=== PATIENT | male | born 1955 | race Caucasian/White ===

== ENCOUNTER 2024-01-17 15:12 | Inpatient (IN) | payer MEDICAID, SELFPAY ==
[2024-01-17] VITALS (7 sets, daily range): BP systolic 113–126; BP diastolic 74–89; PULSE 92–111; RESP 16–24; TEMP 34.7–37.2; O2SAT 88–98; BMI 19.1
--- NOTE | 2024-01-17 15:32 | XR_ITS ---
Examination: PA lateral chest 2 views TECHNIQUE: Upright PA lateral chest 2 views Exam date and time: January 17, 2024 1602 hours INDICATIONS: SOB beginning 2 weeks ago. FINDINGS: Bibasilar pneumonia, prominent in the right lower lobe Mild enlargement cardiac contour Moderate hyperexpansion Intact osseous structures IMPRESSION: COPD Bibasilar pneumonia, significant right base
--- NOTE | 2024-01-17 15:32 | EKG_ITS ---
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[employer]: : 1955 Requested By: Hao Chapin (KRYSTINA) Order Number: [id number] Reading MD: Hao Chapin (LABOR COMMISSIONER) Measurements Intervals [place] Rate: 95 P: 78 [place]: 151 QRS: 97 QRSD: 110 T: 54 QT: 358 QTc: 450 Interpretive Statements SINUS RHYTHM WITH OCCASIONAL VENTRICULAR PREMATURE COMPLEXES LEFT ATRIAL ENLARGEMENT [-0.15mV P WAVE IN V1/V2] BORDERLINE RIGHT AXIS DEVIATION [QRS AXIS > 90] ST ELEVATION, CONSIDER ANTERIOR INJURY [MARKED ST ELEVATION W/O NORMALLY INFLECTED T WAVE IN V2-V5] ACUTE [place] No previous ECG available for comparison /store/S0/[id number]/ecg/[id number].pdf
--- NOTE | 2024-01-17 15:32 | PD.EDRME ---
Rapid Medical Screening Exam RME Arrival date/time: 01/17/24 15:12 68-year-old male presents emergency department complaints of shortness of breath ongoing for last couple of weeks Chief Complaint: Shortness of Breath/Dyspnea Time Seen by Provider: 01/17/24 15:24 Vital signs: Vital Signs Temperature 97.4 F 01/17/24 15:30 Pulse Rate 111 H 01/17/24 15:30 Respiratory Rate 20 01/17/24 15:30 Blood Pressure 122/77 01/17/24 15:30 Pulse Oximetry (%) 94 L 01/17/24 15:30 Oxygen Delivery Method Room Air 01/17/24 15:30
[2024-01-17 16:08] LABS: Basophils % (Auto) 0 % (0-2.5); Eosinophils # (Auto) 0.1 Thou/mm3 (0.0-0.5); Eosinophils % (Auto) 1 % (0-10); Hematocrit 42.5 % (41.0-53.0); Hemoglobin 14.2 g/dL (13.5-16.0); Immature Granulocytes % (Auto) 1 % (0-0); Immature Granulocytes Auto 0.04 Thou/mm3 (0.00-0.00); Lymphocytes # (Auto) 2.1 Thou/mm3 (1.0-4.8); Lymphocytes % (Auto) 24 % (10-50); Mean Corpuscular HGB Conc 33.4 g/dl (31.0-37.0); Mean Corpuscular Hemoglobin 29.8 pg (25.0-35.0); Mean Corpuscular Volume 89 fL (80-100); Monocytes # (Auto) 0.8 Thou/mm3 (0.0-0.8); Monocytes % (Auto) 9 % (0-12); Neutrophils # (Auto) 5.7 Thou/mm3 (1.8-7.7); Neutrophils % (Auto) 65 % (37-80); Nucleated Red Blood Cell % 0 /100 WBC (0); Platelet Count 400 Thou/mm3 (140-440); RDW Standard Deviation 43.8 fL (35.1-43.9); Red Blood Count 4.76 Miln/mm3 (4.50-5.90); White Blood Count 8.7 Thou/mm3 (3.8-10.6)
[2024-01-17 16:45] LABS: Alanine Aminotransferase 23 U/L (10-49); Albumin, Serum 4.1 gm/dL (3.4-4.8); Albumin/Globulin Ratio 1.3 (1.2-2.2); Alkaline Phosphatase 106 U/L (46-116); Anion Gap 11 (7-16); Aspartate Amino Transferase 29 U/L (0-34); BUN/Creatinine Ratio 16 Ratio (12-20); Bilirubin,Total 0.4 mg/dL (0.3-1.2); Blood Urea Nitrogen 34 mg/dL (9-23); Calcium 9.7 mg/dL (8.3-10.6); Calcium (Corrected) 9.7 mg/dL (8.5-10.1); Chloride 106 mMol/L (98-107); Creatinine (Component) 2.1 mg/dL (0.6-1.3); Estimated Creatinine Clearance 30.8 mL/min (>60); Globulin 3.1 gm/dL (2.3-3.5); Glucose 137 mg/dL (74-106); Osmolality,Calculated 285 (275-295); Potassium 4.8 mMol/L (3.4-5.1); Sodium 138 mMol/L (136-145); Total Protein 7.2 gm/dL (5.7-8.2); eGFR 33 See Note
[2024-01-17 16:46] LABS: B-Type Natriuretic Peptide 2280 pg/mL (0-100)
[2024-01-17 16:48] LABS: Troponin I 1.171 ng/mL (0.0-0.045)
[2024-01-17] MEDS: cefTRIAXone/D5w 1gm IV premix 50 ML IV (17:35)
[2024-01-17] MEDS: DOXYCYCLINE 100 MG TABLET PO (17:35)
--- NOTE | 2024-01-17 17:40 | EDNOTE_ITS ---
ED General RME/HPI General Chief complaint: Shortness of Breath/Dyspnea Stated complaint: sob Time Seen by Provider: 01/17/24 15:24 Arrival date/time: 01/17/24 15:12 RME / HPI RME / HPI narrative: 01/17/24 15:12 RME: 68-year-old male presents emergency department complaints of shortness of breath ongoing for last couple of weeks ELENI HPI: 68 y/o male otherwise healthy who presents to the emergency department 2 weeks of worsening dyspnea on exertion. He denies fevers, chills, sweats. He denies cough or sick contacts. He denies chest pain. He notes decreased appetite and decreased fluid intake for the last 2 weeks as well. He denies abdominal pain, nausea, vomiting, or diarrhea. He has not seen his primary care provider and actually comes in today more at the urging of his brother. Related Data Home Medications ?Medication ?Instructions ?Recorded ?Confirmed No Known Home Medications 03/15/18 03/15/18 Allergies Allergy/AdvReac Type Severity Reaction Status Date / Time No Known Allergies Allergy Verified 01/17/24 15:13 Review of Systems Review of Systems Systems Reviewed: All systems reviewed, normal except as documented ED Exam Narrative Physical exam: GENERAL APPEARANCE: AxOx4, thin, nontoxic, no acute distress, no increased work of breathing, unkept HEENT: NC, AT. MMM. EOMI, clear conjunctiva, oropharynx clear. NECK: Supple without lymphadenopathy. No stiffness or restricted ROM. HEART: Normal rate and regular rhythm, normal S1/S1, no m/r/g LUNGS: CTAB, moving air well. No crackles or wheezes are heard. ABDOMEN: Soft, nontender, nondistended with good bowel sounds heard. BACK: No midline C/T/L spine pain or deformity, No CVAT, no obvious deformity. EXTREMITIES: Without cyanosis, clubbing or edema. MUSCULOSKELETAL: FROM of all major joints, no chest tenderness NEUROLOGICAL: Grossly nonfocal. Alert and oriented, moving all 4 extremities. CN not formally tested but appear grossly intact. Observed to ambulate with normal gait. Skin: Warm and dry without any rash. Course Quality Measures none Orders Category Date Time Status Bedside COVID-19 Antigen Test NOW Care 01/17/24 17:00 Active Bedside Influenza A&B Antigen Test NOW Care 01/17/24 17:00 Active EKG (ED ONLY) *Do not use* NOW Care 01/17/24 15:32 Completed EKG (ED Only) Stat Exams 01/17/24 15:32 Draft XR chest 2V Stat Exams 01/17/24 15:32 Completed BNP [B-Type Natriuretic Peptide] Stat Lab 01/17/24 15:48 Completed Blood Culture (Lab) Stat Lab 01/17/24 16:59 Ordered CBC Stat Lab 01/17/24 15:48 Completed Comprehensive Metabolic Panel Stat Lab 01/17/24 15:48 Completed Lactate (Lactic Acid) Stat Lab 01/17/24 16:59 Ordered Procalcitonin Stat Lab 01/17/24 17:00 Ordered Troponin I Stat Lab 01/17/24 15:48 Completed Doxycycline [Vibramycin] Med 01/17/24 16:59 Discontinued 100 mg PO X1 ONE cefTRIAXone/D5w 1gm IV premix [Rocephin/D5w 1gm IV Med 01/17/24 16:59 Discontinued premix] 50 ml IV X1 Vital Signs Vital signs: Vital Signs Temperature 97.4 F 01/17/24 15:30 Pulse Rate 111 H 01/17/24 15:30 Respiratory Rate 20 01/17/24 15:30 Blood Pressure 122/77 01/17/24 15:30 Pulse Oximetry (%) 94 L 01/17/24 15:30 Oxygen Delivery Method Room Air 01/17/24 15:30 SpO2 94% on room air, patient is mildly hypoxic Procedures -ED EKG Interpretation #1: Date of EK01/17/24 Time of EK:39 Rate: 95 Interpretation: Interpreted by me EKG Impression: Normal sinus rhythm, Normal intervals, Normal axis and Non-specific ST-T Additional EKG comment: ST elevations in the anterior lateral leads consistent with J-point elevation MDM Patient data External records reviewed:: [facility] previous records (No recent visits to [facility] Clinical information provided by:: patient Social determinants that could affect healthcare access:: none Patient has the following chronic illnesses:: None How is presenting disease/condition affected by chronic disease/condition?: no chronic disease Evaluation data The following diagnostics were reviewed and interpreted by me:: lab results, radiology exam(s) and EKG tracing(s) Lab and/or radiology exams considered but not ordered:: None Interpretation Summary: As per narrative Medications Medications considered but not ordered:: None Medication administrations:: Medication Administration History Discontinued Medications Doxycycline Hyclate (Doxycycline 100 Mg Tablet) 100 mg PO X1 ONE Stop: 01/17/24 17:00 Last Admin: 01/17/24 17:35 Dose: 100 mg Documented By: ALISTAIR Ceftriaxone Sodium/Dextrose (Rocephin/D5w 1gm Iv Premix) 50 mls @ 100 mls/hr IV X1 ONE Stop: 01/17/24 17:28 Last Admin: 01/17/24 17:35 Dose: 100 mls/hr Documented By: ALISTAIR Above Consultations Consultation(s) initiated? (list below): No Diagnosis Differential Diagnosis ED Complaint MDM: Pneumonia, CHF exacerbation, acute WI, ACS, dehydration Most likely diagnosis given after review of the tests above:: See below Admission Indicated Admission indicated?: indicated Explain why admission is indicated or not indicated:: As per narrative Admission Request Was there a request for admission?: Yes Admission Attestation Admission request attestation: Discussed case with [Dr. Alva] from Hospitalist service regarding admission. Discussed patients ED course, exam findings, labs, and radiology results. The Hospitalist [agrees] to accept the patient for admission. Disposition Plan Disposition Plan: Admit Medical Decision Making MDM Narrative MDM Narrative: Mr. Peñaloza is clinically nontoxic-appearing gentleman however workup here for his shortness of breath tells a slightly different story. Chest x-ray is very convincing for a rather large well-organized pneumonia in the right lower lobe. He is hypothermic and tachycardic here which would be consistent with sepsis. Blood cultures have been sent and he is started on antibiotics for community- acquired pneumonia, ceftriaxone and doxycycline. Laboratory testing is also significant for normal white blood cell count, however he does have an elevated BNP in 1999 and a troponin of 1.1. These are in the setting of a markedly elevated creatinine at 2.6 with a normal bicarbonate and normal potassium (he does not require emergent dialysis). I suspect the elevated BNP and troponin are likely secondary to his renal failure, as he does not have symptoms consistent with a cardiac event such as chest pain, orthopnea, or PND. He has no lower extremity edema. However these would be suggestive of a relatively large infectious burden and it would be beneficial to treat with IV antibiotics as an inpatient while further cardiopulmonary monitoring/workup is in place. Case was discussed with the hospitalist service and they agreed to admit Differential Diagnosis Differential Diagnosis: Pneumonia, CHF exacerbation, acute WI, ACS, dehydration Lab Data 01/17/24 15:48 01/17/24 15:48 Labs: Lab Results 01/17/24 Range/Units 15:48 WBC 8.7 (3.8-10.6) Thou/mm3 RBC 4.76 (4.50-5.90) Miln/mm3 Hgb 14.2 (13.5-16.0) g/dL Hct 42.5 (41.0-53.0) % MCV 89 (80-100) fL MCH 29.8 (25.0-35.0) pg MCHC 33.4 (31.0-37.0) g/dl RDW Std Deviation 43.8 (35.1-43.9) fL Plt Count 400 (140-440) Thou/mm3 Neut % (Auto) 65 (37-80) % Lymph % (Auto) 24 (10-50) % Gilliam % (Auto) 9 (0-12) % Eos % (Auto) 1 (0-10) % Baso % (Auto) 0 (0-2.5) % Neut # (Auto) 5.7 (1.8-7.7) Thou/mm3 Lymph # (Auto) 2.1 (1.0-4.8) Thou/mm3 Gilliam # (Auto) 0.8 (0.0-0.8) Thou/mm3 Eos # (Auto) 0.1 (0.0-0.5) Thou/mm3 Baso # (Auto) 0.0 (0.0-0.2) Thou/mm3 Immature Gran # (Auto) 0.04 H (0.00-0.00) Thou/mm3 Absolute Nucleated RBC 0.00 (0.00-0.00) Thou/mm3 Immature Gran % 1 H (0-0) % Nucleated RBC % 0 (0) /100 WBC Sodium 138 (136-145) mMol/L Potassium 4.8 (3.4-5.1) mMol/L Chloride 106 (98-107) mMol/L Carbon Dioxide 21.0 (20.0-31.0) mMol/L Anion Gap 11 (7-16) BUN 34 H (9-23) mg/dL Creatinine 2.1 H (0.6-1.3) mg/dL Estim Creat Clear Calc 30.8 L (>60) mL/min eGFR 33 L (60 - ) See Note BUN/Creatinine Ratio 16 (12-20) Ratio Glucose 137 H (74-106) mg/dL Calculated Osmolality 285 (275-295) Calcium 9.7 (8.3-10.6) mg/dL Corrected Calcium 9.7 (8.5-10.1) mg/dL Total Bilirubin 0.4 (0.3-1.2) mg/dL AST 29 (0-34) U/L ALT 23 (10-49) U/L Alkaline Phosphatase 106 (46-116) U/L Troponin I 1.171 H* (0.0-0.045) ng/mL B-Natriuretic Peptide 2280 H* (0-100) pg/mL Total Protein 7.2 (5.7-8.2) gm/dL Albumin 4.1 (3.4-4.8) gm/dL Globulin 3.1 (2.3-3.5) gm/dL Albumin/Globulin Ratio 1.3 (1.2-2.2) Critical Care Time Critical Care Time Critical Care Time: Yes Total Critical Care Time (min.): 35 Attestation: Excluding billable procedures for the rapid response, analysis, management, treatment, and documentation to vent the very possible risk of cardiopulmonary decompensation or Discharge Plan Plan Patient Disposition: Admit Acute Care w/in Hospital Prescriptions/Referrals Prescriptions/Med Rec: No Action No Known Home Medications Referrals: No Primary/Family,Physician [Primary Care Provider] - In 1 week Problem List Clinical Impression: Pneumonia, Acute kidney injury, Elevated troponin Patient/Caregiver Discharge Instructions Print Language: Maltese Stand Alone Forms: Gi Award Info., Patient Portal Info Letter
[2024-01-17 18:03] LABS: Lactate (Lactic Acid) 3.7 mMol/L (0.4-2.0)
[2024-01-17 18:35] LABS: Procalcitonin 0.15 ng/ml (0.0-0.49)
[2024-01-17] MEDS: Aspirin 325 MG TABLET PO (18:43)
--- NOTE | 2024-01-17 19:01 | PD.RESEVENT ---
Documentation for date of: 01/17/24 Event Note Event Note: Hospital team was called for evaluation and admission consideration for Mr. Peñaloza. Patient is a 68 year old male without pertinent medical history who presented to the ED with shortness of breath of ~3 weeks, was found to have evidence of bibasilar and significant right-sided PNA on CXR imaging in setting of tachycardia (HR 103), tachypnea (RR 22), and hypothermia (T 94.5F). Patient states symptoms started around 3 weeks ago, no prior episodes reported, and noted to worsen under physical exertion. There was no inciting factors or sick contacts reported. ROS was pertinent only for occasional chills, patient otherwise denies chest pain, fevers, coughs, vomiting, diarrhea, abdominal pain, orthopnea, hematuria, polyuria, dysuria, dizziness, headaches, or any numbness. Patient does endorse family history of heart failure and cancer in his father, who in his 80s, but no other family history is endorsed. Patient denies any recent colonoscopy, does endorse appendix removal roughly 40 years ago. Social history is pertinent for tobacco use <1 PPD for 40+ years, occasional alcohol use (wine), and no current illicit drug use (endorses marijuana and cocaine consumption years ago). 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 Lab work in the ED revealed elevated creatinine of 2.1, troponin of 1.171, and BNP 2280. EKG reveals minor ST elevations without reciprocal depressions, previous EKG on file is from 2019. Given concerns of the possible need of urgent catheterization, our team contacted on-call can filling and closing machine tender who advised repeat troponin, repeat EKG, and urine drug screen. Upon review of these labs, patient may or may not need transfer for urgent catheterization. If urgent cath is not deemed necessary, patient may be considered for admission by on-call hospitalist team. ED team and on-call nocturnal hospitalist team on 01/17/2024 have been made aware of case. Patient case discussed with attending physician Dr. Radha Alva, DO PGY-3
--- NOTE | 2024-01-17 19:52 | PC.NURSE ---
bear hugger turned off and removed at this time.
[2024-01-17 20:07] LABS: Troponin I 1.019 ng/mL (0.0-0.045)
--- NOTE | 2024-01-17 20:08 | PC.NURSE ---
Dr. Navarro at the bedside.
[2024-01-17 21:02] LABS: Reflex Lactate? Y
[2024-01-17 21:17] LABS: Lactic Acid, 3 HR 1.6 mMol/L (0.4-2.0)
--- NOTE | 2024-01-17 21:38 | ECHO_ITS ---
Transthoracic Echo Report Ht (in): 73 Wt (lb): 144 Exam Location: Portable Status: Emergency Cost Control Supervisor: Francia Yanes Indications: Procedure Performed: BP: 111 / 79 HR: 100 Rhythm: Atrial fibrillation Technical Quality: Fair MEASUREMENTS (Male / Female) Normal Values 2D ECHO LV Diastolic Diameter PLAX 5.9 cm 4.2 - 5.9 / 3.9 - 5.3 cm LV Systolic Diameter PLAX 5.4 cm IVS Diastolic Thickness 0.8 cm 0.6 - 1.0 / 0.6 - 0.9 cm LVPW Diastolic Thickness 1.1 cm 0.6 - 1.0 / 0.6 - 0.9 cm LV Relative Wall Thickness 0.3 LVOT Diameter 2.0 cm LA Volume Index 54.5 cm?/m? 16 - 28 cm?/m? Ascending Aorta Diameter 3.2 cm M-MODE Aortic Root Diameter MM 3.0 cm LA Systolic Diameter MM 4.8 cm LA Ao Ratio MM 1.6 MV E Point Septal Separation 2.0 cm AV Cusp Separation MM 1.8 cm DOPPLER AV Peak Velocity 77.5 cm/s AV Peak Gradient 2.4 mmHg AV Mean Gradient 1.0 mmHg AV Velocity Time Integral 7.5 cm LVOT Peak Velocity 60.0 cm/s LVOT Peak Gradient 1.4 mmHg LVOT Velocity Time Integral 8.7 cm LVOT Cardiac Index 1508.2 cm?/min?m? AV Area Cont Eq vti 3.7 cm? AV Area Cont Eq pk 2.4 cm? MV Peak Velocity 102.0 cm/s MV Peak Gradient 4.2 mmHg MV Mean Velocity 55.9 cm/s MV Mean Gradient 2.0 mmHg MV Area PHT 4.2 cm? MR Peak Velocity 301.0 cm/s MR Peak Gradient 36.2 mmHg Mitral E Point Velocity 107.0 cm/s Mitral A Point Velocity 1.6 cm/s Mitral E to A Ratio 65.2 LV E' Lateral Velocity 4.9 cm/s Mitral E to LV E' Lateral Ratio 21.8 LV E' Septal Velocity 2.5 cm/s Mitral E to LV E' Septal Ratio 42.8 TR Peak Velocity 255.3 cm/s TR Peak Gradient 26.1 mmHg FINDINGS Left Ventricle Dilated left ventricle. Severe systolic dysfunction. Severe global hypokinesis. The ejection fracti on is visually estimated at 10-15%. Right Ventricle The right ventricle is mildly dilated. Moderate systolic dysfunction. The estimated right ventricula r systolic pressure, 40 mmHg. RAP 15. Left Atrium The left atrium is moderately dilated. Right Atrium The right atrium is moderaetly dilated. Atrial Septum The interatrial septum appears normal with no evidence of a shunt. Aorta The aorta is normal by two-dimensional, color flow and Doppler interrogation. Mitral Valve The mitral valve is normal by two-dimensional, color flow and Doppler interrogation. There is modera te mitral valve regurgitation. Aortic Valve The aortic valve is trileaflet. Mild sclerosis without stenosis. There is no significant aortic valv e regurgitation. Tricuspid Valve The tricuspid valve is normal by two-dimensional, color flow and Doppler interrogation. There is mil d tricuspid valve regurgitation. Pulmonic Valve There is mild pulmonic valve regurgitation. Vessels The pulmonary artery appears normal. The inferior vena cava pulmonary and hepatic veins appear dilat ed. Pericardium The pericardium is normal by two-dimensional imaging. There is no significant pericardial effusion. Other Findings Pleural effusion present. CONCLUSIONS Indication: Elevated trop / NSTEMI, Abnormal EKG Dilated cardiomyopathy - Mild to moderately dilated LV and RV. Moderate biatrial dilatation. Severe LV systolic dysfunction. Severe global hypokinesis. Estimated EF around 10% Diastolic dysfunction present but cannot be graded due to Afib. Moderate RV dysfunction. Estimated RVSP 40 mmHg. Moderate MR. Mild TR,PI. Mild AV sclerosis without stenosis, IVC dilated and pleural effusion present. Reynaldo Jha (Electronically Signed) Final Date: 18 January 2024 11:14
--- NOTE | 2024-01-17 21:48 | PD.RESHP ---
Documentation for date of: 01/17/24 [facility] History of Present Illness History of present illness: Patient is a 68-year-old male past medical history presented to ED with chief complaints of shortness of breath that is progressively getting worse over the last 3 weeks. Patient stated that symptoms started 3 weeks ago, no prior episodes reported, also patient was complaining of dyspnea on exertion, generalized weakness. Patient stated that he knew that he has a pneumonia and for that he was taking medication [id number] which was not helping with his symptoms. Symptoms also was associated with occasional chills, otherwise patient denies any inciting factors or sick contacts, denies any chest pain, fever, cough, vomiting, diarrhea, abdominal pain, orthopnea, dysuria, dizziness, headache or any other associated symptoms. On presentation patient was found to be tachycardic with heart rate of 103, tachypneic with respiratory rate of 22, hypothermia with temperature of 94.5. Chest x-ray revealed right-sided PNA. CBC was not significant, CMP revealed MARIANO with BUN of 34, creatinine is 2.1, EGFR 33, lactic acid was 3.7, troponin was elevated 1.171, BNP was 2280, Pro-Iglesia was negative. Patient met SIRS criteria, hypotermia, tachicardia, tachipnia lactic acidosis with a source of infection. ED course: EKG revealed minor ST elevation without reciprocal depressions, previous EKG on file is from 2019. Given the concerns of possible need for urgent catheterization, on-call cardiology was consulted who advised repeat troponin, repeat EKG and have a U tox check. And upon review of these labs, patient disposition would be decided. If urgent cath is not deemed necessary, patient may be considered for admission. At 9:10 PM repeat troponin came back 1.019 down from 1.171, patient was still denying any chest pain, most likely patient is having troponinemia in a setting of demand ischemia. Cardiology was contacted again, since troponin is downtrending, and patient still not indorsing any chest pain, discomfort , decision was made to patient for sepsis secondary due to pneumonia versus CHF exacerbation,MARIANO as well as demand ischemia treatment and management. 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 Family history: is positive for heart failure and cancer Review of Systems Review of Systems Systems Reviewed: All systems reviewed, normal except as documented Exam Vital Signs Temp Pulse Resp BP Pulse Ox O2 Del Method O2 Flow Rate 99.0 F 95 20 126/89 H 94 L Nasal Cannula 2 01/17/24 20:03 01/17/24 20:03 01/17/24 20:03 01/17/24 20:03 01/17/24 20:03 01/17/24 20:03 01/17/24 20:03 Narrative Exam GENERAL: no acute distress, AAO x3, malnourished HEENT: Head AT/ NC. Mucous membranes moist. PERRL. NECK: Supple, no lymphadenopathy, no carotid bruits. CARDIOVASCULAR: RRR. Normal S1/S2, No m/r/g. No pitting edema of bilateral LEs. RESPIRATORY: CTAB. No wheezing, rhonchi, crackles. GASTROINTESTINAL: Abdomen soft, non tender no palpable masses. Bowel sounds present in all 4 quadrants. MUSCULOSKELETAL:? No cyanosis or edema, no visible joint swelling. NEUROLOGICAL: CN II-XII grossly intact. No focal deficits. Sensation intact, symmetric. PSYCHIATRIC: Awake and alert, not agitated, normal mood and affect. INTEGUMENTARY: No obvious rashes, no jaundice, normal turgor. Results: Labs 01/18/24 04:51 01/18/24 04:51 Labs: Short CBC 01/17/24 Range/Units 15:48 WBC 8.7 (3.8-10.6) Thou/mm3 Hgb 14.2 (13.5-16.0) g/dL Hct 42.5 (41.0-53.0) % Plt Count 400 (140-440) Thou/mm3 BMP 01/17/24 15:48 Sodium 138 Potassium 4.8 Chloride 106 Carbon Dioxide 21.0 BUN 34 H Creatinine 2.1 H Glucose 137 H Calcium 9.7 Cardiac Enzymes 01/17/24 01/17/24 Range/Units 15:48 19:27 Troponin I 1.171 H* 1.019 H* (0.0-0.045) ng/mL Liver Function 01/17/24 Range/Units 15:48 Total Bilirubin 0.4 (0.3-1.2) mg/dL AST 29 (0-34) U/L ALT 23 (10-49) U/L Alkaline Phosphatase 106 (46-116) U/L Albumin 4.1 (3.4-4.8) gm/dL Quality Measures Quality Measures none Advance care planning discussed with:: patient Medications Home Medications and Allergies Home Medications ?Medication ?Instructions ?Recorded ?Confirmed ?Type No Known Home Medications 03/15/18 03/15/18 History Allergies Allergy/AdvReac Type Severity Reaction Status Date / Time No Known Allergies Allergy Verified 01/17/24 15:13 Visit Medications Acetaminophen (Acetaminophen 325 Mg Tablet) 650 mg PO Q6H PRN PRN Reason: PAIN OR FEVER > 101 Stop: 02/16/24 21:37 Aspirin (Aspirin Ec 81 Mg Tabec) 81 mg PO QDAY [facility] Stop: 02/17/24 08:59 Atorvastatin Calcium (Atorvastatin Calcium 20 Mg Tablet) 40 mg PO HS VINCE Stop: 02/17/24 20:59 Heparin Sodium (Porcine) (Heparin Sod Inj 5000 Unit/Ml Vial) 5,000 unit SC Q8HR VINCE Stop: 01/31/24 21:59 Ceftriaxone Sodium/Dextrose (Rocephin/D5w 1gm Iv Premix) 50 mls @ 100 mls/hr IV QDAY VINCE Stop: 01/25/24 08:59 Doxycycline Hyclate 100 mg/ (Sodium Chloride) 100 mls @ 100 mls/hr IV BID VINCE Stop: 01/25/24 08:59 Ondansetron HCl (Ondansetron Inj 2 Mg/Ml Inj 2 Ml) 4 mg IV Q6H PRN; Protocol PRN Reason: NAUSEA OR VOMITING Stop: 02/16/24 21:37 Pantoprazole Sodium (Pantoprazole 40 Mg Tablet) 40 mg PO QDAY VINCE Stop: 02/17/24 08:59 Sennosides (Senna Tablet) 1 tab PO QDAY VINCE; Protocol Stop: 02/17/24 08:59 Discontinued Medications Aspirin (Aspirin 325 Mg Tablet) 325 mg PO X1 ONE Stop: 01/17/24 18:14 Last Admin: 01/17/24 18:43 Dose: 325 mg Doxycycline Hyclate (Doxycycline 100 Mg Tablet) 100 mg PO X1 ONE Stop: 01/17/24 17:00 Last Admin: 01/17/24 17:35 Dose: 100 mg Furosemide (Furosemide Inj 10 Mg/Ml Vial 2 Ml) 20 mg IVP X1 ONE Stop: 01/17/24 21:39 Ceftriaxone Sodium/Dextrose (Rocephin/D5w 1gm Iv Premix) 50 mls @ 100 mls/hr IV X1 ONE Stop: 01/17/24 17:28 Last Infusion: 01/17/24 18:10 Dose: Infused Sodium Chloride (Sodium Chloride Rt 10% 15 Ml Nebu) 5 ml INH X1 ONE Stop: 01/17/24 21:39 Assessment & Plan Plan 68-year-old male without past medical history was admitted for sepsis 2/2 PNA , acute hypoxic respiratory failure secondary due to CHF exacerbation versus pneumonia,,MARIANO as well as demand ischemia treatment and management. #sepsis 2/2PNA #AHRF 2/2PNA vs CHF exacerbation Patient with SIRS criteria, hypothermia, tachycardia, lactic acid elevated, chest x-ray positive for PNA, Pro-Iglesia negative Patient oxygenation demand increased, patient was placed on nasal cannula 2 to 3 L and saturating 94 to 96% Chest x-ray was positive for pneumonia, patient is complaining of intermittent chills, generalized weakness, mild cough Physical exam is negative for any lower extremity edema or crackles on auscultation BNP is elevated 2280 -Admit to telemetry -Close observation -Will defer fluid resuscitation per sepsis protocol given the elevated BNP and hypoxia -Rocephin daily start date 01/16 -Doxycycline twice daily start date 01/16(initial EKG showed mild QT prolongation) -Follow-up with blood cultures/urine cultures/sputum culture -Will give small dose of Lasix due to elevated BNP and cxr findings -Strict CEZAR's -Daily weight -Fluid restriction -Oxygen as needed -Reassess tomorrow #Elevated troponin Initial EKG revealed ST elevation without reciprocal changes, however we do not have recent EKGs to compare with, patient denies any chest pain, abdominal pain, any nausea or vomiting, or any other associated symptoms EKG findings could be from previous STEMI and/or left ventricular aneurism. Troponin down trended from 1.171-1.019 Cardiology was consulted, decision was made to admit the patient for further workup, patient do not need emergent catheterization at this point -Admit to telemetry close monitor for -Repeat EKG is pending -ASA 81 -atorvastatin 40 HS -hep drip -NPO, untill cardio evaluate the patient -Echo was ordered -Cardiology is on board, recommendations appreciated #New onset Afib -recieved dilt 10x1, dilt 15x1 -hep drip -we will reassess the patient -start metoprolol 25 BID #MARIANO vs MARIANO on CKD vs CKD Unknown creatinine baseline Today CMP revealed creatinine of 2.1, BUN is 24, EGFR of 33 -Holding fluids in the setting of possible CHF exacerbation -Avoid nephrotoxic agents -Renally dose medications -Monitor renal function -Consider renal ultrasound #UTI -continue abx -follow UC #Metamphetamin use -he denies -utox+ -consider SS consult Disposition:telemetry DVT prophylaxis: heparin GI prophylaxis: PPI Diet: cardiac Lines: PIV CODE STATUS:Full code Patient care was discussed with attending physician Dr. Ramon Gar MD PGY-2 I have carefully reviewed this document. Due to imperfections in the voice software, there could be grammatical errors including phonetic/typographic errors. This in no way compromises the medical care the patient is receiving Attending Provider Attestation/Addendum I reviewed labs, imaging, EKG, home medications and prior available records. Face to face evaluation was performed by me. I have personally examined the patient and discussed assessment and plan with the IM team. I reviewed the resident note and agree with the plan with exceptions as below. 68-year-old male with no pertinent past medical history who presented with shortness of breath for 2 weeks. He was found to have non-STEMI and significant right-sided pneumonia. Non-STEMI: Patient has significant troponin elevation at 1.17 which peaked. EKG did show ST elevation in anterior leads however patient was hemodynamically stable. Consulted cardiology: Recommended no emergent cardiac catheterization but admission to telemetry for medical management. Will start aspirin and high-dose atorvastatin. Cardiology consulted. Echocardiogram ordered. Right lower lobe pneumonia: Will start the patient on ceftriaxone and azithromycin. Oxygen as needed. Possible CHF: No prior history of CHF. Will start gentle IV diuresis and monitor I's and O's. Ordered echocardiogram. Cardiology consulted.
--- NOTE | 2024-01-17 21:53 | PC.NURSE ---
SC[employer] MECH[employer]IC completed EKG and impression reads ST elevation and acute [place] . Dr. Navarro called and informed, no new orders at this time besides what he has already ordered. I Had ED MD Dr. Guevara look over EKG as well and does not agree that this is an acute [place].
[2024-01-17] MEDS: FUROSEMIDE INJ 10 MG/ML VIAL 2 ML 20 MG IVP (22:03)
[2024-01-17] MEDS: HEPARIN SOD INJ 5000 UNIT/ML VIAL SC (22:03)
--- NOTE | 2024-01-17 22:49 | PC.RT ---
Sputum culture collected and sent to lab at this time.
[2024-01-17 23:14] LABS: Collection Type, Urine Clean Catch; Squamous Epithelial Cell,Urine 0 /hpf (0-5)
[2024-01-17 23:24] LABS: Bacteria,Urine 4+; Bilirubin,Urine Negative (Negative); Blood,Urine Trace (Negative); Clarity,Urine Turbid (Clear/Hazy); Color,Urine Yellow (Lt Yel-Yel); Glucose, Urine Negative (Negative); Hyaline Casts,Urine 1 /hpf (0-1); Ketones,Urine Negative (Negative); Leukocyte Esterase,Urine Positive (Negative); Nitrite,Urine Positive (Negative); PH,Urine 5.5 (5.0-7.0); Protein,Urine 1+ (Neg - Trace); RBC,Urine 2 /hpf (0-3); Specific Gravity,Urine 1.024 (1.001-1.035); Urobilinogen,Urine Negative mg/dL (0.0-1.0); WBC,Urine 33 /hpf (0-5)
[2024-01-17 23:49] LABS: Amphetamine/Methamp Scrn,U Positive (Negative); Barbiturate Screen,Urine Negative (Negative); Benzodiazepines Screen,Urine Negative (Negative); Benzoylecgonine Screen, Ur Negative (Negative); Fentanyl Screen,Urine Negative (Negative); Opiate Screen,Urine Negative (Negative); THC Screen,Urine Negative (Negative)
[2024-01-17 23:52] LABS: Troponin I 1.235 ng/mL (0.0-0.045)
[2024-01-18] VITALS (103 sets, daily range): BP systolic 29–125; BP diastolic 28–94; PULSE 66–155; RESP 4–44; TEMP 36.1–36.7; O2SAT 70–100
--- NOTE | 2024-01-18 01:08 | PC.NURSE ---
notified Dr Imer Sharma of HR sustaining in the 140s, patient is alert oriented, no complaints of chest discomfort, BP is 112/96. MD came to assess patient, new orders received.
--- NOTE | 2024-01-18 01:15 | EKG_ITS ---
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1955 Requested By: Shelli Gar Order Number: [id number] Reading MD: Shelli Gar Measurements Intervals [place] Rate: 120 P: NC: QRS: 92 QRSD: 96 T: -19 QT: 317 QTc: 448 Interpretive Statements ATRIAL FIBRILLATION WITH RAPID VENTRICULAR RESPONSE WITH ABERRANT CONDUCTION OR VENTRICULAR PREMATURE COMPLEXES BORDERLINE RIGHT AXIS DEVIATION ST ELEVATION, CONSIDER ANTEROLATERAL INJURY ACUTE HI Compared to ECG 01/17/2024 15:39:07 Aberrant conduction of supraventricular beat(s) now present Sinus rhythm no longer present Atrial abnormality no longer present ST (T wave) deviation still present Myocardial infarct finding still present /store/S0/[id number].pdf
--- NOTE | 2024-01-18 01:45 | EKG_ITS ---
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 : 1955 Requested By: Shelli Gar Order Number: [id number] Reading MD: Shelli Gar Measurements Intervals [place] Rate: 80 P: 67 AR: 158 QRS: 101 QRSD: 100 T: 85 QT: 394 QTc: 455 Interpretive Statements SINUS RHYTHM POSSIBLE LEFT ATRIAL ENLARGEMENT MARKED RIGHT AXIS DEVIATION ST ELEVATION, CONSIDER ANTERIOR INJURY ACUTE DE Compared to ECG 01/18/2024 02:06:26 Atrial fibrillation no longer present Ventricular premature complex(es) no longer present Aberrant conduction of supraventricular beat(s) no longer present ST (T wave) deviation still present Myocardial infarct finding still present /store/S0/[id number]/[id number].pdf
[2024-01-18 01:57] LABS: INR 1.3 (0.9-1.3); Partial Thromboplastin Time 28.6 Seconds (22.0-36.0); Prothrombin Time 13.5 Seconds (9.0-12.2)
[2024-01-18] MEDS: DILTIAZEM INJ 5 MG/ML VIAL 5 ML 10 MG IV (01:58)
[2024-01-18] MEDS: DILTIAZEM INJ 5 MG/ML VIAL 5 ML 15 MG IV (02:31)
[2024-01-18] MEDS: HEPARIN SOD INJ 5000 UNIT/ML VIAL 3950 UNIT IV (02:45)
[2024-01-18] MEDS: Heparin/D5w 25K 250 ML Ivpb 25,000 UNIT/250 ML BAG 7.871 UNIT IV (02:48)
[2024-01-18 05:47] LABS: Basophils % (Auto) 0 % (0-2.5); Eosinophils # (Auto) 0.1 Thou/mm3 (0.0-0.5); Eosinophils % (Auto) 1 % (0-10); Hematocrit 39.4 % (41.0-53.0); Hemoglobin 12.9 g/dL (13.5-16.0); Immature Granulocytes % (Auto) 0 % (0-0); Immature Granulocytes Auto 0.03 Thou/mm3 (0.00-0.00); Lymphocytes # (Auto) 2.2 Thou/mm3 (1.0-4.8); Lymphocytes % (Auto) 24 % (10-50); Mean Corpuscular HGB Conc 32.7 g/dl (31.0-37.0); Mean Corpuscular Hemoglobin 29.4 pg (25.0-35.0); Mean Corpuscular Volume 90 fL (80-100); Monocytes # (Auto) 0.7 Thou/mm3 (0.0-0.8); Monocytes % (Auto) 8 % (0-12); Neutrophils % (Auto) 66 % (37-80); Nucleated Red Blood Cell % 0 /100 WBC (0); Platelet Count 317 Thou/mm3 (140-440); RDW Standard Deviation 43.8 fL (35.1-43.9); Red Blood Count 4.39 Miln/mm3 (4.50-5.90); White Blood Count 9.1 Thou/mm3 (3.8-10.6)
[2024-01-18 06:07] LABS: INR 1.3 (0.9-1.3); Partial Thromboplastin Time 40.2 Seconds (22.0-36.0); Prothrombin Time 13.6 Seconds (9.0-12.2)
[2024-01-18 06:40] LABS: Alanine Aminotransferase 21 U/L (10-49); Albumin, Serum 3.7 gm/dL (3.4-4.8); Albumin/Globulin Ratio 1.3 (1.2-2.2); Alkaline Phosphatase 89 U/L (46-116); Anion Gap 11 (7-16); Aspartate Amino Transferase 19 U/L (0-34); BUN/Creatinine Ratio 18 Ratio (12-20); Bilirubin,Total 0.5 mg/dL (0.3-1.2); Blood Urea Nitrogen 36 mg/dL (9-23); Calcium 9.1 mg/dL (8.3-10.6); Calcium (Corrected) 9.3 mg/dL (8.5-10.1); Carbon Dioxide 21.9 mMol/L (20.0-31.0); Cardiac Risk Estimate 4.9 RATIO (4.0-6.7); Chloride 106 mMol/L (98-107); Cholesterol 117 mg/dL (132-200); Estimated Creatinine Clearance 31.2 mL/min (>60); Globulin 2.8 gm/dL (2.3-3.5); Glucose 91 mg/dL (74-106); HDL Cholesterol 24 mg/dL (40-60); LDL Cholesterol,Calculated 73 mg/dL (0-130); Osmolality,Calculated 285 (275-295); Potassium 4.3 mMol/L (3.4-5.1); Sodium 139 mMol/L (136-145); Thyroid Stimulating Hormone 1.85 uIU/mL (0.55-4.78); Total Protein 6.5 gm/dL (5.7-8.2); Triglycerides 100 mg/dL (30-150); eGFR 35 See Note
[2024-01-18 06:45] LABS: Troponin I 1.017 ng/mL (0.0-0.045)
[2024-01-18] MEDS: DOXYCYCLINE INJ 100 MG in SODIUM CHLORIDE 0.9% (P) 100 ML IV ×2 (09:07→21:46)
[2024-01-18] MEDS: ASPIRIN EC 81 MG TABEC PO (09:07)
[2024-01-18] MEDS: SENNA TABLET 1 TAB PO (09:08)
[2024-01-18] MEDS: METOPROLOL TARTRATE 25 MG TABLET PO ×2 (09:08→21:45)
[2024-01-18] MEDS: PANTOPRAZOLE 40 MG TABLET PO (09:08)
[2024-01-18 09:11] LABS: Partial Thromboplastin Time 30.5 Seconds (22.0-36.0)
--- NOTE | 2024-01-18 09:30 | PC.NURSE ---
@0915- Notified Dr. Díaz of pt with A-fib/RVR HR 130-140's and sustaining Pt with no c/o pain, BP 101/80 Also, Dr. Knott and Dr. Díaz made aware of pt with cr 2.0 and need MD clearance for Dr. Riggins to proceed. No new orders at this time.
[2024-01-18] MEDS: HEPARIN SOD INJ 5000 UNIT/ML VIAL 3800 UNIT IVP (09:35)
[2024-01-18] MEDS: FUROSEMIDE INJ 10 MG/ML 4ML VIAL 80 MG IVP (10:06)
--- NOTE | 2024-01-18 10:25 | PD.RESCONSUL ---
HPI Data of Consult Patient: new to practice Consult date: 01/18/24 Requesting Physician: Bandar Garcia DO Admitting Provider: Shelli Gar MD Attending Provider: Bandar Garcia DO Primary Care Provider: Physician No Primary/Family Consult Narrative Reason for consult: SOB History of present illness: HISTORY OF PRESENT ILLNESS : Patient is a 68-year-old male with no significant past medical history who presented to the ED with a chief complaint of shortness of breath. Patient stated that his shortness of breath has been present for the past 3 weeks gradually worsening and eventually yesterday he was convinced by his best friend to present to the ED. His shortness of breath was present at rest and made worse on minimal exertion and associated with generalized weakness. Patient stated that he has been having a nonproductive cough as well for the past couple of weeks and has been taking [id number] medication for his symptoms to no relief. Patient also states that he has been having intermittent palpitations for many years which occur both at rest and activity and sometimes lasts for days. Patient also endorses PND. Denies any chest pain/pressure, dizziness, presyncope/syncope, orthopnea and lower extremity swelling. Patient denies any nausea or vomiting, sick contacts, chills or fever. Patient has not seen a doctor for many years. ED course: Heart rate 103, RR 22, temperature 94.5 F. Chest x-ray showed right-sided consolidation. Labs significant for bun 34, CR 2.1, lactic acid 3.7, troponin 1.17 and BNP 2280. Initial EKG showed sinus rhythm with occasional PVCs, left atrial enlargement repeat EKG showed atrial fibrillation with RVR, rate 120. No acute ST changes Transthoracic echocardiogram completed on 01/16 findings include: Dilated cardiomyopathy - Mild to moderately dilated LV and RV. Moderate biatrial dilatation. Severe LV systolic dysfunction. Severe global hypokinesis. Estimated EF around 10% Diastolic dysfunction present but cannot be graded due to Afib. Moderate RV dysfunction. Estimated RVSP 40 mmHg. Moderate MR. Mild TR,PI. Mild AV sclerosis without stenosis, IVC dilated and pleural effusion present. During hospital course patient became hypoxic saturating in the 60s on nasal cannula. ICU was consulted and patient subsequently upgraded and switch to BiPAP and started on inotrope support with dobutamine and norepinephrine as he was hypotensive with MAP <65. Patient was admitted for acute respiratory failure with hypoxia secondary to community-acquired pneumonia and CHF exacerbation. Cardiology was consulted. HOME MEDICATIONS: NIL cc:: cc: Bandar Garcia, DO Review of Systems Review of Systems Narrative Review of Systems: GENERAL: Denies fever/chills or diaphoresis. HEENT: Denies headaches or visual changes. Denies discharge. Neuro: Denies unusual weakness or difficulty speaking. CARDIO: As above PULM: As above GI: Denies abdominal pain, N/V/C/D. Reports having BMs. URO: Denies buring/itching/pain/urinary changes. MSK/EXT/SKIN: Denies joint/skeletal/muschle pain, issues/changes in upper or lower extremities, itchiness, or superficial pain. PSYCH: Cooperative, pleasant mood & affect. The rest of the review of systems is otherwise negative. Past Medical History Past Medical History Comments [facility] COMMENT: Past medical history: ? Atrial fibrillation with RVR ? Chronic systolic heart failure [10%] ? Likely COPD ? Nicotine dependence ? 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 Active smoker ETHO use: Rarely campbell 1 drink Illicit drug use: Admitted to cocaine and Methamphetamine use in the past Social History Note: lives alone Family History: Cousin from an ID at 36 Exam Vital Signs Temp Pulse Resp BP Pulse Ox O2 Del Method O2 Flow Rate 97.9 F 124 H 22 H 91/74 95 Nasal Cannula 5 01/18/24 08:00 01/18/24 10:06 01/18/24 08:00 01/18/24 10:06 01/18/24 08:00 01/18/24 08:00 01/18/24 08:00 Narrative Exam Constitutional Alert, oriented x 3 and comfortable. Elderly male, cachectic, on O2 via NC HEENT Vision grossly intact. Patent nares. Trachea midline. Poor dentition, missing teeth Respiratory Chest normal on inspection, RIJ catheter, exit site clean and decreased breath sounds throughout lung chauhan b/l Cardiovascular S1 and S2 audible, RRR. No murmurs carotid bruit. JVD not assessed Abdominal Soft and non tender to palpation in all quadrants. BS + Genitourinary No bladder tenderness, no flank pain. Normal to palpation. Right femoral catheter, exit site clean Musculoskeletal Extremities tone within normal limits. No LE edema. Neurological CN II - XII grossly intact. Extremity motor and sensation grossly intact. Skin Warm, dry and intact. No apparent lesions. Psychiatric Patient has good affect, is cooperative Results Labs 01/19/24 05:20 01/20/24 00:57 Labs: Short CBC 01/17/24 01/18/24 Range/Units 15:48 04:51 WBC 8.7 9.1 (3.8-10.6) Thou/mm3 Hgb 14.2 12.9 L (13.5-16.0) g/dL Hct 42.5 39.4 L (41.0-53.0) % Plt Count 400 317 D (140-440) Thou/mm3 BMP 01/17/24 01/18/24 15:48 04:51 Sodium 138 139 Potassium 4.8 4.3 D Chloride 106 106 Carbon Dioxide 21.0 21.9 BUN 34 H 36 H Creatinine 2.1 H 2.0 H Glucose 137 H 91 Calcium 9.7 9.1 Cardiac Enzymes 01/17/24 01/17/24 01/17/24 Range/Units 15:48 19:27 22:49 Troponin I 1.171 H* 1.019 H* 1.235 H* D (0.0-0.045) ng/mL 01/18/24 01/18/24 Range/Units 01:30 04:51 Troponin I 1.230 H* 1.017 H* D (0.0-0.045) ng/mL Liver Function 01/17/24 01/18/24 Range/Units 15:48 04:51 Total Bilirubin 0.4 0.5 (0.3-1.2) mg/dL AST 29 19 (0-34) U/L ALT 23 21 (10-49) U/L Alkaline Phosphatase 106 89 (46-116) U/L Albumin 4.1 3.7 (3.4-4.8) gm/dL Urine 01/17/24 Range/Units 22:54 Urine Color Yellow (Lt Yel-Yel) Urine Clarity Turbid A (Clear/Hazy) Urine pH 5.5 (5.0-7.0) Ur Specific [place] 1.024 (1.001-1.035) Urine Protein 1+ A (Neg - Trace) Urine Glucose (UA) Negative (Negative) Quality Measures Quality Measures none Advance care planning discussed with:: patient Medications Home Medications and Allergies Home Medications ?Medication ?Instructions ?Recorded ?Confirmed ?Type No Known Home Medications 03/15/18 03/15/18 History Allergies Allergy/AdvReac Type Severity Reaction Status Date / Time No Known Allergies Allergy Verified 01/17/24 15:13 Visit Medications Acetaminophen (Acetaminophen 325 Mg Tablet) 650 mg PO Q6H PRN PRN Reason: PAIN OR FEVER > 101 Stop: 02/16/24 21:37 Aspirin (Aspirin Ec 81 Mg Tabec) 81 mg PO QDAY VINCE Stop: 02/17/24 08:59 Last Admin: 01/18/24 09:07 Dose: 81 mg Atorvastatin Calcium (Atorvastatin Calcium 20 Mg Tablet) 40 mg PO HS VINCE Stop: 02/17/24 20:59 Furosemide (Furosemide Inj 10 Mg/Ml 4ml Vial) 40 mg IVP TID VINCE Stop: 02/17/24 15:59 Ceftriaxone Sodium/Dextrose (Rocephin/D5w 1gm Iv Premix) 50 mls @ 100 mls/hr IV DAILY@2100 VINCE Stop: 01/25/24 20:59 Doxycycline Hyclate 100 mg/ (Sodium Chloride) 100 mls @ 100 mls/hr IV BID VINCE Stop: 01/25/24 08:59 Last Admin: 01/18/24 09:07 Dose: 100 mls/hr Heparin Sodium/Dextrose (Heparin In D5w Ivpb) 25,000 unit in 250 mls @ 7.871 mls/hr IV .Q24H VINCE; Protocol Stop: 02/01/24 02:29 Last Titration: 01/18/24 09:30 Dose: 16 units/kg/hr, 10.494 mls/hr Metoprolol Tartrate (Metoprolol Tartrate 25 Mg Tablet) 25 mg PO BID VINCE Stop: 02/17/24 08:59 Last Admin: 01/18/24 09:08 Dose: 25 mg Ondansetron HCl (Ondansetron Inj 2 Mg/Ml Inj 2 Ml) 4 mg IV Q6H PRN; Protocol PRN Reason: NAUSEA OR VOMITING Stop: 02/16/24 21:37 Pantoprazole Sodium (Pantoprazole 40 Mg Tablet) 40 mg PO QDAY [facility] Stop: 02/17/24 08:59 Last Admin: 01/18/24 09:08 Dose: 40 mg Sennosides (Senna Tablet) 1 tab PO QDAY [facility]; Protocol Stop: 02/17/24 08:59 Last Admin: 01/18/24 09:08 Dose: 1 tab Discontinued Medications Aspirin (Aspirin 325 Mg Tablet) 325 mg PO X1 ONE Stop: 01/17/24 18:14 Last Admin: 01/17/24 18:43 Dose: 325 mg Diltiazem HCl (Diltiazem Inj 5 Mg/Ml Vial 5 Ml) 10 mg IV X1 ONE Stop: 01/18/24 01:53 Last Admin: 01/18/24 01:58 Dose: 10 mg Diltiazem HCl (Diltiazem Inj 5 Mg/Ml Vial 5 Ml) 15 mg IV X1 ONE Stop: 01/18/24 02:25 Last Admin: 01/18/24 02:31 Dose: 15 mg Doxycycline Hyclate (Doxycycline 100 Mg Tablet) 100 mg PO X1 ONE Stop: 01/17/24 17:00 Last Admin: 01/17/24 17:35 Dose: 100 mg Furosemide (Furosemide Inj 10 Mg/Ml Vial 2 Ml) 20 mg IVP X1 ONE Stop: 01/17/24 21:39 Last Admin: 01/17/24 22:03 Dose: 20 mg Furosemide (Furosemide Inj 10 Mg/Ml 4ml Vial) 80 mg IVP X1 ONE Stop: 01/18/24 09:35 Last Admin: 01/18/24 10:06 Dose: 80 mg Heparin Sodium (Porcine) (Heparin Sod Inj 5000 Unit/Ml Vial) 5,000 unit SC Q8HR [facility] Stop: 01/31/24 21:59 Last Admin: 01/17/24 22:03 Dose: 5,000 unit Heparin Sodium (Porcine) (Heparin Sod Inj 5000 Unit/Ml Vial) 1,950 unit 30 unit/kg (1950 unit) IV X1 ONE; Protocol Stop: 01/18/24 01:29 Last Admin: 01/18/24 07:51 Dose: Not Given Heparin Sodium (Porcine) (Heparin Sod Inj 5000 Unit/Ml Vial) 3,950 unit 60 unit/kg (3950 unit) IV X1 ONE; Protocol Stop: 01/18/24 01:46 Last Admin: 01/18/24 02:45 Dose: 3,950 unit Heparin Sodium (Porcine) (Heparin Sod Inj 5000 Unit/Ml Vial) 3,800 unit IVP X1 ONE Stop: 01/18/24 09:26 Last Admin: 01/18/24 09:35 Dose: 3,800 unit Ceftriaxone Sodium/Dextrose (Rocephin/D5w 1gm Iv Premix) 50 mls @ 100 mls/hr IV X1 ONE Stop: 01/17/24 17:28 Last Infusion: 01/17/24 18:10 Dose: Infused Sodium Chloride (Sodium Chloride Rt 10% 15 Ml Nebu) 5 ml INH X1 ONE Stop: 01/17/24 21:39 Last Admin: 01/18/24 07:54 Dose: Not Given Assessment & Plan Plan Patient is a 68-year-old male with no significant past medical history who presented to the ED with a chief complaint of shortness of breath. Patient was admitted for acute respiratory failure with hypoxia secondary to community-acquired pneumonia and CHF exacerbation. Cardiology was consulted. 1. Acute hypoxic respiratory failure Secondary to 2. Acute decompensated systolic heart failure exacerbation [10%] 3. Cardiogenic shock 4. Dilated cardiomyopathy On admission patient has history of progressively worsening shortness of breath for the past 3 weeks. On exam patient is in mild distress on O2 via NC and breath sounds were decreased globally. No signs of lower extremity edema. Patient not previously diagnosed with heart failure in the past and not on any medication at home. On admission BNP 2864 NYHA Class IV Stage C Transthoracic echocardiogram completed on 01/16 findings include: Dilated cardiomyopathy - Mild to moderately dilated LV and RV. Moderate biatrial dilatation. Severe LV systolic dysfunction. Severe global hypokinesis. Estimated EF around 10% Diastolic dysfunction present but cannot be graded due to Afib. Moderate RV dysfunction. Estimated RVSP 40 mmHg. Moderate MR. Mild TR,PI. Mild AV sclerosis without stenosis, IVC dilated and pleural effusion present. Currently patient receiving IV diuresis with furosemide 40 Mg IV 3 times daily. Patient continues to be hypertensive with SBP's in the 80s?100s and patient currently on pressor support with dobutamine and norepinephrine. ICU was consulted and now admitted to the ICU Plan: ? Strict input output charting ? Daily weights ? 2 g salt restricted diet ? 1500 cc fluid restriction ? Recommend to continue diuresis with furosemide 40 Mg IV 3 times daily ?Recommend to continue blood pressure support with pressors as needed. ? Recommend to start patient on midodrine 10 Mg p.o. 3 times daily ? Patient counseled on methamphetamine, cocaine and all drug cessation. 5. Rule out ACS 6. NSTEMI -mostly type II secondary to supply/demand mismatch given the severe dilated cardiomyopathy Patient had progressive SOB for the past 3 weeks but denies any chest pain or pressure. Unlikely acute coronary syndrome and troponin elevation mostly secondary to supply/demand mismatch given severe dilated cardiomyopathy in the setting of significant drug abuse including methamphetamine and other drugs. Initial EKG showed sinus rhythm with occasional PVCs, left atrial enlargement repeat EKG showed atrial fibrillation with RVR, rate 120. No acute ST changes Troponin were elevated at 1.171 up trended to 1.235 and subsequently down trended to 0.98 Plan: ? Recommend heparin drip for 48 hours ? Recommend aspirin 81 Mg p.o. daily ? Recommend high intensity statin ? No need to further trend troponin -Continue medical management for now 7. A-fib with RVR?new onset Patient admitted to having intermittent palpitations for years with some episodes lasting for days before resolving. Initial EKG showed sinus rhythm with occasional PVCs, left atrial enlargement repeat EKG showed atrial fibrillation with RVR, rate 120. No acute ST changes. From telemetry review patient continues to be in A-fib with rates in the 60s?80s [id number] : 1 point ; 0.6 % stroke risk per year [age] Plan: ? Recommend amiodarone loading dose and infusion ? Recommend rate control with metoprolol XL 50 Mg p.o. daily - Patient is on Heparin drip for NSTEMI, can transition to eliquis after 48 hours ? Continue telemetry review ? Please maintain potassium greater than 4 and magnesium greater than 2 at all times to prevent any further arrhythmias 8. Community-acquired pneumonia Patient has shortness of breath for past 3 weeks as well as a nonproductive cough. Chest x-ray on admission was significant for right mid zone consolidation. Patient was started on ceftriaxone and doxycycline IV. Blood and sputum cultures are pending. Continue management as per primary team 9. MARIANO likely prerenal On admission patient's CR 2 currently up trended to 2.1. Unable to assess baseline as no previous records for comparison. Likely in the setting of cardiogenic shock and dehydration. 10. Likely COPD 11. Nicotine dependence 12. History of polysubstance abuse Patient has [id number] smoking history and now has shortness of breath for the past 3 weeks along with productive cough. Clinically he is cachectic and appears to have decreased breath sounds globally suggestive of COPD. Patient will need to be further worked up for the same Patient admitted to using methamphetamine and cocaine for many years as well with U tox being positive for methamphetamine on admission. Patient counseled extensively on drug cessation. Patient agreed Continue rest of management as per primary team. We are grateful to be able to participate in Mr. Peñaloza's care. Thank you for the consult Plan of care discussed with attending Windows Application Administrator, Dr Yudelka Pierce MD PGY 1 There is a high probability of sudden, clinically significant or life threatening deterioration in the patient condition which required the highest level of physician preparedness to intervene urgently. I have personally spent 65 minutes of critical care time, exclusive of time spent on any procedures, in evaluation and management of this critically ill patient. Attending Provider Attestation/Addendum I have personally seen and examined the patient separately on the above date of service and discussed the plan of care with the resident. I reviewed the resident Dr. Pierce consultation progress note and agree with the resident findings and plan in the note above and have also edited the documentation to reflect my findings and plan. Reynaldo Jha M.D. Interventional Cardiology
--- NOTE | 2024-01-18 10:30 | PC.NURSE ---
Pt with c/o of epigastric pain and SOB. O2 83% on 5LNC, pt placed on 15L oxymask. Pt with relief of pain and oxygen now 100% Oxygen titrated back to 5LNC, pt fatigued and with tachypnea still in A-fib/RVR as previously. notified of episode. No update on CTA clearance.
--- NOTE | 2024-01-18 10:49 | EKG_ITS ---
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: DEBRA : 1955 Requested By: Ganesh Hernandez Order Number: [id number] Reading MD: Ganesh Hernandez Measurements Intervals [place] Rate: 132 P: ND: QRS: 130 QRSD: 142 T: -72 QT: 330 QTc: 490 Interpretive Statements ATRIAL FLUTTER/TACHYCARDIA WITH RAPID VENTRICULAR RESPONSE WITH ABERRANT CONDUCTION OR VENTRICULAR PREMATURE COMPLEXES INDETERMINATE AXIS INTRAVENTRICULAR CONDUCTION DELAY Compared to ECG 01/18/2024 10:52:23 Ventricular premature complex(es) now present Aberrant conduction of supraventricular beat(s) now present Indeterminate axis now present Intraventricular conduction delay now present Sinus rhythm no longer present Right-axis deviation no longer present ST (T wave) deviation no longer present Myocardial infarct finding no longer present /store/S0/[id number]/ecg/[id number].pdf
--- NOTE | 2024-01-18 10:51 | PC.SS ---
Rapid response initiated due to the patient de-saturating to the 70's. Medical team assessing the patient.
[2024-01-18] MEDS: DOBUTamine/D5w 500 MG IVPB 500 MG/250 ML BAG IV (11:20)
[2024-01-18 11:22] LABS: Lactate (Lactic Acid) 3.6 mMol/L (0.4-2.0)
[2024-01-18 11:35] LABS: Base Excess -7 (-3-3); HCO3 13 mEq/L (20-26); Inspired Oxygen, FIO2 50 %; O2 Saturation 100 % (91-98); PCO2 17 mmHg (32.0-48.0); PO2 221 mmHg (83-108); pH, Arterial 7.51 (7.35-7.45)
[2024-01-18 11:37] LABS: Allen Test Performed/OK; Puncture Site Right Radial
[2024-01-18 11:45] LABS: B-Type Natriuretic Peptide 2864 pg/mL (0-100)
[2024-01-18] MEDS: Norepinephrine/NS 16mg/250ml 16 MG/250 ML BAG 2.967 MG IV (11:45)
--- NOTE | 2024-01-18 11:45 | PC.NURSE ---
@1045- NITROGLYCERIN DISTRIBUTOR called. Pt with 3rd episode of panic attack with c/o epigastric pain and SOB. Last episode pt O2 76% on and c/o of epigastric pain and unable to breath. 5L NC titrated to 15L oxy mask with O2 100% NITROGLYCERIN DISTRIBUTOR at bedside with new orders for LABS: LA, Troponins, BNP, ABG's; EKG; CXR. Pt transferred to ICU
[2024-01-18 11:52] LABS: Troponin I 1.089 ng/mL (0.0-0.045)
--- NOTE | 2024-01-18 13:08 | PD.RESHP ---
Documentation for date of: 01/18/24 Exam Vital Signs Temp Pulse Resp BP Pulse Ox O2 Del Method O2 Flow Rate 97.9 F 83 34 H 91/74 98 Nasal Cannula 5 01/18/24 08:00 01/18/24 11:20 01/18/24 11:20 01/18/24 10:06 01/18/24 11:20 01/18/24 08:00 01/18/24 08:00 FiO2 50 01/18/24 11:20 Results: Labs 01/18/24 04:51 01/18/24 04:51 Labs: Short CBC 01/17/24 01/18/24 Range/Units 15:48 04:51 WBC 8.7 9.1 (3.8-10.6) Thou/mm3 Hgb 14.2 12.9 L (13.5-16.0) g/dL Hct 42.5 39.4 L (41.0-53.0) % Plt Count 400 317 D (140-440) Thou/mm3 BMP 01/17/24 01/18/24 15:48 04:51 Sodium 138 139 Potassium 4.8 4.3 D Chloride 106 106 Carbon Dioxide 21.0 21.9 BUN 34 H 36 H Creatinine 2.1 H 2.0 H Glucose 137 H 91 Calcium 9.7 9.1 Cardiac Enzymes 01/17/24 01/17/24 01/17/24 Range/Units 15:48 19:27 22:49 Troponin I 1.171 H* 1.019 H* 1.235 H* D (0.0-0.045) ng/mL 01/18/24 01/18/24 01/18/24 Range/Units 01:30 04:51 11:03 Troponin I 1.230 H* 1.017 H* D 1.089 H* (0.0-0.045) ng/mL Liver Function 01/17/24 01/18/24 Range/Units 15:48 04:51 Total Bilirubin 0.4 0.5 (0.3-1.2) mg/dL AST 29 19 (0-34) U/L ALT 23 21 (10-49) U/L Alkaline Phosphatase 106 89 (46-116) U/L Albumin 4.1 3.7 (3.4-4.8) gm/dL Urine 01/17/24 Range/Units 22:54 Urine Color Yellow (Lt Yel-Yel) Urine Clarity Turbid A (Clear/Hazy) Urine pH 5.5 (5.0-7.0) Ur Specific [place] 1.024 (1.001-1.035) Urine Protein 1+ A (Neg - Trace) Urine Glucose (UA) Negative (Negative) ABG Interpretation ABG results: 01/18/24 11:29 ABG pH 7.51 H ABG pCO2 17 L* ABG pO2 221 H ABG HCO3 13 L ABG O2 Saturation 100 H ABG Base Excess -7 L Quality Measures Quality Measures none Medications Home Medications and Allergies Home Medications ?Medication ?Instructions ?Recorded ?Confirmed ?Type No Known Home Medications 03/15/18 03/15/18 History Allergies Allergy/AdvReac Type Severity Reaction Status Date / Time No Known Allergies Allergy Verified 01/17/24 15:13 Visit Medications Acetaminophen (Acetaminophen 325 Mg Tablet) 650 mg PO Q6H PRN PRN Reason: PAIN OR FEVER > 101 Stop: 02/16/24 21:37 Aspirin (Aspirin Ec 81 Mg Tabec) 81 mg PO QDAY VINCE Stop: 02/17/24 08:59 Last Admin: 01/18/24 09:07 Dose: 81 mg Atorvastatin Calcium (Atorvastatin Calcium 20 Mg Tablet) 40 mg PO HS VINCE Stop: 02/17/24 20:59 Furosemide (Furosemide Inj 10 Mg/Ml 4ml Vial) 40 mg IVP TID VINCE Stop: 02/17/24 15:59 Ceftriaxone Sodium/Dextrose (Rocephin/D5w 1gm Iv Premix) 50 mls @ 100 mls/hr IV DAILY@2100 VINCE Stop: 01/25/24 20:59 Doxycycline Hyclate 100 mg/ (Sodium Chloride) 100 mls @ 100 mls/hr IV BID VINCE Stop: 01/25/24 08:59 Last Admin: 01/18/24 09:07 Dose: 100 mls/hr Heparin Sodium/Dextrose (Heparin In D5w Ivpb) 25,000 unit in 250 mls @ 7.871 mls/hr IV .Q24H VINCE; Protocol Stop: 02/01/24 02:29 Last Titration: 01/18/24 09:30 Dose: 16 units/kg/hr, 10.494 mls/hr Dobutamine HCl/Dextrose (Dobutrex/D5w Ivpb) 500 mg in 250 mls @ 1.899 mls/hr IV .Q24H PRN; Protocol PRN Reason: PER PROTOCOL Stop: 02/17/24 11:07 Norepinephrine Bitartrate (Levophed In Ns 16mg/250ml) 16 mg in 250 mls @ 2.967 mls/hr IV .Q24H PRN; Protocol PRN Reason: PER protocol Stop: 02/17/24 11:07 Metoprolol Tartrate (Metoprolol Tartrate 25 Mg Tablet) 25 mg PO BID [facility] Stop: 02/17/24 08:59 Last Admin: 01/18/24 09:08 Dose: 25 mg Ondansetron HCl (Ondansetron Inj 2 Mg/Ml Inj 2 Ml) 4 mg IV Q6H PRN; Protocol PRN Reason: NAUSEA OR VOMITING Stop: 02/16/24 21:37 Pantoprazole Sodium (Pantoprazole 40 Mg Tablet) 40 mg PO QDAY [facility] Stop: 02/17/24 08:59 Last Admin: 01/18/24 09:08 Dose: 40 mg Sennosides (Senna Tablet) 1 tab PO QDAY [facility]; Protocol Stop: 02/17/24 08:59 Last Admin: 01/18/24 09:08 Dose: 1 tab Discontinued Medications Aspirin (Aspirin 325 Mg Tablet) 325 mg PO X1 ONE Stop: 01/17/24 18:14 Last Admin: 01/17/24 18:43 Dose: 325 mg Diltiazem HCl (Diltiazem Inj 5 Mg/Ml Vial 5 Ml) 10 mg IV X1 ONE Stop: 01/18/24 01:53 Last Admin: 01/18/24 01:58 Dose: 10 mg Diltiazem HCl (Diltiazem Inj 5 Mg/Ml Vial 5 Ml) 15 mg IV X1 ONE Stop: 01/18/24 02:25 Last Admin: 01/18/24 02:31 Dose: 15 mg Doxycycline Hyclate (Doxycycline 100 Mg Tablet) 100 mg PO X1 ONE Stop: 01/17/24 17:00 Last Admin: 01/17/24 17:35 Dose: 100 mg Furosemide (Furosemide Inj 10 Mg/Ml Vial 2 Ml) 20 mg IVP X1 ONE Stop: 01/17/24 21:39 Last Admin: 01/17/24 22:03 Dose: 20 mg Furosemide (Furosemide Inj 10 Mg/Ml 4ml Vial) 80 mg IVP X1 ONE Stop: 01/18/24 09:35 Last Admin: 01/18/24 10:06 Dose: 80 mg Heparin Sodium (Porcine) (Heparin Sod Inj 5000 Unit/Ml Vial) 5,000 unit SC Q8HR VINCE Stop: 01/31/24 21:59 Last Admin: 01/17/24 22:03 Dose: 5,000 unit Heparin Sodium (Porcine) (Heparin Sod Inj 5000 Unit/Ml Vial) 1,950 unit 30 unit/kg (1950 unit) IV X1 ONE; Protocol Stop: 01/18/24 01:29 Last Admin: 01/18/24 07:51 Dose: Not Given Heparin Sodium (Porcine) (Heparin Sod Inj 5000 Unit/Ml Vial) 3,950 unit 60 unit/kg (3950 unit) IV X1 ONE; Protocol Stop: 01/18/24 01:46 Last Admin: 01/18/24 02:45 Dose: 3,950 unit Heparin Sodium (Porcine) (Heparin Sod Inj 5000 Unit/Ml Vial) 3,800 unit IVP X1 ONE Stop: 01/18/24 09:26 Last Admin: 01/18/24 09:35 Dose: 3,800 unit Ceftriaxone Sodium/Dextrose (Rocephin/D5w 1gm Iv Premix) 50 mls @ 100 mls/hr IV X1 ONE Stop: 01/17/24 17:28 Last Infusion: 01/17/24 18:10 Dose: Infused Magnesium Sulfate (Magnesium Sulfate Ivpb) 2 gm in 50 mls @ 25 mls/hr IV X1 ONE Stop: 01/18/24 12:58 Norepinephrine Bitartrate (Levophed In Ns 16mg/250ml) 16 mg in 250 mls @ 2.967 mls/hr IV .Q24H PRN; Protocol PRN Reason: PER protocol Stop: 02/17/24 11:07 Sodium Chloride (Sodium Chloride Rt 10% 15 Ml Nebu) 5 ml INH X1 ONE Stop: 01/17/24 21:39 Last Admin: 01/18/24 07:54 Dose: Not Given
--- NOTE | 2024-01-18 13:08 | PD.RESPROC ---
Procedures Procedure Date / Time 01/18/24 1308 Procedure Narrative Procedure Narrative: Attending attestation: I was present for entire procedure. No immediate complications. Patient tolerated procedure well. No postprocedural pneumothorax on follow-up imaging. Central Line Placement Right IJ: Indication(s): shock Informed consent obtained: from patient Time out done, and the following verified: correct patient, side and site, procedure, patient position and implants and/or equipment Patient placed on monitor/pulse ox: Yes Hand Hygiene: alcohol-based hand rub Max Sterile Barrier Techniques used: cap, mask, sterile gown, sterile gloves and sterile full body drape Central line prep: Povidone-Iodine 1% and sterile drapes applied Local anesthesia used: lidocaine 1% Amount of anesthesia used (mL): 3 Ultrasound used for placement: Yes Sterile Technique if Ultrasound used, including sterile gel: yes Central line lumen inserted: triple Post procedure: sutured in place, good blood return, all ports aspirated, flushed, capped and sterile dressing applied Post procedure x-ray: tip of catheter in good position and no pneumothorax seen Patient tolerated procedure: well and no complications EBL(ml): 5 Complications: none Procedure comment: Procedure is done under supervision of attending measurement department chief clerk,Dr. Cruz. David Mtz, PGY1
--- NOTE | 2024-01-18 13:14 | XR_ITS ---
Examination: AP chest single view TECHNIQUE: AP portable upright chest single view Exam date and time: January 18, 2024 1321 hours Comparison January 17, 2024 FINDINGS: Interval right internal jugular central line tip SVC satisfactory position Again noted by physician pneumonia, significant right base Mild prominence left ventricle Moderate hyperexpansion IMPRESSION: Interval insertion right internal jugular central line, tip satisfactory position SVC, no pneumothorax
--- NOTE | 2024-01-18 14:08 | PD.RESEVENT ---
Documentation for date of: 01/18/24 Event Note Event Note: Rapid Response Room: 279 Time: 10:45 AM Reason for Call: SOB, anxiety, oxygen desaturating 70s on high flow oxy mask Patient presentation: At bedside patient was very anxious, increased work of breathing using abdominal muscle, shallow, mottling noticed bilateral knees. Last episode pt O2 76% on and c/o of epigastric pain and unable to breath. 5L NC titrated to 15L oxy mask with O2 100%. Patient was started in BiPAP. Repeat EKG showed no acute changes. Echo showed EF<20%. Assessment: Upgrade to ICU for dobutamine and norepi drip. New orders: LABS: LA, Troponins, BNP, ABG's; EKG; CXR. Patient was discussed with the attending, Dr. Garcia and senior Dr. Knott. Divine Díaz, PGY-1
[2024-01-18] MEDS: Magnesium Sulfate 2 GM Ivpb 2 GM/50 ML BAG IV (14:11)
[2024-01-18 14:16] LABS: Reflex Lactate? Y
[2024-01-18 16:07] LABS: Partial Thromboplastin Time > 139.0 Seconds (22.0-36.0)
[2024-01-18] MEDS: AMIODARONE 150 MG IVPB 150 MG/100 ML BAG 600 MG IV (16:42)
[2024-01-18] MEDS: FUROSEMIDE INJ 10 MG/ML 4ML VIAL 40 MG IVP ×2 (16:45→21:46)
--- NOTE | 2024-01-18 16:47 | PD.INTPROC ---
Procedures Procedure Date / Time 01/21/24 5308 Arterial Line Indication(s): shock Informed consent obtained: from patient Time out done, and the following verified: correct patient, side and site, procedure, patient position and implants and/or equipment Size (Gauge): 14 Technique used: guide wire technique Post-Procedure: line sutured into place and dry sterile dressing placed Patient tolerated procedure: well EBL(ml): 20 Complications: none Site: right and femoral
[2024-01-18] MEDS: AMIODARONE 360 MG IVPB 360 MG/200 ML BAG 33.333 MG IV (16:48)
--- NOTE | 2024-01-18 18:27 | PD.RESCONSUL ---
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 Reported that all of his symptoms started 3 weeks ago and before that he was healthy and did not have any symptoms. Shortness of breath started 3 weeks ago, gradually progressive, limited his work, associated with orthopnea. Denies fever, chills, lower extremity swelling, cough, abdominal distention, chest pain, palpitations. Hospital course:Vitals are stable at the time of admission with mild tachycardia with heart rate around 111 bpm. Labs showed CBC within normal limits. CMP showed BUN 34, creatinine 2.1, BNP 2280. Troponins are elevated at the time of admission 1.171 and repeating 4-hour later downtrended to 1.019. Patient received a dose of ceftriaxone, doxycycline. EKG done at that time showed minor ST elevation without any reciprocal depressions for which cardiology was consulted and as the troponins are downtrending, no further catheterization was done. On 01/18/2024 around 12 PM, patient was found to have low blood pressures and low saturations around 60-70 for which rapid response was called and patient was upgraded to ICU for further management and care. Past medical history: Not significant and patient is not following any primary care provider over a years. Past surgical history: S/p appendectomy. Social history: 40 pack years, remote marijuana, methamphetamine abuse. Allergies: Not known Family history: Father of heart disease at the age of 70. cc:: cc: Bandar Garcia DO Review of Systems Constitutional Comments: Constitutional: Weight loss, No Fever, No Chills, No Night Sweats, No Fatigue, No Malaise ENT/Mouth: No Hearing Changes, No Ear Pain, No Nasal Congestion, No Sinus Pain, No Hoarseness, No sore throat, No Rhinorrhea, No Swallowing Difficulty Eyes: No Eye Pain, No Swelling, No Redness, No Foreign Body, No Discharge, No Vision Changes Cardiovascular: No Chest Pain, SOB, PND, Dyspnea on Exertion, Orthopnea, No Edema, No Palpitations Respiratory: No Cough, No Sputum, No Wheezing, Dyspnea Gastrointestinal: No Nausea, No Vomiting, No Diarrhea, No Constipation, No Pain, No Heartburn, No Anorexia, No Dysphagia, No Hematochezia, No Melena, No Flatulence, No Jaundice Genitourinary: No Dysuria, No Urinary Frequency, No Hematuria, No Urinary Incontinence, No Urgency, No Flank Pain, No Urinary Flow Changes, No Hesitancy Musculoskeletal: No Arthralgias, No Myalgias, No Joint Swelling, No Joint Stiffness, No Back Pain, No Neck Pain, No Injury History Skin: No Skin Lesions, No Pruritis Neuro: No Weakness, No Numbness, No Paresthesias, No Loss of Consciousness, No Syncope, No Dizziness, No Headache, No Coordination Changes, No Recent Falls Exam Vital Signs Temp Pulse Resp BP Pulse Ox O2 Del Method O2 Flow Rate 98 F 116 H 35 H 106/46 L 80 L Nasal Cannula 5 01/18/24 16:00 01/18/24 17:01 01/18/24 17:01 01/18/24 17:01 01/18/24 16:45 01/18/24 08:00 01/18/24 08:00 FiO2 50 01/18/24 14:37 Narrative Exam General: Awake and in severe distress. Cachectic HEENT: Normocephalic, atraumatic, mucous membranes dry. Heart: Regular rate and rhythm, no murmurs. Lungs: Clear to auscultation with no wheezing or crackles. Overall decreased breath sounds noted bilaterally Abdomen: Soft, nondistended, nontender, positive bowel sounds. ?No guarding or rebound tenderness. Neurologic: Alert and oriented x3, no gross neurological deficit, and patient able to move all 4 extremities. Extremities: No edema. Skin: No rash or ecchymoses. Results Labs 01/21/24 06:15 01/21/24 06:15 Labs: Short CBC 01/18/24 Range/Units 04:51 WBC 9.1 (3.8-10.6) Thou/mm3 Hgb 12.9 L (13.5-16.0) g/dL Hct 39.4 L (41.0-53.0) % Plt Count 317 D (140-440) Thou/mm3 BMP 01/18/24 04:51 Sodium 139 Potassium 4.3 D Chloride 106 Carbon Dioxide 21.9 BUN 36 H Creatinine 2.0 H Glucose 91 Calcium 9.1 Cardiac Enzymes 01/17/24 01/17/24 01/18/24 Range/Units 19:27 22:49 01:30 Troponin I 1.019 H* 1.235 H* D 1.230 H* (0.0-0.045) ng/mL 01/18/24 01/18/24 01/18/24 Range/Units 04:51 11:03 17:04 Troponin I 1.017 H* D 1.089 H* 0.980 H* (0.0-0.045) ng/mL Liver Function 01/18/24 Range/Units 04:51 Total Bilirubin 0.5 (0.3-1.2) mg/dL AST 19 (0-34) U/L ALT 21 (10-49) U/L Alkaline Phosphatase 89 (46-116) U/L Albumin 3.7 (3.4-4.8) gm/dL Urine 01/17/24 Range/Units 22:54 Urine Color Yellow (Lt Yel-Yel) Urine Clarity Turbid A (Clear/Hazy) Urine pH 5.5 (5.0-7.0) Ur Specific [place] 1.024 (1.001-1.035) Urine Protein 1+ A (Neg - Trace) Urine Glucose (UA) Negative (Negative) ABG Interpretation ABG results: 01/18/24 11:29 ABG pH 7.51 H ABG pCO2 17 L* ABG pO2 221 H ABG HCO3 13 L ABG O2 Saturation 100 H ABG Base Excess -7 L Quality Measures Quality Measures none Advance care planning discussed with:: patient Medications Home Medications and Allergies Home Medications ?Medication ?Instructions ?Recorded ?Confirmed ?Type No Known Home Medications 03/15/18 03/15/18 History Allergies Allergy/AdvReac Type Severity Reaction Status Date / Time No Known Allergies Allergy Verified 01/17/24 15:13 Visit Medications Acetaminophen (Acetaminophen 325 Mg Tablet) 650 mg PO Q6H PRN PRN Reason: PAIN OR FEVER > 101 Stop: 02/16/24 21:37 Aspirin (Aspirin Ec 81 Mg Tabec) 81 mg PO QDAY VINCE Stop: 02/17/24 08:59 Last Admin: 01/18/24 09:07 Dose: 81 mg Atorvastatin Calcium (Atorvastatin Calcium 20 Mg Tablet) 40 mg PO HS VINCE Stop: 02/17/24 20:59 Furosemide (Furosemide Inj 10 Mg/Ml 4ml Vial) 40 mg IVP TID VINCE Stop: 02/17/24 15:59 Last Admin: 01/18/24 16:45 Dose: 40 mg Ceftriaxone Sodium/Dextrose (Rocephin/D5w 1gm Iv Premix) 50 mls @ 100 mls/hr IV DAILY@2100 VINCE Stop: 01/25/24 20:59 Doxycycline Hyclate 100 mg/ (Sodium Chloride) 100 mls @ 100 mls/hr IV BID VINCE Stop: 01/25/24 08:59 Last Admin: 01/18/24 09:07 Dose: 100 mls/hr Heparin Sodium/Dextrose (Heparin In D5w Ivpb) 25,000 unit in 250 mls @ 7.871 mls/hr IV .Q24H VINCE; Protocol Stop: 02/01/24 02:29 Last Titration: 01/18/24 18:00 Dose: 14 units/kg/hr, 9.182 mls/hr Dobutamine HCl/Dextrose (Dobutrex/D5w Ivpb) 500 mg in 250 mls @ 1.899 mls/hr IV .Q24H PRN; Protocol PRN Reason: PER PROTOCOL Stop: 02/17/24 11:07 Last Titration: 01/18/24 18:00 Dose: 2.5 mcg/kg/min, 4.748 mls/hr Norepinephrine Bitartrate (Levophed In Ns 16mg/250ml) 16 mg in 250 mls @ 2.967 mls/hr IV .Q24H PRN; Protocol PRN Reason: PER protocol Stop: 02/17/24 11:07 Last Titration: 01/18/24 18:00 Dose: 0.23 mcg/kg/min, 13.65 mls/hr Amiodarone HCl/Dextrose (Nexterone Ivpb) 360 mg in 200 mls @ 33.333 mls/hr IV .Q6H ONE Stop: 01/18/24 22:31 Last Admin: 01/18/24 16:48 Dose: 33.333 mls/hr Amiodarone HCl/Dextrose (Nexterone Ivpb) 360 mg in 200 mls @ 16.667 mls/hr IV .Q12H [facility] Stop: 01/19/24 23:30 Metoprolol Tartrate (Metoprolol Tartrate 25 Mg Tablet) 25 mg PO BID [facility] Stop: 02/17/24 08:59 Last Admin: 01/18/24 09:08 Dose: 25 mg Ondansetron HCl (Ondansetron Inj 2 Mg/Ml Inj 2 Ml) 4 mg IV Q6H PRN; Protocol PRN Reason: NAUSEA OR VOMITING Stop: 02/16/24 21:37 Pantoprazole Sodium (Pantoprazole 40 Mg Tablet) 40 mg PO QDAY [facility] Stop: 02/17/24 08:59 Last Admin: 01/18/24 09:08 Dose: 40 mg Sennosides (Senna Tablet) 1 tab PO QDAY [facility]; Protocol Stop: 02/17/24 08:59 Last Admin: 01/18/24 09:08 Dose: 1 tab Discontinued Medications Aspirin (Aspirin 325 Mg Tablet) 325 mg PO X1 ONE Stop: 01/17/24 18:14 Last Admin: 01/17/24 18:43 Dose: 325 mg Diltiazem HCl (Diltiazem Inj 5 Mg/Ml Vial 5 Ml) 10 mg IV X1 ONE Stop: 01/18/24 01:53 Last Admin: 01/18/24 01:58 Dose: 10 mg Diltiazem HCl (Diltiazem Inj 5 Mg/Ml Vial 5 Ml) 15 mg IV X1 ONE Stop: 01/18/24 02:25 Last Admin: 01/18/24 02:31 Dose: 15 mg Doxycycline Hyclate (Doxycycline 100 Mg Tablet) 100 mg PO X1 ONE Stop: 01/17/24 17:00 Last Admin: 01/17/24 17:35 Dose: 100 mg Furosemide (Furosemide Inj 10 Mg/Ml Vial 2 Ml) 20 mg IVP X1 ONE Stop: 01/17/24 21:39 Last Admin: 01/17/24 22:03 Dose: 20 mg Furosemide (Furosemide Inj 10 Mg/Ml 4ml Vial) 80 mg IVP X1 ONE Stop: 01/18/24 09:35 Last Admin: 01/18/24 10:06 Dose: 80 mg Heparin Sodium (Porcine) (Heparin Sod Inj 5000 Unit/Ml Vial) 5,000 unit SC Q8HR [facility] Stop: 01/31/24 21:59 Last Admin: 01/17/24 22:03 Dose: 5,000 unit Heparin Sodium (Porcine) (Heparin Sod Inj 5000 Unit/Ml Vial) 1,950 unit 30 unit/kg (1950 unit) IV X1 ONE; Protocol Stop: 01/18/24 01:29 Last Admin: 01/18/24 07:51 Dose: Not Given Heparin Sodium (Porcine) (Heparin Sod Inj 5000 Unit/Ml Vial) 3,950 unit 60 unit/kg (3950 unit) IV X1 ONE; Protocol Stop: 01/18/24 01:46 Last Admin: 01/18/24 02:45 Dose: 3,950 unit Heparin Sodium (Porcine) (Heparin Sod Inj 5000 Unit/Ml Vial) 3,800 unit IVP X1 ONE Stop: 01/18/24 09:26 Last Admin: 01/18/24 09:35 Dose: 3,800 unit Ceftriaxone Sodium/Dextrose (Rocephin/D5w 1gm Iv Premix) 50 mls @ 100 mls/hr IV X1 ONE Stop: 01/17/24 17:28 Last Infusion: 01/17/24 18:10 Dose: Infused Magnesium Sulfate (Magnesium Sulfate Ivpb) 2 gm in 50 mls @ 25 mls/hr IV X1 ONE Stop: 01/18/24 12:58 Last Admin: 01/18/24 14:11 Dose: 25 mls/hr Norepinephrine Bitartrate (Levophed In Ns 16mg/250ml) 16 mg in 250 mls @ 2.967 mls/hr IV .Q24H PRN; Protocol PRN Reason: PER protocol Stop: 02/17/24 11:07 Amiodarone HCl/Dextrose (Nexterone Ivpb) 150 mg in 100 mls @ 600 mls/hr IV .Q10M ONE Stop: 01/18/24 16:41 Last Admin: 01/18/24 16:42 Dose: 600 mls/hr Sodium Chloride (Sodium Chloride Rt 10% 15 Ml Nebu) 5 ml INH X1 ONE Stop: 01/17/24 21:39 Last Admin: 01/18/24 07:54 Dose: Not Given Assessment & Plan Plan 68-year-old male with no significant past medical history admitted to the hospital chief complaints of shortness of breath and diagnosed to have acute hypoxic respiratory failure secondary to HFrEF exacerbation. NEURO Patient is awake, alert, and oriented x3, following commands, conversational. #No active problems CARDIO # Cardiogenic shock # Dilated cardiomyopathy, likely combined meth use and smoking # Elevated trop - likely Tpe II -Likely exacerbated in the setting of suspected pneumonia in the right lobe and continued meth use. -Presented to the hospital with complaints of shortness of breath, orthopnea, PND -Denies palpitations, fever, pedal edema, abdominal distention. -Chest x-ray showed hyperinflation of bilateral lungs with patchy infiltrate in right lower lobe-pneumonia versus mass. -labs showed elevated BNP, Troponins that downtrended later. urine toxicology tested positive for meth. -Echo done on 01/17/2024 showed dilated cardiomyopathy - Mild to moderately dilated LV and RV. Moderate biatrial dilatation. Severe LV systolic dysfunction. Severe global hypokinesis. Estimated EF around 10% .Diastolic dysfunction present but cannot be graded due to Afib. Plan -Started on Levophed and dobutamine drip. -Goal is to maintain systolic blood pressure above 100 mmHg. -Will continue to monitor blood pressures. -started on CPAP. # Atrial fibrillation with rapid ventricular rate -Patient was found to have sinus rhythm on EKG at the time of admission. -After starting Levophed and dobutamine drip, patient developed atrial fibrillation Plan patient was started on amiodarone and heparin drip. PULM # Acute hypoxic respiratory failure # due to underlying cardiogenic shock # possible right lung pneumonia -admitted to hospital with complaints of shortness of breath -chest x ray showed right patchy infiltrate in the middle lobe. Plan -Started on ceftriaxone 1 g IV twice daily(01/17- -started on Doxycycline 100mg BID(01/17- #Chronic smoker #?COPD - smoking history of >40 pack years. - condition is stable as of now. GI #No active problems NEPHRO # MARIANO, prerenal Likely due to underlying cardiogenic shock -Creatinine in 12/2018 is 1.1 and at the time of admission is 2.1 Plan -Will continue to monitor renal functions and renally dose medications. -Started on vasopressors. URO #No active problems HEME # Mild normocytic normochromic anemia -Hemoglobin is 12.9 as of 01/18/2024 -likely cardiac cachexia and malnutrition Plan -Will continue to monitor CBC. ENDO #No active problems ID #Suspected right lung pneumonia versus mass in right middle lobe -Admitted with shortness of breath started 3 weeks before admitting into the hospital. -Denies fever, chills, cough. -CBC is within normal limits. -Chest x-ray showed right patchy consolidation which was not present in 2019 -Patient did not get CT chest in view of his hemodynamic instability Plan -Started on ceftriaxone and doxycycline(01/17- MSK #No active problems SKIN #No active problems DVT prophylaxis: Heparin GI prophylaxis: Protonix Diet: Cardiac [place]: Present Lines: Central and peripheral Antibiotics: Ceftriaxone CODE STATUS: FULL Reason for ICU care: Cardiogenic shock requiring vasopressors Patient plan of care was discussed with the attending hotbed transfer operator, Dr. Cruz and senior resident Dr. Suazo. David Mtz, PGY1 Attending Provider Attestation/Addendum Patient seen and examined with above resident, David Mtz MD. I agree with the findings, assessment, and plan of care as documented separately differences below. Patient with worsening cardiogenic shock in the setting of nonischemic cardiomyopathy from methamphetamine use. Concern for ischemic event as well though troponin likely secondary to demand ischemia and not true infarction. Cardiology aware patient is well and does not feel cardiac catheterization is warranted at this point. Patient empirically placed on heparin drip for NSTEMI though he does have another indication with ongoing intermittent atrial fibrillation requiring amiodarone. Will start on dobutamine and monitor heart rate response as well as cardiac output. Central access and arterial catheter placed for continued blood sampling and monitoring. Monitor urine output mentation and other signs of endorgan perfusion. Lactic acidosis serially to be monitored as well. Patient placed on BiPAP for ventilatory support which will also help with preload/afterload reduction in the setting of LV failure. Patient with significant risk for increased morbidity/mortality. Renal dysfunction likely due to hypoperfusion as well as renal venous congestion. Patient also with superimposed possible right middle lobe bacterial pneumonia versus masslike consolidation. He remains too unstable at this point for CT imaging for further characterization of the lesion. Patient continues to require close monitoring in critical care unit for optimization of his cardiogenic shock. Patient unfortunately is not a candidate for left ventricular assist device or transfer to Center for evaluation for transplant. Cardiology available for assistance as well. Will hold off on aggressive diuresis as this will likely worsen his condition until we have achieved adequate perfusion first. Patient's overall prognosis remains grim. He did have a surrogate decision maker that he has assigned. However at this point continues to be able to make his own decisions and is agreeable to using BiPAP and all medical therapy in the interim. Total critical care time: I personally spent 50 minutes for review of physiologic parameters, directing plan of care throughout the day, coordination of care with other specialists, and counseling patient at bedside. This is exclusive of time spent teaching housestaff or performing any separate billable procedures. Patient continues to require critical care services for cardiogenic shock with high risk for morbidity and mortality given endorgan damage with presence of renal dysfunction and respiratory failure.
[2024-01-18] MEDS: cefTRIAXone/D5w 1gm IV premix 50 ML IV (21:22)
[2024-01-18 21:42] LABS: HCO3 14 mEq/L (20-26); PCO2 19 mmHg (32.0-48.0); PO2 245 mmHg (83-108); pH, Arterial 7.49 (7.35-7.45)
[2024-01-18 21:43] LABS: Base Excess -7 (-3-3); O2 Saturation 100 % (91-98)
[2024-01-18 21:45] LABS: Allen Test Not Performed; Inspired Oxygen, FIO2 50 %; Puncture Site Arterial Line
[2024-01-18] MEDS: ATORVASTATIN CALCIUM 20 MG TABLET 40 MG PO (21:45)
[2024-01-18] MEDS: AMIODARONE 360 MG IVPB 360 MG/200 ML BAG 16.667 MG IV (23:07)
--- NOTE | 2024-01-18 23:16 | PC.RT ---
Pt refusing to wear BiPAP at this time, says he cant breathe while wearing it. Called Dr. Stanley. will talk with pt.
[2024-01-19] VITALS (178 sets, daily range): BP systolic 1–291; BP diastolic 0–284; PULSE 51–73; RESP 9–35; TEMP 35.8–36.5; O2SAT 0–100; BMI 19.3
[2024-01-19] MEDS: Norepinephrine/NS 16mg/250ml 16 MG/250 ML BAG 36.795 MG IV ×3 (01:32→21:16)
[2024-01-19 01:56] LABS: Partial Thromboplastin Time 31.8 Seconds (22.0-36.0)
--- NOTE | 2024-01-19 02:45 | PC.RT ---
Attempted to place pt back on BiPAP after break per MD. Pt continues to refuse. Pt has been educated on importance of complying with treatment as ordered by the doctor by both RT and Dr. Stanley but continues to refuse. Wants to sleep for 30 more minutes.
[2024-01-19] MEDS: HEPARIN SOD INJ 5000 UNIT/ML VIAL 3800 UNIT IV (03:19)
[2024-01-19 04:47] LABS: Base Excess -15 (-3-3); HCO3 9 mEq/L (20-26); Inspired Oxygen, FIO2 21 %; O2 Saturation 99 % (91-98); PCO2 20 mmHg (32.0-48.0); PO2 143 mmHg (83-108); pH, Arterial 7.29 (7.35-7.45)
[2024-01-19 04:50] LABS: Allen Test Not Performed; Puncture Site Site Not Noted
[2024-01-19 05:35] LABS: Basophils % (Auto) 0 % (0-2.5); Eosinophils % (Auto) 0 % (0-10); Hematocrit 43.5 % (41.0-53.0); Hemoglobin 14.7 g/dL (13.5-16.0); Immature Granulocytes % (Auto) 3 % (0-0); Immature Granulocytes Auto 0.27 Thou/mm3 (0.00-0.00); Lymphocytes # (Auto) 1.1 Thou/mm3 (1.0-4.8); Lymphocytes % (Auto) 11 % (10-50); Mean Corpuscular HGB Conc 33.8 g/dl (31.0-37.0); Mean Corpuscular Hemoglobin 30.1 pg (25.0-35.0); Mean Corpuscular Volume 89 fL (80-100); Monocytes # (Auto) 0.9 Thou/mm3 (0.0-0.8); Monocytes % (Auto) 9 % (0-12); Neutrophils # (Auto) 8.1 Thou/mm3 (1.8-7.7); Neutrophils % (Auto) 77 % (37-80); Nucleated Red Blood Cell # 0.06 Thou/mm3 (0.00-0.00); Nucleated Red Blood Cell % 1 /100 WBC (0); Platelet Count 202 Thou/mm3 (140-440); RDW Standard Deviation 43.2 fL (35.1-43.9); Red Blood Count 4.89 Miln/mm3 (4.50-5.90); White Blood Count 10.4 Thou/mm3 (3.8-10.6)
[2024-01-19 05:37] LABS: Lactate (Lactic Acid) 7.5 mMol/L (0.4-2.0)
[2024-01-19] MEDS: FUROSEMIDE INJ 10 MG/ML 4ML VIAL 40 MG IVP (05:43)
[2024-01-19 06:33] LABS: Alanine Aminotransferase 277 U/L (10-49); Albumin, Serum 3.6 gm/dL (3.4-4.8); Albumin/Globulin Ratio 1.2 (1.2-2.2); Alkaline Phosphatase 95 U/L (46-116); Anion Gap 22 (7-16); Aspartate Amino Transferase 357 U/L (0-34); BUN/Creatinine Ratio 15 Ratio (12-20); Bilirubin,Total 0.9 mg/dL (0.3-1.2); Blood Urea Nitrogen 54 mg/dL (9-23); Calcium 9.1 mg/dL (8.3-10.6); Calcium (Corrected) 9.4 mg/dL (8.5-10.1); Chloride 104 mMol/L (98-107); Creatinine (Component) 3.5 mg/dL (0.6-1.3); Estimated Creatinine Clearance 17.8 mL/min (>60); Globulin 2.9 gm/dL (2.3-3.5); Glucose 96 mg/dL (74-106); Magnesium 2.9 mg/dL (1.6-2.6); Osmolality,Calculated 286 (275-295); Sodium 136 mMol/L (136-145); Total Protein 6.5 gm/dL (5.7-8.2); eGFR 18 See Note
[2024-01-19 06:36] LABS: Carbon Dioxide 10.2 mMol/L (20.0-31.0); Potassium 6.4 mMol/L (3.4-5.1)
--- NOTE | 2024-01-19 06:40 | PC.NURSE ---
NO URINE OUT-PUT ON PT SINCE 2314. DR SANTAMARIA AWARE AND UPDATED ON PT'S LACK OF OUT-PUT FROM MIDNIGHT TO NOW. AT 0035 GALAVIZ CATH WAS IRRIGATED WITH 40ML OF STERILE NS (NO SIGN OF BLOCKAGE). AROUND 0100, BLADDER SCAN DONE SEVERAL TIMES, HIGHEST READING WAS 26ML ( MADE AWARE, AND ORDERED TO CONTNUE TO MONITOR OUT-PUT)
[2024-01-19] MEDS: ALBUTEROL RT 2.5 MG/0.5 ML NEBU 10 MG INH (06:56)
[2024-01-19] MEDS: SODIUM CHLORIDE RT SOL 0.9% 3 ML NEBU INH (06:57)
[2024-01-19] MEDS: VASOPRESSIN IN NS IVPB 20 UNIT/100 ML BAG 9 UNIT IV ×2 (07:46→17:07)
[2024-01-19] MEDS: CALCIUM GLUCONATE 10% INJ 1 GM/10 ML VIAL IV ×2 (07:53→20:07)
[2024-01-19] MEDS: Norepinephrine/NS 16mg/250ml 16 MG/250 ML BAG 41.543 MG IV (08:02)
[2024-01-19] MEDS: INSULIN HUM REGULAR 1 UNIT/0.01 ML (PER UNIT) 10 UNIT IV ×2 (08:04→20:06)
[2024-01-19] MEDS: DEXTROSE 50%-WATER INJ 50 ML SYRINGE 100 ML IV (08:04)
--- NOTE | 2024-01-19 08:08 | EKG_ITS ---
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: APARNA : 1955 Requested By: David Mtz Order Number: [id number] Reading MD: David Mtz Measurements Intervals [place] Rate: 55 P: 77 AR: 209 QRS: 82 QRSD: 127 T: 58 QT: 521 QTc: 499 Interpretive Statements SINUS BRADYCARDIA WITH OCCASIONAL VENTRICULAR PREMATURE COMPLEXES LEFT ATRIAL ENLARGEMENT ANTERIOR MYOCARDIAL INFARCTION , POSSIBLY ACUTE ACUTE [place] Compared to ECG 01/18/2024 16:42:24 Atrial abnormality now present Myocardial infarct finding now present Atrial flutter no longer present Aberrant conduction of supraventricular beat(s) no longer present Indeterminate axis no longer present Intraventricular conduction delay no longer present /store/S0/[id number].pdf
[2024-01-19 08:34] LABS: Reflex Lactate? Y
[2024-01-19] MEDS: Sodium Bicarb Inj 8.4% SYR 50 ML SYRINGE IV (08:39)
[2024-01-19 10:07] LABS: Glucose Estimated Average 111 mg/dL (80-131); Hemoglobin A1C 5.5 % Hgb (4.8-6.0)
[2024-01-19 10:16] LABS: Lactic Acid, 3 HR 7.8 mMol/L (0.4-2.0)
[2024-01-19] MEDS: DOXYCYCLINE INJ 100 MG in SODIUM CHLORIDE 0.9% (P) 100 ML IV ×2 (10:17→21:02)
[2024-01-19 10:31] LABS: Partial Thromboplastin Time 56.1 Seconds (22.0-36.0)
--- NOTE | 2024-01-19 10:37 | ESPR_ITS ---
Documentation for date of: 01/19/24 Subjective Subjective Interval history: Patient was seen and examined in ICU this AM. Patient became hypoxic this a.m. and was placed on BiPAP. Patient was on IV diuresis with furosemide 40 Mg IV 3 times daily Patient had a fluid balance of -362 cc in the past 24 hours Patient is now acidotic with bicarb of 10.2, BUN increased to 54 from 36, CR increased to 3.5 from 2. Recommend to hold IV diuresis for now in light of acute renal failure. Recommend stat nephrology consult as well Lactic acid also up trended to 7.8 from 2. AST and ALT also up trended to 744 and 5.6 from 357 and 277 respectively indicating either hepatic congestion or ischemic hepatitis due to shock. Patient's BP is currently 107/91 and he is on pressor support with dobutamine and norepinephrine infusions. Exam Vital Signs Temp Pulse Resp BP Pulse Ox O2 Del Method O2 Flow Rate 96.5 F L 60 27 H 103/56 L 79 L BiPAP 9 01/19/24 08:01 01/19/24 10:10 01/19/24 10:10 01/19/24 10:10 01/19/24 10:10 01/19/24 08:01 01/19/24 04:01 FiO2 40 01/19/24 08:01 Narrative Exam Constitutional Alert, oriented x 3 and comfortable. Elderly male, cachectic, on BiPAP HEENT Vision grossly intact. Patent nares. Trachea midline. Poor dentition, missing teeth Respiratory Chest normal on inspection, RIJ catheter, exit site clean and decreased breath sounds throughout lung chauhan b/l Cardiovascular S1 and S2 audible, RRR. No murmurs carotid bruit. JVD not assessed Abdominal Soft and non tender to palpation in all quadrants. BS + Genitourinary No bladder tenderness, no flank pain. Normal to palpation. Left femoral catheter, exit site clean Musculoskeletal Extremities tone within normal limits. No LE edema. Neurological CN II - XII grossly intact. Extremity motor and sensation grossly intact. Skin Warm, dry and intact. No apparent lesions. Psychiatric Patient has good affect, is cooperative Objective Labs 01/19/24 05:20 01/20/24 00:57 Labs: Laboratory Results - last 24 hr 01/18/24 01/18/24 01/18/24 11:03 11:29 15:03 WBC RBC Hgb Hct MCV MCH MCHC RDW Std Deviation Plt Count Neut % (Auto) Lymph % (Auto) [place] % (Auto) Eos % (Auto) Baso % (Auto) Neut # (Auto) Lymph # (Auto) [place] # (Auto) Eos # (Auto) Baso # (Auto) Immature Gran # (Auto) Absolute Nucleated RBC Immature Gran % Nucleated RBC % APTT > 139.0 H* D Puncture Site Right Radial ABG pH 7.51 H ABG pCO2 17 L* ABG pO2 221 H ABG HCO3 13 L ABG O2 Saturation 100 H ABG Base Excess -7 L FiO2 50 Sodium Potassium Chloride Carbon Dioxide Anion Gap BUN Creatinine Estim Creat Clear Calc eGFR BUN/Creatinine Ratio Glucose Estimated Ave Glu mg/dL Hemoglobin A1c Calculated Osmolality Lactic Acid 3.6 H 2.0 Calcium Corrected Calcium Magnesium Total Bilirubin AST ALT Alkaline Phosphatase Troponin I 1.089 H* B-Natriuretic Peptide 2864 H* Total Protein Albumin Globulin Albumin/Globulin Ratio 01/18/24 01/18/24 01/19/24 17:04 21:30 00:22 WBC RBC Hgb Hct MCV MCH MCHC RDW Std Deviation Plt Count Neut % (Auto) Lymph % (Auto) [place] % (Auto) Eos % (Auto) Baso % (Auto) Neut # (Auto) Lymph # (Auto) [place] # (Auto) Eos # (Auto) Baso # (Auto) Immature Gran # (Auto) Absolute Nucleated RBC Immature Gran % Nucleated RBC % APTT 31.8 D Puncture Site Arterial Line ABG pH 7.49 H ABG pCO2 19 L* ABG pO2 245 H D ABG HCO3 14 L ABG O2 Saturation 100 H ABG Base Excess -7 L FiO2 50 Sodium Potassium Chloride Carbon Dioxide Anion Gap BUN Creatinine Estim Creat Clear Calc eGFR BUN/Creatinine Ratio Glucose Estimated Ave Glu mg/dL Hemoglobin A1c Calculated Osmolality Lactic Acid Calcium Corrected Calcium Magnesium Total Bilirubin AST ALT Alkaline Phosphatase Troponin I 0.980 H* B-Natriuretic Peptide Total Protein Albumin Globulin Albumin/Globulin Ratio 01/19/24 01/19/24 01/19/24 04:35 05:20 09:40 WBC 10.4 RBC 4.89 Hgb 14.7 Hct 43.5 MCV 89 MCH 30.1 MCHC 33.8 RDW Std Deviation 43.2 Plt Count 202 D Neut % (Auto) 77 Lymph % (Auto) 11 [place] % (Auto) 9 Eos % (Auto) 0 Baso % (Auto) 0 Neut # (Auto) 8.1 H Lymph # (Auto) 1.1 [place] # (Auto) 0.9 H Eos # (Auto) 0.0 Baso # (Auto) 0.0 Immature Gran # (Auto) 0.27 H Absolute Nucleated RBC 0.06 H Immature Gran % 3 H Nucleated RBC % 1 H APTT Puncture Site Site Not Noted ABG pH 7.29 L D ABG pCO2 20 L ABG pO2 143 H D ABG HCO3 9 L* ABG O2 Saturation 99 H ABG Base Excess -15 L FiO2 21 Sodium 136 Potassium 6.4 H* D Chloride 104 Carbon Dioxide 10.2 L* Anion Gap 22 H BUN 54 H Creatinine 3.5 H D Estim Creat Clear Calc 17.8 L eGFR 18 L BUN/Creatinine Ratio [address] Glu mg/dL 111 Hemoglobin A1c 5.5 Calculated Osmolality 286 Lactic Acid 7.5 H* 7.8 H* Calcium 9.1 Corrected Calcium 9.4 Magnesium 2.9 H Total Bilirubin 0.9 AST 357 H ALT 277 H Alkaline Phosphatase 95 Troponin I B-Natriuretic Peptide Total Protein 6.5 Albumin 3.6 Globulin 2.9 Albumin/Globulin Ratio 1.2 ABG Interpretation ABG results: 01/18/24 01/18/24 01/19/24 11:29 21:30 04:35 ABG pH 7.51 H 7.49 H 7.29 L D ABG pCO2 17 L* 19 L* 20 L ABG pO2 221 H 245 H D 143 H D ABG HCO3 13 L 14 L 9 L* ABG O2 Saturation 100 H 100 H 99 H ABG Base Excess -7 L -7 L -15 L Quality Measures Quality Measures none Advance care planning discussed with:: patient Assessment & Plan Assessment Current Active Medications: Generic Name Dose Route Start Last Admin Trade Name Freq PRN Reason Stop Dose Admin Acetaminophen 650 mg 01/17/24 21:38 Acetaminophen 325 Mg Tablet PO 02/16/24 21:37 Q6H PRN PAIN OR FEVER > 101 Aspirin 81 mg 01/18/24 09:00 01/18/24 09:07 Aspirin Ec 81 Mg Tabec PO 02/17/24 08:59 81 mg QDAY VINCE Administration Atorvastatin Calcium 40 mg 01/18/24 21:00 01/18/24 21:45 Atorvastatin Calcium 20 Mg Tablet PO 02/17/24 20:59 40 mg HS VINCE Administration Furosemide 40 mg 01/18/24 16:00 01/19/24 05:43 Furosemide Inj 10 Mg/Ml 4ml Vial IVP 02/17/24 15:59 40 mg TID VINCE Administration Ceftriaxone Sodium/Dextrose 50 mls @ 100 mls/hr 01/18/24 21:00 01/18/24 21:22 Rocephin/D5w 1gm Iv Premix IV 01/25/24 20:59 100 mls/hr DAILY@2100 VINCE Administration Doxycycline Hyclate 100 mg/ 100 mls @ 100 mls/hr 01/18/24 09:00 01/19/24 10:17 Sodium Chloride IV 01/25/24 08:59 100 mls/hr BID VINCE Administration Heparin Sodium/Dextrose 25,000 unit in 250 mls @ 7.871 mls/hr 01/18/24 02:30 01/19/24 09:40 Heparin In D5w Ivpb IV 02/01/24 02:29 18 units/kg/hr .Q24H VINCE 11.806 mls/hr Titration Protocol 12 UNITS/KG/HR Dobutamine HCl/Dextrose 500 mg in 250 mls @ 1.899 mls/hr 01/18/24 11:08 01/19/24 06:00 Dobutrex/D5w Ivpb IV 02/17/24 11:07 3.5 mcg/kg/min .Q24H PRN 6.647 mls/hr PER PROTOCOL Titration Protocol 1 MCG/KG/MIN Norepinephrine Bitartrate 16 mg in 250 mls @ 2.967 mls/hr 01/18/24 11:18 01/19/24 08:02 Levophed In Ns 16mg/250ml IV 02/17/24 11:07 0.7 mcg/kg/min .Q24H PRN 41.543 mls/hr PER protocol Administration Protocol 0.05 MCG/KG/MIN Amiodarone HCl/Dextrose 360 mg in 200 mls @ 16.667 mls/hr 01/18/24 23:31 01/18/24 23:07 Nexterone Ivpb IV 01/19/24 23:30 16.667 mls/hr .Q12H VINCE Administration Vasopressin/Sodium Chloride 20 unit in 100 mls @ 9 mls/hr 01/19/24 07:11 01/19/24 07:46 Vasostrict/Ns Ivpb IV 02/18/24 07:10 0.03 unit/min .Q11H7M PRN 9 mls/hr PER PROTOCOL Administration Protocol 0.03 UNIT/MIN Ondansetron HCl 4 mg 01/17/24 21:38 Ondansetron Inj 2 Mg/Ml Inj 2 Ml IV 02/16/24 21:37 Q6H PRN NAUSEA OR VOMITING Protocol Pantoprazole Sodium 40 mg 01/18/24 09:00 01/18/24 09:08 Pantoprazole 40 Mg Tablet PO 02/17/24 08:59 40 mg QDAY VINCE Administration Sennosides 1 tab 01/18/24 09:00 01/18/24 09:08 Senna Tablet PO 02/17/24 08:59 1 tab QDAY VINCE Administration Protocol Sodium Chloride 3 ml 01/19/24 06:48 01/19/24 06:57 Sodium Chloride Rt Jackie 0.9% 3 Ml Nebu INH 02/18/24 06:47 3 ml PRN PRN Administration TO MIX WITH ALBUTEROL Plan Patient is a 68-year-old male with no significant past medical history who presented to the ED with a chief complaint of shortness of breath. Patient was admitted for acute respiratory failure with hypoxia secondary to community-acquired pneumonia and CHF exacerbation. Cardiology was consulted. 1. Acute respiratory failure with hypoxia Secondary to 2. Acute decompensated systolic heart failure exacerbation [EF 10%] 3. Cardiogenic shock 4. Dilated cardiomyopathy On admission patient has history of progressively worsening shortness of breath for the past 3 weeks. On exam patient is in mild distress on O2 via NC and breath sounds were decreased globally. No signs of lower extremity edema. Patient not previously diagnosed with heart failure in the past and not on any medication at home. On admission BNP 2864 NYHA Class IV Stage C Transthoracic echocardiogram completed on 01/16 findings include: Dilated cardiomyopathy - Mild to moderately dilated LV and RV. Moderate biatrial dilatation. Severe LV systolic dysfunction. Severe global hypokinesis. Estimated EF around 10% Diastolic dysfunction present but cannot be graded due to Afib. Moderate RV dysfunction. Estimated RVSP 40 mmHg. Moderate MR. Mild TR,PI. Mild AV sclerosis without stenosis, IVC dilated and pleural effusion present. Patient became hypoxic this a.m. and was placed on BiPAP. Patient was on IV diuresis with furosemide 40 Mg IV 3 times daily Patient had a fluid balance of -362 cc in the past 24 hours Patient is now acidotic with bicarb of 10.2, BUN increased to 54 from 36, CR increased to 3.5 from 2. Recommend to hold IV diuresis for now in light of acute renal failure. Recommend stat nephrology consult as well Lactic acid also up trended to 7.8 from 2. AST and ALT also up trended to 744 and 5.6 from 357 and 277 respectively indicating either hepatic congestion or ischemic hepatitis due to shock. Patient's BP is currently 107/91 and he is on pressor support with dobutamine and norepinephrine infusions. Plan: ? Strict input output charting ? Daily weights ? 2 g salt restricted diet ? 1500 cc fluid restriction ? Recommend to hold diuresis with furosemide 40 Mg IV 3 times daily ? Recommend to continue blood pressure support with pressors as needed. ? Recommend to start patient on midodrine 10 Mg p.o. 3 times daily ? Patient counseled on methamphetamine, cocaine and all drug cessation. - ICU team having goals of care discussion with the patient as well as his surrogate decision maker is friend will continue to make decision regarding the dialysis and further invasive procedures and treatments. 5. Rule out ACS 6. NSTEMI -mostly type II secondary to supply/demand mismatch given the severe dilated cardiomyopathy Patient had progressive SOB for the past 3 weeks but denies any chest pain or pressure. Unlikely acute coronary syndrome and troponin elevation mostly secondary to supply/demand mismatch given severe dilated cardiomyopathy in the setting of significant drug abuse including methamphetamine and other drugs. Initial EKG showed sinus rhythm with occasional PVCs, left atrial enlargement repeat EKG showed atrial fibrillation with RVR, rate 120. No acute ST changes Troponin were elevated at 1.171 up trended to 1.235 and subsequently down trended to 0.98 Plan: ? Recommend heparin drip for 48 hours ? Recommend aspirin 81 Mg p.o. daily ? Recommend high intensity statin ? No need to further trend troponin - Continue medical management for now 7. A-fib with RVR?new onset Patient admitted to having intermittent palpitations for years with some episodes lasting for days before resolving. Initial EKG showed sinus rhythm with occasional PVCs, left atrial enlargement repeat EKG showed atrial fibrillation with RVR, rate 120. No acute ST changes. From telemetry review patient continues to be in A-fib with rates in the 60s?80s [id number] : 1 point ; 0.6 % stroke risk per year [age] Plan: ? Continue amiodarone infusion ? Recommend rate control with metoprolol XL 50 Mg p.o. daily - Patient is on Heparin drip for NSTEMI, can transition to eliquis after 48 hours ? Continue telemetry review ? Please maintain potassium greater than 4 and magnesium greater than 2 at all times to prevent any further arrhythmias 8. Community-acquired pneumonia Patient has shortness of breath for past 3 weeks as well as a nonproductive cough. Chest x-ray on admission was significant for right mid zone consolidation. Patient was started on ceftriaxone and doxycycline IV. Blood and sputum cultures are pending. Continue management as per primary team 9. MARIANO likely prerenal 10. Acute Renal Failure 11. Transaminitis On admission patient's CR 2 currently up trended to 2.1. Unable to assess baseline as no previous records for comparison. Likely in the setting of cardiogenic shock and dehydration. Patient is now acidotic with bicarb of 10.2, BUN increased to 54 from 36, CR increased to 3.5 from 2. Recommend to hold IV diuresis for now in light of acute renal failure. Recommend stat nephrology consult as well Lactic acid also up trended to 7.8 from 2. AST and ALT also up trended to 744 and 5.6 from 357 and 277 respectively indicating either hepatic congestion or ischemic hepatitis due to shock. 12. Likely COPD 13. Nicotine dependence 14. History of polysubstance abuse Patient has [id number] smoking history and now has shortness of breath for the past 3 weeks along with productive cough. Clinically he is cachectic and appears to have decreased breath sounds globally suggestive of COPD. Patient will need to be further worked up as an outpatient. Patient admitted to using methamphetamine and cocaine for many years as well with U tox being positive for methamphetamine on admission. Patient counseled extensively on drug cessation. Patient agreed - ICU team having goals of care discussion with the patient as well as his surrogate decision maker is friend will continue to make decision regarding the dialysis and further invasive procedures and treatments. Continue rest of management as per primary team. We are grateful to be able to participate in Mr. Peñaloza's care. Thank you for the consult Plan of care discussed with attending Labor And Delivery Registered Nurse, Dr Yudelka Pierce MD PGY 1 There is a high probability of sudden, clinically significant or life threatening deterioration in the patient condition which required the highest level of physician preparedness to intervene urgently. I have personally spent 65 minutes of critical care time, exclusive of time spent on any procedures, in evaluation and management of this critically ill patient. Attending Provider Attestation/Addendum I have personally seen and examined the patient separately on the above date of service and discussed the plan of care with the resident. I reviewed the resident Dr. Pierce consultation progress note and agree with the resident findings and plan in the note above and have also edited the documentation to reflect my findings and plan. Reynaldo Jha M.D. Interventional Cardiology
[2024-01-19 11:11] LABS: Base Excess -13 (-3-3); HCO3 13 mEq/L (20-26); Inspired Oxygen, FIO2 40 %; O2 Saturation 99 % (91-98); PCO2 28 mmHg (32.0-48.0); PO2 149 mmHg (83-108); pH, Arterial 7.26 (7.35-7.45)
[2024-01-19 11:12] LABS: Allen Test Not Performed; Puncture Site Arterial Line
[2024-01-19 11:18] LABS: Base Excess, Venous -12 (-3-3); O2 Saturation, Venous 71 % (96-97); PCO2, Venous 32 mmHg (36-56); PO2, Venous 46 mmHg (15-58); pH, Venous 7.26 (7.33-7.66)
[2024-01-19] MEDS: AMIODARONE 360 MG IVPB 360 MG/200 ML BAG 16.667 MG IV (11:22)
[2024-01-19] MEDS: WATER IV (11:25)
[2024-01-19] MEDS: DEXTROSE 5% IV (11:25)
[2024-01-19] MEDS: SODIUM BICARB IV (11:25)
[2024-01-19 11:29] LABS: Alanine Aminotransferase 516 U/L (10-49); Albumin, Serum 3.4 gm/dL (3.4-4.8); Albumin/Globulin Ratio 1.3 (1.2-2.2); Alkaline Phosphatase 88 U/L (46-116); Anion Gap 22 (7-16); Aspartate Amino Transferase 744 U/L (0-34); BUN/Creatinine Ratio 16 Ratio (12-20); Bilirubin,Total 1.1 mg/dL (0.3-1.2); Blood Urea Nitrogen 58 mg/dL (9-23); Calcium 8.8 mg/dL (8.3-10.6); Calcium (Corrected) 9.3 mg/dL (8.5-10.1); Chloride 103 mMol/L (98-107); Creatinine (Component) 3.7 mg/dL (0.6-1.3); Estimated Creatinine Clearance 17.6 mL/min (>60); Globulin 2.6 gm/dL (2.3-3.5); Glucose 252 mg/dL (74-106); Osmolality,Calculated 297 (275-295); Potassium 4.7 mMol/L (3.4-5.1); Sodium 136 mMol/L (136-145); eGFR 17 See Note
[2024-01-19 11:57] LABS: Carbon Dioxide 11.4 mMol/L (20.0-31.0)
[2024-01-19 12:34] LABS: Alanine Aminotransferase 931 U/L (10-49); Albumin, Serum 3.4 gm/dL (3.4-4.8); Albumin/Globulin Ratio 1.3 (1.2-2.2); Alkaline Phosphatase 88 U/L (46-116); Anion Gap 18 (7-16); Aspartate Amino Transferase > 1000 U/L (0-34); BUN/Creatinine Ratio 16 Ratio (12-20); Blood Urea Nitrogen 59 mg/dL (9-23); Calcium 8.6 mg/dL (8.3-10.6); Calcium (Corrected) 9.1 mg/dL (8.5-10.1); Carbon Dioxide 17.1 mMol/L (20.0-31.0); Chloride 102 mMol/L (98-107); Creatinine (Component) 3.8 mg/dL (0.6-1.3); Estimated Creatinine Clearance 17.2 mL/min (>60); Globulin 2.6 gm/dL (2.3-3.5); Glucose 197 mg/dL (74-106); Osmolality,Calculated 295 (275-295); Potassium 4.9 mMol/L (3.4-5.1); Sodium 137 mMol/L (136-145); eGFR 16 See Note
--- NOTE | 2024-01-19 12:45 | PC.SS ---
Update: Patient is on BI-PAP. Patient receiving pressors. No feedings at this time. No skin issues.
[2024-01-19 13:07] LABS: Lactate (Lactic Acid) 5.7 mMol/L (0.4-2.0)
[2024-01-19] MEDS: Heparin/D5w 25K 250 ML Ivpb 25,000 UNIT/250 ML BAG 11.806 UNIT IV (14:00)
[2024-01-19 16:03] LABS: Reflex Lactate? Y
--- NOTE | 2024-01-19 17:18 | PD.RESPRO ---
Documentation for date of: 01/19/24 Subjective Subjective Interval history: 01/19/2024: Patient was seen and examined by the bedside in the ICU. Overnight patient did not keep BiPAP as he is feeling uncomfortable and restarted BiPAP around 6:30 AM this morning. Overnight, Levophed and dobutamine dosages are continuously uptrending, vasopressin is added. Vitals are stable with vasopressors and BiPAP. patient found to have anuria. Labs showed continuously uptrending BUN, creatinine and renal functions. CMP showed low bicarb level for which 1 ampoule of bicarb is given to the patient and started on bicarb drip. Explained the need of dialysis to the patient, patient does not want any further invasive treatments on him. Explained the prognosis of his current medical condition and patient understood it well with his friend by the side. Continue to monitor VBG and labs every 6 hourly. Ultrasound was done at bedside which showed retrograde flow in portal vein, hepatic vein and IVC. Cardiac output measured using mixed venous oxygen saturation was 3.5 L/min, cardiac index is 1.9. So started to uptitrate dobutamine dosage to increase the cardiac output and maintain the perfusion pressure to other organs. Exam Vital Signs Temp Pulse Resp BP Pulse Ox O2 Del Method O2 Flow Rate 96.5 F L 63 11 L 100/56 L 94 L BiPAP 30 01/19/24 12:01 01/19/24 14:21 01/19/24 13:11 01/19/24 14:21 01/19/24 13:11 01/19/24 12:01 01/19/24 12:01 FiO2 40 01/19/24 11:18 Narrative Exam General: Alert, awake and started him on BiPAP. HEENT: Normocephalic, atraumatic, mucous membranes dry. Heart: Regular rate and rhythm, no murmurs. Lungs: Clear to auscultation with no wheezing or crackles. Overall bilateral decreased breath sounds noted Abdomen: Soft, nondistended, nontender, positive bowel sounds. ?No guarding or rebound tenderness. Neurologic: Alert and oriented x3, no gross neurological deficit, and patient able to move all 4 extremities. Extremities: No edema. Skin: No rash or ecchymoses. Objective Labs 01/21/24 06:15 01/21/24 06:15 Labs: Laboratory Results - last 24 hr 01/18/24 01/18/24 01/19/24 17:04 21:30 00:22 WBC RBC Hgb Hct MCV MCH MCHC RDW Std Deviation Plt Count Neut % (Auto) Lymph % (Auto) [place] % (Auto) Eos % (Auto) Baso % (Auto) Neut # (Auto) Lymph # (Auto) [place] # (Auto) Eos # (Auto) Baso # (Auto) Immature Gran # (Auto) Absolute Nucleated RBC Immature Gran % Nucleated RBC % APTT 31.8 D Puncture Site Arterial Line ABG pH 7.49 H ABG pCO2 19 L* ABG pO2 245 H D ABG HCO3 14 L ABG O2 Saturation 100 H ABG Base Excess -7 L VBG pH VBG pCO2 VBG pO2 VBG O2 Sat (Colleen) VBG Base Excess FiO2 50 Sodium Potassium Chloride Carbon Dioxide Anion Gap BUN Creatinine Estim Creat Clear Calc eGFR BUN/Creatinine Ratio Glucose Estimated Ave Glu mg/dL Hemoglobin A1c Calculated Osmolality Lactic Acid Calcium Corrected Calcium Magnesium Total Bilirubin AST ALT Alkaline Phosphatase Troponin I 0.980 H* Total Protein Albumin Globulin Albumin/Globulin Ratio 01/19/24 01/19/24 01/19/24 04:35 05:20 09:40 WBC 10.4 RBC 4.89 Hgb 14.7 Hct 43.5 MCV 89 MCH 30.1 MCHC 33.8 RDW Std Deviation 43.2 Plt Count 202 D Neut % (Auto) 77 Lymph % (Auto) 11 [place] % (Auto) 9 Eos % (Auto) 0 Baso % (Auto) 0 Neut # (Auto) 8.1 H Lymph # (Auto) 1.1 [place] # (Auto) 0.9 H Eos # (Auto) 0.0 Baso # (Auto) 0.0 Immature Gran # (Auto) 0.27 H Absolute Nucleated RBC 0.06 H Immature Gran % 3 H Nucleated RBC % 1 H APTT 56.1 H D Puncture Site Site Not Noted ABG pH 7.29 L D ABG pCO2 20 L ABG pO2 143 H D ABG HCO3 9 L* ABG O2 Saturation 99 H ABG Base Excess -15 L VBG pH VBG pCO2 VBG pO2 VBG O2 Sat (Colleen) VBG Base Excess FiO2 21 Sodium 136 136 Potassium 6.4 H* D 4.7 D Chloride 104 103 Carbon Dioxide 10.2 L* 11.4 L* Anion Gap 22 H 22 H BUN 54 H 58 H Creatinine 3.5 H D 3.7 H Estim Creat Clear Calc 17.8 L 17.6 L eGFR 18 L 17 L BUN/Creatinine Ratio 15 16 Glucose [address] Glu mg/dL 111 Hemoglobin A1c 5.5 Calculated Osmolality 286 297 H Lactic Acid 7.5 H* 7.8 H* Calcium 9.1 8.8 Corrected Calcium 9.4 9.3 Magnesium 2.9 H Total Bilirubin 0.9 1.1 AST 357 H 744 H* ALT 277 H 516 H* Alkaline Phosphatase 95 88 Troponin I Total Protein 6.5 6.0 Albumin 3.6 3.4 Globulin 2.9 2.6 Albumin/Globulin Ratio 1.2 1.3 01/19/24 01/19/24 01/19/24 11:01 11:11 12:00 WBC RBC Hgb Hct MCV MCH MCHC RDW Std Deviation Plt Count Neut % (Auto) Lymph % (Auto) [place] % (Auto) Eos % (Auto) Baso % (Auto) Neut # (Auto) Lymph # (Auto) [place] # (Auto) Eos # (Auto) Baso # (Auto) Immature Gran # (Auto) Absolute Nucleated RBC Immature Gran % Nucleated RBC % APTT Puncture Site Arterial Line ABG pH 7.26 L ABG pCO2 28 L ABG pO2 149 H ABG HCO3 13 L ABG O2 Saturation 99 H ABG Base Excess -13 L VBG pH 7.26 L VBG pCO2 32 L VBG pO2 46 VBG O2 Sat (Colleen) 71 L VBG Base Excess -12 L FiO2 40 Sodium 137 Potassium 4.9 Chloride 102 Carbon Dioxide 17.1 L Anion Gap 18 H BUN 59 H Creatinine 3.8 H Estim Creat Clear Calc 17.2 L eGFR 16 L BUN/Creatinine Ratio 16 Glucose [address] Glu mg/dL Hemoglobin A1c Calculated Osmolality 295 Lactic Acid Calcium 8.6 Corrected Calcium 9.1 Magnesium Total Bilirubin 1.0 AST > 1000 H* ALT 931 H* Alkaline Phosphatase 88 Troponin I Total Protein 6.0 Albumin 3.4 Globulin 2.6 Albumin/Globulin Ratio 1.3 01/19/24 01/19/24 13:00 15:51 WBC RBC Hgb Hct MCV MCH MCHC RDW Std Deviation Plt Count Neut % (Auto) Lymph % (Auto) [place] % (Auto) Eos % (Auto) Baso % (Auto) Neut # (Auto) Lymph # (Auto) [place] # (Auto) Eos # (Auto) Baso # (Auto) Immature Gran # (Auto) Absolute Nucleated RBC Immature Gran % Nucleated RBC % APTT 57.0 H Puncture Site ABG pH ABG pCO2 ABG pO2 ABG HCO3 ABG O2 Saturation ABG Base Excess VBG pH VBG pCO2 VBG pO2 VBG O2 Sat (Colleen) VBG Base Excess FiO2 Sodium Potassium Chloride Carbon Dioxide Anion Gap BUN Creatinine Estim Creat Clear Calc eGFR BUN/Creatinine Ratio Glucose Estimated Ave Glu mg/dL Hemoglobin A1c Calculated Osmolality Lactic Acid 5.7 H* 6.0 H* Calcium Corrected Calcium Magnesium Total Bilirubin AST ALT Alkaline Phosphatase Troponin I Total Protein Albumin Globulin Albumin/Globulin Ratio ABG Interpretation ABG results: 01/18/24 01/18/24 01/19/24 11:29 21:30 04:35 ABG pH 7.51 H 7.49 H 7.29 L D ABG pCO2 17 L* 19 L* 20 L ABG pO2 221 H 245 H D 143 H D ABG HCO3 13 L 14 L 9 L* ABG O2 Saturation 100 H 100 H 99 H ABG Base Excess -7 L -7 L -15 L VBG pH VBG pCO2 VBG pO2 VBG Base Excess 01/19/24 01/19/24 11:01 11:11 ABG pH 7.26 L ABG pCO2 28 L ABG pO2 149 H ABG HCO3 13 L ABG O2 Saturation 99 H ABG Base Excess -13 L VBG pH 7.26 L VBG pCO2 32 L VBG pO2 46 VBG Base Excess -12 L Quality Measures Quality Measures none Advance care planning discussed with:: patient Assessment & Plan Assessment Current Active Medications: Generic Name Dose Route Start Last Admin Trade Name Freq PRN Reason Stop Dose Admin Acetaminophen 650 mg 01/17/24 21:38 Acetaminophen 325 Mg Tablet PO 02/16/24 21:37 Q6H PRN PAIN OR FEVER > 101 Aspirin 81 mg 01/18/24 09:00 01/19/24 11:12 Aspirin Ec 81 Mg Tabec PO 02/17/24 08:59 Not Given QDAY VINCE Atorvastatin Calcium 40 mg 01/18/24 21:00 01/18/24 21:45 Atorvastatin Calcium 20 Mg Tablet PO 02/17/24 20:59 40 mg HS VINCE Administration Furosemide 40 mg 01/18/24 16:00 01/19/24 05:43 Furosemide Inj 10 Mg/Ml 4ml Vial IVP 02/17/24 15:59 40 mg TID VINCE Administration Ceftriaxone Sodium/Dextrose 50 mls @ 100 mls/hr 01/18/24 21:00 01/19/24 10:09 Rocephin/D5w 1gm Iv Premix IV 01/25/24 20:59 Infused DAILY@2100 VINCE Infusion Doxycycline Hyclate 100 mg/ 100 mls @ 100 mls/hr 01/18/24 09:00 01/19/24 11:22 Sodium Chloride IV 01/25/24 08:59 Infused BID VINCE Infusion Heparin Sodium/Dextrose 25,000 unit in 250 mls @ 7.871 mls/hr 01/18/24 02:30 01/19/24 14:00 Heparin In D5w Ivpb IV 02/01/24 02:29 18 units/kg/hr .Q24H VINCE 11.806 mls/hr Administration Protocol 12 UNITS/KG/HR Dobutamine HCl/Dextrose 500 mg in 250 mls @ 1.899 mls/hr 01/18/24 11:08 01/19/24 16:29 Dobutrex/D5w Ivpb IV 02/17/24 11:07 4 mcg/kg/min .Q24H PRN 7.596 mls/hr PER PROTOCOL Titration Protocol 1 MCG/KG/MIN Norepinephrine Bitartrate 16 mg in 250 mls @ 2.967 mls/hr 01/18/24 11:18 01/19/24 17:13 Levophed In Ns 16mg/250ml IV 02/17/24 11:07 0.6 mcg/kg/min .Q24H PRN 35.609 mls/hr PER protocol Titration Protocol 0.05 MCG/KG/MIN Amiodarone HCl/Dextrose 360 mg in 200 mls @ 16.667 mls/hr 01/18/24 23:31 01/19/24 11:22 Nexterone Ivpb IV 01/19/24 23:30 16.667 mls/hr .Q12H VINCE Administration Vasopressin/Sodium Chloride 20 unit in 100 mls @ 9 mls/hr 01/19/24 07:11 01/19/24 17:07 Vasostrict/Ns Ivpb IV 02/18/24 07:10 0.03 unit/min .Q11H7M PRN 9 mls/hr PER PROTOCOL Administration Protocol 0.03 UNIT/MIN Sodium Bicarbonate 100 meq/ 600 mls @ 50 mls/hr 01/19/24 11:15 01/19/24 11:25 Dextrose IV 02/18/24 11:14 50 mls/hr .Q12H VINCE Administration Ondansetron HCl 4 mg 01/17/24 21:38 Ondansetron Inj 2 Mg/Ml Inj 2 Ml IV 02/16/24 21:37 Q6H PRN NAUSEA OR VOMITING Protocol Pantoprazole Sodium 40 mg 01/18/24 09:00 01/19/24 11:12 Pantoprazole 40 Mg Tablet PO 02/17/24 08:59 Not Given QDAY VINCE Sennosides 1 tab 01/18/24 09:00 01/19/24 11:12 Senna Tablet PO 02/17/24 08:59 Not Given QDAY VINCE Protocol Sodium Chloride 3 ml 01/19/24 06:48 01/19/24 06:57 Sodium Chloride Rt Jackie 0.9% 3 Ml Nebu INH 02/18/24 06:47 3 ml PRN PRN Administration TO MIX WITH ALBUTEROL Plan 68-year-old male with no significant past medical history admitted to the hospital chief complaints of shortness of breath and diagnosed to have acute hypoxic respiratory failure secondary to HFrEF exacerbation. NEURO Patient is awake, alert, and oriented x3, following commands, conversational. #No active problems CARDIO # Cardiogenic shock # Dilated cardiomyopathy, likely combined meth use and smoking # Elevated trop - likely Tpe II -Likely exacerbated in the setting of suspected pneumonia in the right lobe and continued meth use. -Presented to the hospital with complaints of shortness of breath, orthopnea, PND -Denies palpitations, fever, pedal edema, abdominal distention. -Chest x-ray showed hyperinflation of bilateral lungs with patchy infiltrate in right lower lobe-pneumonia versus mass. -labs showed elevated BNP, Troponins that downtrended later. urine toxicology tested positive for meth. -Echo done on 01/17/2024 showed dilated cardiomyopathy - Mild to moderately dilated LV and RV. Moderate biatrial dilatation. Severe LV systolic dysfunction. Severe global hypokinesis. Estimated EF around 10% .Diastolic dysfunction present but cannot be graded due to Afib. Plan -Started on Levophed and dobutamine drip. -Vasopressin is added this morning in view of continuously uptrending Levophed and dobutamine dosages. -Goal is to maintain systolic blood pressure above 100 mmHg. -Will continue to monitor blood pressures. -started on CPAP. # Atrial fibrillation with rapid ventricular rate -reverted to to normal sinus rhythm on 01/19/2024 -Patient was found to have sinus rhythm on EKG at the time of admission. -After starting Levophed and dobutamine drip, patient developed atrial fibrillation Plan Will continue amiodarone and heparin drip. PULM # Acute hypoxic respiratory failure # due to underlying cardiogenic shock # possible right lung pneumonia -admitted to hospital with complaints of shortness of breath -chest x ray showed right patchy infiltrate in the middle lobe. Plan -Started on ceftriaxone 1 g IV twice daily(01/17- -started on Doxycycline 100mg BID(01/17- #Chronic smoker #?COPD - smoking history of >40 pack years. - condition is stable as of now. GI # Transaminitis Due to underlying cardiogenic shock -Labs on 01/19/2024 showed AST> 1000, ALT 931 plan -Will continue to monitor LFTs and continue inotropes. NEPHRO # MARIANO, prerenal -worsening Likely due to underlying cardiogenic shock -Creatinine in 12/2018 is 1.1 and at the time of admission is 2.1 -On 01/19/2024, there is no urine output and BUN and creatinine continuously uptrending, 3.5> 3.7>3.8 Plan -Dialysis option is given for the patient but patient denied further invasive treatments -Will continue to monitor renal functions and renally dose medications. -Will continue vasopressors and monitor urine output. # Anion gap metabolic acidosis -Due to underlying shock -Bicarb on 01/19/2024 is 10.2 and anion gap is 22, lactate is 7.8. Plan -1 ampoule of sodium bicarb is given in the morning and started on drip later. 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 ENDO #No active problems ID #Suspected right lung pneumonia versus mass in right middle lobe -Admitted with shortness of breath started 3 weeks before admitting into the hospital. -Denies fever, chills, cough. -CBC is within normal limits. -Chest x-ray showed right patchy consolidation which was not present in 2019 -Patient did not get CT chest in view of his hemodynamic instability Plan -Started on ceftriaxone and doxycycline(01/17- MSK #No active problems SKIN #No active problems DVT prophylaxis: Heparin GI prophylaxis: Protonix Diet: N.p.o. as patient is on BiPAP and vasopressors [place]: Present Lines: Central and peripheral Antibiotics: Ceftriaxone and doxycycline CODE STATUS: FULL Reason for ICU care: Cardiogenic shock requiring vasopressors Patient plan of care was discussed with the attending chromosomal disorders counselor, Dr. Cruz. David Mtz, PGY1 Attending Provider Attestation/Addendum Patient seen and examined with above resident, David Mtz MD. I agree with the findings, assessment, and plan of care as documented separately differences below. Patient overnight remained stable but with increasing requirements for vasopressor inotropic support. Patient with worsening acidosis secondary to renal failure, bicarb drip was started. Need to be cautious of fluid that is being infused as this will likely lead to worsening heart failure. At this point with renal dysfunction he is unable to be adequately diuresed. Unfortunately we do not have CRRT to assist test. Patient also is aware of risk of intubation and at this point him and his surrogate decision maker were extensively counseled by team and have agreed to DNR status. Will continue all aggressive medical management without candidacy for circulatory support device or transplant as a potential bridge in the long run given his history of methamphetamine use. Will continue support as we allow time for renal recovery which is obtained maybe allow us to adequately diurese him to treat his congestive heart failure. Continue on BiPAP support as this is also beneficial for preload and afterload reduction in the setting of CHF. Patient can be transition to high humidity/high flow nasal cannula for breaks throughout the day and we will reassess his ability to tolerate p.o. diet as appropriate. Continue serial monitoring of central stat/ABG for estimation of cardiac output using Isaiah's equation. Will hold off on placement of [place] catheter given the patient's request to avoid additional invasive procedures. He does have central access as well as arterial line for close monitoring and adjustment and avoidance of frequent blood draws. Patient and his surrogate decision maker are aware of poor prognosis but remain hopeful given his continued stability with adequate mentation and tolerance of all therapies thus far. I did explain that if renal failure continues to worsen or liver dysfunction occurs he may have worsening mentation which will likely be dependent ultimate sign of inability to recover without aggressive means which we are all on the same page about now. Total critical care time I personally spent 60 minutes for review of physiologic parameters, directing plan of care throughout the day, and extensive counseling with patient and his surrogate decision maker at bedside. This is exclusive of time spent teaching housestaff or performing any separate billable procedures. Patient continues to require critical care services for cardiogenic shock with high risk for mortality given multiorgan endorgan dysfunction.
--- NOTE | 2024-01-19 18:01 | ESOP_ITS ---
Procedures Procedure Date / Time 01/19/24 180 Procedure Narrative Procedure Narrative: Attending attestation: I was present for entire procedure. No immediate complications. Minimal blood loss. Patient tolerated procedure well. Arterial Line Indication(s): frequent arterial line sampling, hypoxic resp failure and shock Informed consent obtained: from patient Time out done, and the following verified: correct patient, side and site, procedure, patient position and implants and/or equipment Size (Gauge): 14 Technique used: guide wire technique Post-Procedure: line sutured into place and dry sterile dressing placed Patient tolerated procedure: well and no complications EBL(ml): 10 Complications: none Site: left Procedure comment: Done under supervision of social worker palliative care Dr. Anthony Mtz, PGY1
[2024-01-19 18:21] LABS: Base Excess -11 (-3-3); HCO3 14 mEq/L (20-26); Inspired Oxygen, FIO2 40 %; O2 Saturation 100 % (91-98); PCO2 26 mmHg (32.0-48.0); PO2 164 mmHg (83-108); pH, Arterial 7.32 (7.35-7.45)
[2024-01-19 18:22] LABS: Allen Test Not Performed; Puncture Site Arterial Line
[2024-01-19 18:41] LABS: Base Excess, Venous -11 (-3-3); O2 Saturation, Venous 74 % (96-97); PCO2, Venous 24 mmHg (36-56); PO2, Venous 44 mmHg (15-58); pH, Venous 7.35 (7.33-7.66)
[2024-01-19 18:42] LABS: Lactate (Lactic Acid) 6.1 mMol/L (0.4-2.0)
[2024-01-19 19:26] LABS: Alanine Aminotransferase 1700 U/L (10-49); Albumin, Serum 3.3 gm/dL (3.4-4.8); Albumin/Globulin Ratio 1.3 (1.2-2.2); Alkaline Phosphatase 92 U/L (46-116); Anion Gap 18 (7-16); Aspartate Amino Transferase 2807 U/L (0-34); BUN/Creatinine Ratio 13 Ratio (12-20); Bilirubin,Total 1.2 mg/dL (0.3-1.2); Blood Urea Nitrogen 56 mg/dL (9-23); Calcium 8.3 mg/dL (8.3-10.6); Calcium (Corrected) 8.9 mg/dL (8.5-10.1); Carbon Dioxide 15.8 mMol/L (20.0-31.0); Chloride 100 mMol/L (98-107); Creatinine (Component) 4.2 mg/dL (0.6-1.3); Estimated Creatinine Clearance 15.5 mL/min (>60); Globulin 2.6 gm/dL (2.3-3.5); Glucose 145 mg/dL (74-106); Osmolality,Calculated 286 (275-295); Sodium 134 mMol/L (136-145); Total Protein 5.9 gm/dL (5.7-8.2); eGFR 15 See Note
[2024-01-19 19:31] LABS: Potassium 6.2 mMol/L (3.4-5.1)
[2024-01-19] MEDS: DEXTROSE 50%-WATER INJ 50 ML SYRINGE IV (20:07)
[2024-01-19] MEDS: cefTRIAXone/D5w 1gm IV premix 50 ML IV (20:30)
[2024-01-19] MEDS: ATORVASTATIN CALCIUM 20 MG TABLET 40 MG PO (20:30)
[2024-01-19 21:40] LABS: Reflex Lactate? Y
[2024-01-19 22:01] LABS: Lactic Acid, 3 HR 4.5 mMol/L (0.4-2.0)
[2024-01-19 22:18] LABS: Partial Thromboplastin Time 41.1 Seconds (22.0-36.0)
[2024-01-19 23:07] LABS: Base Excess, Venous -6 (-3-3); O2 Saturation, Venous 99 % (96-97); PCO2, Venous 28 mmHg (36-56); PO2, Venous 129 mmHg (15-58); pH, Venous 7.41 (7.33-7.66)
[2024-01-19 23:28] LABS: Allen Test Not Performed; Base Excess -6 (-3-3); HCO3 18 mEq/L (20-26); Inspired Oxygen, FIO2 30 %; O2 Saturation 98 % (91-98); PCO2 29 mmHg (32.0-48.0); PO2 101 mmHg (83-108); Puncture Site Arterial Line
[2024-01-19] MEDS: HEPARIN SOD INJ 5000 UNIT/ML VIAL 1983 UNIT IVP (23:30)
[2024-01-20] VITALS (110 sets, daily range): BP systolic 83–300; BP diastolic 42–300; PULSE 70–121; RESP 0–40; TEMP 36.1–36.9; O2SAT 86–100
[2024-01-20 00:22] LABS: Anion Gap 16 (7-16); BUN/Creatinine Ratio 18 Ratio (12-20); Blood Urea Nitrogen 79 mg/dL (9-23); Carbon Dioxide 17.5 mMol/L (20.0-31.0); Chloride 104 mMol/L (98-107); Creatinine (Component) 4.4 mg/dL (0.6-1.3); Estimated Creatinine Clearance 14.8 mL/min (>60); Glucose 136 mg/dL (74-106); Potassium 5.1 mMol/L (3.4-5.1); Sodium 137 mMol/L (136-145); eGFR 14 See Note
[2024-01-20 00:23] LABS: Calcium (Corrected) 8.8 mg/dL (8.5-10.1); Osmolality,Calculated 299 (275-295)
[2024-01-20] MEDS: DOBUTamine/D5w 500 MG IVPB 500 MG/250 ML BAG 11.395 MG IV (00:37)
[2024-01-20 01:08] LABS: Lactate (Lactic Acid) 2.3 mMol/L (0.4-2.0)
[2024-01-20 01:09] LABS: Base Excess, Venous -5 (-3-3); O2 Saturation, Venous 99 % (96-97); PCO2, Venous 31 mmHg (36-56); PO2, Venous 141 mmHg (15-58); pH, Venous 7.39 (7.33-7.66)
[2024-01-20 01:16] LABS: Phosphorous 9.3 mg/dL (2.4-5.1)
[2024-01-20 01:47] LABS: Albumin, Serum 3.1 gm/dL (3.4-4.8); Albumin/Globulin Ratio 1.3 (1.2-2.2); Alkaline Phosphatase 93 U/L (46-116); Anion Gap 15 (7-16); BUN/Creatinine Ratio 17 Ratio (12-20); Blood Urea Nitrogen 76 mg/dL (9-23); Calcium 8.1 mg/dL (8.3-10.6); Calcium (Corrected) 8.8 mg/dL (8.5-10.1); Carbon Dioxide 18.2 mMol/L (20.0-31.0); Chloride 103 mMol/L (98-107); Creatinine (Component) 4.5 mg/dL (0.6-1.3); Estimated Creatinine Clearance 14.5 mL/min (>60); Globulin 2.4 gm/dL (2.3-3.5); Glucose 134 mg/dL (74-106); Osmolality,Calculated 296 (275-295); Potassium 4.9 mMol/L (3.4-5.1); Sodium 136 mMol/L (136-145); Total Protein 5.5 gm/dL (5.7-8.2); eGFR 13 See Note
[2024-01-20] MEDS: DEXTROSE 5% IV ×2 (02:15→16:16)
[2024-01-20] MEDS: SODIUM BICARB IV ×2 (02:15→16:16)
[2024-01-20] MEDS: WATER IV ×2 (02:15→16:16)
[2024-01-20 03:17] LABS: Alanine Aminotransferase > 3300 U/L (10-49); Aspartate Amino Transferase > 6000 U/L (0-34)
[2024-01-20 04:04] LABS: Reflex Lactate? Y
[2024-01-20] MEDS: VASOPRESSIN IN NS IVPB 20 UNIT/100 ML BAG 9 UNIT IV ×2 (04:15→16:07)
[2024-01-20] MEDS: Norepinephrine/NS 16mg/250ml 16 MG/250 ML BAG 36.795 MG IV (05:00)
[2024-01-20 06:10] LABS: Base Excess -5 (-3-3); HCO3 19 mEq/L (20-26); O2 Saturation 99 % (91-98); PCO2 28 mmHg (32.0-48.0); PO2 128 mmHg (83-108); pH, Arterial 7.43 (7.35-7.45)
[2024-01-20 06:11] LABS: Lactate (Lactic Acid) 2.1 mMol/L (0.4-2.0)
[2024-01-20 06:13] LABS: Base Excess, Venous -4 (-3-3); Basophils % (Auto) 0 % (0-2.5); Eosinophils % (Auto) 0 % (0-10); Hematocrit 34.5 % (41.0-53.0); Hemoglobin 11.9 g/dL (13.5-16.0); Immature Granulocytes % (Auto) 1 % (0-0); Immature Granulocytes Auto 0.17 Thou/mm3 (0.00-0.00); Lymphocytes # (Auto) 1.7 Thou/mm3 (1.0-4.8); Lymphocytes % (Auto) 9 % (10-50); Mean Corpuscular HGB Conc 34.5 g/dl (31.0-37.0); Mean Corpuscular Hemoglobin 30.1 pg (25.0-35.0); Mean Corpuscular Volume 87 fL (80-100); Monocytes # (Auto) 0.6 Thou/mm3 (0.0-0.8); Monocytes % (Auto) 3 % (0-12); Neutrophils # (Auto) 15.7 Thou/mm3 (1.8-7.7); Neutrophils % (Auto) 86 % (37-80); Nucleated Red Blood Cell # 0.36 Thou/mm3 (0.00-0.00); Nucleated Red Blood Cell % 2 /100 WBC (0); O2 Saturation, Venous 91 % (96-97); PCO2, Venous 29 mmHg (36-56); PO2, Venous 61 mmHg (15-58); Platelet Count 179 Thou/mm3 (140-440); Red Blood Count 3.95 Miln/mm3 (4.50-5.90); White Blood Count 18.2 Thou/mm3 (3.8-10.6); pH, Venous 7.42 (7.33-7.66)
[2024-01-20 06:17] LABS: Allen Test Not Performed; Inspired Oxygen, FIO2 30 %; Puncture Site Arterial Line
[2024-01-20 06:43] LABS: INR 2.2 (0.9-1.3); Partial Thromboplastin Time 68.8 Seconds (22.0-36.0); Prothrombin Time 22.9 Seconds (9.0-12.2)
[2024-01-20 06:47] LABS: Alanine Aminotransferase > 3300 U/L (10-49); Albumin, Serum 3.2 gm/dL (3.4-4.8); Albumin/Globulin Ratio 1.3 (1.2-2.2); Alkaline Phosphatase 92 U/L (46-116); Anion Gap 13 (7-16); Aspartate Amino Transferase > 6000 U/L (0-34); BUN/Creatinine Ratio 16 Ratio (12-20); Blood Urea Nitrogen 78 mg/dL (9-23); Calcium 7.6 mg/dL (8.3-10.6); Calcium (Corrected) 8.2 mg/dL (8.5-10.1); Carbon Dioxide 22.9 mMol/L (20.0-31.0); Chloride 100 mMol/L (98-107); Estimated Creatinine Clearance 13.6 mL/min (>60); Globulin 2.4 gm/dL (2.3-3.5); Glucose 131 mg/dL (74-106); Magnesium 2.7 mg/dL (1.6-2.6); Osmolality,Calculated 297 (275-295); Potassium 4.8 mMol/L (3.4-5.1); Sodium 136 mMol/L (136-145); Total Protein 5.6 gm/dL (5.7-8.2); eGFR 12 See Note
--- NOTE | 2024-01-20 08:31 | PD.RESPRO ---
Documentation for date of: 01/20/24 Subjective Subjective Interval history: Patient was seen and examined in ICU this AM. Patient still on BiPAP @ 30L/min and FiO2 30% Patient endorses that his SOB has improved compared to yesterday. Denies any chest pain/ pressure or palpitations Recommend Stat Nephrology consult Patient had a fluid balance of +2359cc in the past 24 hours Patient bicarb improved to 22.9 from 10.2, BUN increased to 78 from 54, CR increased to 5 from 3.5 Continue to hold IV diuresis for now in light of acute renal failure. Recommend stat nephrology consult as well Lactic acid decreased to 2.1 from 7.8 AST and ALT also up trended to >6000 and >3300 from 2807 and 931 respectively indicating either hepatic congestion or ischemic hepatitis due to shock. Patient's BP is currently 116/67 and he is on pressor support with dobutamine infusion @ 11ml/hr and norepinephrine infusion @36ml/hr Exam Vital Signs Temp Pulse Resp BP Pulse Ox O2 Del Method O2 Flow Rate 96.9 F 76 16 128/73 99 BiPAP 30 01/20/24 04:00 01/20/24 06:44 01/20/24 06:44 01/20/24 06:30 01/20/24 06:44 01/19/24 12:01 01/19/24 12:01 FiO2 30 01/20/24 06:44 Narrative Exam Constitutional Alert, oriented x 3 and Mild Distress. Elderly male, cachectic, on BiPAP HEENT Vision grossly intact. Patent nares. Trachea midline. Poor dentition, missing teeth Respiratory Chest normal on inspection, RIJ catheter, exit site clean and decreased breath sounds throughout lung chauhan b/l Cardiovascular S1 and S2 audible, RRR. No murmurs carotid bruit. JVD not assessed Abdominal Soft and non tender to palpation in all quadrants. BS + Genitourinary No bladder tenderness, no flank pain. Normal to palpation. Left femoral catheter, exit site clean Musculoskeletal Extremities tone within normal limits. No LE edema. Neurological CN II - XII grossly intact. Extremity motor and sensation grossly intact. Skin Warm, dry and intact. No apparent lesions. Psychiatric Patient has good affect, is cooperative Objective Labs 01/21/24 06:15 01/21/24 06:15 Labs: Laboratory Results - last 24 hr 1101/19/24 01/19/24 09:40 11:01 11:11 WBC RBC Hgb Hct MCV MCH MCHC RDW Std Deviation Plt Count Neut % (Auto) Lymph % (Auto) [place] % (Auto) Eos % (Auto) Baso % (Auto) Neut # (Auto) Lymph # (Auto) [place] # (Auto) Eos # (Auto) Baso # (Auto) Immature Gran # (Auto) Absolute Nucleated RBC Immature Gran % Nucleated RBC % PT INR APTT 56.1 H D Puncture Site Arterial Line ABG pH 7.26 L ABG pCO2 28 L ABG pO2 149 H ABG HCO3 13 L ABG O2 Saturation 99 H ABG Base Excess -13 L VBG pH 7.26 L VBG pCO2 32 L VBG pO2 46 VBG O2 Sat (Colleen) 71 L VBG Base Excess -12 L FiO2 40 Sodium 136 Potassium 4.7 D Chloride 103 Carbon Dioxide 11.4 L* Anion Gap 22 H BUN 58 H Creatinine 3.7 H Estim Creat Clear Calc 17.6 L eGFR 17 L BUN/Creatinine Ratio [address] Glucose [address] Glu mg/dL 111 Hemoglobin A1c 5.5 Calculated Osmolality 297 H Lactic Acid 7.8 H* Calcium 8.8 Corrected Calcium 9.3 Phosphorus Magnesium Total Bilirubin 1.1 AST 744 H* ALT 516 H* Alkaline Phosphatase 88 Total Protein 6.0 Albumin 3.4 Globulin 2.6 Albumin/Globulin Ratio 1.3 01/19/24 01/19/24 01/19/24 12:00 13:00 15:51 WBC RBC Hgb Hct MCV MCH MCHC RDW Std Deviation Plt Count Neut % (Auto) Lymph % (Auto) [place] % (Auto) Eos % (Auto) Baso % (Auto) Neut # (Auto) Lymph # (Auto) [place] # (Auto) Eos # (Auto) Baso # (Auto) Immature Gran # (Auto) Absolute Nucleated RBC Immature Gran % Nucleated RBC % PT INR APTT 57.0 H Puncture Site ABG pH ABG pCO2 ABG pO2 ABG HCO3 ABG O2 Saturation ABG Base Excess VBG pH VBG pCO2 VBG pO2 VBG O2 Sat (Colleen) VBG Base Excess FiO2 Sodium 137 Potassium 4.9 Chloride 102 Carbon Dioxide 17.1 L Anion Gap 18 H BUN 59 H Creatinine 3.8 H Estim Creat Clear Calc 17.2 L eGFR 16 L BUN/Creatinine Ratio 16 Glucose [address] Glu mg/dL Hemoglobin A1c Calculated Osmolality 295 Lactic Acid 5.7 H* 6.0 H* Calcium 8.6 Corrected Calcium 9.1 Phosphorus Magnesium Total Bilirubin 1.0 AST > 1000 H* ALT 931 H* Alkaline Phosphatase 88 Total Protein 6.0 Albumin 3.4 Globulin 2.6 Albumin/Globulin Ratio 1.3 01/19/24 01/19/24 01/19/24 18:13 18:30 21:38 WBC RBC Hgb Hct MCV MCH MCHC RDW Std Deviation Plt Count Neut % (Auto) Lymph % (Auto) [place] % (Auto) Eos % (Auto) Baso % (Auto) Neut # (Auto) Lymph # (Auto) [place] # (Auto) Eos # (Auto) Baso # (Auto) Immature Gran # (Auto) Absolute Nucleated RBC Immature Gran % Nucleated RBC % PT INR APTT 41.1 H D Puncture Site Arterial Line ABG pH 7.32 L ABG pCO2 26 L ABG pO2 164 H ABG HCO3 14 L ABG O2 Saturation 100 H ABG Base Excess -11 L VBG pH 7.35 VBG pCO2 24 L VBG pO2 44 VBG O2 Sat (Colleen) 74 L VBG Base Excess -11 L FiO2 40 Sodium 134 L Potassium 6.2 H* D Chloride 100 Carbon Dioxide 15.8 L Anion Gap 18 H BUN 56 H Creatinine 4.2 H* Estim Creat Clear Calc 15.5 L eGFR 15 L BUN/Creatinine Ratio 13 Glucose [address] Glu mg/dL Hemoglobin A1c Calculated Osmolality 286 Lactic Acid 6.1 H* 4.5 H* Calcium 8.3 Corrected Calcium 8.9 Phosphorus Magnesium Total Bilirubin 1.2 AST 2807 H* ALT 1700 H* Alkaline Phosphatase 92 Total Protein 5.9 Albumin 3.3 L Globulin 2.6 Albumin/Globulin Ratio 1.3 01/19/24 01/19/24 01/20/24 23:00 23:19 00:57 WBC RBC Hgb Hct MCV MCH MCHC RDW Std Deviation Plt Count Neut % (Auto) Lymph % (Auto) [place] % (Auto) Eos % (Auto) Baso % (Auto) Neut # (Auto) Lymph # (Auto) [place] # (Auto) Eos # (Auto) Baso # (Auto) Immature Gran # (Auto) Absolute Nucleated RBC Immature Gran % Nucleated RBC % PT INR APTT Puncture Site Arterial Line ABG pH 7.40 ABG pCO2 29 L ABG pO2 101 D ABG HCO3 18 L ABG O2 Saturation 98 ABG Base Excess -6 L VBG pH 7.41 7.39 VBG pCO2 28 L 31 L VBG pO2 129 H D 141 H VBG O2 Sat (Colleen) 99 H D 99 H VBG Base Excess -6 L -5 L FiO2 30 Sodium 137 136 Potassium 5.1 D 4.9 Chloride 104 103 Carbon Dioxide 17.5 L 18.2 L Anion Gap 16 15 BUN 79 H 76 H Creatinine 4.4 H* 4.5 H* Estim Creat Clear Calc 14.8 L 14.5 L eGFR 14 L* 13 L* BUN/Creatinine Ratio 18 17 Glucose 136 H [address] Glu mg/dL Hemoglobin A1c Calculated Osmolality 299 H 296 H Lactic Acid 2.3 H Calcium 8.0 L 8.1 L Corrected Calcium 8.8 8.8 Phosphorus 9.3 H Magnesium Total Bilirubin 1.0 AST > 6000 H* ALT > 3300 H* Alkaline Phosphatase 93 Total Protein 5.5 L Albumin 3.0 L 3.1 L Globulin 2.4 Albumin/Globulin Ratio 1.3 01/20/24 01/20/24 05:52 06:00 WBC 18.2 H D RBC 3.95 L Hgb 11.9 L D Hct 34.5 L MCV 87 MCH 30.1 MCHC 34.5 RDW Std Deviation 42.0 Plt Count 179 Neut % (Auto) 86 H Lymph % (Auto) 9 L [place] % (Auto) 3 Eos % (Auto) 0 Baso % (Auto) 0 Neut # (Auto) 15.7 H Lymph # (Auto) 1.7 [place] # (Auto) 0.6 Eos # (Auto) 0.0 Baso # (Auto) 0.0 Immature Gran # (Auto) 0.17 H Absolute Nucleated RBC 0.36 H Immature Gran % 1 H Nucleated RBC % 2 H PT 22.9 H D INR 2.2 H APTT 68.8 H D Puncture Site Arterial Line ABG pH 7.43 ABG pCO2 28 L ABG pO2 128 H D ABG HCO3 19 L ABG O2 Saturation 99 H ABG Base Excess -5 L VBG pH 7.42 VBG pCO2 29 L VBG pO2 61 H D VBG O2 Sat (Colleen) 91 L VBG Base Excess -4 L FiO2 30 Sodium 136 Potassium 4.8 Chloride 100 Carbon Dioxide 22.9 Anion Gap 13 BUN 78 H Creatinine 5.0 H* D Estim Creat Clear Calc 13.6 L eGFR 12 L* BUN/Creatinine Ratio 16 [address]ucose [address] Glu mg/dL Hemoglobin A1c Calculated Osmolality 297 H Lactic Acid 2.1 H Calcium 7.6 L Corrected Calcium 8.2 L Phosphorus Magnesium 2.7 H Total Bilirubin 1.0 AST > 6000 H* ALT > 3300 H* Alkaline Phosphatase 92 Total Protein 5.6 L Albumin 3.2 L Globulin 2.4 Albumin/Globulin Ratio 1.3 ABG Interpretation ABG results: 01/18/24 01/18/24 01/19/24 11:29 21:30 04:35 ABG pH 7.51 H 7.49 H 7.29 L D ABG pCO2 17 L* 19 L* 20 L ABG pO2 221 H 245 H D 143 H D ABG HCO3 13 L 14 L 9 L* ABG O2 Saturation 100 H 100 H 99 H ABG Base Excess -7 L -7 L -15 L VBG pH VBG pCO2 VBG pO2 VBG Base Excess 01/19/24 01/19/24 01/19/24 11:01 11:11 18:13 ABG pH 7.26 L 7.32 L ABG pCO2 28 L 26 L ABG pO2 149 H 164 H ABG HCO3 13 L 14 L ABG O2 Saturation 99 H 100 H ABG Base Excess -13 L -11 L VBG pH 7.26 L VBG pCO2 32 L VBG pO2 46 VBG Base Excess -12 L 01/19/24 01/19/24 01/19/24 18:30 23:00 23:19 ABG pH 7.40 ABG pCO2 29 L ABG pO2 101 D ABG HCO3 18 L ABG O2 Saturation 98 ABG Base Excess -6 L VBG pH 7.35 7.41 VBG pCO2 24 L 28 L VBG pO2 44 129 H D VBG Base Excess -11 L -6 L 01/20/24 01/20/24 01/20/24 00:57 05:52 06:00 ABG pH 7.43 ABG pCO2 28 L ABG pO2 128 H D ABG HCO3 19 L ABG O2 Saturation 99 H ABG Base Excess -5 L VBG pH 7.39 7.42 VBG pCO2 31 L 29 L VBG pO2 141 H 61 H D VBG Base Excess -5 L -4 L Quality Measures Quality Measures none Advance care planning discussed with:: patient and other Assessment & Plan Assessment Current Active Medications: Generic Name Dose Route Start Last Admin Trade Name Freq PRN Reason Stop Dose Admin Acetaminophen 650 mg 01/17/24 21:38 Acetaminophen 325 Mg Tablet PO 02/16/24 21:37 Q6H PRN PAIN OR FEVER > 101 Aspirin 81 mg 01/18/24 09:00 01/19/24 11:12 Aspirin Ec 81 Mg Tabec PO 02/17/24 08:59 Not Given QDAY VINCE Atorvastatin Calcium 40 mg 01/18/24 21:00 01/19/24 20:30 Atorvastatin Calcium 20 Mg Tablet PO 02/17/24 20:59 40 mg HS VINCE Administration Furosemide 40 mg 01/18/24 16:00 01/19/24 05:43 Furosemide Inj 10 Mg/Ml 4ml Vial IVP 02/17/24 15:59 40 mg TID VINCE Administration Ceftriaxone Sodium/Dextrose 50 mls @ 100 mls/hr 01/18/24 21:00 01/19/24 20:30 Rocephin/D5w 1gm Iv Premix IV 01/25/24 20:59 100 mls/hr DAILY@2100 VINCE Administration Doxycycline Hyclate 100 mg/ 100 mls @ 100 mls/hr 01/18/24 09:00 01/19/24 21:02 Sodium Chloride IV 01/25/24 08:59 100 mls/hr BID VINCE Administration Heparin Sodium/Dextrose 25,000 unit in 250 mls @ 7.871 mls/hr 01/18/24 02:30 01/20/24 07:05 Heparin In D5w Ivpb IV 02/01/24 02:29 20 units/kg/hr .Q24H VINCE 13.118 mls/hr Titration Protocol 12 UNITS/KG/HR Dobutamine HCl/Dextrose 500 mg in 250 mls @ 1.899 mls/hr 01/18/24 11:08 01/20/24 06:00 Dobutrex/D5w Ivpb IV 02/17/24 11:07 6 mcg/kg/min .Q24H PRN 11.395 mls/hr PER PROTOCOL Titration Protocol 1 MCG/KG/MIN Norepinephrine Bitartrate 16 mg in 250 mls @ 2.967 mls/hr 01/18/24 11:18 01/20/24 06:00 Levophed In Ns 16mg/250ml IV 02/17/24 11:07 0.62 mcg/kg/min .Q24H PRN 36.795 mls/hr PER protocol Titration Protocol 0.05 MCG/KG/MIN Vasopressin/Sodium Chloride 20 unit in 100 mls @ 9 mls/hr 01/19/24 07:11 01/20/24 04:15 Vasostrict/Ns Ivpb IV 02/18/24 07:10 0.03 unit/min .Q11H7M PRN 9 mls/hr PER PROTOCOL Administration Protocol 0.03 UNIT/MIN Sodium Bicarbonate 100 meq/ 600 mls @ 50 mls/hr 01/19/24 11:15 01/20/24 02:15 Dextrose IV 02/18/24 11:14 50 mls/hr .Q12H VINCE Administration Ondansetron HCl 4 mg 01/17/24 21:38 Ondansetron Inj 2 Mg/Ml Inj 2 Ml IV 02/16/24 21:37 Q6H PRN NAUSEA OR VOMITING Protocol Pantoprazole Sodium 40 mg 01/18/24 09:00 01/19/24 11:12 Pantoprazole 40 Mg Tablet PO 02/17/24 08:59 Not Given QDAY VINCE Sennosides 1 tab 01/18/24 09:00 01/19/24 11:12 Senna Tablet PO 02/17/24 08:59 Not Given QDAY VINCE Protocol Sodium Chloride 3 ml 01/19/24 06:48 01/19/24 06:57 Sodium Chloride Rt Jackie 0.9% 3 Ml Nebu INH 02/18/24 06:47 3 ml PRN PRN Administration TO MIX WITH ALBUTEROL Plan Patient is a 68-year-old male with no significant past medical history who presented to the ED with a chief complaint of shortness of breath. Patient was admitted for acute respiratory failure with hypoxia secondary to community-acquired pneumonia and CHF exacerbation. Cardiology was consulted. 1. Acute respiratory failure with hypoxia Secondary to 2. Acute decompensated systolic heart failure exacerbation [EF 10%] 3. Cardiogenic shock 4. Dilated cardiomyopathy On admission patient has history of progressively worsening shortness of breath for the past 3 weeks. On exam patient is in mild distress on O2 via NC and breath sounds were decreased globally. No signs of lower extremity edema. Patient not previously diagnosed with heart failure in the past and not on any medication at home. On admission BNP 2864 NYHA Class IV Stage C Transthoracic echocardiogram completed on 01/16 findings include: Dilated cardiomyopathy - Mild to moderately dilated LV and RV. Moderate biatrial dilatation. Severe LV systolic dysfunction. Severe global hypokinesis. Estimated EF around 10% Diastolic dysfunction present but cannot be graded due to Afib. Moderate RV dysfunction. Estimated RVSP 40 mmHg. Moderate MR. Mild TR,PI. Mild AV sclerosis without stenosis, IVC dilated and pleural effusion present. Patient still on BiPAP @ 30L/min and FiO2 30% Patient endorses that his SOB has improved compared to yesterday. Denies any chest pain/ pressure or palpitations Recommend Stat Nephrology consult Patient had a fluid balance of +2359cc in the past 24 hours Patient bicarb improved to 22.9 from 10.2, BUN increased to 78 from 54, CR increased to 5 from 3.5 Continue to hold IV diuresis for now in light of acute renal failure. Recommend stat nephrology consult as well Lactic acid decreased to 2.1 from 7.8 AST and ALT also up trended to >6000 and >3300 from 2807 and 931 respectively indicating either hepatic congestion or ischemic hepatitis due to shock. Patient's BP is currently 116/67 and he is on pressor support with dobutamine infusion @ 11ml/hr and norepinephrine infusion @36ml/hr Plan: ? Strict input output charting ? Daily weights ? 2 g salt restricted diet ? 1500 cc fluid restriction ? Continue to hold diuresis with furosemide 40 Mg IV 3 times daily ? Continue blood pressure support with pressors as needed. ? Recommend to start patient on midodrine 10 Mg p.o. 3 times daily ? Patient counseled on methamphetamine, cocaine and all drug cessation. - ICU team had goals of care discussion with the patient as well as his surrogate decision maker is friend. - Patient offered the option of Dialysis but refused any further invasive procedures and switched his code status to DNR 5. Rule out ACS 6. NSTEMI -mostly type II secondary to supply/demand mismatch given the severe dilated cardiomyopathy Patient had progressive SOB for the past 3 weeks but denies any chest pain or pressure. Unlikely acute coronary syndrome and troponin elevation mostly secondary to supply/demand mismatch given severe dilated cardiomyopathy in the setting of significant drug abuse including methamphetamine and other drugs. Initial EKG showed sinus rhythm with occasional PVCs, left atrial enlargement repeat EKG showed atrial fibrillation with RVR, rate 120. No acute ST changes Troponin were elevated at 1.171 up trended to 1.235 and subsequently down trended to 0.98 Plan: ? Can discontinue Heparin infusion as >48 hours ? Continue aspirin 81 Mg p.o. daily ? Can hold high intensity statin in light of Ischemic hepatitis ? No need to further trend troponin - Continue medical management for now 7. A-fib with RVR?new onset Patient admitted to having intermittent palpitations for years with some episodes lasting for days before resolving. Initial EKG showed sinus rhythm with occasional PVCs, left atrial enlargement repeat EKG showed atrial fibrillation with RVR, rate 120. No acute ST changes. From telemetry review patient continues to be in A-fib with rates in the 60s?80s [id number] : 1 point ; 0.6 % stroke risk per year [age] Plan: ? Continue amiodarone infusion ? Recommend rate control with metoprolol XL 50 Mg p.o. daily - Heparin drip for NSTEMI completed, can transition to eliquis ? Continue telemetry review ? Please maintain potassium greater than 4 and magnesium greater than 2 at all times to prevent any further arrhythmias 8. Community-acquired pneumonia Patient has shortness of breath for past 3 weeks as well as a nonproductive cough. Chest x-ray on admission was significant for right mid zone consolidation. Patient was started on ceftriaxone and doxycycline IV. Blood and sputum cultures are pending. Continue management as per primary team 9. MARIANO likely prerenal 10. Acute Renal Failure 11. Transaminitis 12. Multi- organ Failure On admission patient's CR 2 currently up trended to 2.1. Unable to assess baseline as no previous records for comparison. Likely in the setting of cardiogenic shock and dehydration. Patient is now acidotic with bicarb of 10.2, BUN increased to 54 from 36, CR increased to 3.5 from 2. Recommend to hold IV diuresis for now in light of acute renal failure. Recommend stat nephrology consult as well Lactic acid also up trended to 7.8 from 2. AST and ALT also up trended to 744 and 5.6 from 357 and 277 respectively indicating either hepatic congestion or ischemic hepatitis due to shock. Plan: - ICU team had goals of care discussion with the patient as well as his surrogate decision maker is friend. - Patient offered the option of Dialysis but refused any further invasive procedures and switched his code status to DNR 13. Likely COPD 14. Nicotine dependence 15. History of polysubstance abuse Patient has [id number] smoking history and now has shortness of breath for the past 3 weeks along with productive cough. Clinically he is cachectic and appears to have decreased breath sounds globally suggestive of COPD. Patient will need to be further worked up as an outpatient. Patient admitted to using methamphetamine and cocaine for many years as well with U tox being positive for methamphetamine on admission. Patient counseled extensively on drug cessation. Patient agreed - ICU team had goals of care discussion with the patient as well as his surrogate decision maker is friend. - Patient offered the option of Dialysis but refused any further invasive procedures and switched his code status to DNR Continue rest of management as per primary team. We are grateful to be able to participate in Mr. Peñaloza's care. Thank you for the consult Plan of care discussed with attending Bit Grinder, Dr Yudelka Pierce MD PGY 1 There is a high probability of sudden, clinically significant or life threatening deterioration in the patient condition which required the highest level of physician preparedness to intervene urgently. I have personally spent 65 minutes of critical care time, exclusive of time spent on any procedures, in evaluation and management of this critically ill patient. Attending Provider Attestation/Addendum I reviewed the resident Dr. Pierce consultation progress note and agree with the resident findings and plan in the note above and have also edited the documentation to reflect my findings and plan. Reynaldo Jha M.D. Interventional Cardiology
[2024-01-20] MEDS: PANTOPRAZOLE 40 MG TABLET PO (08:52)
[2024-01-20] MEDS: ASPIRIN EC 81 MG TABEC PO (08:52)
[2024-01-20] MEDS: SENNA TABLET 1 TAB PO (08:52)
[2024-01-20] MEDS: DOXYCYCLINE INJ 100 MG in SODIUM CHLORIDE 0.9% (P) 100 ML IV ×2 (08:52→21:13)
[2024-01-20 09:07] LABS: Reflex Lactate? Y
[2024-01-20 10:21] LABS: Lactic Acid, 3 HR 2.3 mMol/L (0.4-2.0)
--- NOTE | 2024-01-20 10:38 | PC.NURSE ---
MD Cruz aware aware that patient converted to Atrial Fibrillation.
[2024-01-20] MEDS: AMIODARONE 360 MG IVPB 360 MG/200 ML BAG 16.667 MG IV ×2 (10:43→22:19)
[2024-01-20] MEDS: BUMETANIDE INJ 0.25 MG/ML VIAL 4 ML 2 MG IVP ×2 (10:52→16:07)
--- NOTE | 2024-01-20 12:00 | ESPR_ITS ---
Documentation for date of: 01/20/24 Subjective Subjective Interval history: 01/20/2024: Patient was seen and examined at the bedside in ICU. Overnight patient was on BiPAP and changed to high flow this morning and tolerating well. Denies any complaints. Overnight inotropes dosage was continuously up trended. Patient is still anuric. Vitals are stable with vasopressor and inotropes support. On physical examination, bilateral posterior basal fine crackles are heard. Labs showed elevated WBC, H11.9, platelets 179 18.2, INR 2.2, sodium 136, potassium 4.8, bicarb 22.9, BUN 78, creatinine 5, lactate 2.3, AST> 6000, ALT> 3300. Single dose of Bumex 2 Mg is given but did not notice any improvement and the output. Repeated the Bumex dose. Will continue to monitor blood pressures. Cardiac output and cardiac index measured using ficks formula showed adequate values. Will continue vasopressor and inotrope support. Goals of care discussed with the patient and his friend Exam Vital Signs Temp Pulse Resp BP Pulse Ox O2 Del Method O2 Flow Rate 98.4 F 75 31 H 108/52 L 93 L BiPAP 60 01/20/24 07:00 01/20/24 10:52 01/20/24 10:30 01/20/24 10:52 01/20/24 10:30 01/19/24 12:01 01/20/24 10:08 FiO2 40 01/20/24 10:08 Narrative Exam General: Alert, awake and on high flow. HEENT: Normocephalic, atraumatic, mucous membranes dry. Heart: Regular rate and rhythm, no murmurs. Lungs: Clear to auscultation with no wheezing. Bilateral basal fine crepitations are heard posteriorly. Overall bilateral decreased breath sounds noted Abdomen: Soft, nondistended, nontender, positive bowel sounds. ?No guarding or rebound tenderness. Neurologic: Alert and oriented x3, no gross neurological deficit, and patient able to move all 4 extremities. Extremities: No edema. Skin: No rash or ecchymoses. Objective Labs 01/21/24 06:15 01/21/24 06:15 Labs: Laboratory Results - last 24 hr 01/19/24 01/19/24 01/19/24 11:11 12:00 13:00 WBC RBC Hgb Hct MCV MCH MCHC RDW Std Deviation Plt Count Neut % (Auto) Lymph % (Auto) [place] % (Auto) Eos % (Auto) Baso % (Auto) Neut # (Auto) Lymph # (Auto) [place] # (Auto) Eos # (Auto) Baso # (Auto) Immature Gran # (Auto) Absolute Nucleated RBC Immature Gran % Nucleated RBC % PT INR APTT Puncture Site ABG pH ABG pCO2 ABG pO2 ABG HCO3 ABG O2 Saturation ABG Base Excess VBG pH 7.26 L VBG pCO2 32 L VBG pO2 46 VBG O2 Sat (Colleen) 71 L VBG Base Excess -12 L FiO2 Sodium 137 Potassium 4.9 Chloride 102 Carbon Dioxide 17.1 L Anion Gap 18 H BUN 59 H Creatinine 3.8 H Estim Creat Clear Calc 17.2 L eGFR 16 L BUN/Creatinine Ratio 16 Glucose 197 H D Calculated Osmolality 295 Lactic Acid 5.7 H* Calcium 8.6 Corrected Calcium 9.1 Phosphorus Magnesium Total Bilirubin 1.0 AST > 1000 H* ALT 931 H* Alkaline Phosphatase 88 Total Protein 6.0 Albumin 3.4 Globulin 2.6 Albumin/Globulin Ratio 1.3 01/19/24 01/19/24 01/19/24 15:51 18:13 18:30 WBC RBC Hgb Hct MCV MCH MCHC RDW Std Deviation Plt Count Neut % (Auto) Lymph % (Auto) [place] % (Auto) Eos % (Auto) Baso % (Auto) Neut # (Auto) Lymph # (Auto) [place] # (Auto) Eos # (Auto) Baso # (Auto) Immature Gran # (Auto) Absolute Nucleated RBC Immature Gran % Nucleated RBC % PT INR APTT 57.0 H Puncture Site Arterial Line ABG pH 7.32 L ABG pCO2 26 L ABG pO2 164 H ABG HCO3 14 L ABG O2 Saturation 100 H ABG Base Excess -11 L VBG pH 7.35 VBG pCO2 24 L VBG pO2 44 VBG O2 Sat (Colleen) 74 L VBG Base Excess -11 L FiO2 40 Sodium 134 L Potassium 6.2 H* D Chloride 100 Carbon Dioxide 15.8 L Anion Gap 18 H BUN 56 H Creatinine 4.2 H* Estim Creat Clear Calc 15.5 L eGFR 15 L BUN/Creatinine Ratio 13 Glucose 145 H D Calculated Osmolality 286 Lactic Acid 6.0 H* 6.1 H* Calcium 8.3 Corrected Calcium 8.9 Phosphorus Magnesium Total Bilirubin 1.2 AST 2807 H* ALT 1700 H* Alkaline Phosphatase 92 Total Protein 5.9 Albumin 3.3 L Globulin 2.6 Albumin/Globulin Ratio 1.3 01/19/24 01/19/24 01/19/24 21:38 23:00 23:19 WBC RBC Hgb Hct MCV MCH MCHC RDW Std Deviation Plt Count Neut % (Auto) Lymph % (Auto) [place] % (Auto) Eos % (Auto) Baso % (Auto) Neut # (Auto) Lymph # (Auto) [place] # (Auto) Eos # (Auto) Baso # (Auto) Immature Gran # (Auto) Absolute Nucleated RBC Immature Gran % Nucleated RBC % PT INR APTT 41.1 H D Puncture Site Arterial Line ABG pH 7.40 ABG pCO2 29 L ABG pO2 101 D ABG HCO3 18 L ABG O2 Saturation 98 ABG Base Excess -6 L VBG pH 7.41 VBG pCO2 28 L VBG pO2 129 H D VBG O2 Sat (Colleen) 99 H D VBG Base Excess -6 L FiO2 30 Sodium 137 Potassium 5.1 D Chloride 104 Carbon Dioxide 17.5 L Anion Gap 16 BUN 79 H Creatinine 4.4 H* Estim Creat Clear Calc 14.8 L eGFR 14 L* BUN/Creatinine Ratio 18 Glucose 136 H Calculated Osmolality 299 H Lactic Acid 4.5 H* Calcium 8.0 L Corrected Calcium 8.8 Phosphorus 9.3 H Magnesium Total Bilirubin AST ALT Alkaline Phosphatase Total Protein Albumin 3.0 L Globulin Albumin/Globulin Ratio 01/20/24 01/20/24 01/20/24 00:57 05:52 06:00 WBC 18.2 H D RBC 3.95 L Hgb 11.9 L D Hct 34.5 L MCV 87 MCH 30.1 MCHC 34.5 RDW Std Deviation 42.0 Plt Count 179 Neut % (Auto) 86 H Lymph % (Auto) 9 L [place] % (Auto) 3 Eos % (Auto) 0 Baso % (Auto) 0 Neut # (Auto) 15.7 H Lymph # (Auto) 1.7 [place] # (Auto) 0.6 Eos # (Auto) 0.0 Baso # (Auto) 0.0 Immature Gran # (Auto) 0.17 H Absolute Nucleated RBC 0.36 H Immature Gran % 1 H Nucleated RBC % 2 H PT 22.9 H D INR 2.2 H APTT 68.8 H D Puncture Site Arterial Line ABG pH 7.43 ABG pCO2 28 L ABG pO2 128 H D ABG HCO3 19 L ABG O2 Saturation 99 H ABG Base Excess -5 L VBG pH 7.39 7.42 VBG pCO2 31 L 29 L VBG pO2 141 H 61 H D VBG O2 Sat (Colleen) 99 H 91 L VBG Base Excess -5 L -4 L FiO2 30 Sodium 136 136 Potassium 4.9 4.8 Chloride 103 100 Carbon Dioxide 18.2 L 22.9 Anion Gap 15 13 BUN 76 H 78 H Creatinine 4.5 H* 5.0 H* D Estim Creat Clear Calc 14.5 L 13.6 L eGFR 13 L* 12 L* BUN/Creatinine Ratio 17 16 Glucose 134 H 131 H Calculated Osmolality 296 H 297 H Lactic Acid 2.3 H 2.1 H Calcium 8.1 L 7.6 L Corrected Calcium 8.8 8.2 L Phosphorus Magnesium 2.7 H Total Bilirubin 1.0 1.0 AST > 6000 H* > 6000 H* ALT > 3300 H* > 3300 H* Alkaline Phosphatase 93 92 Total Protein 5.5 L 5.6 L Albumin 3.1 L 3.2 L Globulin 2.4 2.4 Albumin/Globulin Ratio 1.3 1.3 01/20/24 10:05 WBC RBC Hgb Hct MCV MCH MCHC RDW Std Deviation Plt Count Neut % (Auto) Lymph % (Auto) [place] % (Auto) Eos % (Auto) Baso % (Auto) Neut # (Auto) Lymph # (Auto) [place] # (Auto) Eos # (Auto) Baso # (Auto) Immature Gran # (Auto) Absolute Nucleated RBC Immature Gran % Nucleated RBC % PT INR APTT Puncture Site ABG pH ABG pCO2 ABG pO2 ABG HCO3 ABG O2 Saturation ABG Base Excess VBG pH VBG pCO2 VBG pO2 VBG O2 Sat (Colleen) VBG Base Excess FiO2 Sodium Potassium Chloride Carbon Dioxide Anion Gap BUN Creatinine Estim Creat Clear Calc eGFR BUN/Creatinine Ratio Glucose Calculated Osmolality Lactic Acid 2.3 H Calcium Corrected Calcium Phosphorus Magnesium Total Bilirubin AST ALT Alkaline Phosphatase Total Protein Albumin Globulin Albumin/Globulin Ratio ABG Interpretation ABG results: 01/18/24 01/18/24 01/19/24 11:29 21:30 04:35 ABG pH 7.51 H 7.49 H 7.29 L D ABG pCO2 17 L* 19 L* 20 L ABG pO2 221 H 245 H D 143 H D ABG HCO3 13 L 14 L 9 L* ABG O2 Saturation 100 H 100 H 99 H ABG Base Excess -7 L -7 L -15 L VBG pH VBG pCO2 VBG pO2 VBG Base Excess 01/19/24 01/19/24 01/19/24 11:01 11:11 18:13 ABG pH 7.26 L 7.32 L ABG pCO2 28 L 26 L ABG pO2 149 H 164 H ABG HCO3 13 L 14 L ABG O2 Saturation 99 H 100 H ABG Base Excess -13 L -11 L VBG pH 7.26 L VBG pCO2 32 L VBG pO2 46 VBG Base Excess -12 L 01/19/24 01/19/24 01/19/24 18:30 23:00 23:19 ABG pH 7.40 ABG pCO2 29 L ABG pO2 101 D ABG HCO3 18 L ABG O2 Saturation 98 ABG Base Excess -6 L VBG pH 7.35 7.41 VBG pCO2 24 L 28 L VBG pO2 44 129 H D VBG Base Excess -11 L -6 L 01/20/24 01/20/24 01/20/24 00:57 05:52 06:00 ABG pH 7.43 ABG pCO2 28 L ABG pO2 128 H D ABG HCO3 19 L ABG O2 Saturation 99 H ABG Base Excess -5 L VBG pH 7.39 7.42 VBG pCO2 31 L 29 L VBG pO2 141 H 61 H D VBG Base Excess -5 L -4 L Quality Measures Quality Measures none Advance care planning discussed with:: patient and legal surragate Assessment & Plan Assessment Current Active Medications: Generic Name Dose Route Start Last Admin Trade Name Freq PRN Reason Stop Dose Admin Acetaminophen 650 mg 01/17/24 21:38 Acetaminophen 325 Mg Tablet PO 02/16/24 21:37 Q6H PRN PAIN OR FEVER > 101 Aspirin 81 mg 01/18/24 09:00 01/20/24 08:52 Aspirin Ec 81 Mg Tabec PO 02/17/24 08:59 81 mg QDAY VINCE Administration Atorvastatin Calcium 40 mg 01/18/24 21:00 01/19/24 20:30 Atorvastatin Calcium 20 Mg Tablet PO 02/17/24 20:59 40 mg HS VINCE Administration Ceftriaxone Sodium/Dextrose 50 mls @ 100 mls/hr 01/18/24 21:00 01/19/24 20:30 Rocephin/D5w 1gm Iv Premix IV 01/25/24 20:59 100 mls/hr DAILY@2100 VINCE Administration Doxycycline Hyclate 100 mg/ 100 mls @ 100 mls/hr 01/18/24 09:00 01/20/24 08:52 Sodium Chloride IV 01/25/24 08:59 100 mls/hr BID VINCE Administration Heparin Sodium/Dextrose 25,000 unit in 250 mls @ 7.871 mls/hr 01/18/24 02:30 01/20/24 10:40 Heparin In D5w Ivpb IV 02/01/24 02:29 Not Given .Q24H VINCE Protocol 12 UNITS/KG/HR Dobutamine HCl/Dextrose 500 mg in 250 mls @ 1.899 mls/hr 01/18/24 11:08 01/20/24 11:00 Dobutrex/D5w Ivpb IV 02/17/24 11:07 6 mcg/kg/min .Q24H PRN 11.395 mls/hr PER PROTOCOL Titration Protocol 1 MCG/KG/MIN Norepinephrine Bitartrate 16 mg in 250 mls @ 2.967 mls/hr 01/18/24 11:18 01/20/24 11:00 Levophed In Ns 16mg/250ml IV 02/17/24 11:07 0.56 mcg/kg/min .Q24H PRN 33.235 mls/hr PER protocol Titration Protocol 0.05 MCG/KG/MIN Vasopressin/Sodium Chloride 20 unit in 100 mls @ 9 mls/hr 01/19/24 07:11 01/20/24 04:15 Vasostrict/Ns Ivpb IV 02/18/24 07:10 0.03 unit/min .Q11H7M PRN 9 mls/hr PER PROTOCOL Administration Protocol 0.03 UNIT/MIN Sodium Bicarbonate 100 meq/ 600 mls @ 50 mls/hr 01/19/24 11:15 01/20/24 02:15 Dextrose IV 02/18/24 11:14 50 mls/hr .Q12H VINCE Administration Amiodarone HCl/Dextrose 360 mg in 200 mls @ 16.667 mls/hr 01/20/24 10:38 01/20/24 10:43 Nexterone Ivpb IV 01/24/24 10:37 16.667 mls/hr .Q12H VINCE Administration Ondansetron HCl 4 mg 01/17/24 21:38 Ondansetron Inj 2 Mg/Ml Inj 2 Ml IV 02/16/24 21:37 Q6H PRN NAUSEA OR VOMITING Protocol Pantoprazole Sodium 40 mg 01/18/24 09:00 01/20/24 08:52 Pantoprazole 40 Mg Tablet PO 02/17/24 08:59 40 mg QDAY VINCE Administration Sennosides 1 tab 01/18/24 09:00 01/20/24 08:52 Senna Tablet PO 02/17/24 08:59 1 tab QDAY VINCE Administration Protocol Sodium Chloride 3 ml 01/19/24 06:48 01/19/24 06:57 Sodium Chloride Rt Jackie 0.9% 3 Ml Nebu INH 02/18/24 06:47 3 ml PRN PRN Administration TO MIX WITH ALBUTEROL Plan 68-year-old male with no significant past medical history admitted to the hospital chief complaints of shortness of breath and diagnosed to have acute hypoxic respiratory failure secondary to HFrEF exacerbation. NEURO Patient is awake, alert, and oriented x3, following commands, conversational. #No active problems CARDIO # Cardiogenic shock # Dilated cardiomyopathy, likely combined meth use and smoking # Elevated trop - likely Tpe II -Likely exacerbated in the setting of suspected pneumonia in the right lobe and continued meth use. -Presented to the hospital with complaints of shortness of breath, orthopnea, PND -Denies palpitations, fever, pedal edema, abdominal distention. -Chest x-ray showed hyperinflation of bilateral lungs with patchy infiltrate in right lower lobe-pneumonia versus mass. -labs showed elevated BNP, Troponins that downtrended later. urine toxicology tested positive for meth. -Echo done on 01/17/2024 showed dilated cardiomyopathy - Mild to moderately dilated LV and RV. Moderate biatrial dilatation. Severe LV systolic dysfunction. Severe global hypokinesis. Estimated EF around 10% .Diastolic dysfunction present but cannot be graded due to Afib. Plan -Started on Levophed and dobutamine drip. Titrating doses based on MAP and cardiac output. -Vasopressin is added this morning in view of continuously uptrending Levophed and dobutamine dosages. -Goal is to maintain systolic blood pressure above 100 mmHg. -Will continue to monitor blood pressures. -started on BiPAP. # Atrial fibrillation with rapid ventricular rate -reverted to to normal sinus rhythm on 01/19/2024 -Patient was found to have sinus rhythm on EKG at the time of admission. -After starting Levophed and dobutamine drip, patient developed atrial fibrillation Plan Will continue amiodarone drip. Heparin drip was stopped in view of high has bled score with more risk of bleeding than having a stroke based on [id number] 4. PULM # Acute hypoxic respiratory failure # due to underlying cardiogenic shock # possible right lung pneumonia -admitted to hospital with complaints of shortness of breath -chest x ray showed right patchy infiltrate in the middle lobe. Plan -Started on ceftriaxone 1 g IV twice daily(01/17- -started on Doxycycline 100mg BID(01/17- #Chronic smoker #? probable COPD - smoking history of >40 pack years. - condition is stable as of now. GI # Transaminitis Due to underlying cardiogenic shock -Labs on 01/19/2024 showed AST> 1000, ALT 931 plan -AST and ALT are continuously uptrending as of 01/20/2024 -Will continue to monitor LFTs and continue inotropes. NEPHRO # MARIANO, prerenal -worsening Likely due to underlying cardiogenic shock -Creatinine in 12/2018 is 1.1 and at the time of admission is 2.1 -On 01/19/2024, there is no urine output and BUN and creatinine continuously uptrending, 3.5> 3.7>3.8>5 Plan -Dialysis option is given for the patient but patient denied further invasive treatments -2 doses of Bumex 2 Mg IV is given but urine output is still less about 10 to 20 mL in 3 hours. -So 4 mg of Bumex is given and will continue to monitor the urine output. -Will continue to monitor renal functions and renally dose medications. -Will continue vasopressors and monitor urine output. # Anion gap metabolic acidosis -Due to underlying shock -Bicarb on 01/19/2024 is 10.2 and anion gap is 22, lactate is 7.8. -Bicarb is within normal limits Plan - bicarb drip is stopped around 4 PM. 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 ENDO #No active problems ID #Suspected right lung pneumonia versus mass in right middle lobe -Admitted with shortness of breath started 3 weeks before admitting into the hospital. -Denies fever, chills, cough. -CBC is within normal limits. -Chest x-ray showed right patchy consolidation which was not present in 2019 -Patient did not get CT chest in view of his hemodynamic instability Plan -Started on ceftriaxone and doxycycline(01/17- -CT was not done in view of hemodynamic instability. MSK #No active problems SKIN #No active problems DVT prophylaxis: Heparin GI prophylaxis: Protonix Diet: Pur?ed foods and Glucerna. [place]: Present Lines: Central and peripheral Antibiotics: Ceftriaxone and doxycycline CODE STATUS: DNR/DNI Reason for ICU care: Cardiogenic shock requiring vasopressors Patient plan of care was discussed with the attending solar photovoltaic installer, Dr. Cruz. David Mtz, PGY1 Attending Provider Attestation/Addendum Patient seen and examined with above resident, David Mtz MD. I agree with the findings, assessment, and plan of care as documented except for any differences below. Patient continues to be in severe cardiogenic shock requiring dobutamine as well as vasopressor support. Renal perfusion maintained with adequate cardiac output based on Isaiah equation with estimated mixed venous sat. Patient with no significant urine output though we did challenge with Bumex today and at increasing doses he does begin to respond. Patient remains volume overloaded and this remains a limiting factor in his recovery. Uremia notably increasing by patient does not have significant acidosis while he remains on low-dose bicarb drip. Try to be as conservative as possible with fluids that are being entered to try to maintain net even/net negative fluid balance in the next coming days. Renal recovery seems unlikely along with ischemic hepatitis/congestive hepatopathy of note. Patient remains in good spirits and is compliant with ongoing management including use of BiPAP intermittently for respiratory support. He remains stable on high humidity/high flow nasal cannula throughout the day during breaks which he is tolerating meals. Patient's surrogate decision maker, his close friend has been heavily involved in decision-making as well. Will continue to to as much as possible with medical management without invasive procedures including intubation/initiation of hemodialysis which will be difficult given his limited cardiac function. Total critical care time: I personally spent 40 minutes for review of physiologic parameters, directing plan of care throughout the day, and counseling patient with his surrogate decision maker at bedside. This is exclusive of time spent teaching housestaff or performing any separate billable procedures. Patient continues to require critical care services for cardiogenic shock secondary to nonischemic cardiomyopathy with both renal and hepatic dysfunction, with very high risk for mortality.
[2024-01-20 12:22] LABS: Base Excess, Venous -4 (-3-3); O2 Saturation, Venous 62 % (96-97); PCO2, Venous 45 mmHg (36-56); PO2, Venous 41 mmHg (15-58)
[2024-01-20] MEDS: Norepinephrine/NS 16mg/250ml 16 MG/250 ML BAG 32.048 MG IV (12:42)
[2024-01-20 13:14] LABS: Base Excess -3 (-3-3); HCO3 22 mEq/L (20-26); Inspired Oxygen, FIO2 40 %; O2 Saturation 98 % (91-98); PCO2 36 mmHg (32.0-48.0); PO2 102 mmHg (83-108); pH, Arterial 7.39 (7.35-7.45)
[2024-01-20 13:15] LABS: Allen Test Not Performed; Puncture Site Arterial Line
[2024-01-20] MEDS: Heparin/D5w 25K 250 ML Ivpb 25,000 UNIT/250 ML BAG 13.118 UNIT IV (13:33)
[2024-01-20 19:56] LABS: Base Excess -3 (-3-3); Base Excess, Venous -2 (-3-3); HCO3 22 mEq/L (20-26); O2 Saturation 97 % (91-98); O2 Saturation, Venous 89 % (96-97); PCO2 39 mmHg (32.0-48.0); PCO2, Venous 35 mmHg (36-56); PO2 101 mmHg (83-108); PO2, Venous 61 mmHg (15-58); pH, Arterial 7.36 (7.35-7.45)
[2024-01-20 19:57] LABS: Allen Test Not Performed; Inspired Oxygen, FIO2 40 %; Puncture Site Arterial Line
[2024-01-20] MEDS: Norepinephrine/NS 16mg/250ml 16 MG/250 ML BAG 34.422 MG IV (21:00)
[2024-01-20] MEDS: cefTRIAXone/D5w 1gm IV premix 50 ML IV (21:12)
[2024-01-20] MEDS: ATORVASTATIN CALCIUM 20 MG TABLET 40 MG PO (21:13)
[2024-01-20] MEDS: DOBUTamine/D5w 500 MG IVPB 500 MG/250 ML BAG 14.243 MG IV (22:50)
[2024-01-21] VITALS (103 sets, daily range): BP systolic 82–131; BP diastolic 40–81; PULSE 67–99; RESP 4–43; TEMP 35.7–36.8; O2SAT 87–100; BMI 20.6
[2024-01-21] MEDS: BUMETANIDE INJ 0.25 MG/ML VIAL 4 ML 2 MG IVP ×3 (01:18→20:09)
[2024-01-21] MEDS: VASOPRESSIN IN NS IVPB 20 UNIT/100 ML BAG 9 UNIT IV ×2 (03:49→16:17)
[2024-01-21] MEDS: NOREPINEPHRINE IV ×2 (03:52→23:43)
[2024-01-21] MEDS: SODIUM CHLORIDE 0.9% IV ×2 (03:52→23:43)
[2024-01-21 04:52] LABS: Base Excess -3 (-3-3); HCO3 22 mEq/L (20-26); Inspired Oxygen, FIO2 21 %; O2 Saturation 96 % (91-98); PCO2 35 mmHg (32.0-48.0); PO2 84 mmHg (83-108); pH, Arterial 7.41 (7.35-7.45)
[2024-01-21 04:54] LABS: Base Excess, Venous -1 (-3-3); O2 Saturation, Venous 56 % (96-97); PCO2, Venous 40 mmHg (36-56); PO2, Venous 35 mmHg (15-58); pH, Venous 7.38 (7.33-7.66)
[2024-01-21 05:01] LABS: Allen Test Performed/OK; Puncture Site Left Femoral
[2024-01-21 06:55] LABS: Basophils % (Auto) 0 % (0-2.5); Eosinophils % (Auto) 0 % (0-10); Hematocrit 30.3 % (41.0-53.0); Hemoglobin 10.4 g/dL (13.5-16.0); Immature Granulocytes % (Auto) 1 % (0-0); Immature Granulocytes Auto 0.11 Thou/mm3 (0.00-0.00); Lymphocytes # (Auto) 1.2 Thou/mm3 (1.0-4.8); Lymphocytes % (Auto) 10 % (10-50); Mean Corpuscular HGB Conc 34.3 g/dl (31.0-37.0); Mean Corpuscular Hemoglobin 29.7 pg (25.0-35.0); Mean Corpuscular Volume 87 fL (80-100); Monocytes # (Auto) 0.6 Thou/mm3 (0.0-0.8); Monocytes % (Auto) 5 % (0-12); Neutrophils # (Auto) 10.3 Thou/mm3 (1.8-7.7); Neutrophils % (Auto) 85 % (37-80); Nucleated Red Blood Cell # 0.15 Thou/mm3 (0.00-0.00); Nucleated Red Blood Cell % 1 /100 WBC (0); Platelet Count 126 Thou/mm3 (140-440); RDW Standard Deviation 42.3 fL (35.1-43.9); White Blood Count 12.2 Thou/mm3 (3.8-10.6)
[2024-01-21 07:15] LABS: Albumin/Globulin Ratio 1.3 (1.2-2.2); Alkaline Phosphatase 100 U/L (46-116); Anion Gap 16 (7-16); BUN/Creatinine Ratio 14 Ratio (12-20); Bilirubin,Total 1.1 mg/dL (0.3-1.2); Blood Urea Nitrogen 92 mg/dL (9-23); Calcium (Corrected) 7.8 mg/dL (8.5-10.1); Chloride 98 mMol/L (98-107); Creatinine (Component) 6.4 mg/dL (0.6-1.3); Estimated Creatinine Clearance 10.9 mL/min (>60); Globulin 2.4 gm/dL (2.3-3.5); Glucose 114 mg/dL (74-106); Magnesium 2.4 mg/dL (1.6-2.6); Osmolality,Calculated 297 (275-295); Phosphorous 6.6 mg/dL (2.4-5.1); Potassium 4.1 mMol/L (3.4-5.1); Sodium 134 mMol/L (136-145); Total Protein 5.4 gm/dL (5.7-8.2); eGFR 9 See Note
[2024-01-21 07:30] LABS: Alanine Aminotransferase > 3300 U/L (10-49); Aspartate Amino Transferase > 6000 U/L (0-34)
[2024-01-21] MEDS: SENNA TABLET 1 TAB PO (09:16)
[2024-01-21] MEDS: ASPIRIN EC 81 MG TABEC PO (09:17)
[2024-01-21] MEDS: DOXYCYCLINE INJ 100 MG in SODIUM CHLORIDE 0.9% (P) 100 ML IV ×2 (09:17→20:09)
[2024-01-21] MEDS: HEPARIN SOD INJ 5000 UNIT/ML VIAL SC ×2 (09:17→20:10)
[2024-01-21] MEDS: PANTOPRAZOLE 40 MG TABLET PO (09:17)
--- NOTE | 2024-01-21 10:41 | PC.RT ---
pt removed from bipap @ 0825 to high flow nc in order to eat breakfast, pt tolerating well, no respiratory distress noted at this time
[2024-01-21] MEDS: POLYETHYLENE GLYCOL 17 GM PACKET PO (11:01)
--- NOTE | 2024-01-21 11:02 | PC.SS ---
Addendum entered by GUERLINE Dawson 01/21/24 15:15: Contacted registration to update patient's face sheet. Original Note: Attempted contact with patient's sister, Veronica Peñaloza, who is listed on the patient's facesheet. Left voicemail for her at [phone]. Number listed as her work phone is a non-working number.
[2024-01-21] MEDS: AMIODARONE 360 MG IVPB 360 MG/200 ML BAG 16.667 MG IV (11:03)
[2024-01-21] MEDS: WATER IV (13:23)
[2024-01-21] MEDS: DEXTROSE 5% IV (13:23)
[2024-01-21] MEDS: SODIUM BICARB IV (13:23)
[2024-01-21 13:45] LABS: Lactate (Lactic Acid) 1.5 mMol/L (0.4-2.0)
--- NOTE | 2024-01-21 15:06 | PC.SS ---
SHADE CUTTER met with patient to complete initial assessment. Patient admitted to ICU, on highflow of oxygen. Patient appeared alert and oriented. Patient confirmed demographic information. Patient lives at home with sister, Veronica Peñaloza . Patient identified his friend, Bryce Santillan as his alternate medical surrogate decision maker. Patient describes to require minimal assistance with ADL's. Patient denies use of DME at home. Patient informs he is not followed by a PCP. Patient's pharmacy of choice is [facility]. The discharge plan was discussed, and the patient would like to return home once medically cleared. director of student financial services to remain available to address any further concerns. D/c plan: home Next of kin: friend, Bryce Santillan
[2024-01-21] MEDS: DOBUTamine/D5w 500 MG IVPB 500 MG/250 ML BAG 18.991 MG IV (17:22)
--- NOTE | 2024-01-21 18:46 | ESPR_ITS ---
Documentation for date of: 01/21/24 Subjective Subjective Interval history: Patient was seen and examined in ICU this AM. Patient is on high flow nasal cannula at the present moment 25 L and FiO2 of 30%. Patient apparently is doing well also on regular nasal cannula but at times he is requiring high flow. Patient restarted on diuresis with Bumex2 mg every 8 hours and patient is diuresing well and total output is greater than 2.5 L. 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 Goal MAP is greater than 65 mmHg. Will continue to slowly titrate down the pressors if patient continues to improve. Recommended nephrology consult for possible dialysis but patient apparently does not want any dialysis and wanted to be DNR and only wants to continue medical management at the present movement. Primary team to continue to discuss goals of cares with patient during his worsening kidney function and limited medical therapy for the patient as patient will eventually develop altered mental status secondary to the uremia and will have to stop diuresis. Lactic acid decreased to 1.5 from 7.8 AST and ALT also up trended to >6000 and >3300 from 2807 and 931 respectively indicating either hepatic congestion or ischemic hepatitis due to shock. Patient condition is critical and overall prognosis appears poor which I discussed with the patient in detail. Patient is still awake alert oriented x 3 and able to understand the present treatment plan. Apparently he did discuss with his surrogate decision maker-his friend. Exam Vital Signs Temp Pulse Resp BP Pulse Ox O2 Del Method O2 Flow Rate 97.8 F 75 25 H 106/53 L 100 BiPAP 01/21/24 16:01 01/21/24 18:17 01/21/24 18:17 01/21/24 17:22 01/21/24 18:17 01/21/24 17:15 01/21/24 18:17 FiO2 30 01/21/24 18:17 Narrative Exam Constitutional Alert, oriented x 3 and Mild Distress. Elderly male, cachectic, on BiPAP HEENT Vision grossly intact. Patent nares. Trachea midline. Poor dentition, missing teeth Respiratory Chest normal on inspection, RIJ catheter, exit site clean and decreased breath sounds throughout lung chauhan b/l Cardiovascular S1 and S2 audible, RRR. No murmurs carotid bruit. JVD not assessed Abdominal Soft and non tender to palpation in all quadrants. BS + Genitourinary No bladder tenderness, no flank pain. Normal to palpation. Left femoral catheter, exit site clean Musculoskeletal Extremities tone within normal limits. No LE edema. Neurological CN II - XII grossly intact. Extremity motor and sensation grossly intact. Skin Warm, dry and intact. No apparent lesions. Psychiatric Patient has good affect, is cooperative Objective Labs 01/22/24 05:40 01/22/24 05:40 Labs: Laboratory Results - last 24 hr 01/20/24 01/21/24 01/21/24 19:44 04:38 04:42 WBC RBC Hgb Hct MCV MCH MCHC RDW Std Deviation Plt Count Neut % (Auto) Lymph % (Auto) Beckham % (Auto) Eos % (Auto) Baso % (Auto) Neut # (Auto) Lymph # (Auto) Beckham # (Auto) Eos # (Auto) Baso # (Auto) Immature Gran # (Auto) Absolute Nucleated RBC Immature Gran % Nucleated RBC % Puncture Site Arterial Line Left Femoral ABG pH 7.36 7.41 ABG pCO2 39 35 ABG pO2 101 84 ABG HCO3 22 22 ABG O2 Saturation 97 96 ABG Base Excess -3 -3 VBG pH 7.40 7.38 VBG pCO2 35 L D 40 VBG pO2 61 H D 35 D VBG O2 Sat (Colleen) 89 L D 56 L D VBG Base Excess -2 -1 FiO2 40 21 Sodium Potassium Chloride Carbon Dioxide Anion Gap BUN Creatinine Estim Creat Clear Calc eGFR BUN/Creatinine Ratio Glucose Calculated Osmolality Lactic Acid Calcium Corrected Calcium Phosphorus Magnesium Total Bilirubin AST ALT Alkaline Phosphatase Total Protein Albumin Globulin Albumin/Globulin Ratio 01/21/24 01/21/24 06:15 13:28 WBC 12.2 H D RBC 3.50 L Hgb 10.4 L Hct 30.3 L MCV 87 MCH 29.7 MCHC 34.3 RDW Std Deviation 42.3 Plt Count 126 L D Neut % (Auto) 85 H Lymph % (Auto) 10 Beckham % (Auto) 5 Eos % (Auto) 0 Baso % (Auto) 0 Neut # (Auto) 10.3 H Lymph # (Auto) 1.2 Beckham # (Auto) 0.6 Eos # (Auto) 0.0 Baso # (Auto) 0.0 Immature Gran # (Auto) 0.11 H Absolute Nucleated RBC 0.15 H Immature Gran % 1 H Nucleated RBC % 1 H Puncture Site ABG pH ABG pCO2 ABG pO2 ABG HCO3 ABG O2 Saturation ABG Base Excess VBG pH VBG pCO2 VBG pO2 VBG O2 Sat (Colleen) VBG Base Excess FiO2 Sodium 134 L Potassium 4.1 D Chloride 98 Carbon Dioxide 20.0 Anion Gap 16 BUN 92 H Creatinine 6.4 H* D Estim Creat Clear Calc 10.9 L eGFR 9 L* BUN/Creatinine Ratio 14 Glucose 114 H Calculated Osmolality 297 H Lactic Acid 1.5 Calcium 7.0 L Corrected Calcium 7.8 L Phosphorus 6.6 H Magnesium 2.4 Total Bilirubin 1.1 AST > 6000 H* ALT > 3300 H* Alkaline Phosphatase 100 Total Protein 5.4 L Albumin 3.0 L Globulin 2.4 Albumin/Globulin Ratio 1.3 ABG Interpretation ABG results: 01/18/24 01/18/24 01/19/24 11:29 21:30 04:35 ABG pH 7.51 H 7.49 H 7.29 L D ABG pCO2 17 L* 19 L* 20 L ABG pO2 221 H 245 H D 143 H D ABG HCO3 13 L 14 L 9 L* ABG O2 Saturation 100 H 100 H 99 H ABG Base Excess -7 L -7 L -15 L VBG pH VBG pCO2 VBG pO2 VBG Base Excess 01/19/24 01/19/24 01/19/24 11:01 11:11 18:13 ABG pH 7.26 L 7.32 L ABG pCO2 28 L 26 L ABG pO2 149 H 164 H ABG HCO3 13 L 14 L ABG O2 Saturation 99 H 100 H ABG Base Excess -13 L -11 L VBG pH 7.26 L VBG pCO2 32 L VBG pO2 46 VBG Base Excess -12 L 01/19/24 01/19/24 01/19/24 18:30 23:00 23:19 ABG pH 7.40 ABG pCO2 29 L ABG pO2 101 D ABG HCO3 18 L ABG O2 Saturation 98 ABG Base Excess -6 L VBG pH 7.35 7.41 VBG pCO2 24 L 28 L VBG pO2 44 129 H D VBG Base Excess -11 L -6 L 11/28/24 11/28/24 11/28/24 00:57 05:52 06:00 ABG pH 7.43 ABG pCO2 28 L ABG pO2 128 H D ABG HCO3 19 L ABG O2 Saturation 99 H ABG Base Excess -5 L VBG pH 7.39 7.42 VBG pCO2 31 L 29 L VBG pO2 141 H 61 H D VBG Base Excess -5 L -4 L 01/20/24 01/20/24 01/20/24 12:18 13:06 19:44 ABG pH 7.39 7.36 ABG pCO2 36 39 ABG pO2 102 D 101 ABG HCO3 22 22 ABG O2 Saturation 98 97 ABG Base Excess -3 -3 VBG pH 7.30 L 7.40 VBG pCO2 45 D 35 L D VBG pO2 41 D 61 H D VBG Base Excess -4 L -2 01/21/24 01/21/24 04:38 04:42 ABG pH 7.41 ABG pCO2 35 ABG pO2 84 ABG HCO3 22 ABG O2 Saturation 96 ABG Base Excess -3 VBG pH 7.38 VBG pCO2 40 VBG pO2 35 D VBG Base Excess -1 Assessment & Plan A&P Narrative Patient is a 68-year-old male with no significant past medical history who presented to the ED with a chief complaint of shortness of breath. Patient was admitted for acute respiratory failure with hypoxia secondary to community-acquired pneumonia and CHF exacerbation. Cardiology was consulted. 1. Acute respiratory failure with hypoxia Secondary to 2. Acute decompensated systolic heart failure exacerbation [EF 10%] 3. Cardiogenic shock 4. Dilated cardiomyopathy On admission patient has history of progressively worsening shortness of breath for the past 3 weeks. On exam patient is in mild distress on O2 via NC and breath sounds were decreased globally. No signs of lower extremity edema. Patient not previously diagnosed with heart failure in the past and not on any medication at home. On admission BNP 2864 NYHA Class IV Stage C Transthoracic echocardiogram completed on 01/16 findings include: Dilated cardiomyopathy - Mild to moderately dilated LV and RV. Moderate biatrial dilatation. Severe LV systolic dysfunction. Severe global hypokinesis. Estimated EF around 10% Diastolic dysfunction present but cannot be graded due to Afib. Moderate RV dysfunction. Estimated RVSP 40 mmHg. Moderate MR. Mild TR,PI. Mild AV sclerosis without stenosis, IVC dilated and pleural effusion present. Plan: ? Strict input output charting ? Daily weights ? 2 g salt restricted diet ? 1500 cc fluid restriction - ICU team had goals of care discussion with the patient as well as his surrogate decision maker is friend. - Patient offered the option of Dialysis but refused any further invasive procedures and switched his code status to DNR Patient is on high flow nasal cannula at the present moment 25 L and FiO2 of 30%. Patient apparently is doing well also on regular nasal cannula but at times he is requiring high flow. Patient restarted on diuresis with Bumex2 mg every 8 hours and patient is diuresing well and total output is greater than 2.5 L. 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 Goal MAP is greater than 65 mmHg. Will continue to slowly titrate down the pressors if patient continues to improve. Recommended nephrology consult for possible dialysis but patient apparently does not want any dialysis and wanted to be DNR and only wants to continue medical management at the present movement. Primary team to continue to discuss goals of cares with patient during his worsening kidney function and limited medical therapy for the patient as patient will eventually develop altered mental status secondary to the uremia and will have to stop diuresis. Lactic acid decreased to 1.5 from 7.8 AST and ALT also up trended to >6000 and >3300 from 2807 and 931 respectively indicating either hepatic congestion or ischemic hepatitis due to shock. Patient condition is critical and overall prognosis appears poor which I discussed with the patient in detail. Patient is still awake alert oriented x 3 and able to understand the present treatment plan. Apparently he did discuss with his surrogate decision maker-his friend. 5. Rule out ACS 6. NSTEMI -mostly type II secondary to supply/demand mismatch given the severe dilated cardiomyopathy Patient had progressive SOB for the past 3 weeks but denies any chest pain or pressure. Unlikely acute coronary syndrome and troponin elevation mostly secondary to supply/demand mismatch given severe dilated cardiomyopathy in the setting of significant drug abuse including methamphetamine and other drugs. Initial EKG showed sinus rhythm with occasional PVCs, left atrial enlargement repeat EKG showed atrial fibrillation with RVR, rate 120. No acute ST changes Troponin were elevated at 1.171 up trended to 1.235 and subsequently down trended to 0.98 Plan: ? Can discontinue Heparin infusion as >48 hours ? Continue aspirin 81 Mg p.o. daily ? Can hold high intensity statin in light of Ischemic hepatitis ? No need to further trend troponin - Continue medical management for now 7. A-fib with RVR?new onset Patient admitted to having intermittent palpitations for years with some episodes lasting for days before resolving. Initial EKG showed sinus rhythm with occasional PVCs, left atrial enlargement repeat EKG showed atrial fibrillation with RVR, rate 120. No acute ST changes. From telemetry review patient continues to be in A-fib with rates in the 60s?80s [id number] : 1 point ; 0.6 % stroke risk per year [age] Plan: ? Continue amiodarone infusion ? Recommend rate control with metoprolol XL 50 Mg p.o. daily - Heparin drip for NSTEMI completed, can transition to eliquis ? Continue telemetry review ? Please maintain potassium greater than 4 and magnesium greater than 2 at all times to prevent any further arrhythmias 8. Community-acquired pneumonia Patient has shortness of breath for past 3 weeks as well as a nonproductive cough. Chest x-ray on admission was significant for right mid zone consolidation. Patient was started on ceftriaxone and doxycycline IV. Blood and sputum cultures are pending. Continue management as per primary team 9. MARIANO likely prerenal 10. Acute Renal Failure 11. Transaminitis 12. Multi- organ Failure On admission patient's CR 2 currently up trended to 2.1. Unable to assess baseline as no previous records for comparison. Likely in the setting of cardiogenic shock and dehydration. Patient is now acidotic with bicarb of 10.2, BUN increased to 54 from 36, CR increased to 3.5 from 2. Recommend to hold IV diuresis for now in light of acute renal failure. Recommend stat nephrology consult as well Lactic acid also up trended to 7.8 from 2. AST and ALT also up trended to 744 and 5.6 from 357 and 277 respectively indicating either hepatic congestion or ischemic hepatitis due to shock. Plan: - ICU team had goals of care discussion with the patient as well as his surrogate decision maker is friend. - Patient offered the option of Dialysis but refused any further invasive procedures and switched his code status to DNR 13. Likely COPD 14. Nicotine dependence 15. History of polysubstance abuse Patient has [id number] smoking history and now has shortness of breath for the past 3 weeks along with productive cough. Clinically he is cachectic and appears to have decreased breath sounds globally suggestive of COPD. Patient will need to be further worked up as an outpatient. Patient admitted to using methamphetamine and cocaine for many years as well with U tox being positive for methamphetamine on admission. Patient counseled extensively on drug cessation. Patient agreed - ICU team had goals of care discussion with the patient as well as his surrogate decision maker is friend. - Patient offered the option of Dialysis but refused any further invasive procedures and switched his code status to DNR There is a high probability of sudden, clinically significant or life threatening deterioration in the patient condition which required the highest level of physician preparedness to intervene urgently. I have personally spent 65 minutes of critical care time, exclusive of time spent on any procedures, in evaluation and management of this critically ill patient. Management of rest of the medical conditions as per primary team and other consultants. Thank you for the consult and allowing me to participate in the care of the patient. Cardiology will continue to follow. Reynaldo Jha M.D. Interventional Cardiology Time Spent With Patient Time: Total time spent is greater than 50% in coordination of care (as documented) at patient's floor/unit and/or counseling patient: Procedures Arterial Line Size (Gauge): 14
[2024-01-21] MEDS: AMIODARONE HCL 200 MG TABLET PO (20:08)
[2024-01-21] MEDS: ATORVASTATIN CALCIUM 20 MG TABLET 40 MG PO (20:08)
[2024-01-21] MEDS: cefTRIAXone/D5w 1gm IV premix 50 ML IV (20:09)
[2024-01-21 20:26] LABS: Lactate (Lactic Acid) 1.5 mMol/L (0.4-2.0)
--- NOTE | 2024-01-21 22:38 | PD.RESPRO ---
Documentation for date of: 01/21/24 Subjective Subjective Interval history: 01/20/2024: Patient was seen and examined at the bedside in ICU. Overnight patient was on BiPAP and changed to high flow this morning and tolerating well. Denies any complaints. Overnight inotropes dosage was continuously up trended. Patient is still anuric. Vitals are stable with vasopressor and inotropes support. On physical examination, bilateral posterior basal fine crackles are heard. Labs showed elevated WBC, H11.9, platelets 179 18.2, INR 2.2, sodium 136, potassium 4.8, bicarb 22.9, BUN 78, creatinine 5, lactate 2.3, AST> 6000, ALT> 3300. Single dose of Bumex 2 Mg is given but did not notice any improvement and the output. Repeated the Bumex dose. Will continue to monitor blood pressures. Cardiac output and cardiac index measured using ficks formula showed adequate values. Will continue vasopressor and inotrope support. Goals of care discussed with the patient and his friend 01/21/2024: Patient was seen and examined by the bedside. No acute overnight events. Saturates well on HFNC and intermittently on BiPAP. Patient reports feeling well. Denies having shortness of breath, chest pain, abdominal pain. Continues to be on levophed, dobutamine, vasopressin. Will finish amiodaron drip today, will switch to PO. Urine output today 2,6L, positive balance ~365 ml. Will continue to diurese patient. Will continue Ceftrizxone and doxycyclin. Creatinine 6.4 compared to 5.0 01/19. AST >6000, ALT continue to be >3300. Dobutamin dose was titrated according to the cardiac output and cardiac index using Isaiah's formula. Exam Vital Signs Temp Pulse Resp BP Pulse Ox O2 Del Method O2 Flow Rate 97.8 F 76 24 H 114/60 100 High Flow Nasal Cannula 25 01/21/24 21:00 01/21/24 22:08 01/21/24 22:08 01/21/24 22:00 01/21/24 22:08 01/21/24 18:30 01/21/24 22:08 FiO2 30 01/21/24 22:08 Narrative Exam General: Alert, awake and on high flow. HEENT: Normocephalic, atraumatic, mucous membranes dry. Heart: Regular rate and rhythm, no murmurs. Lungs: Clear to auscultation with no wheezing. Overall bilateral decreased breath sounds noted Abdomen: Soft, nondistended, nontender, positive bowel sounds. ?No guarding or rebound tenderness. Neurologic: Alert and oriented x3, no gross neurological deficit, and patient able to move all 4 extremities. Extremities: No edema. Skin: No rash or ecchymoses. Objective Labs 01/21/24 06:15 01/21/24 06:15 Labs: Laboratory Results - last 24 hr 01/21/24 01/21/24 01/21/24 04:38 04:42 06:15 WBC 12.2 H D RBC 3.50 L Hgb 10.4 L Hct 30.3 L MCV 87 MCH 29.7 MCHC 34.3 RDW Std Deviation 42.3 Plt Count 126 L D Neut % (Auto) 85 H Lymph % (Auto) 10 [place] % (Auto) 5 Eos % (Auto) 0 Baso % (Auto) 0 Neut # (Auto) 10.3 H Lymph # (Auto) 1.2 [place] # (Auto) 0.6 Eos # (Auto) 0.0 Baso # (Auto) 0.0 Immature Gran # (Auto) 0.11 H Absolute Nucleated RBC 0.15 H Immature Gran % 1 H Nucleated RBC % 1 H Puncture Site Left Femoral ABG pH 7.41 ABG pCO2 35 ABG pO2 84 ABG HCO3 22 ABG O2 Saturation 96 ABG Base Excess -3 VBG pH 7.38 VBG pCO2 40 VBG pO2 35 D VBG O2 Sat (Colleen) 56 L D VBG Base Excess -1 FiO2 21 Sodium 134 L Potassium 4.1 D Chloride 98 Carbon Dioxide 20.0 Anion Gap 16 BUN 92 H Creatinine 6.4 H* D Estim Creat Clear Calc 10.9 L eGFR 9 L* BUN/Creatinine Ratio 14 Glucose 114 H Calculated Osmolality 297 H Lactic Acid Calcium 7.0 L Corrected Calcium 7.8 L Phosphorus 6.6 H Magnesium 2.4 Total Bilirubin 1.1 AST > 6000 H* ALT > 3300 H* Alkaline Phosphatase 100 Total Protein 5.4 L Albumin 3.0 L Globulin 2.4 Albumin/Globulin Ratio 1.3 01/21/24 01/21/24 13:28 20:18 WBC RBC Hgb Hct MCV MCH MCHC RDW Std Deviation Plt Count Neut % (Auto) Lymph % (Auto) [place] % (Auto) Eos % (Auto) Baso % (Auto) Neut # (Auto) Lymph # (Auto) [place] # (Auto) Eos # (Auto) Baso # (Auto) Immature Gran # (Auto) Absolute Nucleated RBC Immature Gran % Nucleated RBC % Puncture Site ABG pH ABG pCO2 ABG pO2 ABG HCO3 ABG O2 Saturation ABG Base Excess VBG pH VBG pCO2 VBG pO2 VBG O2 Sat (Colleen) VBG Base Excess FiO2 Sodium Potassium Chloride Carbon Dioxide Anion Gap BUN Creatinine Estim Creat Clear Calc eGFR BUN/Creatinine Ratio Glucose Calculated Osmolality Lactic Acid 1.5 1.5 Calcium Corrected Calcium Phosphorus Magnesium Total Bilirubin AST ALT Alkaline Phosphatase Total Protein Albumin Globulin Albumin/Globulin Ratio ABG Interpretation ABG results: 01/18/24 01/18/24 01/19/24 11: 21:30 04:35 ABG pH 7.51 H 7.49 H 7.29 L D ABG pCO2 17 L* 19 L* 20 L ABG pO2 221 H 245 H D 143 H D ABG HCO3 13 L 14 L 9 L* ABG O2 Saturation 100 H 100 H 99 H ABG Base Excess -7 L -7 L -15 L VBG pH VBG pCO2 VBG pO2 VBG Base Excess 01/19/24 01/19/24 01/19/24 11:01 11:11 18:13 ABG pH 7.26 L 7.32 L ABG pCO2 28 L 26 L ABG pO2 149 H 164 H ABG HCO3 13 L 14 L ABG O2 Saturation 99 H 100 H ABG Base Excess -13 L -11 L VBG pH 7.26 L VBG pCO2 32 L VBG pO2 46 VBG Base Excess -12 L 01/19/24 01/19/24 01/19/24 18:30 23:00 23:19 ABG pH 7.40 ABG pCO2 29 L ABG pO2 101 D ABG HCO3 18 L ABG O2 Saturation 98 ABG Base Excess -6 L VBG pH 7.35 7.41 VBG pCO2 24 L 28 L VBG pO2 44 129 H D VBG Base Excess -11 L -6 L 01/20/24 01/20/24 01/20/24 00:57 05:52 06:00 ABG pH 7.43 ABG pCO2 28 L ABG pO2 128 H D ABG HCO3 19 L ABG O2 Saturation 99 H ABG Base Excess -5 L VBG pH 7.39 7.42 VBG pCO2 31 L 29 L VBG pO2 141 H 61 H D VBG Base Excess -5 L -4 L 01/20/24 01/20/24 01/20/24 12:18 13:06 19:44 ABG pH 7.39 7.36 ABG pCO2 36 39 ABG pO2 102 D 101 ABG HCO3 22 22 ABG O2 Saturation 98 97 ABG Base Excess -3 -3 VBG pH 7.30 L 7.40 VBG pCO2 45 D 35 L D VBG pO2 41 D 61 H D VBG Base Excess -4 L -2 01/21/24 01/21/24 04:38 04:42 ABG pH 7.41 ABG pCO2 35 ABG pO2 84 ABG HCO3 22 ABG O2 Saturation 96 ABG Base Excess -3 VBG pH 7.38 VBG pCO2 40 VBG pO2 35 D VBG Base Excess -1 Quality Measures Quality Measures none Advance care planning discussed with:: other Assessment & Plan Assessment Current Active Medications: Generic Name Dose Route Start Last Admin Trade Name Freq PRN Reason Stop Dose Admin Acetaminophen 650 mg 01/17/24 21:38 Acetaminophen 325 Mg Tablet PO 02/16/24 21:37 Q6H PRN PAIN OR FEVER > 101 Amiodarone HCl 200 mg 01/21/24 21:00 01/21/24 20:08 Amiodarone Hcl 200 Mg Tablet PO 02/20/24 20:59 200 mg BID VINCE Administration Aspirin 81 mg 01/18/24 09:00 01/21/24 09:17 Aspirin Ec 81 Mg Tabec PO 02/17/24 08:59 81 mg QDAY VINCE Administration Atorvastatin Calcium 40 mg 01/18/24 21:00 01/21/24 20:08 Atorvastatin Calcium 20 Mg Tablet PO 02/17/24 20:59 40 mg HS VINCE Administration Bumetanide 2 mg 01/21/24 14:00 01/21/24 20:09 Bumetanide Inj 0.25 Mg/Ml Vial 4 Ml IVP 02/20/24 13:59 2 mg Q8HR VINCE Administration Heparin Sodium (Porcine) 5,000 unit 01/20/24 17:00 01/21/24 20:10 Heparin Sod Inj 5000 Unit/Ml Vial SC 02/03/24 16:59 5,000 unit Q12HR VINCE Administration Ceftriaxone Sodium/Dextrose 50 mls @ 100 mls/hr 01/18/24 21:00 01/21/24 20:40 Rocephin/D5w 1gm Iv Premix IV 01/25/24 20:59 Infused DAILY@2100 VINCE Infusion Doxycycline Hyclate 100 mg/ 100 mls @ 100 mls/hr 01/18/24 09:00 01/21/24 21:14 Sodium Chloride IV 01/25/24 08:59 Infused BID VINCE Infusion Dobutamine HCl/Dextrose 500 mg in 250 mls @ 1.899 mls/hr 01/18/24 11:08 01/21/24 21:00 Dobutrex/D5w Ivpb IV 02/17/24 11:07 10 mcg/kg/min .Q24H PRN 18.991 mls/hr PER PROTOCOL Titration Protocol 1 MCG/KG/MIN Vasopressin/Sodium Chloride 20 unit in 100 mls @ 9 mls/hr 01/19/24 07:11 01/21/24 21:00 Vasostrict/Ns Ivpb IV 02/18/24 07:10 0.03 unit/min .Q11H7M PRN 9 mls/hr PER PROTOCOL Titration Protocol 0.03 UNIT/MIN Amiodarone HCl/Dextrose 360 mg in 200 mls @ 16.667 mls/hr 01/20/24 10:38 01/21/24 11:03 Nexterone Ivpb IV 01/24/24 10:37 16.667 mls/hr .Q12H VINCE Administration Sodium Bicarbonate 100 meq/ 600 mls @ 30 mls/hr 01/20/24 16:00 01/21/24 13:23 Dextrose IV 02/19/24 15:59 30 mls/hr .Q20H VINCE Administration Norepinephrine Bitartrate 16 mg in 250 mls @ 2.967 mls/hr 01/20/24 17:47 01/21/24 03:00 Levophed In Ns 16mg/250ml IV 02/17/24 11:07 0.56 mcg/kg/min .Q24H PRN 33.235 mls/hr PER protocol Titration Protocol 0.05 MCG/KG/MIN Norepinephrine Bitartrate 32 250 mls @ 1.65 mls/hr 01/21/24 19:10 mg/ Sodium Chloride IV 02/20/24 19:09 .Q24H PRN PER protocol Protocol 0.05 MCG/KG/MIN Ondansetron HCl 4 mg 01/17/24 21:38 Ondansetron Inj 2 Mg/Ml Inj 2 Ml IV 02/16/24 21:37 Q6H PRN NAUSEA OR VOMITING Protocol Pantoprazole Sodium 40 mg 01/18/24 09:00 01/21/24 09:17 Pantoprazole 40 Mg Tablet PO 02/17/24 08:59 40 mg QDAY VINCE Administration Polyethylene Glycol 17 gm 01/21/24 10:15 01/21/24 11:01 Polyethylene Glycol 17 Gm Packet PO 02/20/24 10:14 17 gm QDAY VINCE Administration Sennosides 1 tab 01/18/24 09:00 01/21/24 09:16 Senna Tablet PO 02/17/24 08:59 1 tab QDAY VINCE Administration Protocol Sodium Chloride 3 ml 01/19/24 06:48 01/19/24 06:57 Sodium Chloride Rt Jackie 0.9% 3 Ml Nebu INH 02/18/24 06:47 3 ml PRN PRN Administration TO MIX WITH ALBUTEROL Plan 68-year-old male with no significant past medical history admitted to the hospital chief complaints of shortness of breath and diagnosed to have acute hypoxic respiratory failure secondary to HFrEF exacerbation. NEURO Patient is awake, alert, and oriented x3, following commands, conversational. #No active problems CARDIO # Cardiogenic shock # Dilated cardiomyopathy, likely combined meth use and smoking # Elevated trop - likely Tpe II -Likely exacerbated in the setting of suspected pneumonia in the right lobe and continued meth use. -Presented to the hospital with complaints of shortness of breath, orthopnea, PND -Denies palpitations, fever, pedal edema, abdominal distention. -Chest x-ray showed hyperinflation of bilateral lungs with patchy infiltrate in right lower lobe-pneumonia versus mass. -labs showed elevated BNP, Troponins that downtrended later. urine toxicology tested positive for meth. -Echo done on 01/17/2024 showed dilated cardiomyopathy - Mild to moderately dilated LV and RV. Moderate biatrial dilatation. Severe LV systolic dysfunction. Severe global hypokinesis. Estimated EF around 10% .Diastolic dysfunction present but cannot be graded due to Afib. Plan -Continue Levophed and dobutamine drip. Titrating doses based on MAP and cardiac output. -Continue Vasopressin. -Goal is to maintain systolic blood pressure above 100 mmHg. -Will continue to monitor blood pressures. -continue BiPAP as needed. # Atrial fibrillation with rapid ventricular rate -reverted to to normal sinus rhythm on 01/19/2024 -Patient was found to have sinus rhythm on EKG at the time of admission. -After starting Levophed and dobutamine drip, patient developed atrial fibrillation Plan Will continue amiodarone drip and switch to PO after finishing drip. Heparin drip was stopped in view of high has bled score with more risk of bleeding than having a stroke based on [id number] 4. PULM # Acute hypoxic respiratory failure # due to underlying cardiogenic shock # possible right lung pneumonia -admitted to hospital with complaints of shortness of breath -chest x ray showed right patchy infiltrate in the middle lobe. Plan -Ceftriaxone 1 g IV twice daily(01/17- -Doxycycline 100mg BID(01/17- #Chronic smoker #? probable COPD - smoking history of >40 pack years. - condition is stable as of now. GI # Transaminitis Due to underlying cardiogenic shock -Labs on 01/19/2024 showed AST> 1000, ALT 931 plan -AST and ALT are continuously uptrending as of 01/20/2024 -Will continue to monitor LFTs and continue inotropes. NEPHRO # MARIANO, prerenal -worsening Likely due to underlying cardiogenic shock -Creatinine in 12/2018 is 1.1 and at the time of admission is 2.1 -On 01/19/2024, there is no urine output and BUN and creatinine continuously uptrending, 3.5> 3.7>3.8>5 Plan -Dialysis option is given for the patient but patient denied further invasive treatments -2 doses of Bumex 2 Mg IV is given but urine output is still less about 10 to 20 mL in 3 hours. -So 4 mg of Bumex is given and will continue to monitor the urine output. -Will continue to monitor renal functions and renally dose medications. -Will continue vasopressors and monitor urine output. # Anion gap metabolic acidosis -Due to underlying shock -Bicarb on 01/19/2024 is 10.2 and anion gap is 22, lactate is 7.8. -Bicarb is within normal limits Plan - bicarb drip is stopped around 4 PM 01/20/24. 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 ENDO #No active problems ID #Suspected right lung pneumonia versus mass in right middle lobe -Admitted with shortness of breath started 3 weeks before admitting into the hospital. -Denies fever, chills, cough. -CBC is within normal limits. -Chest x-ray showed right patchy consolidation which was not present in 2019 -Patient did not get CT chest in view of his hemodynamic instability Plan -Ceftriaxone and doxycycline(01/17- -CT was not done in view of hemodynamic instability. MSK #No active problems SKIN #No active problems DVT prophylaxis: Heparin GI prophylaxis: Protonix Diet: Pur?ed foods and Glucerna. [place]: Present Lines: Central and peripheral Antibiotics: Ceftriaxone and doxycycline CODE STATUS: DNR/DNI Reason for ICU care: Cardiogenic shock requiring vasopressors Patient plan of care was discussed with the attending enterprise mobility architect, Dr. Cruz. Naida Moreno, PGY1 Attending Provider Attestation/Addendum Patient seen and examined with the above resident, Naida Moreno MD. I agree with the findings, assessment, and plan of care as documented except for any differences below. Patient continues to remain stable. /low level lactic acidosis with variable central saturation dependent on CO with adjustments ongoing to combination of dobutamine, levophed, and vasopressin. Remains volume overloaded with hepatic and renal failure. Patient responding to increase in dobutamine without significant arrythmia. Aware of potential hepatotoxicity and will transition to PO amiodarone in next 24 hours given sustaining control of cardiac rhythm. Patient remains hopeful with conservative management though I did explain to him and surrogate decision maker ongoing issues with associated mortality. Patient responding to bumex, standing dose started. Monitor for renal recovery in coming days. Uremia may ultimately lead to altered mentation or cardiac dysfunction further which may limit his chances of recovery. Other electrolytes managed thus far. Respiratory status stable with use of HHHFNC/ Bipap intermittently. Family and friends visiting throughout the day. Total critical care time: 45 minutes for review of physiologic parameters, directing plan of care throughout the day, counseling patient/ surrogate at the bedside. This is exclusive of time spent teaching housestaff or performing any separate billable procedures. Patient continues to require critical care due to cardiogenic shock with multiorgan dysfunction including renal failure and congestive hepatopathy with high risk of mortality.
[2024-01-22] VITALS (91 sets, daily range): BP systolic 80–127; BP diastolic 42–81; PULSE 68–108; RESP 8–43; TEMP 36.3–36.7; O2SAT 93–100; BMI 20.6
[2024-01-22] MEDS: VASOPRESSIN IN NS IVPB 20 UNIT/100 ML BAG 9 UNIT IV ×2 (02:47→14:58)
[2024-01-22] MEDS: BUMETANIDE INJ 0.25 MG/ML VIAL 4 ML 2 MG IVP ×3 (05:01→21:16)
[2024-01-22 06:06] LABS: Lactate (Lactic Acid) 1.5 mMol/L (0.4-2.0)
[2024-01-22 06:08] LABS: Base Excess, Venous 3 (-3-3); O2 Saturation, Venous 91 % (96-97); PCO2, Venous 37 mmHg (36-56); PO2, Venous 59 mmHg (15-58); pH, Venous 7.47 (7.33-7.66)
[2024-01-22 06:19] LABS: Base Excess 3 (-3-3); HCO3 25 mEq/L (20-26); Inspired Oxygen, FIO2 30 %; O2 Saturation 97 % (91-98); PCO2 31 mmHg (32.0-48.0); PO2 81 mmHg (83-108); pH, Arterial 7.52 (7.35-7.45)
[2024-01-22 06:20] LABS: Allen Test Not Performed; Puncture Site Arterial Line
[2024-01-22 06:47] LABS: Basophils % (Auto) 0 % (0-2.5); Eosinophils % (Auto) 0 % (0-10); Hematocrit 30.4 % (41.0-53.0); Hemoglobin 10.3 g/dL (13.5-16.0); Immature Granulocytes % (Auto) 1 % (0-0); Immature Granulocytes Auto 0.06 Thou/mm3 (0.00-0.00); Lymphocytes # (Auto) 0.6 Thou/mm3 (1.0-4.8); Lymphocytes % (Auto) 7 % (10-50); Mean Corpuscular HGB Conc 33.9 g/dl (31.0-37.0); Mean Corpuscular Hemoglobin 29.9 pg (25.0-35.0); Mean Corpuscular Volume 88 fL (80-100); Monocytes # (Auto) 0.6 Thou/mm3 (0.0-0.8); Monocytes % (Auto) 7 % (0-12); Neutrophils # (Auto) 7.8 Thou/mm3 (1.8-7.7); Neutrophils % (Auto) 86 % (37-80); Nucleated Red Blood Cell # 0.06 Thou/mm3 (0.00-0.00); Nucleated Red Blood Cell % 1 /100 WBC (0); Platelet Count 85 Thou/mm3 (140-440); RDW Standard Deviation 43.2 fL (35.1-43.9); Red Blood Count 3.45 Miln/mm3 (4.50-5.90); White Blood Count 9.1 Thou/mm3 (3.8-10.6)
[2024-01-22 07:16] LABS: Alanine Aminotransferase > 3300 U/L (10-49); Albumin, Serum 3.1 gm/dL (3.4-4.8); Albumin/Globulin Ratio 1.4 (1.2-2.2); Alkaline Phosphatase 117 U/L (46-116); Anion Gap 15 (7-16); Aspartate Amino Transferase 3686 U/L (0-34); BUN/Creatinine Ratio 14 Ratio (12-20); Bilirubin,Total 1.5 mg/dL (0.3-1.2); Blood Urea Nitrogen 101 mg/dL (9-23); Calcium 6.9 mg/dL (8.3-10.6); Calcium (Corrected) 7.6 mg/dL (8.5-10.1); Carbon Dioxide 26.8 mMol/L (20.0-31.0); Chloride 92 mMol/L (98-107); Creatinine (Component) 7.1 mg/dL (0.6-1.3); Estimated Creatinine Clearance 9.8 mL/min (>60); Globulin 2.2 gm/dL (2.3-3.5); Glucose 114 mg/dL (74-106); Magnesium 2.2 mg/dL (1.6-2.6); Osmolality,Calculated 300 (275-295); Phosphorous 7.2 mg/dL (2.4-5.1); Potassium 4.2 mMol/L (3.4-5.1); Sodium 134 mMol/L (136-145); Total Protein 5.3 gm/dL (5.7-8.2); eGFR 8 See Note
[2024-01-22] MEDS: DOBUTamine/D5w 500 MG IVPB 500 MG/250 ML BAG 18.991 MG IV ×2 (07:59→22:02)
[2024-01-22] MEDS: HEPARIN SOD INJ 5000 UNIT/ML VIAL SC ×2 (08:30→21:16)
[2024-01-22] MEDS: DOXYCYCLINE INJ 100 MG in SODIUM CHLORIDE 0.9% (P) 100 ML IV ×2 (08:30→21:16)
[2024-01-22] MEDS: AMIODARONE HCL 200 MG TABLET PO ×2 (08:31→21:14)
[2024-01-22] MEDS: ASPIRIN EC 81 MG TABEC PO (08:31)
[2024-01-22] MEDS: SENNA TABLET 1 TAB PO (08:31)
[2024-01-22] MEDS: POLYETHYLENE GLYCOL 17 GM PACKET PO (08:31)
[2024-01-22] MEDS: PANTOPRAZOLE 40 MG TABLET PO (08:31)
[2024-01-22] MEDS: bisacodyL 5 MG TABEC PO (10:45)
[2024-01-22] MEDS: PSYLLIUM 1 PKT PACKET PO (10:45)
[2024-01-22 12:13] LABS: Ammonia 11 uMol/L (11-32)
[2024-01-22 14:28] LABS: Anion Gap 16 (7-16); BUN/Creatinine Ratio 14 Ratio (12-20); Blood Urea Nitrogen 98 mg/dL (9-23); Calcium 6.9 mg/dL (8.3-10.6); Chloride 92 mMol/L (98-107); Estimated Creatinine Clearance 9.9 mL/min (>60); Glucose 108 mg/dL (74-106); Osmolality,Calculated 296 (275-295); Potassium 3.9 mMol/L (3.4-5.1); Sodium 132 mMol/L (136-145); eGFR 8 See Note
--- NOTE | 2024-01-22 17:07 | ESPR_ITS ---
Documentation for date of: 01/22/24 Subjective Subjective Interval history: 01/20/2024: Patient was seen and examined at the bedside in ICU. Overnight patient was on BiPAP and changed to high flow this morning and tolerating well. Denies any complaints. Overnight inotropes dosage was continuously up trended. Patient is still anuric. Vitals are stable with vasopressor and inotropes support. On physical examination, bilateral posterior basal fine crackles are heard. Labs showed elevated WBC, H11.9, platelets 179 18.2, INR 2.2, sodium 136, potassium 4.8, bicarb 22.9, BUN 78, creatinine 5, lactate 2.3, AST> 6000, ALT> 3300. Single dose of Bumex 2 Mg is given but did not notice any improvement and the output. Repeated the Bumex dose. Will continue to monitor blood pressures. Cardiac output and cardiac index measured using ficks formula showed adequate values. Will continue vasopressor and inotrope support. Goals of care discussed with the patient and his friend 01/21/2024: Patient was seen and examined by the bedside. No acute overnight events. Saturates well on HFNC and intermittently on BiPAP. Patient reports feeling well. Denies having shortness of breath, chest pain, abdominal pain. Continues to be on levophed, dobutamine, vasopressin. Will finish amiodaron drip today, will switch to PO. Urine output today 2,6L, positive balance ~365 ml. Will continue to diurese patient. Will continue Ceftrizxone and doxycyclin. Creatinine 6.4 compared to 5.0 01/19. AST >6000, ALT continue to be >3300. Dobutamin dose was titrated according to the cardiac output and cardiac index using Isaiah's formula. 01/22/2024: Patient was seen and examined by the bedside. No acute overnight events. Saturates well on HFNC and intermittently on BiPAP. Patient reports feeling well. Will wean off levophed due to chronotropic effect on the heart rhythm and continue vasopressin. Will titrate dobutamin dose based on Isaiah's formula calculation of cardiac output and cardiac index. AST downtrended to 3686, ALT continues to be >3300. HIs urine output today continues to be >100 ml/hr. Creatinine 7.0. Previous daily output is 3.1 L. Will monitor kidney function, patient does not wish to be on dialysis. Exam Vital Signs Temp Pulse Resp BP Pulse Ox O2 Del Method O2 Flow Rate 97.7 F 74 31 H 112/57 L 97 High Flow Nasal Cannula 25 01/22/24 16:00 01/22/24 16:31 01/22/24 16:31 01/22/24 16:31 01/22/24 16:31 01/22/24 15:01 01/22/24 14:03 FiO2 30 01/22/24 15:01 Narrative Exam General: Alert, awake and on high flow. HEENT: Normocephalic, atraumatic, mucous membranes dry. Heart: Regular rate and rhythm, no murmurs. Lungs: Clear to auscultation with no wheezing. Overall bilateral decreased breath sounds noted Abdomen: Soft, nondistended, nontender, positive bowel sounds. ?No guarding or rebound tenderness. Neurologic: Alert and oriented x3, no gross neurological deficit, and patient able to move all 4 extremities. Extremities: No edema. Skin: No rash or ecchymoses. Objective Labs 01/22/24 05:40 01/22/24 13:47 Labs: Laboratory Results - last 24 hr 01/21/24 01/22/24 01/22/24 20:18 05:40 05:51 WBC 9.1 RBC 3.45 L Hgb 10.3 L Hct 30.4 L MCV 88 MCH 29.9 MCHC 33.9 RDW Std Deviation 43.2 Plt Count 85 L D Neut % (Auto) 86 H Lymph % (Auto) 7 L [place] % (Auto) 7 Eos % (Auto) 0 Baso % (Auto) 0 Neut # (Auto) 7.8 H Lymph # (Auto) 0.6 L [place] # (Auto) 0.6 Eos # (Auto) 0.0 Baso # (Auto) 0.0 Immature Gran # (Auto) 0.06 H Absolute Nucleated RBC 0.06 H Immature Gran % 1 H Nucleated RBC % 1 H Puncture Site Arterial Line ABG pH 7.52 H D ABG pCO2 31 L ABG pO2 81 L ABG HCO3 25 ABG O2 Saturation 97 ABG Base Excess 3 VBG pH 7.47 VBG pCO2 37 VBG pO2 59 H D VBG O2 Sat (Colleen) 91 L D VBG Base Excess 3 FiO2 30 Sodium 134 L Potassium 4.2 Chloride 92 L Carbon Dioxide 26.8 Anion Gap 15 BUN 101 H* Creatinine 7.1 H* D Estim Creat Clear Calc 9.8 L eGFR 8 L* BUN/Creatinine Ratio 14 Glucose 114 H Calculated Osmolality 300 H Lactic Acid 1.5 1.5 Calcium 6.9 L Corrected Calcium 7.6 L Phosphorus 7.2 H Magnesium 2.2 Total Bilirubin 1.5 H AST 3686 H* ALT > 3300 H* Alkaline Phosphatase 117 H Ammonia Total Protein 5.3 L Albumin 3.1 L Globulin 2.2 L Albumin/Globulin Ratio 1.4 01/22/24 01/22/24 11:39 13:47 WBC RBC Hgb Hct MCV MCH MCHC RDW Std Deviation Plt Count Neut % (Auto) Lymph % (Auto) [place] % (Auto) Eos % (Auto) Baso % (Auto) Neut # (Auto) Lymph # (Auto) [place] # (Auto) Eos # (Auto) Baso # (Auto) Immature Gran # (Auto) Absolute Nucleated RBC Immature Gran % Nucleated RBC % Puncture Site ABG pH ABG pCO2 ABG pO2 ABG HCO3 ABG O2 Saturation ABG Base Excess VBG pH VBG pCO2 VBG pO2 VBG O2 Sat (Colleen) VBG Base Excess FiO2 Sodium 132 L Potassium 3.9 Chloride 92 L Carbon Dioxide 24.0 Anion Gap 16 BUN 98 H Creatinine 7.0 H* Estim Creat Clear Calc 9.9 L eGFR 8 L* BUN/Creatinine Ratio 14 Glucose 108 H Calculated Osmolality 296 H Lactic Acid Calcium 6.9 L Corrected Calcium Phosphorus Magnesium Total Bilirubin AST ALT Alkaline Phosphatase Ammonia 11 Total Protein Albumin Globulin Albumin/Globulin Ratio ABG Interpretation ABG results: 01/18/24 01/18/24 01/19/24 11:29 21:30 04:35 ABG pH 7.51 H 7.49 H 7.29 L D ABG pCO2 17 L* 19 L* 20 L ABG pO2 221 H 245 H D 143 H D ABG HCO3 13 L 14 L 9 L* ABG O2 Saturation 100 H 100 H 99 H ABG Base Excess -7 L -7 L -15 L VBG pH VBG pCO2 VBG pO2 VBG Base Excess 01/19/24 01/19/24 01/19/24 11:01 11:11 18:13 ABG pH 7.26 L 7.32 L ABG pCO2 28 L 26 L ABG pO2 149 H 164 H ABG HCO3 13 L 14 L ABG O2 Saturation 99 H 100 H ABG Base Excess -13 L -11 L VBG pH 7.26 L VBG pCO2 32 L VBG pO2 46 VBG Base Excess -12 L 01/19/24 01/19/24 01/19/24 18:30 23:00 23:19 ABG pH 7.40 ABG pCO2 29 L ABG pO2 101 D ABG HCO3 18 L ABG O2 Saturation 98 ABG Base Excess -6 L VBG pH 7.35 7.41 VBG pCO2 24 L 28 L VBG pO2 44 129 H D VBG Base Excess -11 L -6 L 01/20/24 01/20/24 01/20/24 00:57 05:52 06:00 ABG pH 7.43 ABG pCO2 28 L ABG pO2 128 H D ABG HCO3 19 L ABG O2 Saturation 99 H ABG Base Excess -5 L VBG pH 7.39 7.42 VBG pCO2 31 L 29 L VBG pO2 141 H 61 H D VBG Base Excess -5 L -4 L 01/20/24 01/20/24 01/20/24 12:18 13:06 19:44 ABG pH 7.39 7.36 ABG pCO2 36 39 ABG pO2 102 D 101 ABG HCO3 22 22 ABG O2 Saturation 98 97 ABG Base Excess -3 -3 VBG pH 7.30 L 7.40 VBG pCO2 45 D 35 L D VBG pO2 41 D 61 H D VBG Base Excess -4 L -2 01/21/24 01/21/24 01/22/24 04:38 04:42 05:40 ABG pH 7.41 ABG pCO2 35 ABG pO2 84 ABG HCO3 22 ABG O2 Saturation 96 ABG Base Excess -3 VBG pH 7.38 7.47 VBG pCO2 40 37 VBG pO2 35 D 59 H D VBG Base Excess -1 3 01/22/24 05:51 ABG pH 7.52 H D ABG pCO2 31 L ABG pO2 81 L ABG HCO3 25 ABG O2 Saturation 97 ABG Base Excess 3 VBG pH VBG pCO2 VBG pO2 VBG Base Excess Quality Measures Quality Measures none Advance care planning discussed with:: patient Assessment & Plan Assessment Current Active Medications: Generic Name Dose Route Start Last Admin Trade Name Freq PRN Reason Stop Dose Admin Acetaminophen 650 mg 01/17/24 21:38 Acetaminophen 325 Mg Tablet PO 02/16/24 21:37 Q6H PRN PAIN OR FEVER > 101 Amiodarone HCl 200 mg 01/21/24 21:00 01/22/24 08:31 Amiodarone Hcl 200 Mg Tablet PO 02/20/24 20:59 200 mg BID VINCE Administration Aspirin 81 mg 01/18/24 09:00 01/22/24 08:31 Aspirin Ec 81 Mg Tabec PO 02/17/24 08:59 81 mg QDAY VINCE Administration Atorvastatin Calcium 40 mg 01/18/24 21:00 01/21/24 20:08 Atorvastatin Calcium 20 Mg Tablet PO 02/17/24 20:59 40 mg HS VINCE Administration Bumetanide 2 mg 01/21/24 14:00 01/22/24 14:07 Bumetanide Inj 0.25 Mg/Ml Vial 4 Ml IVP 02/20/24 13:59 2 mg Q8HR VINCE Administration Heparin Sodium (Porcine) 5,000 unit 01/20/24 17:00 01/22/24 08:30 Heparin Sod Inj 5000 Unit/Ml Vial SC 02/03/24 16:59 5,000 unit Q12HR VINCE Administration Ceftriaxone Sodium/Dextrose 50 mls @ 100 mls/hr 01/18/24 21:00 01/21/24 20:40 Rocephin/D5w 1gm Iv Premix IV 01/25/24 20:59 Infused DAILY@2100 VINCE Infusion Doxycycline Hyclate 100 mg/ 100 mls @ 100 mls/hr 01/18/24 09:00 01/22/24 08:30 Sodium Chloride IV 01/25/24 08:59 100 mls/hr BID VINCE Administration Dobutamine HCl/Dextrose 500 mg in 250 mls @ 1.899 mls/hr 01/18/24 11:08 01/22/24 16:00 Dobutrex/D5w Ivpb IV 02/17/24 11:07 10 mcg/kg/min .Q24H PRN 18.991 mls/hr PER PROTOCOL Titration Protocol 1 MCG/KG/MIN Vasopressin/Sodium Chloride 20 unit in 100 mls @ 9 mls/hr 01/19/24 07:11 01/22/24 16:00 Vasostrict/Ns Ivpb IV 02/18/24 07:10 0.03 unit/min .Q11H7M PRN 9 mls/hr PER PROTOCOL Titration Protocol 0.03 UNIT/MIN Norepinephrine Bitartrate 16 mg in 250 mls @ 2.967 mls/hr 01/20/24 17:47 01/21/24 03:00 Levophed In Ns 16mg/250ml IV 02/17/24 11:07 0.56 mcg/kg/min .Q24H PRN 33.235 mls/hr PER protocol Titration Protocol 0.05 MCG/KG/MIN Norepinephrine Bitartrate 32 250 mls @ 1.65 mls/hr 01/21/24 19:10 01/22/24 17:02 mg/ Sodium Chloride IV 02/20/24 19:09 Infused .Q24H PRN Titration PER protocol Protocol 0.05 MCG/KG/MIN Ondansetron HCl 4 mg 01/17/24 21:38 Ondansetron Inj 2 Mg/Ml Inj 2 Ml IV 02/16/24 21:37 Q6H PRN NAUSEA OR VOMITING Protocol Pantoprazole Sodium 40 mg 01/18/24 09:00 01/22/24 08:31 Pantoprazole 40 Mg Tablet PO 02/17/24 08:59 40 mg QDAY VINCE Administration Polyethylene Glycol 17 gm 01/21/24 10:15 01/22/24 08:31 Polyethylene Glycol 17 Gm Packet PO 02/20/24 10:14 17 gm QDAY VINCE Administration Psyllium Hydrophilic Mucilloid 1 pkt 01/22/24 09:15 01/22/24 10:45 Psyllium 1 Pkt Packet PO 02/21/24 09:14 1 pkt QDAY VINCE Administration Protocol Sennosides 1 tab 01/18/24 09:00 01/22/24 08:31 Senna Tablet PO 02/17/24 08:59 1 tab QDAY VINCE Administration Protocol Sodium Chloride 3 ml 01/19/24 06:48 01/19/24 06:57 Sodium Chloride Rt Jackie 0.9% 3 Ml Nebu INH 02/18/24 06:47 3 ml PRN PRN Administration TO MIX WITH ALBUTEROL Plan 68-year-old male with no significant past medical history admitted to the hospital chief complaints of shortness of breath and diagnosed to have acute hypoxic respiratory failure secondary to HFrEF exacerbation. NEURO Patient is awake, alert, and oriented x3, following commands, conversational. #Chronic methamphetamine use CARDIO # Cardiogenic shock # Dilated cardiomyopathy, likely combined meth use and smoking # Elevated trop - likely Tpe II -Likely exacerbated in the setting of suspected pneumonia in the right lobe and continued meth use. -Presented to the hospital with complaints of shortness of breath, orthopnea, PND -Denies palpitations, fever, pedal edema, abdominal distention. -Chest x-ray showed hyperinflation of bilateral lungs with patchy infiltrate in right lower lobe-pneumonia versus mass. -labs showed elevated BNP, Troponins that downtrended later. urine toxicology tested positive for meth. -Echo done on 01/17/2024 showed dilated cardiomyopathy - Mild to moderately dilated LV and RV. Moderate biatrial dilatation. Severe LV systolic dysfunction. Severe global hypokinesis. Estimated EF around 10% .Diastolic dysfunction present but cannot be graded due to Afib. Plan -Continue dobutamine drip. Titrating doses based on MAP and cardiac output. -Wean off Levophed, maintain SBP>100 -Continue Vasopressin. -Goal is to maintain systolic blood pressure above 100 mmHg. -Will continue to monitor blood pressures. -continue BiPAP as needed. # Atrial fibrillation with rapid ventricular rate -reverted to to normal sinus rhythm on 01/19/2024 -Patient was found to have sinus rhythm on EKG at the time of admission. -After starting Levophed and dobutamine drip, patient developed atrial fibrillation Plan Will continue amiodarone drip and switch to PO after finishing drip. Heparin drip was stopped in view of high has bled score with more risk of bleeding than having a stroke based on [id number] 4. PULM # Acute hypoxic respiratory failure # due to underlying cardiogenic shock # possible right lung pneumonia -admitted to hospital with complaints of shortness of breath -chest x ray showed right patchy infiltrate in the middle lobe. Plan -Ceftriaxone 1 g IV twice daily(01/17- -Doxycycline 100mg BID(01/17- #Chronic smoker #? probable COPD - smoking history of >40 pack years. - condition is stable as of now. GI # Transaminitis Due to underlying cardiogenic shock -Labs on 01/19/2024 showed AST> 1000, ALT 931 plan -AST and ALT are continuously uptrending as of 01/20/2024 -Will continue to monitor LFTs and continue inotropes. NEPHRO # MARIANO, prerenal -worsening Likely due to underlying cardiogenic shock -Creatinine in 12/2018 is 1.1 and at the time of admission is 2.1 -On 01/19/2024, there is no urine output and BUN and creatinine continuously uptrending, 3.5> 3.7>3.8>5 Plan -Dialysis option is given for the patient but patient denied further invasive treatments -Bumex 2 Mg IV TID to help with hepatic and renal congestion -Will continue to monitor renal functions and renally dose medications. -Will continue vasopressors and monitor urine output. #Anion gap metabolic acidosis -Due to underlying shock -Bicarb on 01/19/2024 is 10.2 and anion gap is 22, lactate is 7.8. -Bicarb is within normal limits Plan - bicarb drip is stopped around 4 PM 01/20/24. 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 ENDO #No active problems ID #Suspected right lung pneumonia versus mass in right middle lobe -Admitted with shortness of breath started 3 weeks before admitting into the hospital. -Denies fever, chills, cough. -CBC is within normal limits. -Chest x-ray showed right patchy consolidation which was not present in 2019 -Patient did not get CT chest in view of his hemodynamic instability Plan -Ceftriaxone and doxycycline(01/17- -CT was not done in view of hemodynamic instability. MSK #No active problems SKIN #No active problems DVT prophylaxis: Heparin GI prophylaxis: Protonix Diet: Pur?ed foods and Glucerna. [place]: Present Lines: Central and peripheral Antibiotics: Ceftriaxone and doxycycline CODE STATUS: DNR/DNI Reason for ICU care: Cardiogenic shock requiring vasopressors Patient plan of care was discussed with the attending esol teacher, Dr. Cruz. Naida Moreno, PGY1 Attending Provider Attestation/Addendum Patient seen and examined with the above resident, Naida Moreno MD. I agree with the findings, assessment, and plan of care as documented except for any differences below. Patient continues to do well on dobutamine drip with vasopressor support for maintenance of blood pressure. Aggressively wean Levophed today to allow for afterload reduction as tolerated and optimal inotropic support with dobutamine alone. Vasopressin continued at this time. Patient with intermittent arrhythmia but will transition off of amiodarone drip to p.o. regimen. LFTs continue to improve now that congestive hepatopathy has improved along with ischemia from low flow state. Renal function seems to have peaked at creatinine of 7.1 and BUN of 101 with downtrend this afternoon. No major electrolyte abnormalities warranting need for rapid correction at this time. Patient adequately diuresing and will aim to be net negative with ongoing use of Bumex scheduled to 3 times daily. Electrolyte replacement as needed with ongoing diuretics. Patient is tolerating p.o. but he has had no bowel movements at this time and appetite continues to be slow. Bowel regimen adjusted by residents appropriately. Patient continues to have significant risk of further morbidity and mortality despite showing good progress thus far. I have explained to him that he continues to be at risk for decline imminently and is thus continued on aggressive medical therapy as he is not a candidate for mechanical circulatory support or transition to transplant in the long run. 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 Patient continues to be DNR status and no plans for hemodialysis as he continues to improve. Once fluid status improves patient's cardiac function will likely be optimized and then can focus on removal of inotropic support as tolerated. Lactic acid continues to be negative and we are using serial monitoring of blood gas to calculate Isaiah as surrogate for continuous cardiac output with [place] catheter. Index remains above 2 on serial testing. Patient is using BiPAP intermittently along with high flow nasal cannula. Patient also being treated for right lower lobe pneumonia elevated white count continues to improve now. Follow-up imaging will be required as this could still be pulmonary malignancy given his significant smoking history as well. Total critical care time: I personally spent 40 minutes for review of physiologic parameters, directing plan of care throughout the day, coordinating care with other specialties, and counseling patient at bedside. This is exclusive of time spent teaching housestaff or performing separate billable procedures. Patient continues to require critical care services given severe cardiogenic shock complicated by both liver and renal dysfunction and acute hypoxic respiratory failure. Patient remains at high risk for increased morbidity and mortality as detailed above.
--- NOTE | 2024-01-22 18:36 | ESPR_ITS ---
Documentation for date of: 01/22/24 Subjective Subjective Interval history: Patient was seen and examined in ICU this AM. Patient is on high flow nasal cannula at the present moment 25 L and FiO2 of 30%. Patient apparently is doing well also on regular nasal cannula but at times he is requiring high flow. Patient restarted on diuresis with Bumex2 mg every 8 hours and patient is diuresing well and has been net negative of 2 L over the last 3 days since starting the Bumex. Kidney function continue to worsen but peaked at BUN of 101 and a creatinine of 7.1 with the diuresis but now has improved slightly with a BUN of 98 and creatinine of 7.0. LFTs also improved with AST at 3383 compared to 6000 previously. ALT still greater than 3000 and mostly from hepatic congestion from the shock Recommend to continue IV diuresis for now with the Bumex 2 mg every 8 hours with a goal of net -2 L every day and hopefully oxygen requirements continues to decrease. Patient still on 3 pressors including dobutamine drip at 10, Levophed 0.2 as well as vasopressin 0.03. 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 Goal MAP is greater than 65 mmHg. Will continue to slowly titrate down the pressors if patient continues to improve. Recommended nephrology consult for possible dialysis but patient apparently does not want any dialysis and wanted to be DNR and only wants to continue medical management at the present movement. Primary team to continue to discuss goals of cares with patient during his worsening kidney function and limited medical therapy for the patient as patient will eventually develop altered mental status secondary to the uremia Patient is not a candidate for advanced heart failure therapy including any kind of LVAD or transplant given his history of drug abuse and patient also did not want any aggressive invasive procedures including dialysis. Patient condition is critical and overall prognosis appears poor which I discussed with the patient in detail. Apparently he did discuss with his surrogate decision maker-his friend. Patient is still awake alert oriented x 3 and able to understand the present treatment plan. Exam Vital Signs Temp Pulse Resp BP Pulse Ox O2 Del Method O2 Flow Rate 97.7 F 74 34 H 117/74 96 High Flow Nasal Cannula 25 01/22/24 16:00 01/22/24 18:15 01/22/24 18:15 01/22/24 18:15 01/22/24 18:15 01/22/24 15:01 01/22/24 14:03 FiO2 30 01/22/24 15:01 Narrative Exam Constitutional Alert, oriented x 3 and Mild Distress. Elderly male, cachectic, on BiPAP HEENT Vision grossly intact. Patent nares. Trachea midline. Poor dentition, missing teeth Respiratory Chest normal on inspection, RIJ catheter, exit site clean and decreased breath sounds throughout lung chauhan b/l Cardiovascular S1 and S2 audible, RRR. No murmurs carotid bruit. JVD not assessed Abdominal Soft and non tender to palpation in all quadrants. BS + Genitourinary No bladder tenderness, no flank pain. Normal to palpation. Left femoral catheter, exit site clean Musculoskeletal Extremities tone within normal limits. No LE edema. Neurological CN II - XII grossly intact. Extremity motor and sensation grossly intact. Skin Warm, dry and intact. No apparent lesions. Psychiatric Patient has good affect, is cooperative Objective Labs 01/22/24 05:40 01/22/24 13:47 Labs: Laboratory Results - last 24 hr 01/21/24 01/22/24 01/22/24 20:18 05:40 05:51 WBC 9.1 RBC 3.45 L Hgb 10.3 L Hct 30.4 L MCV 88 MCH 29.9 MCHC 33.9 RDW Std Deviation 43.2 Plt Count 85 L D Neut % (Auto) 86 H Lymph % (Auto) 7 L [place] % (Auto) 7 Eos % (Auto) 0 Baso % (Auto) 0 Neut # (Auto) 7.8 H Lymph # (Auto) 0.6 L [place] # (Auto) 0.6 Eos # (Auto) 0.0 Baso # (Auto) 0.0 Immature Gran # (Auto) 0.06 H Absolute Nucleated RBC 0.06 H Immature Gran % 1 H Nucleated RBC % 1 H Puncture Site Arterial Line ABG pH 7.52 H D ABG pCO2 31 L ABG pO2 81 L ABG HCO3 25 ABG O2 Saturation 97 ABG Base Excess 3 VBG pH 7.47 VBG pCO2 37 VBG pO2 59 H D VBG O2 Sat (Colleen) 91 L D VBG Base Excess 3 FiO2 30 Sodium 134 L Potassium 4.2 Chloride 92 L Carbon Dioxide 26.8 Anion Gap 15 BUN 101 H* Creatinine 7.1 H* D Estim Creat Clear Calc 9.8 L eGFR 8 L* BUN/Creatinine Ratio 14 Glucose 114 H Calculated Osmolality 300 H Lactic Acid 1.5 1.5 Calcium 6.9 L Corrected Calcium 7.6 L Phosphorus 7.2 H Magnesium 2.2 Total Bilirubin 1.5 H AST 3686 H* ALT > 3300 H* Alkaline Phosphatase 117 H Ammonia Total Protein 5.3 L Albumin 3.1 L Globulin 2.2 L Albumin/Globulin Ratio 1.4 01/22/24 01/22/24 11:39 13:47 WBC RBC Hgb Hct MCV MCH MCHC RDW Std Deviation Plt Count Neut % (Auto) Lymph % (Auto) [place] % (Auto) Eos % (Auto) Baso % (Auto) Neut # (Auto) Lymph # (Auto) [place] # (Auto) Eos # (Auto) Baso # (Auto) Immature Gran # (Auto) Absolute Nucleated RBC Immature Gran % Nucleated RBC % Puncture Site ABG pH ABG pCO2 ABG pO2 ABG HCO3 ABG O2 Saturation ABG Base Excess VBG pH VBG pCO2 VBG pO2 VBG O2 Sat (Colleen) VBG Base Excess FiO2 Sodium 132 L Potassium 3.9 Chloride 92 L Carbon Dioxide 24.0 Anion Gap 16 BUN 98 H Creatinine 7.0 H* Estim Creat Clear Calc 9.9 L eGFR 8 L* BUN/Creatinine Ratio 14 Glucose 108 H Calculated Osmolality 296 H Lactic Acid Calcium 6.9 L Corrected Calcium Phosphorus Magnesium Total Bilirubin AST ALT Alkaline Phosphatase Ammonia 11 Total Protein Albumin Globulin Albumin/Globulin Ratio ABG Interpretation ABG results: 01/18/24 01/18/24 01/19/24 11:29 21:30 04:35 ABG pH 7.51 H 7.49 H 7.29 L D ABG pCO2 17 L* 19 L* 20 L ABG pO2 221 H 245 H D 143 H D ABG HCO3 13 L 14 L 9 L* ABG O2 Saturation 100 H 100 H 99 H ABG Base Excess -7 L -7 L -15 L VBG pH VBG pCO2 VBG pO2 VBG Base Excess 01/19/24 01/19/24 01/19/24 11:01 11:11 18:13 ABG pH 7.26 L 7.32 L ABG pCO2 28 L 26 L ABG pO2 149 H 164 H ABG HCO3 13 L 14 L ABG O2 Saturation 99 H 100 H ABG Base Excess -13 L -11 L VBG pH 7.26 L VBG pCO2 32 L VBG pO2 46 VBG Base Excess -12 L 01/19/24 01/19/24 01/19/24 18:30 23:00 23:19 ABG pH 7.40 ABG pCO2 29 L ABG pO2 101 D ABG HCO3 18 L ABG O2 Saturation 98 ABG Base Excess -6 L VBG pH 7.35 7.41 VBG pCO2 24 L 28 L VBG pO2 44 129 H D VBG Base Excess -11 L -6 L 01/20/24 01/20/24 01/20/24 00:57 05:52 06:00 ABG pH 7.43 ABG pCO2 28 L ABG pO2 128 H D ABG HCO3 19 L ABG O2 Saturation 99 H ABG Base Excess -5 L VBG pH 7.39 7.42 VBG pCO2 31 L 29 L VBG pO2 141 H 61 H D VBG Base Excess -5 L -4 L 01/20/24 01/20/24 01/20/24 12:18 13:06 19:44 ABG pH 7.39 7.36 ABG pCO2 36 39 ABG pO2 102 D 101 ABG HCO3 22 22 ABG O2 Saturation 98 97 ABG Base Excess -3 -3 VBG pH 7.30 L 7.40 VBG pCO2 45 D 35 L D VBG pO2 41 D 61 H D VBG Base Excess -4 L -2 01/21/24 01/21/24 01/22/24 04:38 04:42 05:40 ABG pH 7.41 ABG pCO2 35 ABG pO2 84 ABG HCO3 22 ABG O2 Saturation 96 ABG Base Excess -3 VBG pH 7.38 7.47 VBG pCO2 40 37 VBG pO2 35 D 59 H D VBG Base Excess -1 3 01/22/24 05:51 ABG pH 7.52 H D ABG pCO2 31 L ABG pO2 81 L ABG HCO3 25 ABG O2 Saturation 97 ABG Base Excess 3 VBG pH VBG pCO2 VBG pO2 VBG Base Excess Assessment & Plan A&P Narrative Patient is a 68-year-old male with no significant past medical history who presented to the ED with a chief complaint of shortness of breath. Patient was admitted for acute respiratory failure with hypoxia secondary to community-acquired pneumonia and CHF exacerbation. Cardiology was consulted. 1. Acute respiratory failure with hypoxia Secondary to 2. Acute decompensated systolic heart failure exacerbation [EF 10%] 3. Cardiogenic shock 4. Dilated cardiomyopathy On admission patient has history of progressively worsening shortness of breath for the past 3 weeks. On exam patient is in mild distress on O2 via NC and breath sounds were decreased globally. No signs of lower extremity edema. Patient not previously diagnosed with heart failure in the past and not on any medication at home. On admission BNP 2864 NYHA Class IV Stage C Transthoracic echocardiogram completed on 01/16 findings include: Dilated cardiomyopathy - Mild to moderately dilated LV and RV. Moderate biatrial dilatation. Severe LV systolic dysfunction. Severe global hypokinesis. Estimated EF around 10% Diastolic dysfunction present but cannot be graded due to Afib. Moderate RV dysfunction. Estimated RVSP 40 mmHg. Moderate MR. Mild TR,PI. Mild AV sclerosis without stenosis, IVC dilated and pleural effusion present. Plan: ? Strict input output charting ? Daily weights ? 2 g salt restricted diet ? 1500 cc fluid restriction - ICU team had goals of care discussion with the patient as well as his surrogate decision maker is friend. - Patient offered the option of Dialysis but refused any further invasive procedures and switched his code status to DNR Patient is on high flow nasal cannula at the present moment 25 L and FiO2 of 30%. Patient apparently is doing well also on regular nasal cannula but at times he is requiring high flow. Patient restarted on diuresis with Bumex2 mg every 8 hours and patient is diuresing well and has been net negative of 2 L over the last 3 days since starting the Bumex. Kidney function continue to worsen but peaked at BUN of 101 and a creatinine of 7.1 with the diuresis but now has improved slightly with a BUN of 98 and creatinine of 7.0. LFTs also improved with AST at 3383 compared to 6000 previously. ALT still greater than 3000 and mostly from hepatic congestion from the shock Recommend to continue IV diuresis for now with the Bumex 2 mg every 8 hours with a goal of net -2 L every day and hopefully oxygen requirements continues to decrease. Patient still on 3 pressors including dobutamine drip at 10, Levophed 0.2 as well as vasopressin 0.03. 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 Goal MAP is greater than 65 mmHg. Will continue to slowly titrate down the pressors if patient continues to improve. Recommended nephrology consult for possible dialysis but patient apparently does not want any dialysis and wanted to be DNR and only wants to continue medical management at the present movement. Primary team to continue to discuss goals of cares with patient during his worsening kidney function and limited medical therapy for the patient as patient will eventually develop altered mental status secondary to the uremia Patient is not a candidate for advanced heart failure therapy including any kind of LVAD or transplant given his history of drug abuse and patient also did not want any aggressive invasive procedures including dialysis. Patient condition is critical and overall prognosis appears poor which I discussed with the patient in detail. Apparently he did discuss with his surrogate decision maker-his friend. Patient is still awake alert oriented x 3 and able to understand the present treatment plan. 5. Rule out ACS 6. NSTEMI -mostly type II secondary to supply/demand mismatch given the severe dilated cardiomyopathy Patient had progressive SOB for the past 3 weeks but denies any chest pain or pressure. Unlikely acute coronary syndrome and troponin elevation mostly secondary to supply/demand mismatch given severe dilated cardiomyopathy in the setting of significant drug abuse including methamphetamine and other drugs. Initial EKG showed sinus rhythm with occasional PVCs, left atrial enlargement repeat EKG showed atrial fibrillation with RVR, rate 120. No acute ST changes Troponin were elevated at 1.171 up trended to 1.235 and subsequently down trended to 0.98 Plan: ? Can discontinue Heparin infusion as >48 hours ? Continue aspirin 81 Mg p.o. daily ? Can hold high intensity statin in light of Ischemic hepatitis ? No need to further trend troponin - Continue medical management for now 7. A-fib with RVR?new onset Patient admitted to having intermittent palpitations for years with some episodes lasting for days before resolving. Initial EKG showed sinus rhythm with occasional PVCs, left atrial enlargement repeat EKG showed atrial fibrillation with RVR, rate 120. No acute ST changes. From telemetry review patient continues to be in A-fib with rates in the 60s?80s [id number] : 1 point ; 0.6 % stroke risk per year [age] Plan: ? Continue amiodarone infusion ? Recommend rate control with metoprolol XL 50 Mg p.o. daily - Heparin drip for NSTEMI completed, can transition to eliquis ? Continue telemetry review ? Please maintain potassium greater than 4 and magnesium greater than 2 at all times to prevent any further arrhythmias 8. Community-acquired pneumonia Patient has shortness of breath for past 3 weeks as well as a nonproductive cough. Chest x-ray on admission was significant for right mid zone consolidation. Patient was started on ceftriaxone and doxycycline IV. Blood and sputum cultures are pending. Continue management as per primary team 9. MARIANO likely prerenal 10. Acute Renal Failure 11. Transaminitis 12. Multi- organ Failure On admission patient's CR 2 currently up trended to 2.1. Unable to assess baseline as no previous records for comparison. Likely in the setting of cardiogenic shock and dehydration. Patient is now acidotic with bicarb of 10.2, BUN increased to 54 from 36, CR increased to 3.5 from 2. Recommend to hold IV diuresis for now in light of acute renal failure. Recommend stat nephrology consult as well Lactic acid also up trended to 7.8 from 2. AST and ALT also up trended to 744 and 5.6 from 357 and 277 respectively indicating either hepatic congestion or ischemic hepatitis due to shock. Plan: - ICU team had goals of care discussion with the patient as well as his surrogate decision maker is friend. - Patient offered the option of Dialysis but refused any further invasive procedures and switched his code status to DNR -Kidney function continue to worsen but peaked at BUN of 101 and a creatinine of 7.1 with the diuresis but now has improved slightly with a BUN of 98 and creatinine of 7.0. - LFTs also improved with AST at 3383 compared to 6000 previously. ALT still greater than 3000 and mostly from hepatic congestion from the shock - Recommend to continue IV diuresis for now with the Bumex 2 mg every 8 hours with a goal of net -2 L every day and hopefully oxygen requirements continues to decrease. 13. Likely COPD 14. Nicotine dependence 15. History of polysubstance abuse Patient has [id number] smoking history and now has shortness of breath for the past 3 weeks along with productive cough. Clinically he is cachectic and appears to have decreased breath sounds globally suggestive of COPD. Patient will need to be further worked up as an outpatient. Patient admitted to using methamphetamine and cocaine for many years as well with U tox being positive for methamphetamine on admission. Patient counseled extensively on drug cessation. Patient agreed - ICU team had goals of care discussion with the patient as well as his surrogate decision maker is friend. - Patient offered the option of Dialysis but refused any further invasive procedures and switched his code status to DNR There is a high probability of sudden, clinically significant or life threatening deterioration in the patient condition which required the highest level of physician preparedness to intervene urgently. I have personally spent 65 minutes of critical care time, exclusive of time spent on any procedures, in evaluation and management of this critically ill patient. Management of rest of the medical conditions as per primary team and other consultants. Thank you for the consult and allowing me to participate in the care of the patient. Cardiology will continue to follow. Reynaldo Jha M.D. Interventional Cardiology Time Spent With Patient Time: Total time spent is greater than 50% in coordination of care (as documented) at patient's floor/unit and/or counseling patient: Procedures Arterial Line Size (Gauge): 14
[2024-01-22] MEDS: NOREPINEPHRINE IV (20:34)
[2024-01-22] MEDS: SODIUM CHLORIDE 0.9% IV (20:34)
[2024-01-22] MEDS: ATORVASTATIN CALCIUM 20 MG TABLET 40 MG PO (21:14)
[2024-01-22] MEDS: cefTRIAXone/D5w 1gm IV premix 50 ML IV (21:19)
[2024-01-23] VITALS (110 sets, daily range): BP systolic 86–143; BP diastolic 43–102; PULSE 71–114; RESP 12–42; TEMP 36.3–36.9; O2SAT 82–100; BMI 18.4
[2024-01-23] MEDS: VASOPRESSIN IN NS IVPB 20 UNIT/100 ML BAG 9 UNIT IV (02:53)
[2024-01-23 05:29] LABS: Base Excess 6 (-3-3); HCO3 31 mEq/L (20-26); Inspired Oxygen, FIO2 30 %; O2 Saturation 96 % (91-98); PCO2 44 mmHg (32.0-48.0); PO2 79 mmHg (83-108); pH, Arterial 7.45 (7.35-7.45)
[2024-01-23 05:32] LABS: Puncture Site Arterial Line
[2024-01-23] MEDS: BUMETANIDE INJ 0.25 MG/ML VIAL 4 ML 2 MG IVP ×3 (05:35→21:00)
[2024-01-23 06:58] LABS: Basophils % (Auto) 0 % (0-2.5); Eosinophils % (Auto) 0 % (0-10); Hematocrit 32.2 % (41.0-53.0); Hemoglobin 11.1 g/dL (13.5-16.0); Immature Granulocytes % (Auto) 1 % (0-0); Immature Granulocytes Auto 0.04 Thou/mm3 (0.00-0.00); Lymphocytes # (Auto) 0.5 Thou/mm3 (1.0-4.8); Lymphocytes % (Auto) 7 % (10-50); Mean Corpuscular HGB Conc 34.5 g/dl (31.0-37.0); Mean Corpuscular Hemoglobin 29.7 pg (25.0-35.0); Mean Corpuscular Volume 86 fL (80-100); Monocytes # (Auto) 0.6 Thou/mm3 (0.0-0.8); Monocytes % (Auto) 9 % (0-12); Neutrophils # (Auto) 6.3 Thou/mm3 (1.8-7.7); Neutrophils % (Auto) 83 % (37-80); Nucleated Red Blood Cell # 0.04 Thou/mm3 (0.00-0.00); Nucleated Red Blood Cell % 1 /100 WBC (0); RDW Standard Deviation 41.9 fL (35.1-43.9); Red Blood Count 3.74 Miln/mm3 (4.50-5.90); White Blood Count 7.5 Thou/mm3 (3.8-10.6)
[2024-01-23 07:05] LABS: Platelet Count 74 Thou/mm3 (140-440)
[2024-01-23 07:23] LABS: Albumin, Serum 3.4 gm/dL (3.4-4.8); Albumin/Globulin Ratio 1.3 (1.2-2.2); Alkaline Phosphatase 131 U/L (46-116); Anion Gap 15 (7-16); Aspartate Amino Transferase 1904 U/L (0-34); BUN/Creatinine Ratio 15 Ratio (12-20); Calcium (Corrected) 7.5 mg/dL (8.5-10.1); Carbon Dioxide 28.6 mMol/L (20.0-31.0); Chloride 90 mMol/L (98-107); Estimated Creatinine Clearance 8.9 mL/min (>60); Globulin 2.6 gm/dL (2.3-3.5); Glucose 103 mg/dL (74-106); Magnesium 2.1 mg/dL (1.6-2.6); Osmolality,Calculated 300 (275-295); Phosphorous 8.3 mg/dL (2.4-5.1); Potassium 3.6 mMol/L (3.4-5.1); Sodium 134 mMol/L (136-145); eGFR 8 See Note
[2024-01-23 07:30] LABS: Blood Urea Nitrogen 104 mg/dL (9-23)
[2024-01-23 07:58] LABS: Alanine Aminotransferase > 3300 U/L (10-49)
[2024-01-23] MEDS: DOXYCYCLINE INJ 100 MG in SODIUM CHLORIDE 0.9% (P) 100 ML IV ×2 (08:27→20:23)
[2024-01-23] MEDS: ASPIRIN EC 81 MG TABEC PO (08:28)
[2024-01-23] MEDS: PANTOPRAZOLE 40 MG TABLET PO (08:28)
[2024-01-23] MEDS: AMIODARONE HCL 200 MG TABLET PO ×2 (08:28→20:57)
[2024-01-23 08:40] LABS: Lactate (Lactic Acid) 1.5 mMol/L (0.4-2.0)
[2024-01-23 08:41] LABS: Base Excess, Venous 7 (-3-3); O2 Saturation, Venous 89 % (96-97); PCO2, Venous 42 mmHg (36-56); PO2, Venous 57 mmHg (15-58); pH, Venous 7.48 (7.33-7.66)
[2024-01-23 09:06] LABS: Slide Review Platelets confirmed
[2024-01-23] MEDS: POTASSIUM CHLORIDE 20 mEq TABCR 40 MEQ PO (09:38)
[2024-01-23] MEDS: DOBUTamine/D5w 500 MG IVPB 500 MG/250 ML BAG 18.991 MG IV ×2 (09:54→23:42)
--- NOTE | 2024-01-23 10:13 | ESPR_ITS ---
Documentation for date of: 01/23/24 Subjective Subjective Interval history: Patient was seen and examined in ICU this AM. Patient continues on high flow nasal cannula at the present moment 25 L and FiO2 of 30%. Patient continues on Bumex 2 mg every 8 hours. Fluid balance of -3.4 L in the past 24 hours. Kidney function is stable with BUN of 104 and creatinine 7. LFTs also improved with AST at 1904 compared to 3686 previously. ALT still greater than 3300. Recommend to continue IV diuresis for now with the Bumex 2 mg every 8 hours with a goal of net -2 L every day and hopefully oxygen requirements continues to decrease. 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 Goal MAP is greater than 65 mmHg. Will continue to slowly titrate down the pressors if patient continues to improve. Recommended nephrology consult for possible dialysis but patient apparently does not want any dialysis and wanted to be DNR and only wants to continue medical management at the present movement. Primary team to continue to discuss goals of cares with patient during his worsening kidney function and limited medical therapy for the patient as patient will most likely develop altered mental status secondary to the uremia Exam Vital Signs Temp Pulse Resp BP Pulse Ox O2 Del Method O2 Flow Rate 97.3 F 104 H 27 H 115/59 L 100 High Flow Nasal Cannula 25 01/23/24 04:00 01/23/24 09:54 01/23/24 09:31 01/23/24 09:54 01/23/24 09:31 01/23/24 06:15 01/23/24 06:40 FiO2 30 01/23/24 06:40 Narrative Exam Constitutional Alert, oriented x 3 and no acute distress. Elderly male, cachectic, on High flow NC. HEENT Vision grossly intact. Patent nares. Trachea midline. Poor dentition, missing teeth Respiratory Chest normal on inspection, RIJ catheter, exit site clean and clear breath sounds throughout lung chauhan b/l Cardiovascular S1 and S2 audible, RRR. No murmurs carotid bruit. JVD not assessed Abdominal Soft and non tender to palpation in all quadrants. BS + Genitourinary No bladder tenderness, no flank pain. Normal to palpation. Site of removed femoral catheter cover by clean dressing. Musculoskeletal Extremities tone within normal limits. No LE edema, ZAYRA UE edema at elbow level. Neurological CN II - XII grossly intact. Extremity motor and sensation grossly intact. Skin Warm, dry and intact. No apparent lesions. Psychiatric Patient has good affect, is cooperative Objective Labs 01/24/24 05:03 01/24/24 05:03 Labs: Laboratory Results - last 24 hr 01/22/24 01/22/24 01/23/24 11:39 13:47 04:55 WBC 7.5 RBC 3.74 L Hgb 11.1 L Hct 32.2 L MCV 86 MCH 29.7 MCHC 34.5 RDW Std Deviation 41.9 Plt Count 74 L Neut % (Auto) 83 H Lymph % (Auto) 7 L [place] % (Auto) 9 Eos % (Auto) 0 Baso % (Auto) 0 Neut # (Auto) 6.3 Lymph # (Auto) 0.5 L [place] # (Auto) 0.6 Eos # (Auto) 0.0 Baso # (Auto) 0.0 Immature Gran # (Auto) 0.04 H Absolute Nucleated RBC 0.04 H Immature Gran % 1 H Nucleated RBC % 1 H Puncture Site ABG pH ABG pCO2 ABG pO2 ABG HCO3 ABG O2 Saturation ABG Base Excess VBG pH VBG pCO2 VBG pO2 VBG O2 Sat (Colleen) VBG Base Excess FiO2 Sodium 132 L 134 L Potassium 3.9 3.6 Chloride 92 L 90 L Carbon Dioxide 24.0 28.6 Anion Gap 16 15 BUN 98 H 104 H* Creatinine 7.0 H* 7.0 H* Estim Creat Clear Calc 9.9 L 8.9 L eGFR 8 L* 8 L* BUN/Creatinine Ratio 14 15 Glucose 108 H 103 Calculated Osmolality 296 H 300 H Lactic Acid Calcium 6.9 L 7.0 L Corrected Calcium 7.5 L Phosphorus 8.3 H Magnesium 2.1 Total Bilirubin 2.0 H D AST 1904 H* ALT > 3300 H* Alkaline Phosphatase 131 H Ammonia 11 Total Protein 6.0 Albumin 3.4 Globulin 2.6 Albumin/Globulin Ratio 1.3 Misc Test Result Platelets confirmed 01/23/24 01/23/24 05:17 08:27 WBC RBC Hgb Hct MCV MCH MCHC RDW Std Deviation Plt Count Neut % (Auto) Lymph % (Auto) [place] % (Auto) Eos % (Auto) Baso % (Auto) Neut # (Auto) Lymph # (Auto) [place] # (Auto) Eos # (Auto) Baso # (Auto) Immature Gran # (Auto) Absolute Nucleated RBC Immature Gran % Nucleated RBC % Puncture Site Arterial Line ABG pH 7.45 ABG pCO2 44 D ABG pO2 79 L ABG HCO3 31 H ABG O2 Saturation 96 ABG Base Excess 6 H VBG pH 7.48 VBG pCO2 42 VBG pO2 57 VBG O2 Sat (Colleen) 89 L VBG Base Excess 7 H FiO2 30 Sodium Potassium Chloride Carbon Dioxide Anion Gap BUN Creatinine Estim Creat Clear Calc eGFR BUN/Creatinine Ratio Glucose Calculated Osmolality Lactic Acid 1.5 Calcium Corrected Calcium Phosphorus Magnesium Total Bilirubin AST ALT Alkaline Phosphatase Ammonia Total Protein Albumin Globulin Albumin/Globulin Ratio Misc Test Result ABG Interpretation ABG results: 01/18/24 01/18/24 01/19/24 11:29 21:30 04:35 ABG pH 7.51 H 7.49 H 7.29 L D ABG pCO2 17 L* 19 L* 20 L ABG pO2 221 H 245 H D 143 H D ABG HCO3 13 L 14 L 9 L* ABG O2 Saturation 100 H 100 H 99 H ABG Base Excess -7 L -7 L -15 L VBG pH VBG pCO2 VBG pO2 VBG Base Excess 01/19/24 01/19/24 01/19/24 11:01 11:11 18:13 ABG pH 7.26 L 7.32 L ABG pCO2 28 L 26 L ABG pO2 149 H 164 H ABG HCO3 13 L 14 L ABG O2 Saturation 99 H 100 H ABG Base Excess -13 L -11 L VBG pH 7.26 L VBG pCO2 32 L VBG pO2 46 VBG Base Excess -12 L 01/19/24 01/19/24 01/19/24 18:30 23:00 23:19 ABG pH 7.40 ABG pCO2 29 L ABG pO2 101 D ABG HCO3 18 L ABG O2 Saturation 98 ABG Base Excess -6 L VBG pH 7.35 7.41 VBG pCO2 24 L 28 L VBG pO2 44 129 H D VBG Base Excess -11 L -6 L 11/01/20/24 01/20/24 00:57 05:52 06:00 ABG pH 7.43 ABG pCO2 28 L ABG pO2 128 H D ABG HCO3 19 L ABG O2 Saturation 99 H ABG Base Excess -5 L VBG pH 7.39 7.42 VBG pCO2 31 L 29 L VBG pO2 141 H 61 H D VBG Base Excess -5 L -4 L 01/20/24 01/20/24 01/20/24 12:18 13:06 19:44 ABG pH 7.39 7.36 ABG pCO2 36 39 ABG pO2 102 D 101 ABG HCO3 22 22 ABG O2 Saturation 98 97 ABG Base Excess -3 -3 VBG pH 7.30 L 7.40 VBG pCO2 45 D 35 L D VBG pO2 41 D 61 H D VBG Base Excess -4 L -2 01/21/24 01/21/24 01/22/24 04:38 04:42 05:40 ABG pH 7.41 ABG pCO2 35 ABG pO2 84 ABG HCO3 22 ABG O2 Saturation 96 ABG Base Excess -3 VBG pH 7.38 7.47 VBG pCO2 40 37 VBG pO2 35 D 59 H D VBG Base Excess -1 3 01/22/24 01/23/24 01/23/24 05:51 05:17 08:27 ABG pH 7.52 H D 7.45 ABG pCO2 31 L 44 D ABG pO2 81 L 79 L ABG HCO3 25 31 H ABG O2 Saturation 97 96 ABG Base Excess 3 6 H VBG pH 7.48 VBG pCO2 42 VBG pO2 57 VBG Base Excess 7 H Quality Measures Quality Measures none Advance care planning discussed with:: patient Assessment & Plan Assessment Current Active Medications: Generic Name Dose Route Start Last Admin Trade Name Freq PRN Reason Stop Dose Admin Acetaminophen 650 mg 01/17/24 21:38 Acetaminophen 325 Mg Tablet PO 02/16/24 21:37 Q6H PRN PAIN OR FEVER > 101 Amiodarone HCl 200 mg 01/21/24 21:00 01/23/24 08:28 Amiodarone Hcl 200 Mg Tablet PO 02/20/24 20:59 200 mg BID VINCE Administration Aspirin 81 mg 01/18/24 09:00 01/23/24 08:28 Aspirin Ec 81 Mg Tabec PO 02/17/24 08:59 81 mg QDAY VINCE Administration Bumetanide 2 mg 01/21/24 14:00 01/23/24 05:35 Bumetanide Inj 0.25 Mg/Ml Vial 4 Ml IVP 02/20/24 13:59 2 mg Q8HR VINCE Administration Docusate Sodium 250 mg 01/23/24 09:33 Docusate Sod 250 Mg Capsule PO 02/22/24 09:32 QDAY PRN CONSTIPATION Protocol Heparin Sodium (Porcine) 5,000 unit 01/20/24 17:00 01/23/24 08:33 Heparin Sod Inj 5000 Unit/Ml Vial SC 02/03/24 16:59 Not Given Q12HR VINCE Ceftriaxone Sodium/Dextrose 50 mls @ 100 mls/hr 01/18/24 21:00 01/22/24 21:49 Rocephin/D5w 1gm Iv Premix IV 01/25/24 20:59 Infused DAILY@2100 VINCE Infusion Doxycycline Hyclate 100 mg/ 100 mls @ 100 mls/hr 01/18/24 09:00 01/23/24 08:27 Sodium Chloride IV 01/25/24 08:59 100 mls/hr BID VINCE Administration Dobutamine HCl/Dextrose 500 mg in 250 mls @ 1.899 mls/hr 01/18/24 11:08 01/23/24 09:56 Dobutrex/D5w Ivpb IV 02/17/24 11:07 10 mcg/kg/min .Q24H PRN 18.991 mls/hr PER PROTOCOL Titration Protocol 1 MCG/KG/MIN Vasopressin/Sodium Chloride 20 unit in 100 mls @ 9 mls/hr 01/19/24 07:11 01/23/24 09:58 Vasostrict/Ns Ivpb IV 02/18/24 07:10 0 unit/min .Q11H7M PRN 0 mls/hr PER PROTOCOL Titration Protocol 0.03 UNIT/MIN Norepinephrine Bitartrate 16 mg in 250 mls @ 2.967 mls/hr 01/20/24 17:47 01/22/24 17:00 Levophed In Ns 16mg/250ml IV 02/17/24 11:07 Infused .Q24H PRN Titration PER protocol Protocol 0.05 MCG/KG/MIN Norepinephrine Bitartrate 32 250 mls @ 1.65 mls/hr 01/21/24 19:10 01/23/24 09:00 mg/ Sodium Chloride IV 02/20/24 19:09 0.16 mcg/kg/min .Q24H PRN 5.28 mls/hr PER protocol Titration Protocol 0.05 MCG/KG/MIN Pantoprazole Sodium 40 mg 01/18/24 09:00 01/23/24 08:28 Pantoprazole 40 Mg Tablet PO 02/17/24 08:59 40 mg QDAY VINCE Administration Psyllium Hydrophilic Mucilloid 1 pkt 01/22/24 09:15 01/23/24 08:36 Psyllium 1 Pkt Packet PO 02/21/24 09:14 Not Given QDAY VINCE Protocol Sodium Chloride 3 ml 01/19/24 06:48 01/19/24 06:57 Sodium Chloride Rt Jackie 0.9% 3 Ml Nebu INH 02/18/24 06:47 3 ml PRN PRN Administration TO MIX WITH ALBUTEROL Plan Patient is a 68-year-old male with no significant past medical history who presented to the ED with a chief complaint of shortness of breath. Patient was admitted for acute respiratory failure with hypoxia secondary to community-acquired pneumonia and CHF exacerbation. Cardiology was consulted. 1. Acute respiratory failure with hypoxia Secondary to 2. Acute decompensated systolic heart failure exacerbation [EF 10%] 3. Cardiogenic shock 4. Dilated cardiomyopathy On admission patient has history of progressively worsening shortness of breath for the past 3 weeks. On exam patient is in mild distress on O2 via NC and breath sounds were decreased globally. No signs of lower extremity edema. Patient not previously diagnosed with heart failure in the past and not on any medication at home. On admission BNP 2864 NYHA Class IV Stage C Transthoracic echocardiogram completed on 01/16 findings include: Dilated cardiomyopathy - Mild to moderately dilated LV and RV. Moderate biatrial dilatation. Severe LV systolic dysfunction. Severe global hypokinesis. Estimated EF around 10% Diastolic dysfunction present but cannot be graded due to Afib. Moderate RV dysfunction. Estimated RVSP 40 mmHg. Moderate MR. Mild TR,PI. Mild AV sclerosis without stenosis, IVC dilated and pleural effusion present. Patient still on High flow NC @ 25L/min and FiO2 30% Patient endorses that his SOB continues to improve. Denies any chest pain/ pressure or palpitations Recommend Stat Nephrology consult Patient had a fluid balance of -3447 mL in the past 24 hours Patient bicarb 28.6, BUN increased to 104 from 98, CR stable at 7. Lactic acid decreased to 1.5 AST downtrended to 1904 from 3686 and ALT stable at >3300. Could indicate either hepatic congestion or ischemic hepatitis due to shock. Patient's BP is currently 91/69 and he is on pressor support with dobutamine infusion @ 18ml/hr, vasopressin @ 9ml/hr, and norepinephrine infusion @ 6ml/hr Plan: ? Strict input output charting ? Daily weights ? 2 g salt restricted diet ? 1500 cc fluid restriction ? Continue diuresis with Bumex 2 mg every 8 hours. ? Continue blood pressure support with pressors as needed. ? Recommend to start patient on midodrine 10 Mg p.o. 3 times daily ? Recommend keeping potassium above 4 and magnesium above 2 ? Patient counseled on methamphetamine, cocaine and all drug cessation. - ICU team had goals of care discussion with the patient as well as his surrogate decision maker is friend. - Patient offered the option of Dialysis but refused any further invasive procedures and switched his code status to DNR 5. Rule out ACS 6. NSTEMI -mostly type II secondary to supply/demand mismatch given the severe dilated cardiomyopathy Patient had progressive SOB for the past 3 weeks but denies any chest pain or pressure. Unlikely acute coronary syndrome and troponin elevation mostly secondary to supply/demand mismatch given severe dilated cardiomyopathy in the setting of significant drug abuse including methamphetamine and other drugs. Initial EKG showed sinus rhythm with occasional PVCs, left atrial enlargement repeat EKG showed atrial fibrillation with RVR, rate 120. No acute ST changes Troponin were elevated at 1.171 up trended to 1.235 and subsequently down trended to 0.98 Plan: ? Heparin infusion discontinued as >48 hours ? Continue aspirin 81 Mg p.o. daily ? Can hold high intensity statin in light of Ischemic hepatitis ? No need to further trend troponin - Continue medical management for now 7. A-fib with RVR?new onset Patient admitted to having intermittent palpitations for years with some episodes lasting for days before resolving. Initial EKG showed sinus rhythm with occasional PVCs, left atrial enlargement repeat EKG showed atrial fibrillation with RVR, rate 120. No acute ST changes. From telemetry review patient continues to be in A-fib with rates in the 60s?80s [id number] : 1 point ; 0.6 % stroke risk per year [age] Plan: ? Continue amiodarone 200 mg twice daily ? Recommend rate control with metoprolol XL 50 Mg p.o. daily if patient's blood pressure allows. - Heparin drip for NSTEMI completed, can transition to eliquis ? Continue telemetry review ? Please maintain potassium greater than 4 and magnesium greater than 2 at all times to prevent any further arrhythmias 8. Community-acquired pneumonia Patient had shortness of breath for past 3 weeks as well as a nonproductive cough. Chest x-ray on admission was significant for right mid zone consolidation. Patient continues on ceftriaxone and doxycycline IV. Blood and sputum cultures negative. Continue management as per primary team 9. MARIANO likely prerenal 10. Acute Renal Failure 11. Transaminitis 12. Multi- organ Failure On admission patient's CR 2 currently up trended to 2.1. Unable to assess baseline as no previous records for comparison. Likely in the setting of cardiogenic shock and dehydration. Patient bicarb 28.6, BUN increased to 104 from 98, CR stable at 7.. Recommend stat nephrology consult as well Lactic acid downtrended to 1.5 AST downtrended to 1904 from 3686 and ALT stable at >3300. Could indicate either hepatic congestion or ischemic hepatitis due to shock. Plan: ? Recommend nephrology consult - ICU team had goals of care discussion with the patient as well as his surrogate decision maker is friend. - Patient offered the option of Dialysis but refused any further invasive procedures and switched his code status to DNR 13. Likely COPD 14. Nicotine dependence 15. History of polysubstance abuse Patient has [id number] smoking history and now has shortness of breath for the past 3 weeks along with productive cough. Clinically he is cachectic and appears to have decreased breath sounds globally suggestive of COPD. Patient will need to be further worked up as an outpatient. Patient admitted to using methamphetamine and cocaine for many years as well with U tox being positive for methamphetamine on admission. Patient counseled extensively on drug cessation. Continue rest of management as per primary team. We are grateful to be able to participate in Mr. Peñaloza's care. Thank you for the consult Plan of care discussed with attending Staff [employer] Officer, Dr Yudelka Andersen MD PGY-1 Attending Provider Attestation/Addendum I have personally seen and examined the patient separately on the above date of service and discussed the plan of care with the resident. I reviewed the resident Dr. Dias consultation progress note and agree with the resident findings and plan in the note above and have also edited the documentation to reflect my findings and plan. Reynaldo Jha M.D. Interventional Cardiology
--- NOTE | 2024-01-23 13:34 | ESPR_ITS ---
<Statement entered by Michelle Bansal MD - 01/24/24 08:12> TOTAL CC TIME: 45 MIN I saw and evaluated the patient. I reviewed the resident?s note and agree with findings and plan as documented in the resident?s note. Upon my evaluation, this patient had a high probability of imminent or life- threatening deterioration due to cardiogenic shock, which required my direct attention, intervention, and personal management. This time is exclusive of time spent on procedures, which are documented separately if performed. stopped vasopressin wean dobutamine cont abx UO on bumex is adeqauate - GFR remains relatively unchanged pt updated regarding medical problems - aware that shock liver is improving - UO is adequate - and heart disease is severe he wishes to remain DNR and no Hemodialysis Documentation for date of: 01/23/24 Subjective Subjective Interval history: 01/23/2024; Patient was seen and examined by bedside, resting comfortably in bed, saturating well but remains on HFNC 30% FiO2, heart rate controlled on po Amio 200mg bid, continue to diurese patient with Bumix 2mg ivp TID, BP maintaining MAP goal of >65 on Levo, Dobutamine, and Vasopressin. Continue patient on current management but will stop Vasopressin, and attempt to wean off Dobutamine as well, clark catheter was removed and replaced with condom cath to reduce risk of infections, discontinue Atorvastatin, and Acetaminophen in light of acute liver injury, discontinue Zofran in setting of severe HFrEF, new onset A.fib, and prolonged QT interval on last EKG. 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 Significant improvment noted in AST, but ALT remains lagging behind. Diet was changed to Cardiac/renal diet as patient wasn't eating blenderized diet. Plan of care was discussed with patient who was in agreement. Exam Vital Signs Temp Pulse Resp BP Pulse Ox O2 Del Method O2 Flow Rate 97.7 F 74 31 H 112/57 L 97 High Flow Nasal Cannula 25 01/22/24 16:00 01/22/24 16:31 01/22/24 16:31 01/22/24 16:31 01/22/24 16:31 01/22/24 15:01 01/22/24 14:03 FiO2 30 01/22/24 15:01 Narrative Exam General: Chacetic, laying in bed, not in acute distress, answering questions appropriately, making appropriate eye contact HEENT: Normocephalic, atraumatic, EOMI, PERRLA, moist oral mucosa, normal dentition. Cardiac: Regular rate and rhythm, normal S1/S2, no murmurs. Lungs: Diffuse crackles, with diminished breath sounds, increased respiratory rate, normal effort. Abdomen: Soft, nontender, nondistended, positive bowel sounds in all quadrants. No guarding or rebound tenderness. Neuro: Alert and oriented to name and date of and place. CN II- XII intact, no focal motor deficit noted, BUE/BLE motor function and sensation intact and equal. Extremities: Normal to inspection, BLE +1 pittin edema, no cyanosis Psych: Normal mood and affect. Objective Labs 01/23/24 04:55 01/23/24 04:55 Labs: Laboratory Results - last 24 hr 01/22/24 01/23/24 01/23/24 13:47 04:55 05:17 WBC 7.5 RBC 3.74 L Hgb 11.1 L Hct 32.2 L MCV 86 MCH 29.7 MCHC 34.5 RDW Std Deviation 41.9 Plt Count 74 L Neut % (Auto) 83 H Lymph % (Auto) 7 L [place] % (Auto) 9 Eos % (Auto) 0 Baso % (Auto) 0 Neut # (Auto) 6.3 Lymph # (Auto) 0.5 L [place] # (Auto) 0.6 Eos # (Auto) 0.0 Baso # (Auto) 0.0 Immature Gran # (Auto) 0.04 H Absolute Nucleated RBC 0.04 H Immature Gran % 1 H Nucleated RBC % 1 H Puncture Site Arterial Line ABG pH 7.45 ABG pCO2 44 D ABG pO2 79 L ABG HCO3 31 H ABG O2 Saturation 96 ABG Base Excess 6 H VBG pH VBG pCO2 VBG pO2 VBG O2 Sat (Colleen) VBG Base Excess FiO2 30 Sodium 132 L 134 L Potassium 3.9 3.6 Chloride 92 L 90 L Carbon Dioxide 24.0 28.6 Anion Gap 16 15 BUN 98 H 104 H* Creatinine 7.0 H* 7.0 H* Estim Creat Clear Calc 9.9 L 8.9 L eGFR 8 L* 8 L* BUN/Creatinine Ratio 14 15 Glucose 108 H 103 Calculated Osmolality 296 H 300 H Lactic Acid Calcium 6.9 L 7.0 L Corrected Calcium 7.5 L Phosphorus 8.3 H Magnesium 2.1 Total Bilirubin 2.0 H D AST 1904 H* ALT > 3300 H* Alkaline Phosphatase 131 H Total Protein 6.0 Albumin 3.4 Globulin 2.6 Albumin/Globulin Ratio 1.3 Misc Test Result Platelets confirmed 01/23/24 08:27 WBC RBC Hgb Hct MCV MCH MCHC RDW Std Deviation Plt Count Neut % (Auto) Lymph % (Auto) [place] % (Auto) Eos % (Auto) Baso % (Auto) Neut # (Auto) Lymph # (Auto) [place] # (Auto) Eos # (Auto) Baso # (Auto) Immature Gran # (Auto) Absolute Nucleated RBC Immature Gran % Nucleated RBC % Puncture Site ABG pH ABG pCO2 ABG pO2 ABG HCO3 ABG O2 Saturation ABG Base Excess VBG pH 7.48 VBG pCO2 42 VBG pO2 57 VBG O2 Sat (Colleen) 89 L VBG Base Excess 7 H FiO2 Sodium Potassium Chloride Carbon Dioxide Anion Gap BUN Creatinine Estim Creat Clear Calc eGFR BUN/Creatinine Ratio Glucose Calculated Osmolality Lactic Acid 1.5 Calcium Corrected Calcium Phosphorus Magnesium Total Bilirubin AST ALT Alkaline Phosphatase Total Protein Albumin Globulin Albumin/Globulin Ratio Misc Test Result ABG Interpretation ABG results: 01/18/24 01/18/24 01/19/24 11:29 21:30 04:35 ABG pH 7.51 H 7.49 H 7.29 L D ABG pCO2 17 L* 19 L* 20 L ABG pO2 221 H 245 H D 143 H D ABG HCO3 13 L 14 L 9 L* ABG O2 Saturation 100 H 100 H 99 H ABG Base Excess -7 L -7 L -15 L VBG pH VBG pCO2 VBG pO2 VBG Base Excess 01/19/24 01/19/24 01/19/24 11:01 11:11 18:13 ABG pH 7.26 L 7.32 L ABG pCO2 28 L 26 L ABG pO2 149 H 164 H ABG HCO3 13 L 14 L ABG O2 Saturation 99 H 100 H ABG Base Excess -13 L -11 L VBG pH 7.26 L VBG pCO2 32 L VBG pO2 46 VBG Base Excess -12 L 01/19/24 01/19/24 01/19/24 18:30 23:00 23:19 ABG pH 7.40 ABG pCO2 29 L ABG pO2 101 D ABG HCO3 18 L ABG O2 Saturation 98 ABG Base Excess -6 L VBG pH 7.35 7.41 VBG pCO2 24 L 28 L VBG pO2 44 129 H D VBG Base Excess -11 L -6 L 01/20/24 01/20/24 01/20/24 00:57 05:52 06:00 ABG pH 7.43 ABG pCO2 28 L ABG pO2 128 H D ABG HCO3 19 L ABG O2 Saturation 99 H ABG Base Excess -5 L VBG pH 7.39 7.42 VBG pCO2 31 L 29 L VBG pO2 141 H 61 H D VBG Base Excess -5 L -4 L 01/20/24 01/20/24 01/20/24 12:18 13:06 19:44 ABG pH 7.39 7.36 ABG pCO2 36 39 ABG pO2 102 D 101 ABG HCO3 22 22 ABG O2 Saturation 98 97 ABG Base Excess -3 -3 VBG pH 7.30 L 7.40 VBG pCO2 45 D 35 L D VBG pO2 41 D 61 H D VBG Base Excess -4 L -2 01/21/24 01/21/24 01/22/24 04:38 04:42 05:40 ABG pH 7.41 ABG pCO2 35 ABG pO2 84 ABG HCO3 22 ABG O2 Saturation 96 ABG Base Excess -3 VBG pH 7.38 7.47 VBG pCO2 40 37 VBG pO2 35 D 59 H D VBG Base Excess -1 3 01/22/24 01/23/24 01/23/24 05:51 05:17 08:27 ABG pH 7.52 H D 7.45 ABG pCO2 31 L 44 D ABG pO2 81 L 79 L ABG HCO3 25 31 H ABG O2 Saturation 97 96 ABG Base Excess 3 6 H VBG pH 7.48 VBG pCO2 42 VBG pO2 57 VBG Base Excess 7 H Quality Measures Quality Measures none Advance care planning discussed with:: patient Assessment & Plan Assessment Current Active Medications: Generic Name Dose Route Start Last Admin Trade Name Freq PRN Reason Stop Dose Admin Acetaminophen 650 mg 01/17/24 21:38 Acetaminophen 325 Mg Tablet PO 02/16/24 21:37 Q6H PRN PAIN OR FEVER > 101 Amiodarone HCl 200 mg 01/21/24 21:00 01/23/24 08:28 Amiodarone Hcl 200 Mg Tablet PO 02/20/24 20:59 200 mg BID VINCE Administration Aspirin 81 mg 01/18/24 09:00 01/23/24 08:28 Aspirin Ec 81 Mg Tabec PO 02/17/24 08:59 81 mg QDAY VINCE Administration Bumetanide 2 mg 01/21/24 14:00 01/23/24 13:13 Bumetanide Inj 0.25 Mg/Ml Vial 4 Ml IVP 02/20/24 13:59 2 mg Q8HR VINCE Administration Docusate Sodium 250 mg 01/23/24 09:33 Docusate Sod 250 Mg Capsule PO 02/22/24 09:32 QDAY PRN CONSTIPATION Protocol Heparin Sodium (Porcine) 5,000 unit 01/20/24 17:00 01/23/24 08:33 Heparin Sod Inj 5000 Unit/Ml Vial SC 02/03/24 16:59 Not Given Q12HR VINCE Ceftriaxone Sodium/Dextrose 50 mls @ 100 mls/hr 01/18/24 21:00 01/22/24 21:49 Rocephin/D5w 1gm Iv Premix IV 01/25/24 20:59 Infused DAILY@2100 VINCE Infusion Doxycycline Hyclate 100 mg/ 100 mls @ 100 mls/hr 01/18/24 09:00 01/23/24 08:27 Sodium Chloride IV 01/25/24 08:59 100 mls/hr BID VINCE Administration Dobutamine HCl/Dextrose 500 mg in 250 mls @ 1.899 mls/hr 01/18/24 11:08 01/23/24 12:00 Dobutrex/D5w Ivpb IV 02/17/24 11:07 10 mcg/kg/min .Q24H PRN 18.991 mls/hr PER PROTOCOL Titration Protocol 1 MCG/KG/MIN Vasopressin/Sodium Chloride 20 unit in 100 mls @ 9 mls/hr 01/19/24 07:11 01/23/24 09:58 Vasostrict/Ns Ivpb IV 02/18/24 07:10 0 unit/min .Q11H7M PRN 0 mls/hr PER PROTOCOL Titration Protocol 0.03 UNIT/MIN Norepinephrine Bitartrate 16 mg in 250 mls @ 2.967 mls/hr 01/20/24 17:47 01/22/24 17:00 Levophed In Ns 16mg/250ml IV 02/17/24 11:07 Infused .Q24H PRN Titration PER protocol Protocol 0.05 MCG/KG/MIN Norepinephrine Bitartrate 32 250 mls @ 1.65 mls/hr 01/21/24 19:10 01/23/24 12:00 mg/ Sodium Chloride IV 02/20/24 19:09 0.16 mcg/kg/min .Q24H PRN 5.28 mls/hr PER protocol Titration Protocol 0.05 MCG/KG/MIN Pantoprazole Sodium 40 mg 01/18/24 09:00 01/23/24 08:28 Pantoprazole 40 Mg Tablet PO 02/17/24 08:59 40 mg QDAY VINCE Administration Psyllium Hydrophilic Mucilloid 1 pkt 01/22/24 09:15 01/23/24 08:36 Psyllium 1 Pkt Packet PO 02/21/24 09:14 Not Given QDAY VINCE Protocol Sodium Chloride 3 ml 01/19/24 06:48 01/19/24 06:57 Sodium Chloride Rt Jackie 0.9% 3 Ml Nebu INH 02/18/24 06:47 3 ml PRN PRN Administration TO MIX WITH ALBUTEROL Plan 68-year-old male with no significant past medical history admitted to the hospital chief complaints of shortness of breath and diagnosed to have acute hypoxic respiratory failure secondary to HFrEF exacerbation. 01/23/2024; Patient was seen and examined by bedside, resting comfortably in bed, saturating well but remains on HFNC 30% FiO2, heart rate controlled on po Amio 200mg bid, continue to diurese patient with Bumix 2mg ivp TID, BP maintaining MAP goal of >65 on Levo, Dobutamine, and Vasopressin. Continue patient on current management but will stop Vasopressin, and attempt to wean off Dobutamine as well, clark catheter was removed and replaced with condom cath to reduce risk of infections, discontinue Atorvastatin, and Acetaminophen in light of acute liver injury, discontinue Zofran in setting of severe HFrEF, new onset A.fib, and prolonged QT interval on last EKG. 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 Significant improvment noted in AST, but ALT remains lagging behind. Diet was changed to Cardiac/renal diet as patient wasn't eating blenderized diet. Plan of care was discussed with patient who was in agreement. NEURO Patient is awake, alert, and oriented x3, following commands, conversational. #Chronic methamphetamine use CARDIO # Cardiogenic shock # Dilated cardiomyopathy, likely combined meth use and smoking # Elevated trop - likely Tpe II -Likely exacerbated in the setting of suspected pneumonia in the right lobe and continued meth use. -Presented to the hospital with complaints of shortness of breath, orthopnea, PND -Denies palpitations, fever, pedal edema, abdominal distention. -Chest x-ray showed hyperinflation of bilateral lungs with patchy infiltrate in right lower lobe-pneumonia versus mass. -labs showed elevated BNP, Troponins that downtrended later. urine toxicology tested positive for meth. -Echo done on 01/17/2024 showed dilated cardiomyopathy - Mild to moderately dilated LV and RV. Moderate biatrial dilatation. Severe LV systolic dysfunction. Severe global hypokinesis. Estimated EF around 10% .Diastolic dysfunction present but cannot be graded due to Afib. Plan -wean off dobutamine drip, and continue Levophed. -Maintain SBP>100 -Discontinue Vasopressin. -Goal is to maintain systolic blood pressure above 100 mmHg. -Will continue to monitor blood pressures. -continue BiPAP as needed. # Atrial fibrillation with rapid ventricular rate -reverted to to normal sinus rhythm on 01/19/2024 -Patient was found to have sinus rhythm on EKG at the time of admission. -After starting Levophed and dobutamine drip, patient developed atrial fibrillation Plan Patient switch to PO Amiodarone 200mg bid. Heparin drip was stopped in view of high has-bled score with more risk of bleeding than having a stroke based on [id number] 4. PULM #Acute hypoxic respiratory failure # Cardiogenic shock # Right lung pneumonia -admitted to hospital with complaints of shortness of breath -chest x ray showed right patchy infiltrate in the middle lobe. Plan -Ceftriaxone 1 g IV twice daily(01/17- -Doxycycline 100mg BID(01/17- #Chronic smoker #? probable COPD - smoking history of >40 pack years. - condition is stable as of now. GI # Transaminitis Due to underlying cardiogenic shock -Labs on 01/19/2024 showed AST> 1000, ALT 931 plan -AST and ALT are continuously uptrending as of 01/20/2024 -Will continue to monitor LFTs and continue inotropes. NEPHRO # MARIANO, prerenal -worsening Likely due to underlying cardiogenic shock -Creatinine in 12/2018 is 1.1 and at the time of admission is 2.1 -On 01/19/2024, there is no urine output and BUN and creatinine continuously uptrending, 3.5> 3.7>3.8>5 Plan -Dialysis option is given for the patient but patient denied further invasive treatments -Bumex 2 Mg IV TID to help with hepatic and renal congestion -Will continue to monitor renal functions and renally dose medications. -Will continue vasopressors and monitor urine output. #Anion gap metabolic acidosis -Due to underlying shock -Bicarb on 01/19/2024 is 10.2 and anion gap is 22, lactate is 7.8. -Bicarb is within normal limits Plan - bicarb drip is stopped around 4 PM 01/20/24. -Will continue to monitor ABG, CMP and correct accordingly URO #No active problems HEME #Thromobcytopenia Plt dropped from 180 to 74. DDx: Possibly multifactorial; drug induced, acute liver failure, unlikely DIC/TTP. Unlikely DIC as Drop consistent with initiation of Amiodarone on 01/19. Discuss with cardiology starting patient on Digoxin and discontinuation of Amiodarone. Continue to monitor CBC, and signs of bleeding. F/U Fibrinogen levels and PF4. 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 ENDO #No active problems ID #Suspected right lung pneumonia versus mass in right middle lobe -Admitted with shortness of breath started 3 weeks before admitting into the hospital. -Denies fever, chills, cough. -CBC is within normal limits. -Chest x-ray showed right patchy consolidation which was not present in 2019 -Patient did not get CT chest in view of his hemodynamic instability Plan -Ceftriaxone and doxycycline(01/17- -CT was not done in view of hemodynamic instability. MSK #No active problems SKIN #No active problems DVT prophylaxis: Heparin SC GI prophylaxis: Protonix Diet: Cardiac/ renal diet Clark: Condom cath Lines: Central and peripheral Antibiotics: Ceftriaxone and doxycycline CODE STATUS: DNR/DNI Reason for ICU care: Cardiogenic shock requiring vasopressors Plan of care discussed with attending Dr. Rofl Knott, PGY-3
[2024-01-23 16:51] LABS: Fibrinogen 257 mg/dL (175-375)
[2024-01-23] MEDS: cefTRIAXone/D5w 1gm IV premix 50 ML IV (20:22)
[2024-01-23] MEDS: HEPARIN SOD INJ 5000 UNIT/ML VIAL SC (20:57)
[2024-01-24] VITALS (100 sets, daily range): BP systolic 68–126; BP diastolic 38–116; PULSE 70–120; RESP 8–43; TEMP 36.2–37.1; O2SAT 85–100; BMI 17.5
[2024-01-24 05:50] LABS: Basophils % (Auto) 0 % (0-2.5); Eosinophils % (Auto) 1 % (0-10); Hematocrit 35.6 % (41.0-53.0); Hemoglobin 12.4 g/dL (13.5-16.0); Immature Granulocytes % (Auto) 0 % (0-0); Immature Granulocytes Auto 0.03 Thou/mm3 (0.00-0.00); Lymphocytes # (Auto) 0.7 Thou/mm3 (1.0-4.8); Lymphocytes % (Auto) 8 % (10-50); Mean Corpuscular HGB Conc 34.8 g/dl (31.0-37.0); Mean Corpuscular Hemoglobin 29.5 pg (25.0-35.0); Mean Corpuscular Volume 85 fL (80-100); Monocytes # (Auto) 0.9 Thou/mm3 (0.0-0.8); Monocytes % (Auto) 11 % (0-12); Neutrophils # (Auto) 6.8 Thou/mm3 (1.8-7.7); Neutrophils % (Auto) 80 % (37-80); Nucleated Red Blood Cell # 0.06 Thou/mm3 (0.00-0.00); Nucleated Red Blood Cell % 1 /100 WBC (0); Platelet Count 80 Thou/mm3 (140-440); RDW Standard Deviation 41.4 fL (35.1-43.9); White Blood Count 8.5 Thou/mm3 (3.8-10.6)
[2024-01-24] MEDS: BUMETANIDE INJ 0.25 MG/ML VIAL 4 ML 2 MG IVP ×3 (06:05→21:52)
[2024-01-24 06:55] LABS: Alanine Aminotransferase 2635 U/L (10-49); Albumin, Serum 3.7 gm/dL (3.4-4.8); Albumin/Globulin Ratio 1.2 (1.2-2.2); Alkaline Phosphatase 139 U/L (46-116); Anion Gap 18 (7-16); Aspartate Amino Transferase 1103 U/L (0-34); BUN/Creatinine Ratio 16 Ratio (12-20); Bilirubin,Total 2.4 mg/dL (0.3-1.2); Calcium 7.2 mg/dL (8.3-10.6); Calcium (Corrected) 7.4 mg/dL (8.5-10.1); Carbon Dioxide 29.3 mMol/L (20.0-31.0); Chloride 86 mMol/L (98-107); Creatinine (Component) 6.5 mg/dL (0.6-1.3); Estimated Creatinine Clearance 9.1 mL/min (>60); Glucose 105 mg/dL (74-106); Magnesium 2.1 mg/dL (1.6-2.6); Osmolality,Calculated 298 (275-295); Phosphorous 8.2 mg/dL (2.4-5.1); Potassium 3.4 mMol/L (3.4-5.1); Sodium 133 mMol/L (136-145); Total Protein 6.7 gm/dL (5.7-8.2); eGFR 9 See Note
[2024-01-24 06:56] LABS: Blood Urea Nitrogen 102 mg/dL (9-23)
[2024-01-24] MEDS: AMIODARONE HCL 200 MG TABLET PO ×2 (08:39→21:53)
[2024-01-24] MEDS: ASPIRIN EC 81 MG TABEC PO (08:41)
[2024-01-24] MEDS: DOXYCYCLINE INJ 100 MG in SODIUM CHLORIDE 0.9% (P) 100 ML IV ×2 (08:41→21:53)
[2024-01-24] MEDS: PANTOPRAZOLE 40 MG TABLET PO (08:41)
[2024-01-24] MEDS: PSYLLIUM 1 PKT PACKET PO (08:41)
[2024-01-24] MEDS: HEPARIN SOD INJ 5000 UNIT/ML VIAL SC ×2 (08:42→21:52)
--- NOTE | 2024-01-24 09:05 | PD.RESPRO ---
Documentation for date of: 01/24/24 Subjective Subjective Interval history: Patient was seen and examined in ICU this AM. Patient still on high flow nasal cannula at the present moment 25 L and FiO2 of 30%. Patient continues on Bumex 2 mg every 8 hours. Fluid balance of -4.2 L in the past 24 hours. Kidney function is mildly improving with BUN of 102 and creatinine 6.5. LFTs also improved with AST at 1103 compared to 1904 previously and ALT now 2635 compared to greater than 3300. Recommend to continue IV diuresis for now with the Bumex 2 mg every 8 hours with a goal of net -2 L every day and hopefully oxygen requirements continues to decrease. Patient currently on 2 pressors including dobutamine infusion @ 18ml/hr and norepinephrine infusion @ 6ml/hr. Vasopressin was discontinued. Continue with drips for now given the cardiogenic shock secondary to his severe LV dysfunction with an EF of around 10% which is mostly secondary to the meth induced cardiomyopathy. Goal MAP is greater than 65 mmHg. Will continue to slowly titrate down the pressors if patient continues to improve. Recommended nephrology consult for possible dialysis but patient still does not want any dialysis. Kidney function showing some improvement. Exam Vital Signs Temp Pulse Resp BP Pulse Ox O2 Del Method O2 Flow Rate 97.5 F 102 H 23 H 102/65 100 High Flow Nasal Cannula 25 01/24/24 04:00 01/24/24 08:39 01/24/24 07:00 01/24/24 08:39 01/24/24 07:00 01/24/24 07:00 01/24/24 07:00 FiO2 30 01/24/24 07:00 Narrative Exam Constitutional Alert, oriented x 3 and no acute distress. Elderly male, cachectic, on High flow NC. HEENT Vision grossly intact. Patent nares. Trachea midline. Poor dentition, missing teeth Respiratory Chest normal on inspection, RIJ catheter, exit site clean and clear breath sounds throughout lung chauhan b/l Cardiovascular S1 and S2 audible, RRR. No murmurs carotid bruit. JVD not assessed Abdominal Soft and non tender to palpation in all quadrants. BS + Genitourinary No bladder tenderness, no flank pain. Normal to palpation. Site of removed femoral catheter cover by clean dressing. Musculoskeletal Extremities tone within normal limits. No LE edema, ZAYRA UE edema at elbow level improved. Neurological CN II - XII grossly intact. Extremity motor and sensation grossly intact. Skin Warm, dry and intact. No apparent lesions. Psychiatric Patient has good affect, is cooperative Objective Labs 01/25/24 04:57 01/25/24 16:15 Labs: Laboratory Results - last 24 hr 01/23/24 01/23/24 01/24/24 04:55 16:22 05:03 WBC 8.5 RBC 4.20 L Hgb 12.4 L Hct 35.6 L MCV 85 MCH 29.5 MCHC 34.8 RDW Std Deviation 41.4 Plt Count 80 L Neut % (Auto) 80 Lymph % (Auto) 8 L [place] % (Auto) 11 Eos % (Auto) 1 Baso % (Auto) 0 Neut # (Auto) 6.8 Lymph # (Auto) 0.7 L [place] # (Auto) 0.9 H Eos # (Auto) 0.0 Baso # (Auto) 0.0 Immature Gran # (Auto) 0.03 H Absolute Nucleated RBC 0.06 H Immature Gran % 0 Nucleated RBC % 1 H Fibrinogen 257 Sodium 133 L Potassium 3.4 Chloride 86 L Carbon Dioxide 29.3 Anion Gap 18 H BUN 102 H* Creatinine 6.5 H* D Estim Creat Clear Calc 9.1 L eGFR 9 L* BUN/Creatinine Ratio 16 Glucose 105 Calculated Osmolality 298 H Calcium 7.2 L Corrected Calcium 7.4 L Phosphorus 8.2 H Magnesium 2.1 Total Bilirubin 2.4 H AST 1103 H* ALT 2635 H* Alkaline Phosphatase 139 H Total Protein 6.7 Albumin 3.7 Globulin 3.0 Albumin/Globulin Ratio 1.2 Misc Test Result Platelets confirmed ABG Interpretation ABG results: 01/18/24 01/18/24 01/19/24 11:29 21:30 04:35 ABG pH 7.51 H 7.49 H 7.29 L D ABG pCO2 17 L* 19 L* 20 L ABG pO2 221 H 245 H D 143 H D ABG HCO3 13 L 14 L 9 L* ABG O2 Saturation 100 H 100 H 99 H ABG Base Excess -7 L -7 L -15 L VBG pH VBG pCO2 VBG pO2 VBG Base Excess 01/19/24 01/19/24 01/19/24 11:01 11:11 18:13 ABG pH 7.26 L 7.32 L ABG pCO2 28 L 26 L ABG pO2 149 H 164 H ABG HCO3 13 L 14 L ABG O2 Saturation 99 H 100 H ABG Base Excess -13 L -11 L VBG pH 7.26 L VBG pCO2 32 L VBG pO2 46 VBG Base Excess -12 L 01/19/24 01/19/24 01/19/24 18:30 23:00 23:19 ABG pH 7.40 ABG pCO2 29 L ABG pO2 101 D ABG HCO3 18 L ABG O2 Saturation 98 ABG Base Excess -6 L VBG pH 7.35 7.41 VBG pCO2 24 L 28 L VBG pO2 44 129 H D VBG Base Excess -11 L -6 L 01/20/24 01/20/24 01/20/24 00:57 05:52 06:00 ABG pH 7.43 ABG pCO2 28 L ABG pO2 128 H D ABG HCO3 19 L ABG O2 Saturation 99 H ABG Base Excess -5 L VBG pH 7.39 7.42 VBG pCO2 31 L 29 L VBG pO2 141 H 61 H D VBG Base Excess -5 L -4 L 01/20/24 01/20/24 01/20/24 12:18 13:06 19:44 ABG pH 7.39 7.36 ABG pCO2 36 39 ABG pO2 102 D 101 ABG HCO3 22 22 ABG O2 Saturation 98 97 ABG Base Excess -3 -3 VBG pH 7.30 L 7.40 VBG pCO2 45 D 35 L D VBG pO2 41 D 61 H D VBG Base Excess -4 L -2 01/21/24 01/21/24 01/22/24 04:38 04:42 05:40 ABG pH 7.41 ABG pCO2 35 ABG pO2 84 ABG HCO3 22 ABG O2 Saturation 96 ABG Base Excess -3 VBG pH 7.38 7.47 VBG pCO2 40 37 VBG pO2 35 D 59 H D VBG Base Excess -1 3 01/22/24 01/23/24 01/23/24 05:51 05:17 08:27 ABG pH 7.52 H D 7.45 ABG pCO2 31 L 44 D ABG pO2 81 L 79 L ABG HCO3 25 31 H ABG O2 Saturation 97 96 ABG Base Excess 3 6 H VBG pH 7.48 VBG pCO2 42 VBG pO2 57 VBG Base Excess 7 H Quality Measures Quality Measures none Advance care planning discussed with:: patient Assessment & Plan Assessment Current Active Medications: Generic Name Dose Route Start Last Admin Trade Name Freq PRN Reason Stop Dose Admin Acetaminophen 650 mg 01/17/24 21:38 Acetaminophen 325 Mg Tablet PO 02/16/24 21:37 Q6H PRN PAIN OR FEVER > 101 Amiodarone HCl 200 mg 01/21/24 21:00 01/24/24 08:39 Amiodarone Hcl 200 Mg Tablet PO 02/20/24 20:59 200 mg BID VINCE Administration Aspirin 81 mg 01/18/24 09:00 01/24/24 08:41 Aspirin Ec 81 Mg Tabec PO 02/17/24 08:59 81 mg QDAY VINCE Administration Bumetanide 2 mg 01/21/24 14:00 01/24/24 06:05 Bumetanide Inj 0.25 Mg/Ml Vial 4 Ml IVP 02/20/24 13:59 2 mg Q8HR VINCE Administration Docusate Sodium 250 mg 01/23/24 09:33 Docusate Sod 250 Mg Capsule PO 02/22/24 09:32 QDAY PRN CONSTIPATION Protocol Heparin Sodium (Porcine) 5,000 unit 01/20/24 17:00 01/24/24 08:42 Heparin Sod Inj 5000 Unit/Ml Vial SC 02/03/24 16:59 5,000 unit Q12HR VINCE Administration Ceftriaxone Sodium/Dextrose 50 mls @ 100 mls/hr 01/18/24 21:00 01/23/24 20:22 Rocephin/D5w 1gm Iv Premix IV 01/25/24 20:59 100 mls/hr DAILY@2100 VINCE Administration Doxycycline Hyclate 100 mg/ 100 mls @ 100 mls/hr 01/18/24 09:00 01/24/24 08:41 Sodium Chloride IV 01/25/24 08:59 100 mls/hr BID VINCE Administration Dobutamine HCl/Dextrose 500 mg in 250 mls @ 1.899 mls/hr 01/18/24 11:08 01/24/24 08:00 Dobutrex/D5w Ivpb IV 02/17/24 11:07 10 mcg/kg/min .Q24H PRN 18.991 mls/hr PER PROTOCOL Titration Protocol 1 MCG/KG/MIN Vasopressin/Sodium Chloride 20 unit in 100 mls @ 9 mls/hr 01/19/24 07:11 01/23/24 09:58 Vasostrict/Ns Ivpb IV 02/18/24 07:10 0 unit/min .Q11H7M PRN 0 mls/hr PER PROTOCOL Titration Protocol 0.03 UNIT/MIN Norepinephrine Bitartrate 16 mg in 250 mls @ 2.967 mls/hr 01/20/24 17:47 01/22/24 17:00 Levophed In Ns 16mg/250ml IV 02/17/24 11:07 Infused .Q24H PRN Titration PER protocol Protocol 0.05 MCG/KG/MIN Norepinephrine Bitartrate 32 250 mls @ 1.65 mls/hr 01/21/24 19:10 01/24/24 08:54 mg/ Sodium Chloride IV 02/20/24 19:09 0.12 mcg/kg/min .Q24H PRN 3.96 mls/hr PER protocol Titration Protocol 0.05 MCG/KG/MIN Pantoprazole Sodium 40 mg 01/18/24 09:00 01/24/24 08:41 Pantoprazole 40 Mg Tablet PO 02/17/24 08:59 40 mg QDAY VINCE Administration Psyllium Hydrophilic Mucilloid 1 pkt 01/22/24 09:15 01/24/24 08:41 Psyllium 1 Pkt Packet PO 02/21/24 09:14 1 pkt QDAY VINCE Administration Protocol Sodium Chloride 3 ml 01/19/24 06:48 01/19/24 06:57 Sodium Chloride Rt Jackie 0.9% 3 Ml Nebu INH 02/18/24 06:47 3 ml PRN PRN Administration TO MIX WITH ALBUTEROL Plan Patient is a 68-year-old male with no significant past medical history who presented to the ED with a chief complaint of shortness of breath. Patient was admitted for acute respiratory failure with hypoxia secondary to community-acquired pneumonia and CHF exacerbation. Cardiology was consulted. 1. Acute respiratory failure with hypoxia Secondary to 2. Acute decompensated systolic heart failure exacerbation [EF 10%] 3. Cardiogenic shock 4. Dilated cardiomyopathy On admission patient has history of progressively worsening shortness of breath for the past 3 weeks. On exam patient is in mild distress on O2 via NC and breath sounds were decreased globally. No signs of lower extremity edema. Patient not previously diagnosed with heart failure in the past and not on any medication at home. On admission BNP 2864 NYHA Class IV Stage C Transthoracic echocardiogram completed on 01/16 findings include: Dilated cardiomyopathy - Mild to moderately dilated LV and RV. Moderate biatrial dilatation. Severe LV systolic dysfunction. Severe global hypokinesis. Estimated EF around 10% Diastolic dysfunction present but cannot be graded due to Afib. Moderate RV dysfunction. Estimated RVSP 40 mmHg. Moderate MR. Mild TR,PI. Mild AV sclerosis without stenosis, IVC dilated and pleural effusion present. Patient still on High flow NC @ 25L/min and FiO2 30% Patient currently not feeling SOB, but is still requiring high oxygen demand. Denies any chest pain/ pressure or palpitations Recommend Stat Nephrology consult Patient had a fluid balance of -4.2L in the past 24 hours Patient's BP is currently 98/67 and he is on pressor support with dobutamine infusion @ 18ml/hr and norepinephrine infusion @ 6ml/hr. vasopressin was discontinued. Plan: ? Strict input output charting ? Daily weights ? 2 g salt restricted diet ? 1500 cc fluid restriction ? Continue diuresis with Bumex 2 mg every 8 hours. ? Continue blood pressure support with pressors as needed. ? Recommend to start patient on midodrine 10 Mg p.o. 3 times daily ?Recommend keeping potassium above 4 and magnesium above 2 ? Patient counseled on methamphetamine, cocaine and all drug cessation. - ICU team had goals of care discussion with the patient as well as his surrogate decision maker is friend. - Patient offered the option of Dialysis but refused any further invasive procedures and switched his code status to DNR 5. Rule out ACS 6. NSTEMI -mostly type II secondary to supply/demand mismatch given the severe dilated cardiomyopathy Patient had progressive SOB for the past 3 weeks but denies any chest pain or pressure. Unlikely acute coronary syndrome and troponin elevation mostly secondary to supply/demand mismatch given severe dilated cardiomyopathy in the setting of significant drug abuse including methamphetamine and other drugs. Initial EKG showed sinus rhythm with occasional PVCs, left atrial enlargement repeat EKG showed atrial fibrillation with RVR, rate 120. No acute ST changes Troponin were elevated at 1.171 up trended to 1.235 and subsequently down trended to 0.98 Plan: ? Heparin infusion discontinued as >48 hours ? Continue aspirin 81 Mg p.o. daily ? Can hold high intensity statin in light of Ischemic hepatitis ? No need to further trend troponin - Continue medical management for now 7. A-fib with RVR?new onset Patient admitted to having intermittent palpitations for years with some episodes lasting for days before resolving. Initial EKG showed sinus rhythm with occasional PVCs, left atrial enlargement repeat EKG showed atrial fibrillation with RVR, rate 120. No acute ST changes. From telemetry review patient continues to be in/out of A-fib with some PVC's and sinus tachy. [id number] : 1 point ; 0.6 % stroke risk per year [age] Plan: ? Continue amiodarone 200 mg twice daily ? Recommend rate control with metoprolol XL 50 Mg p.o. daily if patient's blood pressure allows. - Heparin drip for NSTEMI completed, can transition to eliquis ? Continue telemetry review ? Please maintain potassium greater than 4 and magnesium greater than 2 at all times to prevent any further arrhythmias 8. Community-acquired pneumonia Patient had shortness of breath for past 3 weeks as well as a nonproductive cough. Chest x-ray on admission was significant for right mid zone consolidation. Patient continues on ceftriaxone and doxycycline IV. Blood and sputum cultures negative. Continue management as per primary team 9. MARIANO likely prerenal 10. Acute Renal Failure 11. Transaminitis 12. Multi- organ Failure On admission patient's CR 2 currently up trended to 2.1. Unable to assess baseline as no previous records for comparison. Likely in the setting of cardiogenic shock and dehydration. Patient bicarb 29.3, BUN decreased to 102 from 104, CR decreased to 6.5 from 7 Recommend stat nephrology consult as well Lactic acid downtrended to 1.5 AST downtrended to 1103 from 1904 and ALT downtrended to 2635 from >3300. Plan: - ICU team had goals of care discussion with the patient as well as his surrogate decision maker is friend. - Patient offered the option of Dialysis but refused any further invasive procedures and switched his code status to DNR 13. Likely COPD 14. Nicotine dependence 15. History of polysubstance abuse Patient has 45-[id number]-eymo smoking history and now has shortness of breath for the past 3 weeks along with productive cough. Clinically he is cachectic and appears to have decreased breath sounds globally suggestive of COPD. Patient will need to be further worked up as an outpatient. Patient admitted to using methamphetamine and cocaine for many years as well with U tox being positive for methamphetamine on admission. Patient counseled extensively on drug cessation. Patient agreed - ICU team had goals of care discussion with the patient as well as his surrogate decision maker is friend. - Patient offered the option of Dialysis but refused any further invasive procedures and switched his code status to DNR Continue rest of management as per primary team. We are grateful to be able to participate in Mr. Peñaloza's care. Thank you for the consult Plan of care discussed with attending Car Seat Upholsterer, Dr Yudelka Andersen PGY-1 Attending Provider Attestation/Addendum I have personally seen and examined the patient separately on the above date of service and discussed the plan of care with the resident. I reviewed the resident Dr. Dias consultation progress note and agree with the resident findings and plan in the note above and have also edited the documentation to reflect my findings and plan. Reynaldo Jha M.D. Interventional Cardiology
--- NOTE | 2024-01-24 09:46 | XR_ITS ---
Examination: AP chest single view Technique one AP portable upright chest single view Exam date and time: January 24, 2024 0959 hours Comparison January 17, 2024 INDICATIONS: Shortness of breath today. FINDINGS: Significant hyperexpansion Mild prominence left ventricle Significant ammonia right base right middle lobe Mild pneumonia in the left mid and lower lung zone Right internal jugular central line tip SVC satisfactory position Mild vascular congestion IMPRESSION: Bilateral pneumonia, significant right lung
[2024-01-24] MEDS: POTASSIUM CHLORIDE 10% 20 MEQ/15 ML UDC 40 MEQ GT (11:09)
--- NOTE | 2024-01-24 14:21 | ESPR_ITS ---
<Statement entered by Michelle Bansal MD - 01/25/24 08:00> TOTAL CC TIME: 40 MIN I saw and evaluated the patient. I reviewed the resident?s note and agree with findings and plan as documented in the resident?s note. Upon my evaluation, this patient had a high probability of imminent or life- threatening deterioration due to cardiogenic shock, which required my direct attention, intervention, and personal management. This time is exclusive of time spent on procedures, which are documented separately if performed. Clinically he appears more stable, able to lay in a mostly supine position without acute distress pulmonary edema improving-urine output adequate on Bumex GFR relatively stable However, since the afternoon the patient is unable to be further weaned from ionotropic and vasopressor support. Continue full supportive care. Patient remains DNR and does not want hemodialysis Follow-up chest x-ray pending antibiotics completed today Documentation for date of: 01/24/24 Subjective Subjective Interval history: 01/23/2024; Patient was seen and examined by bedside, resting comfortably in bed, saturating well but remains on HFNC 30% FiO2, heart rate controlled on po Amio 200mg bid, continue to diurese patient with Bumix 2mg ivp TID, BP maintaining MAP goal of >65 on Levo, Dobutamine, and Vasopressin. Continue patient on current management but will stop Vasopressin, and attempt to wean off Dobutamine as well, clark catheter was removed and replaced with condom cath to reduce risk of infections, discontinue Atorvastatin, and Acetaminophen in light of acute liver injury, discontinue Zofran in setting of severe HFrEF, new onset A.fib, and prolonged QT interval on last EKG. Patient remains on SC heparin for DVT prophylaxis, heparin drip was discontinued in setting of bleed from central line insertion site, CBC only noted for continuous drop in platelets to 74, CMP noted for declining renal functions with BUN 104, Cr 7, but UOP continues to be high, Network Administrator again discussed Hemodialysis refusal, patient's Potassium was repleted with 40 Meq of KCL despite MARIANO, to reduce proarrythmic effects of Dobutamine as patient continues to be on Bumix and has high urine output. Significant improvment noted in AST, but ALT remains lagging behind. Diet was changed to Cardiac/renal diet as patient wasn't eating blenderized diet. Plan of care was discussed with patient who was in agreement. 01/24/2024: The patient was seen and examined at the bedside this morning. He was comfortably resting in his bed saturating well on high flow nasal cannula with 25 L and FiO2 30, heart rate in 70s. Patient is negative by 4.2 L over 24 hours. Labs are significant for platelet count improving to 80, sodium 133, chloride 86, BUN 102, creatinine 6.5 and EGFR 9.1 with phosphorus 8.2. Liver enzymes improving with AST trending down to 1103 and ALT 2635. The patient is on amiodarone 200 Mg twice daily, and continued diuresis the patient with Bumex 2 mg IV 3 times daily. We are continuing with dobutamine and levo to maintain MAP greater than 65, and we will continue to wean of pressors. We repeated CXR that was significant for bilateral pneumonia. However, as today patient is completing his antibiotic duration of 7 days for pneumonia, we will stop antibiotics ceftriaxone and doxycycline. Given for patient's extensive cardiac history we will keep the patient potassium and magnesium level greater than 4 and 2 respectively. HFNC was switched to nasal cannula. Exam Vital Signs Temp Pulse Resp BP Pulse Ox O2 Del Method O2 Flow Rate 97.5 F 117 H 35 H 118/53 L 85 L High Flow Nasal Cannula 25 01/24/24 04:00 01/24/24 12:16 01/24/24 12:00 01/24/24 12:16 01/24/24 12:16 01/24/24 11:16 01/24/24 11:16 FiO2 30 01/24/24 11:16 Narrative Exam General: Chacetic elderly male, laying comfortably in bed, not in acute distress, A and O x 3 HEENT: Normocephalic, atraumatic, EOMI, PERRLA, moist oral mucosa, normal dentition. Cardiac: Regular rate and rhythm, normal S1/S2, no murmurs. Lungs: CTAB, no crackles or wheezes, normal effort. Abdomen: Soft, nontender, nondistended, positive bowel sounds in all quadrants. No guarding or rebound tenderness. Neuro: Alert and oriented to name and date of and place. CN II- XII intact, no focal motor deficit noted, BUE/BLE motor function and sensation intact and equal. Extremities: Normal to inspection, BLE +1 pittin edema, no cyanosis Psych: Normal mood and affect. Objective Labs 01/24/24 05:03 01/24/24 05:03 Labs: Laboratory Results - last 24 hr 01/23/24 01/24/24 16:22 05:03 WBC 8.5 RBC 4.20 L Hgb 12.4 L Hct 35.6 L MCV 85 MCH 29.5 MCHC 34.8 RDW Std Deviation 41.4 Plt Count 80 L Neut % (Auto) 80 Lymph % (Auto) 8 L [place] % (Auto) 11 Eos % (Auto) 1 Baso % (Auto) 0 Neut # (Auto) 6.8 Lymph # (Auto) 0.7 L [place] # (Auto) 0.9 H Eos # (Auto) 0.0 Baso # (Auto) 0.0 Immature Gran # (Auto) 0.03 H Absolute Nucleated RBC 0.06 H Immature Gran % 0 Nucleated RBC % 1 H Fibrinogen 257 Sodium 133 L Potassium 3.4 Chloride 86 L Carbon Dioxide 29.3 Anion Gap 18 H BUN 102 H* Creatinine 6.5 H* D Estim Creat Clear Calc 9.1 L eGFR 9 L* BUN/Creatinine Ratio 16 Glucose 105 Calculated Osmolality 298 H Calcium 7.2 L Corrected Calcium 7.4 L Phosphorus 8.2 H Magnesium 2.1 Total Bilirubin 2.4 H AST 1103 H* ALT 2635 H* Alkaline Phosphatase 139 H Total Protein 6.7 Albumin 3.7 Globulin 3.0 Albumin/Globulin Ratio 1.2 ABG Interpretation ABG results: 01/18/24 01/18/24 01/19/24 11:29 21:30 04:35 ABG pH 7.51 H 7.49 H 7.29 L D ABG pCO2 17 L* 19 L* 20 L ABG pO2 221 H 245 H D 143 H D ABG HCO3 13 L 14 L 9 L* ABG O2 Saturation 100 H 100 H 99 H ABG Base Excess -7 L -7 L -15 L VBG pH VBG pCO2 VBG pO2 VBG Base Excess 01/19/24 01/19/24 01/19/24 11:01 11:11 18:13 ABG pH 7.26 L 7.32 L ABG pCO2 28 L 26 L ABG pO2 149 H 164 H ABG HCO3 13 L 14 L ABG O2 Saturation 99 H 100 H ABG Base Excess -13 L -11 L VBG pH 7.26 L VBG pCO2 32 L VBG pO2 46 VBG Base Excess -12 L 01/19/24 01/19/24 01/19/24 18:30 23:00 23:19 ABG pH 7.40 ABG pCO2 29 L ABG pO2 101 D ABG HCO3 18 L ABG O2 Saturation 98 ABG Base Excess -6 L VBG pH 7.35 7.41 VBG pCO2 24 L 28 L VBG pO2 44 129 H D VBG Base Excess -11 L -6 L 01/20/24 01/20/24 01/20/24 00:57 05:52 06:00 ABG pH 7.43 ABG pCO2 28 L ABG pO2 128 H D ABG HCO3 19 L ABG O2 Saturation 99 H ABG Base Excess -5 L VBG pH 7.39 7.42 VBG pCO2 31 L 29 L VBG pO2 141 H 61 H D VBG Base Excess -5 L -4 L 01/20/24 01/20/24 01/20/24 12:18 13:06 19:44 ABG pH 7.39 7.36 ABG pCO2 36 39 ABG pO2 102 D 101 ABG HCO3 22 22 ABG O2 Saturation 98 97 ABG Base Excess -3 -3 VBG pH 7.30 L 7.40 VBG pCO2 45 D 35 L D VBG pO2 41 D 61 H D VBG Base Excess -4 L -2 01/21/24 01/21/24 01/22/24 04:38 04:42 05:40 ABG pH 7.41 ABG pCO2 35 ABG pO2 84 ABG HCO3 22 ABG O2 Saturation 96 ABG Base Excess -3 VBG pH 7.38 7.47 VBG pCO2 40 37 VBG pO2 35 D 59 H D VBG Base Excess -1 3 01/22/24 01/23/24 01/23/24 05:51 05:17 08:27 ABG pH 7.52 H D 7.45 ABG pCO2 31 L 44 D ABG pO2 81 L 79 L ABG HCO3 25 31 H ABG O2 Saturation 97 96 ABG Base Excess 3 6 H VBG pH 7.48 VBG pCO2 42 VBG pO2 57 VBG Base Excess 7 H Quality Measures Quality Measures none Advance care planning discussed with:: patient Assessment & Plan Assessment Current Active Medications: Generic Name Dose Route Start Last Admin Trade Name Freq PRN Reason Stop Dose Admin Acetaminophen 650 mg 01/17/24 21:38 Acetaminophen 325 Mg Tablet PO 02/16/24 21:37 Q6H PRN PAIN OR FEVER > 101 Amiodarone HCl 200 mg 01/21/24 21:00 01/24/24 08:39 Amiodarone Hcl 200 Mg Tablet PO 02/20/24 20:59 200 mg BID VINCE Administration Aspirin 81 mg 01/18/24 09:00 01/24/24 08:41 Aspirin Ec 81 Mg Tabec PO 02/17/24 08:59 81 mg QDAY VINCE Administration Bumetanide 2 mg 01/21/24 14:00 01/24/24 06:05 Bumetanide Inj 0.25 Mg/Ml Vial 4 Ml IVP 02/20/24 13:59 2 mg Q8HR VINCE Administration Docusate Sodium 250 mg 01/23/24 09:33 Docusate Sod 250 Mg Capsule PO 02/22/24 09:32 QDAY PRN CONSTIPATION Protocol Heparin Sodium (Porcine) 5,000 unit 01/20/24 17:00 01/24/24 08:42 Heparin Sod Inj 5000 Unit/Ml Vial SC 02/03/24 16:59 5,000 unit Q12HR VINCE Administration Ceftriaxone Sodium/Dextrose 50 mls @ 100 mls/hr 01/18/24 21:00 01/24/24 10:31 Rocephin/D5w 1gm Iv Premix IV 01/25/24 20:59 Infused DAILY@2100 VINCE Infusion Doxycycline Hyclate 100 mg/ 100 mls @ 100 mls/hr 01/18/24 09:00 01/24/24 10:31 Sodium Chloride IV 01/25/24 08:59 Infused BID VINCE Infusion Dobutamine HCl/Dextrose 500 mg in 250 mls @ 1.899 mls/hr 01/18/24 11:08 01/24/24 10:00 Dobutrex/D5w Ivpb IV 02/17/24 11:07 10 mcg/kg/min .Q24H PRN 18.991 mls/hr PER PROTOCOL Titration Protocol 1 MCG/KG/MIN Norepinephrine Bitartrate 16 mg in 250 mls @ 2.967 mls/hr 01/20/24 17:47 01/22/24 17:00 Levophed In Ns 16mg/250ml IV 02/17/24 11:07 Infused .Q24H PRN Titration PER protocol Protocol 0.05 MCG/KG/MIN Norepinephrine Bitartrate 32 250 mls @ 1.65 mls/hr 01/21/24 19:10 01/24/24 14:00 mg/ Sodium Chloride IV 02/20/24 19:09 0.06 mcg/kg/min .Q24H PRN 1.98 mls/hr PER protocol Titration Protocol 0.05 MCG/KG/MIN Pantoprazole Sodium 40 mg 01/18/24 09:00 01/24/24 08:41 Pantoprazole 40 Mg Tablet PO 02/17/24 08:59 40 mg QDAY VINCE Administration Psyllium Hydrophilic Mucilloid 1 pkt 01/22/24 09:15 01/24/24 08:41 Psyllium 1 Pkt Packet PO 02/21/24 09:14 1 pkt QDAY VINCE Administration Protocol Sodium Chloride 3 ml 01/19/24 06:48 01/19/24 06:57 Sodium Chloride Rt Jackie 0.9% 3 Ml Nebu INH 02/18/24 06:47 3 ml PRN PRN Administration TO MIX WITH ALBUTEROL Plan 68-year-old male with no significant past medical history admitted to the hospital chief complaints of shortness of breath and diagnosed to have acute hypoxic respiratory failure secondary to HFrEF exacerbation. 01/24/2024: The patient was seen and examined at the bedside this morning. He was comfortably resting in his bed saturating well on high flow nasal cannula with 25 L and FiO2 30, heart rate in 70s. Patient is negative by 4.2 L over 24 hours. Labs are significant for platelet count improving to 80, sodium 133, chloride 86, BUN 102, creatinine 6.5 and EGFR 9.1 with phosphorus 8.2. Liver enzymes improving with AST trending down to 1103 and ALT 2635. The patient is on amiodarone 200 Mg twice daily, and continued diuresis the patient with Bumex 2 mg IV 3 times daily. We are continuing with dobutamine and levo to maintain MAP greater than 65, and we will continue to wean of pressors. We repeated CXR that was significant for bilateral pneumonia. However, as today patient is completing his antibiotic duration of 7 days for pneumonia, we will stop antibiotics ceftriaxone and doxycycline. Given for patient's extensive cardiac history we will keep the patient potassium and magnesium level greater than 4 and 2 respectively. HFNC was switched to nasal cannula. NEURO Patient is awake, alert, and oriented x3, following commands, conversational. #Chronic methamphetamine use CARDIO # Cardiogenic shock # Dilated cardiomyopathy, likely combined meth use and smoking # Elevated trop - likely Tpe II -Likely exacerbated in the setting of suspected pneumonia in the right lobe and continued meth use. -Presented to the hospital with complaints of shortness of breath, orthopnea, PND -Denies palpitations, fever, pedal edema, abdominal distention. -Chest x-ray showed hyperinflation of bilateral lungs with patchy infiltrate in right lower lobe-pneumonia versus mass. -labs showed elevated BNP, Troponins that downtrended later. urine toxicology tested positive for meth. -Echo done on 01/17/2024 showed dilated cardiomyopathy - Mild to moderately dilated LV and RV. Moderate biatrial dilatation. Severe LV systolic dysfunction. Severe global hypokinesis. Estimated EF around 10% .Diastolic dysfunction present but cannot be graded due to Afib. Plan -wean off dobutamine drip, and continue Levophed. -Maintain SBP>100 -Discontinue Vasopressin. -Goal is to maintain systolic blood pressure above 100 mmHg. -Will continue to monitor blood pressures. -continue BiPAP as needed. # Atrial fibrillation with rapid ventricular rate -reverted to to normal sinus rhythm on 01/19/2024 -Patient was found to have sinus rhythm on EKG at the time of admission. -After starting Levophed and dobutamine drip, patient developed atrial fibrillation Plan Patient on PO Amiodarone 200mg bid. Heparin drip was stopped in view of high has-bled score with more risk of bleeding than having a stroke based on [id number] 4. PULM #Acute hypoxic respiratory failure 2/2 #Pulmonary Edema in the setting of cardiogenic shock #Right lung pneumonia -admitted to hospital with complaints of shortness of breath -chest x ray showed right patchy infiltrate in the middle lobe. Plan -Ceftriaxone 1 g IV twice daily(01/17-01/24 -Doxycycline 100mg BID(01/17-01/24 #Chronic smoker #Probable COPD - smoking history of >40 pack years. - condition is stable as of now. GI # Transaminitis, downtrending Due to underlying cardiogenic shock -Labs on 01/19/2024 showed AST> 1000, ALT 931 plan -AST and ALT are continuously uptrending as of 01/20/2024 -Will continue to monitor LFTs and continue inotropes. NEPHRO # ATN 2/2 cardiogenic shock -Creatinine in 12/2018 is 1.1 and at the time of admission is 2.1 -Adequate UO -Mild improvement in Renal panel Plan -Dialysis option is given for the patient but patient denied further invasive treatments -Bumex 2 Mg IV TID to help with hepatic and renal congestion -Will continue to monitor renal functions and renally dose medications. -Will continue vasopressors and monitor urine output. #Anion gap metabolic acidosis -Due to underlying shock -Bicarb on 01/19/2024 is 10.2 and anion gap is 22, lactate is 7.8. -Bicarb is within normal limits Plan - bicarb drip is stopped around 4 PM 01/20/24. -Will continue to monitor ABG, CMP and correct accordingly URO #No active problems HEME #Thromobcytopenia Plt dropped from 180 to 74. DDx: Possibly multifactorial; Most likely acute liver failure, others statin and amiodarone use, unlikely DIC/TTP. Unlikely DIC as Drop consistent with initiation of Amiodarone on 01/19. Discuss with cardiology starting patient on Digoxin and discontinuation of Amiodarone. Continue to monitor CBC, and signs of bleeding. F/U Fibrinogen levels and PF4. 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 ENDO #No active problems ID #Right lung pneumonia DDx: mass in right middle lobe -Admitted with shortness of breath started 3 weeks before admitting into the hospital. -Denies fever, chills, cough. -CBC is within normal limits. -Chest x-ray showed right patchy consolidation which was not present in 2019 -Patient did not get CT chest in view of his hemodynamic instability Plan -Ceftriaxone and doxycycline(01/17-01/24 -CT was not done in view of hemodynamic instability. MSK #No active problems SKIN #No active problems DVT prophylaxis: Heparin SC GI prophylaxis: Protonix Diet: Cardiac/ renal diet Clark: Condom cath Lines: Central and peripheral Antibiotics: Ceftriaxone and doxycycline CODE STATUS: DNR/DNI Reason for ICU care: Cardiogenic shock requiring vasopressors Plan of care discussed with attending Dr. Rolf Ontiveros MD, PGY2
[2024-01-24] MEDS: DOBUTamine/D5w 500 MG IVPB 500 MG/250 ML BAG 18.991 MG IV (14:38)
--- NOTE | 2024-01-24 15:18 | PC.SS ---
Update: Patient on nasal cannula, 4L. Patient remains on pressors. Plan is to continue diuresis of patient.
[2024-01-24] MEDS: POTASSIUM CHL 10 mEq IVPB 100 ML 100 MEQ IV ×2 (18:26→19:30)
[2024-01-24] MEDS: cefTRIAXone/D5w 1gm IV premix 50 ML IV (21:53)
[2024-01-25] VITALS (108 sets, daily range): BP systolic 64–123; BP diastolic 42–82; PULSE 69–125; RESP 6–100; TEMP 36.3–36.9; O2SAT 92–100; BMI 16.6
--- NOTE | 2024-01-25 02:36 | PC.RT ---
pt not tolerating bipap well. pt wasnt getting good volumes so pressures were increased with minimal change. placed pt on avaps mode which pt only tolerated for approx 20 min. Pt stated it was blowing too hard . Placed pt back on the ST mode. Pt wore bipap for approx 3 hours, all through out RT needing to make changes due to pt not pulling in adequate volumes. Around 0100 pt took himself off the bipap and asked not to be placed back on at this time, that he wanted a break . Pt back on 4lpm nasal cannula and tolerating well
[2024-01-25] MEDS: BUMETANIDE INJ 0.25 MG/ML VIAL 4 ML 2 MG IVP ×2 (05:12→14:51)
[2024-01-25] MEDS: DOBUTamine/D5w 500 MG IVPB 500 MG/250 ML BAG 18.991 MG IV (05:12)
[2024-01-25 05:57] LABS: Basophils % (Auto) 0 % (0-2.5); Eosinophils # (Auto) 0.1 Thou/mm3 (0.0-0.5); Eosinophils % (Auto) 1 % (0-10); Hematocrit 36.6 % (41.0-53.0); Hemoglobin 12.9 g/dL (13.5-16.0); Immature Granulocytes % (Auto) 0 % (0-0); Immature Granulocytes Auto 0.03 Thou/mm3 (0.00-0.00); Lymphocytes % (Auto) 11 % (10-50); Mean Corpuscular HGB Conc 35.2 g/dl (31.0-37.0); Mean Corpuscular Hemoglobin 29.6 pg (25.0-35.0); Mean Corpuscular Volume 84 fL (80-100); Monocytes # (Auto) 1.3 Thou/mm3 (0.0-0.8); Monocytes % (Auto) 14 % (0-12); Neutrophils # (Auto) 6.7 Thou/mm3 (1.8-7.7); Neutrophils % (Auto) 74 % (37-80); Nucleated Red Blood Cell # 0.04 Thou/mm3 (0.00-0.00); Nucleated Red Blood Cell % 0 /100 WBC (0); RDW Standard Deviation 41.4 fL (35.1-43.9); Red Blood Count 4.36 Miln/mm3 (4.50-5.90); White Blood Count 9.2 Thou/mm3 (3.8-10.6)
[2024-01-25 05:59] LABS: Platelet Count 77 Thou/mm3 (140-440)
[2024-01-25 06:56] LABS: Alanine Aminotransferase 2209 U/L (10-49); Albumin, Serum 3.8 gm/dL (3.4-4.8); Albumin/Globulin Ratio 1.2 (1.2-2.2); Alkaline Phosphatase 139 U/L (46-116); Anion Gap 18 (7-16); Aspartate Amino Transferase 639 U/L (0-34); BUN/Creatinine Ratio 18 Ratio (12-20); Bilirubin,Total 2.3 mg/dL (0.3-1.2); Calcium 7.3 mg/dL (8.3-10.6); Calcium (Corrected) 7.5 mg/dL (8.5-10.1); Carbon Dioxide 31.5 mMol/L (20.0-31.0); Chloride 83 mMol/L (98-107); Creatinine (Component) 5.8 mg/dL (0.6-1.3); Estimated Creatinine Clearance 9.7 mL/min (>60); Globulin 3.2 gm/dL (2.3-3.5); Glucose 98 mg/dL (74-106); Magnesium 1.9 mg/dL (1.6-2.6); Osmolality,Calculated 296 (275-295); Phosphorous 8.6 mg/dL (2.4-5.1); Potassium 3.2 mMol/L (3.4-5.1); Sodium 132 mMol/L (136-145); eGFR 10 See Note
[2024-01-25 07:00] LABS: Blood Urea Nitrogen 103 mg/dL (9-23)
[2024-01-25] MEDS: Magnesium Sulfate 1 gm Ivpb 1 GM/100 ML BAG IV (08:23)
[2024-01-25] MEDS: POTASSIUM CHL 10 mEq IVPB 10 MEQ/100 ML BAG 100 MEQ IV ×3 (08:23→10:22)
[2024-01-25] MEDS: CALCIUM CARBONATE 600 MG TABLET PO (08:24)
[2024-01-25] MEDS: ASPIRIN EC 81 MG TABEC PO (08:24)
[2024-01-25] MEDS: PANTOPRAZOLE 40 MG TABLET PO (08:24)
[2024-01-25] MEDS: HEPARIN SOD INJ 5000 UNIT/ML VIAL SC ×2 (08:30→20:53)
[2024-01-25] MEDS: SODIUM CHLORIDE 0.9% IV ×2 (08:34→15:20)
[2024-01-25] MEDS: NOREPINEPHRINE IV ×2 (08:34→15:20)
[2024-01-25] MEDS: AMIODARONE HCL 200 MG TABLET PO ×2 (08:42→20:53)
[2024-01-25 09:33] LABS: Slide Review Platelets confirmed
--- NOTE | 2024-01-25 09:41 | PD.RESPRO ---
Documentation for date of: 01/25/24 Subjective Subjective Interval history: Patient was seen and examined in ICU this AM. Patient currently on room air during my exam Patient continues on Bumex 2 mg every 8 hours. Fluid balance of -1.1 L in the past 24 hours. Kidney function is mildly improving with BUN of 103 and creatinine 5.8. LFTs also improved with AST at 639 compared to 3300 previously and ALT now 2209 compared to greater than 3300. Sodium is 132 and chloride is 83. Recommend to continue IV diuresis for now with the Bumex 2 mg every 12 hours with a goal of net -2 L every day Patient currently on only norepinephrine infusion. Dobutamine and vasopressin was discontinued. Goal MAP is greater than 65 mmHg. Will continue to slowly titrate down the levophed if patient continues to improve. Exam Vital Signs Temp Pulse Resp BP Pulse Ox O2 Del Method O2 Flow Rate 98.4 F 114 H 17 92/73 100 Nasal Cannula 4 01/25/24 04:02 01/25/24 08:42 01/25/24 06:24 01/25/24 08:42 01/25/24 06:24 01/24/24 16:00 01/25/24 06:24 FiO2 30 01/24/24 22:33 Narrative Exam Constitutional Alert, oriented x 3 and no acute distress. Elderly male, cachectic, on High flow NC. HEENT Vision grossly intact. Patent nares. Trachea midline. Poor dentition, missing teeth Respiratory Chest normal on inspection, RIJ catheter, exit site clean and clear breath sounds throughout lung chauhan b/l Cardiovascular S1 and S2 audible, RRR. No murmurs carotid bruit. JVD not assessed Abdominal Soft and non tender to palpation in all quadrants. BS + Genitourinary No bladder tenderness, no flank pain. Normal to palpation. Site of removed femoral catheter cover by clean dressing. Musculoskeletal Extremities tone within normal limits. No LE edema, ZAYRA UE edema at elbow level improved. Neurological CN II - XII grossly intact. Extremity motor and sensation grossly intact. Skin Warm, dry and intact. No apparent lesions. Psychiatric Patient has good affect, is cooperative Objective Labs 01/25/24 04:57 01/25/24 16:15 Labs: Laboratory Results - last 24 hr 01/25/24 04:57 WBC 9.2 RBC 4.36 L Hgb 12.9 L Hct 36.6 L MCV 84 MCH 29.6 MCHC 35.2 RDW Std Deviation 41.4 Plt Count 77 L Neut % (Auto) 74 Lymph % (Auto) 11 [place] % (Auto) 14 H Eos % (Auto) 1 Baso % (Auto) 0 Neut # (Auto) 6.7 Lymph # (Auto) 1.0 [place] # (Auto) 1.3 H Eos # (Auto) 0.1 Baso # (Auto) 0.0 Immature Gran # (Auto) 0.03 H Absolute Nucleated RBC 0.04 H Immature Gran % 0 Nucleated RBC % 0 Sodium 132 L Potassium 3.2 L Chloride 83 L Carbon Dioxide 31.5 H Anion Gap 18 H BUN 103 H* Creatinine 5.8 H* D Estim Creat Clear Calc 9.7 L eGFR 10 L* BUN/Creatinine Ratio 18 Glucose 98 Calculated Osmolality 296 H Calcium 7.3 L Corrected Calcium 7.5 L Phosphorus 8.6 H Magnesium 1.9 Total Bilirubin 2.3 H AST 639 H* ALT 2209 H* Alkaline Phosphatase 139 H Total Protein 7.0 Albumin 3.8 Globulin 3.2 Albumin/Globulin Ratio 1.2 Misc Test Result Platelets confirmed ABG Interpretation ABG results: 01/18/24 01/18/24 01/19/24 11:29 21:30 04:35 ABG pH 7.51 H 7.49 H 7.29 L D ABG pCO2 17 L* 19 L* 20 L ABG pO2 221 H 245 H D 143 H D ABG HCO3 13 L 14 L 9 L* ABG O2 Saturation 100 H 100 H 99 H ABG Base Excess -7 L -7 L -15 L VBG pH VBG pCO2 VBG pO2 VBG Base Excess 01/19/24 01/19/24 01/19/24 11:01 11:11 18:13 ABG pH 7.26 L 7.32 L ABG pCO2 28 L 26 L ABG pO2 149 H 164 H ABG HCO3 13 L 14 L ABG O2 Saturation 99 H 100 H ABG Base Excess -13 L -11 L VBG pH 7.26 L VBG pCO2 32 L VBG pO2 46 VBG Base Excess -12 L 01/19/24 01/19/24 01/19/24 18:30 23:00 23:19 ABG pH 7.40 ABG pCO2 29 L ABG pO2 101 D ABG HCO3 18 L ABG O2 Saturation 98 ABG Base Excess -6 L VBG pH 7.35 7.41 VBG pCO2 24 L 28 L VBG pO2 44 129 H D VBG Base Excess -11 L -6 L 01/20/24 01/20/24 01/20/24 00:57 05:52 06:00 ABG pH 7.43 ABG pCO2 28 L ABG pO2 128 H D ABG HCO3 19 L ABG O2 Saturation 99 H ABG Base Excess -5 L VBG pH 7.39 7.42 VBG pCO2 31 L 29 L VBG pO2 141 H 61 H D VBG Base Excess -5 L -4 L 01/20/24 01/20/24 01/20/24 12:18 13:06 19:44 ABG pH 7.39 7.36 ABG pCO2 36 39 ABG pO2 102 D 101 ABG HCO3 22 22 ABG O2 Saturation 98 97 ABG Base Excess -3 -3 VBG pH 7.30 L 7.40 VBG pCO2 45 D 35 L D VBG pO2 41 D 61 H D VBG Base Excess -4 L -2 01/21/24 01/21/24 01/22/24 04:38 04:42 05:40 ABG pH 7.41 ABG pCO2 35 ABG pO2 84 ABG HCO3 22 ABG O2 Saturation 96 ABG Base Excess -3 VBG pH 7.38 7.47 VBG pCO2 40 37 VBG pO2 35 D 59 H D VBG Base Excess -1 3 01/22/24 01/23/24 01/23/24 05:51 05:17 08:27 ABG pH 7.52 H D 7.45 ABG pCO2 31 L 44 D ABG pO2 81 L 79 L ABG HCO3 25 31 H ABG O2 Saturation 97 96 ABG Base Excess 3 6 H VBG pH 7.48 VBG pCO2 42 VBG pO2 57 VBG Base Excess 7 H Quality Measures Quality Measures none Advance care planning discussed with:: patient Assessment & Plan Assessment Current Active Medications: Generic Name Dose Route Start Last Admin Trade Name Freq PRN Reason Stop Dose Admin Acetaminophen 650 mg 01/17/24 21:38 Acetaminophen 325 Mg Tablet PO 02/16/24 21:37 Q6H PRN PAIN OR FEVER > 101 Amiodarone HCl 200 mg 01/21/24 21:00 01/25/24 08:42 Amiodarone Hcl 200 Mg Tablet PO 02/20/24 20:59 200 mg BID VINCE Administration Aspirin 81 mg 01/18/24 09:00 01/25/24 08:24 Aspirin Ec 81 Mg Tabec PO 02/17/24 08:59 81 mg QDAY VINCE Administration Bumetanide 2 mg 01/21/24 14:00 01/25/24 05:12 Bumetanide Inj 0.25 Mg/Ml Vial 4 Ml IVP 02/20/24 13:59 2 mg Q8HR VINCE Administration Calcium Carbonate 600 mg 01/25/24 09:00 01/25/24 08:24 Calcium Carbonate 600 Mg Tablet PO 02/24/24 08:59 600 mg QDAY VINCE Administration Docusate Sodium 250 mg 01/23/24 09:33 Docusate Sod 250 Mg Capsule PO 02/22/24 09:32 QDAY PRN CONSTIPATION Protocol Heparin Sodium (Porcine) 5,000 unit 01/20/24 17:00 01/25/24 08:30 Heparin Sod Inj 5000 Unit/Ml Vial SC 02/03/24 16:59 5,000 unit Q12HR VINCE Administration Ceftriaxone Sodium/Dextrose 50 mls @ 100 mls/hr 01/18/24 21:00 01/24/24 21:53 Rocephin/D5w 1gm Iv Premix IV 01/25/24 20:59 100 mls/hr DAILY@2100 VINCE Administration Dobutamine HCl/Dextrose 500 mg in 250 mls @ 1.899 mls/hr 01/18/24 11:08 01/25/24 06:00 Dobutrex/D5w Ivpb IV 02/17/24 11:07 10 mcg/kg/min .Q24H PRN 18.991 mls/hr PER PROTOCOL Titration Protocol 1 MCG/KG/MIN Norepinephrine Bitartrate 16 mg in 250 mls @ 2.967 mls/hr 01/20/24 17:47 01/22/24 17:00 Levophed In Ns 16mg/250ml IV 02/17/24 11:07 Infused .Q24H PRN Titration PER protocol Protocol 0.05 MCG/KG/MIN Norepinephrine Bitartrate 32 250 mls @ 1.65 mls/hr 01/21/24 19:10 01/25/24 09:34 mg/ Sodium Chloride IV 02/20/24 19:09 0.1 mcg/kg/min .Q24H PRN 3.3 mls/hr PER protocol Titration Protocol 0.05 MCG/KG/MIN Potassium Chloride 10 meq in 100 mls @ 100 mls/hr 01/25/24 07:32 01/25/24 09:19 Kcl Ivpb IV 01/25/24 11:31 100 mls/hr Q1H VINCE Administration Pantoprazole Sodium 40 mg 01/18/24 09:00 01/25/24 08:24 Pantoprazole 40 Mg Tablet PO 02/17/24 08:59 40 mg QDAY VINCE Administration Psyllium Hydrophilic Mucilloid 1 pkt 01/22/24 09:15 01/25/24 08:30 Psyllium 1 Pkt Packet PO 02/21/24 09:14 Not Given QDAY VINCE Protocol Sodium Chloride 3 ml 01/19/24 06:48 01/19/24 06:57 Sodium Chloride Rt Jackie 0.9% 3 Ml Nebu INH 02/18/24 06:47 3 ml PRN PRN Administration TO MIX WITH ALBUTEROL Plan Patient is a 68-year-old male with no significant past medical history who presented to the ED with a chief complaint of shortness of breath. Patient was admitted for acute respiratory failure with hypoxia secondary to community-acquired pneumonia and CHF exacerbation. Cardiology was consulted. 1. Acute respiratory failure with hypoxia Secondary to 2. Acute decompensated systolic heart failure exacerbation [EF 10%] 3. Cardiogenic shock 4. Dilated cardiomyopathy On admission patient has history of progressively worsening shortness of breath for the past 3 weeks. On exam patient is in mild distress on O2 via NC and breath sounds were decreased globally. No signs of lower extremity edema. Patient not previously diagnosed with heart failure in the past and not on any medication at home. On admission BNP 2864 NYHA Class IV Stage C Transthoracic echocardiogram completed on 01/16 findings include: Dilated cardiomyopathy - Mild to moderately dilated LV and RV. Moderate biatrial dilatation. Severe LV systolic dysfunction. Severe global hypokinesis. Estimated EF around 10% Diastolic dysfunction present but cannot be graded due to Afib. Moderate RV dysfunction. Estimated RVSP 40 mmHg. Moderate MR. Mild TR,PI. Mild AV sclerosis without stenosis, IVC dilated and pleural effusion present. Patient currently on room air during my exam Patient continues on Bumex 2 mg every 8 hours. Fluid balance of -1.1 L in the past 24 hours. Kidney function is mildly improving with BUN of 103 and creatinine 5.8. LFTs also improved with AST at 639 compared to 3300 previously and ALT now 2209 compared to greater than 3300. Sodium is 132 and chloride is 83. Recommend to continue IV diuresis for now with the Bumex 2 mg every 12 hours with a goal of net -2 L every day Patient currently on only norepinephrine infusion. Dobutamine and vasopressin was discontinued. Goal MAP is greater than 65 mmHg. Will continue to slowly titrate down the levophed if patient continues to improve. Plan: ? Strict input output charting ? Daily weights ? 2 g salt restricted diet ? 1500 cc fluid restriction ? Continue diuresis with Bumex 2 mg every 12 hours. ? Continue blood pressure support with pressors as needed. ? Recommend to start patient on midodrine 10 Mg p.o. 3 times daily ?Recommend keeping potassium above 4 and magnesium above 2 ? Patient counseled on methamphetamine, cocaine and all drug cessation. - ICU team had goals of care discussion with the patient as well as his surrogate decision maker is friend. - Patient offered the option of Dialysis but refused any further invasive procedures and switched his code status to DNR 5. Rule out ACS 6. NSTEMI -mostly type II secondary to supply/demand mismatch given the severe dilated cardiomyopathy Patient had progressive SOB for the past 3 weeks but denies any chest pain or pressure. Unlikely acute coronary syndrome and troponin elevation mostly secondary to supply/demand mismatch given severe dilated cardiomyopathy in the setting of significant drug abuse including methamphetamine and other drugs. Initial EKG showed sinus rhythm with occasional PVCs, left atrial enlargement repeat EKG showed atrial fibrillation with RVR, rate 120. No acute ST changes Troponin were elevated at 1.171 up trended to 1.235 and subsequently down trended to 0.98 Plan: ? Heparin infusion discontinued as >48 hours ? Continue aspirin 81 Mg p.o. daily ? Can hold high intensity statin in light of Ischemic hepatitis ? No need to further trend troponin - Continue medical management for now 7. A-fib with RVR?new onset Patient admitted to having intermittent palpitations for years with some episodes lasting for days before resolving. Initial EKG showed sinus rhythm with occasional PVCs, left atrial enlargement repeat EKG showed atrial fibrillation with RVR, rate 120. No acute ST changes. From telemetry review patient continues to be in/out of A-fib with some PAC's and sinus tachy. [id number] : 1 point ; 0.6 % stroke risk per year [age] Plan: ? Continue amiodarone 200 mg twice daily ? Recommend rate control with metoprolol XL 50 Mg p.o. daily if patient's blood pressure allows. - Heparin drip for NSTEMI completed, can transition to eliquis ? Continue telemetry review ? Please maintain potassium greater than 4 and magnesium greater than 2 at all times to prevent any further arrhythmias 8. Community-acquired pneumonia Patient had shortness of breath for past 3 weeks as well as a nonproductive cough. Chest x-ray on admission was significant for right mid zone consolidation. Patient continues on ceftriaxone. Blood and sputum cultures negative. Continue management as per primary team 9. MARIANO likely prerenal 10. Acute Renal Failure 11. Transaminitis 12. Multi- organ Failure On admission patient's CR 2 currently up trended to 2.1. Unable to assess baseline as no previous records for comparison. Likely in the setting of cardiogenic shock and dehydration. Patient bicarb 31.5, BUN stable at 103, CR decreased to 5.8 from 6.5 Recommend stat nephrology consult as well Lactic acid downtrended to 1.5 AST downtrended to 629 from 1103 and ALT downtrended to 2209 from 2635. Plan: - ICU team had goals of care discussion with the patient as well as his surrogate decision maker is friend. - Patient offered the option of Dialysis but refused any further invasive procedures and switched his code status to DNR 13. Likely COPD 14. Nicotine dependence 15. History of polysubstance abuse Patient has [id number]-[id number] smoking history and now has shortness of breath for the past 3 weeks along with productive cough. Clinically he is cachectic and appears to have decreased breath sounds globally suggestive of COPD. Patient will need to be further worked up as an outpatient. Patient admitted to using methamphetamine and cocaine for many years as well with U tox being positive for methamphetamine on admission. Patient counseled extensively on drug cessation. Patient agreed - ICU team had goals of care discussion with the patient as well as his surrogate decision maker is friend. - Patient offered the option of Dialysis but refused any further invasive procedures and switched his code status to DNR Continue rest of management as per primary team. We are grateful to be able to participate in Mr. Peñaloza's care. Thank you for the consult Plan of care discussed with attending Composition Weatherboard Installer, Dr Yudelka Andersen PGY-1 Attending Provider Attestation/Addendum I have personally seen and examined the patient separately on the above date of service and discussed the plan of care with the resident. I reviewed the resident Dr. Dias consultation progress note and agree with the resident findings and plan in the note above and have also edited the documentation to reflect my findings and plan. Reynaldo Jha M.D. Interventional Cardiology
[2024-01-25] MEDS: POTASSIUM CHLORIDE 20 mEq TABCR 40 MEQ PO (12:09)
[2024-01-25 16:48] LABS: Potassium 4.3 mMol/L (3.4-5.1)
--- NOTE | 2024-01-25 18:34 | ESPR_ITS ---
<Statement entered by Michelle Bansal MD - 01/26/24 08:24> TOTAL CC TIME: 45 MIN I saw and evaluated the patient. I reviewed the resident?s note and agree with findings and plan as documented in the resident?s note. Upon my evaluation, this patient had a high probability of imminent or life- threatening deterioration due to cardiogenic shock which required my direct attention, intervention, and personal management. This time is exclusive of time spent on procedures, which are documented separately if performed. Patient remains off vasopressin and we are weaning the dobutamine from 10 mcg to 5 mcg. He seems to be tolerating that well and therefore we will continue to wean down further to 2.5 mcg and then off. Once dobutamine is off we will wean off Levophed as tolerated. Otherwise he continues to improve, appetite is good. Overall he feels better. Urine output has been adequate on Bumex. repeleting potassium continuously. Documentation for date of: 01/25/24 Subjective Subjective Interval history: 01/23/2024; Patient was seen and examined by bedside, resting comfortably in bed, saturating well but remains on HFNC 30% FiO2, heart rate controlled on po Amio 200mg bid, continue to diurese patient with Bumix 2mg ivp TID, BP maintaining MAP goal of >65 on Levo, Dobutamine, and Vasopressin. Continue patient on current management but will stop Vasopressin, and attempt to wean off Dobutamine as well, clark catheter was removed and replaced with condom cath to reduce risk of infections, discontinue Atorvastatin, and Acetaminophen in light of acute liver injury, discontinue Zofran in setting of severe HFrEF, new onset A.fib, and prolonged QT interval on last EKG. 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 Significant improvment noted in AST, but ALT remains lagging behind. Diet was changed to Cardiac/renal diet as patient wasn't eating blenderized diet. Plan of care was discussed with patient who was in agreement. 01/24/2024: The patient was seen and examined at the bedside this morning. He was comfortably resting in his bed saturating well on high flow nasal cannula with 25 L and FiO2 30, heart rate in 70s. Patient is negative by 4.2 L over 24 hours. Labs are significant for platelet count improving to 80, sodium 133, chloride 86, BUN 102, creatinine 6.5 and EGFR 9.1 with phosphorus 8.2. Liver enzymes improving with AST trending down to 1103 and ALT 2635. The patient is on amiodarone 200 Mg twice daily, and continued diuresis the patient with Bumex 2 mg IV 3 times daily. We are continuing with dobutamine and levo to maintain MAP greater than 65, and we will continue to wean of pressors. We repeated CXR that was significant for bilateral pneumonia. However, as today patient is completing his antibiotic duration of 7 days for pneumonia, we will stop antibiotics ceftriaxone and doxycycline. Given for patient's extensive cardiac history we will keep the patient potassium and magnesium level greater than 4 and 2 respectively. HFNC was switched to nasal cannula. 01/25/2024: The patient was interviewed and examined at the bedside this morning. He was comfortably resting in his bed saturating well on room air. His vitals has been stable with MAP greater than 65. CBC with platelet count 77, chemistry panel with sodium 132, chloride 83, bicarb 31, anion gap 18, BUN 22, creatinine 5.8, EGFR 10 with corrected calcium 7.5 and phosphorus 8.6. Liver enzymes improving. We tapered down his pressor support, and he tolerated it well. The plan is to downgrade the patient by tomorrow if his vitals are stable. Exam Vital Signs Temp Pulse Resp BP Pulse Ox O2 Del Method O2 Flow Rate 97.6 F 69 16 79/63 L 99 Room Air 4 01/25/24 16:15 01/25/24 18:19 01/25/24 18:19 01/25/24 17:15 01/25/24 17:15 01/25/24 17:15 01/25/24 06:24 FiO2 30 01/24/24 22:33 Narrative Exam General: Chacetic elderly male, laying comfortably in bed, not in acute distress, A and O x 3 HEENT: Normocephalic, atraumatic, EOMI, PERRLA, moist oral mucosa, normal dentition. Cardiac: Regular rate and rhythm, normal S1/S2, no murmurs. Lungs: CTAB, no crackles or wheezes, normal effort. Abdomen: Soft, nontender, nondistended, positive bowel sounds in all quadrants. No guarding or rebound tenderness. Neuro: Alert and oriented to name and date of and place. CN II- XII intact, no focal motor deficit noted, BUE/BLE motor function and sensation intact and equal. Extremities: Normal to inspection, BLE +1 pittin edema, no cyanosis Psych: Normal mood and affect. Objective Labs 01/25/24 04:57 01/25/24 16:15 Labs: Laboratory Results - last 24 hr 01/25/24 01/25/24 04:57 16:15 WBC 9.2 RBC 4.36 L Hgb 12.9 L Hct 36.6 L MCV 84 MCH 29.6 MCHC 35.2 RDW Std Deviation 41.4 Plt Count 77 L Neut % (Auto) 74 Lymph % (Auto) 11 Schleicher % (Auto) 14 H Eos % (Auto) 1 Baso % (Auto) 0 Neut # (Auto) 6.7 Lymph # (Auto) 1.0 Schleicher # (Auto) 1.3 H Eos # (Auto) 0.1 Baso # (Auto) 0.0 Immature Gran # (Auto) 0.03 H Absolute Nucleated RBC 0.04 H Immature Gran % 0 Nucleated RBC % 0 Sodium 132 L Potassium 3.2 L 4.3 D Chloride 83 L Carbon Dioxide 31.5 H Anion Gap 18 H BUN 103 H* Creatinine 5.8 H* D Estim Creat Clear Calc 9.7 L eGFR 10 L* BUN/Creatinine Ratio 18 Glucose 98 Calculated Osmolality 296 H Calcium 7.3 L Corrected Calcium 7.5 L Phosphorus 8.6 H Magnesium 1.9 Total Bilirubin 2.3 H AST 639 H* ALT 2209 H* Alkaline Phosphatase 139 H Total Protein 7.0 Albumin 3.8 Globulin 3.2 Albumin/Globulin Ratio 1.2 Misc Test Result Platelets confirmed ABG Interpretation ABG results: 01/18/24 01/18/24 01/19/24 11:29 21:30 04:35 ABG pH 7.51 H 7.49 H 7.29 L D ABG pCO2 17 L* 19 L* 20 L ABG pO2 221 H 245 H D 143 H D ABG HCO3 13 L 14 L 9 L* ABG O2 Saturation 100 H 100 H 99 H ABG Base Excess -7 L -7 L -15 L VBG pH VBG pCO2 VBG pO2 VBG Base Excess 01/19/24 01/19/24 01/19/24 11:01 11:11 18:13 ABG pH 7.26 L 7.32 L ABG pCO2 28 L 26 L ABG pO2 149 H 164 H ABG HCO3 13 L 14 L ABG O2 Saturation 99 H 100 H ABG Base Excess -13 L -11 L VBG pH 7.26 L VBG pCO2 32 L VBG pO2 46 VBG Base Excess -12 L 01/19/24 01/19/24 01/19/24 18:30 23:00 23:19 ABG pH 7.40 ABG pCO2 29 L ABG pO2 101 D ABG HCO3 18 L ABG O2 Saturation 98 ABG Base Excess -6 L VBG pH 7.35 7.41 VBG pCO2 24 L 28 L VBG pO2 44 129 H D VBG Base Excess -11 L -6 L 01/20/24 01/20/24 01/20/24 00:57 05:52 06:00 ABG pH 7.43 ABG pCO2 28 L ABG pO2 128 H D ABG HCO3 19 L ABG O2 Saturation 99 H ABG Base Excess -5 L VBG pH 7.39 7.42 VBG pCO2 31 L 29 L VBG pO2 141 H 61 H D VBG Base Excess -5 L -4 L 01/20/24 01/20/24 01/20/24 12:18 13:06 19:44 ABG pH 7.39 7.36 ABG pCO2 36 39 ABG pO2 102 D 101 ABG HCO3 22 22 ABG O2 Saturation 98 97 ABG Base Excess -3 -3 VBG pH 7.30 L 7.40 VBG pCO2 45 D 35 L D VBG pO2 41 D 61 H D VBG Base Excess -4 L -2 01/21/24 01/21/24 01/22/24 04:38 04:42 05:40 ABG pH 7.41 ABG pCO2 35 ABG pO2 84 ABG HCO3 22 ABG O2 Saturation 96 ABG Base Excess -3 VBG pH 7.38 7.47 VBG pCO2 40 37 VBG pO2 35 D 59 H D VBG Base Excess -1 3 01/22/24 01/23/24 01/23/24 05:51 05:17 08:27 ABG pH 7.52 H D 7.45 ABG pCO2 31 L 44 D ABG pO2 81 L 79 L ABG HCO3 25 31 H ABG O2 Saturation 97 96 ABG Base Excess 3 6 H VBG pH 7.48 VBG pCO2 42 VBG pO2 57 VBG Base Excess 7 H Quality Measures Quality Measures none Advance care planning discussed with:: patient Assessment & Plan Assessment Current Active Medications: Generic Name Dose Route Start Last Admin Trade Name Freq PRN Reason Stop Dose Admin Acetaminophen 650 mg 01/17/24 21:38 Acetaminophen 325 Mg Tablet PO 02/16/24 21:37 Q6H PRN PAIN OR FEVER > 101 Amiodarone HCl 200 mg 01/21/24 21:00 01/25/24 08:42 Amiodarone Hcl 200 Mg Tablet PO 02/20/24 20:59 200 mg BID VINCE Administration Aspirin 81 mg 01/18/24 09:00 01/25/24 08:24 Aspirin Ec 81 Mg Tabec PO 02/17/24 08:59 81 mg QDAY VINCE Administration Bumetanide 2 mg 01/26/24 09:00 Bumetanide Inj 0.25 Mg/Ml Vial 4 Ml IVP 02/25/24 08:59 Q12HR VINCE Calcium Carbonate 600 mg 01/25/24 09:00 01/25/24 08:24 Calcium Carbonate 600 Mg Tablet PO 02/24/24 08:59 600 mg QDAY VINCE Administration Docusate Sodium 250 mg 01/23/24 09:33 Docusate Sod 250 Mg Capsule PO 02/22/24 09:32 QDAY PRN CONSTIPATION Protocol Heparin Sodium (Porcine) 5,000 unit 01/20/24 17:00 01/25/24 08:30 Heparin Sod Inj 5000 Unit/Ml Vial SC 02/03/24 16:59 5,000 unit Q12HR VINCE Administration Ceftriaxone Sodium/Dextrose 50 mls @ 100 mls/hr 01/18/24 21:00 01/24/24 21:53 Rocephin/D5w 1gm Iv Premix IV 01/25/24 20:59 100 mls/hr DAILY@2100 VINCE Administration Dobutamine HCl/Dextrose 500 mg in 250 mls @ 1.707 mls/hr 01/25/24 15:02 Dobutrex/D5w Ivpb IV 02/17/24 11:07 .Q24H PRN PER PROTOCOL Protocol 1 MCG/KG/MIN Norepinephrine Bitartrate 32 250 mls @ 1.334 mls/hr 01/25/24 15:02 01/25/24 16:15 mg/ Sodium Chloride IV 02/20/24 19:09 0 mcg/kg/min .Q24H PRN 0 mls/hr PER protocol Titration Protocol 0.05 MCG/KG/MIN Pantoprazole Sodium 40 mg 01/18/24 09:00 01/25/24 08:24 Pantoprazole 40 Mg Tablet PO 02/17/24 08:59 40 mg QDAY VINCE Administration Psyllium Hydrophilic Mucilloid 1 pkt 01/22/24 09:15 01/25/24 08:30 Psyllium 1 Pkt Packet PO 02/21/24 09:14 Not Given QDAY VINCE Protocol Sodium Chloride 3 ml 01/19/24 06:48 01/19/24 06:57 Sodium Chloride Rt Jackie 0.9% 3 Ml Nebu INH 02/18/24 06:47 3 ml PRN PRN Administration TO MIX WITH ALBUTEROL Plan 68-year-old male with no significant past medical history admitted to the hospital chief complaints of shortness of breath and diagnosed to have acute hypoxic respiratory failure secondary to HFrEF exacerbation. 01/25/2024: The patient was interviewed and examined at the bedside this morning. He was comfortably resting in his bed saturating well on room air. His vitals has been stable with MAP greater than 65. CBC with platelet count 77, chemistry panel with sodium 132, chloride 83, bicarb 31, anion gap 18, BUN 22, creatinine 5.8, EGFR 10 with corrected calcium 7.5 and phosphorus 8.6. Liver enzymes improving. We tapered down his pressor support, and he tolerated it well. The plan is to downgrade the patient by tomorrow if his vitals are stable. NEURO Patient is awake, alert, and oriented x3, following commands, conversational. #Chronic methamphetamine use CARDIO # Cardiogenic shock # Dilated cardiomyopathy, likely combined meth use and smoking # Elevated trop - likely Tpe II -Likely exacerbated in the setting of suspected pneumonia in the right lobe and continued meth use. -Presented to the hospital with complaints of shortness of breath, orthopnea, PND -Denies palpitations, fever, pedal edema, abdominal distention. -Chest x-ray showed hyperinflation of bilateral lungs with patchy infiltrate in right lower lobe-pneumonia versus mass. -labs showed elevated BNP, Troponins that downtrended later. urine toxicology tested positive for meth. -Echo done on 01/17/2024 showed dilated cardiomyopathy - Mild to moderately dilated LV and RV. Moderate biatrial dilatation. Severe LV systolic dysfunction. Severe global hypokinesis. Estimated EF around 10% .Diastolic dysfunction present but cannot be graded due to Afib. Plan -weaned off dobutamine drip and Levophed. -Maintain MAP greater than 60 -Will continue to monitor blood pressures. -continue BiPAP as needed. # Atrial fibrillation with rapid ventricular rate -reverted to to normal sinus rhythm on 01/19/2024 -Patient was found to have sinus rhythm on EKG at the time of admission. -After starting Levophed and dobutamine drip, patient developed atrial fibrillation Plan Patient on PO Amiodarone 200mg bid. Heparin drip was stopped in view of high has-bled score with more risk of bleeding than having a stroke based on [id number] 4. PULM #Acute hypoxic respiratory failure 03/26 #Pulmonary Edema in the setting of cardiogenic shock #Right lung pneumonia -Resolved -admitted to hospital with complaints of shortness of breath -chest x ray showed right patchy infiltrate in the middle lobe. Plan -Ceftriaxone 1 g IV twice daily(01/17-01/24 -Doxycycline 100mg BID(01/17-01/24 #Chronic smoker #Probable COPD - smoking history of >40 pack years. - condition is stable as of now. GI # Transaminitis, downtrending Due to underlying cardiogenic shock -Labs on 01/19/2024 showed AST> 1000, ALT 931 plan -AST and ALT are continuously uptrending as of 01/20/2024 -Will continue to monitor LFTs and continue inotropes. NEPHRO # ATN 2/ cardiogenic shock -Creatinine in 12/2018 is 1.1 and at the time of admission is 2.1 -Adequate UO -Mild improvement in Renal panel Plan -Dialysis option is given for the patient but patient denied further invasive treatments -Bumex 2 Mg IV TID to help with hepatic and renal congestion -Will continue to monitor renal functions and renally dose medications. -Will continue to monitor urine output. #Anion gap metabolic acidosis, improving -Due to underlying shock -Bicarb on 01/19/2024 is 10.2 and anion gap is 22, lactate is 7.8. -Bicarb is within normal limits Plan - bicarb drip is stopped around 4 PM 01/20/24. -Will continue to monitor ABG, CMP and correct accordingly URO #No active problems HEME #Thromobcytopenia Plt dropped from 180 to 74. DDx: Possibly multifactorial; Most likely acute liver failure, others statin and amiodarone use, unlikely DIC/TTP. Unlikely DIC as Drop consistent with initiation of Amiodarone on 01/19. Discuss with cardiology starting patient on Digoxin and discontinuation of Amiodarone. Continue to monitor CBC, and signs of bleeding. F/U Fibrinogen levels and PF4. 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 ENDO #No active problems ID #Right lung pneumonia DDx: mass in right middle lobe -Admitted with shortness of breath started 3 weeks before admitting into the hospital. -Denies fever, chills, cough. -CBC is within normal limits. -Chest x-ray showed right patchy consolidation which was not present in 2019 -Patient did not get CT chest in view of his hemodynamic instability Plan -Ceftriaxone and doxycycline(01/17-01/24, currently stable -CT was not done in view of hemodynamic instability. - MSK #No active problems SKIN #No active problems DVT prophylaxis: Heparin SC GI prophylaxis: Protonix Diet: Cardiac/ renal diet Clark: Condom cath Lines: Central and peripheral CODE STATUS: DNR/DNI Reason for ICU care: Cardiogenic shock requiring vasopressors, plan to downgrade to telemetry unit if vitals stable by tomorrow without vasopressors Plan of care discussed with attending Dr. Rolf Ontiveros MD, PGY2
[2024-01-26] VITALS (42 sets, daily range): BP systolic 85–216; BP diastolic 44–215; PULSE 66–116; RESP 11–97; TEMP 36.4–37.2; O2SAT 85–100
[2024-01-26 05:57] LABS: Basophils % (Auto) 0 % (0-2.5); Eosinophils # (Auto) 0.1 Thou/mm3 (0.0-0.5); Eosinophils % (Auto) 1 % (0-10); Hematocrit 39.1 % (41.0-53.0); Hemoglobin 13.5 g/dL (13.5-16.0); Immature Granulocytes % (Auto) 1 % (0-0); Immature Granulocytes Auto 0.05 Thou/mm3 (0.00-0.00); Lymphocytes # (Auto) 1.5 Thou/mm3 (1.0-4.8); Lymphocytes % (Auto) 14 % (10-50); Mean Corpuscular HGB Conc 34.5 g/dl (31.0-37.0); Mean Corpuscular Hemoglobin 29.2 pg (25.0-35.0); Mean Corpuscular Volume 85 fL (80-100); Monocytes # (Auto) 1.8 Thou/mm3 (0.0-0.8); Monocytes % (Auto) 16 % (0-12); Neutrophils # (Auto) 7.4 Thou/mm3 (1.8-7.7); Neutrophils % (Auto) 68 % (37-80); Nucleated Red Blood Cell # 0.02 Thou/mm3 (0.00-0.00); Nucleated Red Blood Cell % 0 /100 WBC (0); Platelet Count 81 Thou/mm3 (140-440); Red Blood Count 4.62 Miln/mm3 (4.50-5.90); White Blood Count 10.9 Thou/mm3 (3.8-10.6)
[2024-01-26 06:38] LABS: Alanine Aminotransferase 1684 U/L (10-49); Albumin/Globulin Ratio 1.2 (1.2-2.2); Alkaline Phosphatase 133 U/L (46-116); Anion Gap 13 (7-16); Aspartate Amino Transferase 319 U/L (0-34); BUN/Creatinine Ratio 21 Ratio (12-20); Calcium 7.7 mg/dL (8.3-10.6); Calcium (Corrected) 7.7 mg/dL (8.5-10.1); Carbon Dioxide 33.7 mMol/L (20.0-31.0); Chloride 86 mMol/L (98-107); Creatinine (Component) 5.1 mg/dL (0.6-1.3); Globulin 3.3 gm/dL (2.3-3.5); Glucose 99 mg/dL (74-106); Magnesium 2.1 mg/dL (1.6-2.6); Osmolality,Calculated 299 (275-295); Phosphorous 7.9 mg/dL (2.4-5.1); Potassium 3.3 mMol/L (3.4-5.1); Sodium 133 mMol/L (136-145); Total Protein 7.3 gm/dL (5.7-8.2); eGFR 12 See Note
[2024-01-26 06:40] LABS: Blood Urea Nitrogen 105 mg/dL (9-23)
[2024-01-26 07:12] LABS: Heparin-Induced PLT AB NEGATIVE (NEGATIVE)
[2024-01-26] MEDS: AMIODARONE HCL 200 MG TABLET PO ×2 (08:16→20:31)
[2024-01-26] MEDS: PANTOPRAZOLE 40 MG TABLET PO (08:16)
[2024-01-26] MEDS: CALCIUM CARBONATE 600 MG TABLET PO (08:16)
[2024-01-26] MEDS: ASPIRIN EC 81 MG TABEC PO (08:16)
[2024-01-26] MEDS: HEPARIN SOD INJ 5000 UNIT/ML VIAL SC ×2 (08:18→20:32)
[2024-01-26] MEDS: BUMETANIDE INJ 0.25 MG/ML VIAL 4 ML 2 MG IVP ×2 (08:18→20:31)
[2024-01-26] MEDS: POTASSIUM CHLORIDE 20 mEq TABCR 60 MEQ PO (08:28)
--- NOTE | 2024-01-26 08:57 | PD.RESPRO ---
Documentation for date of: 01/26/24 Subjective Subjective Interval history: Patient was seen and examined in ICU this AM. Patient currently on room air during my exam Overnight patient had multiple PVCs and PACs as well as episodes of trigeminy and bigeminy and was in and out of A-fib. His heart rate was mainly in the 60s to 70s overnight. Patient continues on Bumex 2 mg every 12 hours, Recommend to do Bumex 2mg qday and Diamox x1. Fluid balance of -1.7 L in the past 24 hours. Kidney function is mildly improving with BUN of 105 and creatinine 5.1. LFTs also improved with AST at 319 compared to 639 previously and ALT now 1684 compared to greater than 2209 . Sodium is 133 and chloride is 8 potassium 3.3, magnesium 2.1 Recommend to continue IV diuresis for now with the Bumex 2 mg eqday with a goal of net -2 L every day Patient currently off al pressors Exam Vital Signs Temp Pulse Resp BP Pulse Ox O2 Del Method O2 Flow Rate 98.9 F 90 22 H 105/66 98 Room Air 4 01/26/24 04:00 01/26/24 08:18 01/26/24 08:01 01/26/24 08:18 01/26/24 08:01 01/26/24 08:01 01/25/24 06:24 FiO2 40 01/25/24 18:15 Narrative Exam Constitutional Alert, oriented x 3 and no acute distress. Elderly male, cachectic, on High flow NC. HEENT Vision grossly intact. Patent nares. Trachea midline. Poor dentition, missing teeth Respiratory Chest normal on inspection, RIJ catheter, exit site clean and clear breath sounds throughout lung chauhan b/l Cardiovascular S1 and S2 audible, RRR. No murmurs carotid bruit. JVD not assessed Abdominal Soft and non tender to palpation in all quadrants. BS + Genitourinary No bladder tenderness, no flank pain. Normal to palpation. Site of removed femoral catheter cover by clean dressing. Musculoskeletal Extremities tone within normal limits. No LE edema, ZAYRA UE edema at elbow level improved. Neurological CN II - XII grossly intact. Extremity motor and sensation grossly intact. Skin Warm, dry and intact. No apparent lesions. Psychiatric Patient has good affect, is cooperative Objective Labs 01/26/24 04:39 01/26/24 04:39 Labs: Laboratory Results - last 24 hr 01/23/24 01/25/24 01/25/24 16:22 04:57 16:15 WBC RBC Hgb Hct MCV MCH MCHC RDW Std Deviation Plt Count Neut % (Auto) Lymph % (Auto) Bracken % (Auto) Eos % (Auto) Baso % (Auto) Neut # (Auto) Lymph # (Auto) Bracken # (Auto) Eos # (Auto) Baso # (Auto) Immature Gran # (Auto) Absolute Nucleated RBC Immature Gran % Nucleated RBC % Sodium Potassium 4.3 D Chloride Carbon Dioxide Anion Gap BUN Creatinine Estim Creat Clear Calc eGFR BUN/Creatinine Ratio Glucose Calculated Osmolality Calcium Corrected Calcium Phosphorus Magnesium Total Bilirubin AST ALT Alkaline Phosphatase Total Protein Albumin Globulin Albumin/Globulin Ratio Heparin-Ind Plt Ab Scrn NEGATIVE Heparin Dep Plt Ab OD 0.153 Misc Test Result Platelets confirmed 01/26/24 04:39 WBC 10.9 H RBC 4.62 Hgb 13.5 Hct 39.1 L MCV 85 MCH 29.2 MCHC 34.5 RDW Std Deviation 42.0 Plt Count 81 L Neut % (Auto) 68 Lymph % (Auto) 14 Bracken % (Auto) 16 H Eos % (Auto) 1 Baso % (Auto) 0 Neut # (Auto) 7.4 Lymph # (Auto) 1.5 Bracken # (Auto) 1.8 H Eos # (Auto) 0.1 Baso # (Auto) 0.0 Immature Gran # (Auto) 0.05 H Absolute Nucleated RBC 0.02 H Immature Gran % 1 H Nucleated RBC % 0 Sodium 133 L Potassium 3.3 L D Chloride 86 L Carbon Dioxide 33.7 H Anion Gap 13 BUN 105 H* Creatinine 5.1 H* D Estim Creat Clear Calc 11.0 L eGFR 12 L* BUN/Creatinine Ratio 21 H Glucose 99 Calculated Osmolality 299 H Calcium 7.7 L Corrected Calcium 7.7 L Phosphorus 7.9 H Magnesium 2.1 Total Bilirubin 2.0 H AST 319 H ALT 1684 H* Alkaline Phosphatase 133 H Total Protein 7.3 Albumin 4.0 Globulin 3.3 Albumin/Globulin Ratio 1.2 Heparin-Ind Plt Ab Scrn Heparin Dep Plt Ab OD Misc Test Result ABG Interpretation ABG results: 01/18/24 01/18/24 01/19/24 11:29 21:30 04:35 ABG pH 7.51 H 7.49 H 7.29 L D ABG pCO2 17 L* 19 L* 20 L ABG pO2 221 H 245 H D 143 H D ABG HCO3 13 L 14 L 9 L* ABG O2 Saturation 100 H 100 H 99 H ABG Base Excess -7 L -7 L -15 L VBG pH VBG pCO2 VBG pO2 VBG Base Excess 01/19/24 01/19/24 01/19/24 11:01 11:11 18:13 ABG pH 7.26 L 7.32 L ABG pCO2 28 L 26 L ABG pO2 149 H 164 H ABG HCO3 13 L 14 L ABG O2 Saturation 99 H 100 H ABG Base Excess -13 L -11 L VBG pH 7.26 L VBG pCO2 32 L VBG pO2 46 VBG Base Excess -12 L 01/19/24 01/19/24 01/19/24 18:30 23:00 23:19 ABG pH 7.40 ABG pCO2 29 L ABG pO2 101 D ABG HCO3 18 L ABG O2 Saturation 98 ABG Base Excess -6 L VBG pH 7.35 7.41 VBG pCO2 24 L 28 L VBG pO2 44 129 H D VBG Base Excess -11 L -6 L 01/20/24 01/20/24 01/20/24 00:57 05:52 06:00 ABG pH 7.43 ABG pCO2 28 L ABG pO2 128 H D ABG HCO3 19 L ABG O2 Saturation 99 H ABG Base Excess -5 L VBG pH 7.39 7.42 VBG pCO2 31 L 29 L VBG pO2 141 H 61 H D VBG Base Excess -5 L -4 L 01/20/24 01/20/24 01/20/24 12:18 13:06 19:44 ABG pH 7.39 7.36 ABG pCO2 36 39 ABG pO2 102 D 101 ABG HCO3 22 22 ABG O2 Saturation 98 97 ABG Base Excess -3 -3 VBG pH 7.30 L 7.40 VBG pCO2 45 D 35 L D VBG pO2 41 D 61 H D VBG Base Excess -4 L -2 01/21/24 01/21/24 01/22/24 04:38 04:42 05:40 ABG pH 7.41 ABG pCO2 35 ABG pO2 84 ABG HCO3 22 ABG O2 Saturation 96 ABG Base Excess -3 VBG pH 7.38 7.47 VBG pCO2 40 37 VBG pO2 35 D 59 H D VBG Base Excess -1 3 01/22/24 01/23/24 01/23/24 05:51 05:17 08:27 ABG pH 7.52 H D 7.45 ABG pCO2 31 L 44 D ABG pO2 81 L 79 L ABG HCO3 25 31 H ABG O2 Saturation 97 96 ABG Base Excess 3 6 H VBG pH 7.48 VBG pCO2 42 VBG pO2 57 VBG Base Excess 7 H Quality Measures Quality Measures none Advance care planning discussed with:: patient Assessment & Plan Assessment Current Active Medications: Generic Name Dose Route Start Last Admin Trade Name Freq PRN Reason Stop Dose Admin Acetaminophen 650 mg 01/17/24 21:38 Acetaminophen 325 Mg Tablet PO 02/16/24 21:37 Q6H PRN PAIN OR FEVER > 101 Amiodarone HCl 200 mg 01/21/24 21:00 01/26/24 08:16 Amiodarone Hcl 200 Mg Tablet PO 02/20/24 20:59 200 mg BID VINCE Administration Aspirin 81 mg 01/18/24 09:00 01/26/24 08:16 Aspirin Ec 81 Mg Tabec PO 02/17/24 08:59 81 mg QDAY VINCE Administration Bumetanide 2 mg 01/26/24 09:00 01/26/24 08:18 Bumetanide Inj 0.25 Mg/Ml Vial 4 Ml IVP 02/25/24 08:59 2 mg Q12HR VINCE Administration Calcium Carbonate 600 mg 01/25/24 09:00 01/26/24 08:16 Calcium Carbonate 600 Mg Tablet PO 02/24/24 08:59 600 mg QDAY VINCE Administration Docusate Sodium 250 mg 01/23/24 09:33 Docusate Sod 250 Mg Capsule PO 02/22/24 09:32 QDAY PRN CONSTIPATION Protocol Heparin Sodium (Porcine) 5,000 unit 01/20/24 17:00 01/26/24 08:18 Heparin Sod Inj 5000 Unit/Ml Vial SC 02/03/24 16:59 5,000 unit Q12HR VINCE Administration Dobutamine HCl/Dextrose 500 mg in 250 mls @ 1.707 mls/hr 01/25/24 15:02 Dobutrex/D5w Ivpb IV 02/17/24 11:07 .Q24H PRN PER PROTOCOL Protocol 1 MCG/KG/MIN Norepinephrine Bitartrate 32 250 mls @ 1.334 mls/hr 01/25/24 15:02 01/25/24 16:15 mg/ Sodium Chloride IV 02/20/24 19:09 0 mcg/kg/min .Q24H PRN 0 mls/hr PER protocol Titration Protocol 0.05 MCG/KG/MIN Pantoprazole Sodium 40 mg 01/18/24 09:00 01/26/24 08:16 Pantoprazole 40 Mg Tablet PO 02/17/24 08:59 40 mg QDAY VINCE Administration Psyllium Hydrophilic Mucilloid 1 pkt 01/22/24 09:15 01/26/24 08:19 Psyllium 1 Pkt Packet PO 02/21/24 09:14 Not Given QDAY VINCE Protocol Sodium Chloride 3 ml 01/19/24 06:48 01/19/24 06:57 Sodium Chloride Rt Jackie 0.9% 3 Ml Nebu INH 02/18/24 06:47 3 ml PRN PRN Administration TO MIX WITH ALBUTEROL Plan Patient is a 68-year-old male with no significant past medical history who presented to the ED with a chief complaint of shortness of breath. Patient was admitted for acute respiratory failure with hypoxia secondary to community-acquired pneumonia and CHF exacerbation. Cardiology was consulted. 1. Acute respiratory failure with hypoxia Secondary to 2. Acute decompensated systolic heart failure exacerbation [EF 10%] 3. Cardiogenic shock 4. Dilated cardiomyopathy On admission patient has history of progressively worsening shortness of breath for the past 3 weeks. On exam patient is in mild distress on O2 via NC and breath sounds were decreased globally. No signs of lower extremity edema. Patient not previously diagnosed with heart failure in the past and not on any medication at home. On admission BNP 2864 NYHA Class IV Stage C Transthoracic echocardiogram completed on 01/16 findings include: Dilated cardiomyopathy - Mild to moderately dilated LV and RV. Moderate biatrial dilatation. Severe LV systolic dysfunction. Severe global hypokinesis. Estimated EF around 10% Diastolic dysfunction present but cannot be graded due to Afib. Moderate RV dysfunction. Estimated RVSP 40 mmHg. Moderate MR. Mild TR,PI. Mild AV sclerosis without stenosis, IVC dilated and pleural effusion present. Patient was seen and examined in ICU this AM. Patient currently on room air during my exam Overnight patient had multiple PVCs and PACs as well as episodes of trigeminy and bigeminy and was in and out of A-fib. His heart rate was mainly in the 60s to 70s overnight. Patient continues on Bumex 2 mg every 12 hours. Fluid balance of -1.7 L in the past 24 hours. Kidney function is mildly improving with BUN of 105 and creatinine 5.1. LFTs also improved with AST at 319 compared to 639 previously and ALT now 1684 compared to greater than 2209 . Sodium is 133 and chloride is 8 potassium 3.3, magnesium 2.1 Recommend to continue IV diuresis for now with the Bumex 2 mg every 12 hours with a goal of net -2 L every day Patient currently off al pressors Plan: ? Strict input output charting ? Daily weights ? 2 g salt restricted diet ? 1500 cc fluid restriction ? Continue diuresis with Bumex 2 mg qday -Recommend Diamox x1 due to patient developing contraction alkalosis ? Recommend to continue patient on midodrine 10 Mg p.o. 3 times daily ?Recommend keeping potassium above 4 and magnesium above 2 ? Patient counseled on methamphetamine, cocaine and all drug cessation. - ICU team had goals of care discussion with the patient as well as his surrogate decision maker is friend. - Patient offered the option of Dialysis but refused any further invasive procedures and switched his code status to DNR 5. Rule out ACS 6. NSTEMI -mostly type II secondary to supply/demand mismatch given the severe dilated cardiomyopathy Patient had progressive SOB for the past 3 weeks but denies any chest pain or pressure. Unlikely acute coronary syndrome and troponin elevation mostly secondary to supply/demand mismatch given severe dilated cardiomyopathy in the setting of significant drug abuse including methamphetamine and other drugs. Initial EKG showed sinus rhythm with occasional PVCs, left atrial enlargement repeat EKG showed atrial fibrillation with RVR, rate 120. No acute ST changes Troponin were elevated at 1.171 up trended to 1.235 and subsequently down trended to 0.98 Plan: ? Heparin infusion discontinued as >48 hours ? Continue aspirin 81 Mg p.o. daily ? Can hold high intensity statin in light of Ischemic hepatitis ? No need to further trend troponin - Continue medical management for now 7. A-fib with RVR?new onset Patient admitted to having intermittent palpitations for years with some episodes lasting for days before resolving. Initial EKG showed sinus rhythm with occasional PVCs, left atrial enlargement repeat EKG showed atrial fibrillation with RVR, rate 120. No acute ST changes. From telemetry review patient continues to be in/out of A-fib with some PAC's and sinus tachy. [id number] : 1 point ; 0.6 % stroke risk per year [age] Plan: ? Continue amiodarone 200 mg twice daily ? Recommend rate control with metoprolol XL 50 Mg p.o. daily if patient's blood pressure allows. - Heparin drip for NSTEMI completed, can transition to eliquis ? Continue telemetry review ? Please maintain potassium greater than 4 and magnesium greater than 2 at all times to prevent any further arrhythmias 8. Community-acquired pneumonia Patient had shortness of breath for past 3 weeks as well as a nonproductive cough. Chest x-ray on admission was significant for right mid zone consolidation. Patient continues on ceftriaxone. Blood and sputum cultures negative. Continue management as per primary team 9. MARIANO likely prerenal 10. Acute Renal Failure 11. Transaminitis 12. Multi- organ Failure On admission patient's CR 2 currently up trended to 2.1. Unable to assess baseline as no previous records for comparison. Likely in the setting of cardiogenic shock and dehydration. Patient bicarb 33.7, BUN stable at 105, CR decreased to 5.1 from 5.8 Recommend stat nephrology consult as well Lactic acid downtrended to 1.5 LFTs also improved with AST at 319 compared to 639 previously and ALT now 1684 compared to greater than 2209 Plan: - ICU team had goals of care discussion with the patient as well as his surrogate decision maker is friend. - Patient offered the option of Dialysis but refused any further invasive procedures and switched his code status to DNR 13. Likely COPD 14. Nicotine dependence 15. History of polysubstance abuse Patient has [id number] smoking history and now has shortness of breath for the past 3 weeks along with productive cough. Clinically he is cachectic and appears to have decreased breath sounds globally suggestive of COPD. Patient will need to be further worked up as an outpatient. Patient admitted to using methamphetamine and cocaine for many years as well with U tox being positive for methamphetamine on admission. Patient counseled extensively on drug cessation. Patient agreed - ICU team had goals of care discussion with the patient as well as his surrogate decision maker is friend. - Patient offered the option of Dialysis but refused any further invasive procedures and switched his code status to DNR Continue rest of management as per primary team. We are grateful to be able to participate in Mr. Peñaloza's care. Thank you for the consult Plan of care discussed with attending Supercharger Repair Supervisor, Dr Yudelka Andersen PGY-1 Attending Provider Attestation/Addendum I have personally seen and examined the patient separately on the above date of service and discussed the plan of care with the resident. I reviewed the resident Dr. Dias consultation progress note and agree with the resident findings and plan in the note above and have also edited the documentation to reflect my findings and plan. Reynaldo Jha M.D. Interventional Cardiology
--- NOTE | 2024-01-26 13:51 | ESPR_ITS ---
<Statement entered by Michelle Bansal MD - 01/30/24 08:42> TOTAL TIME: 45MINUTES ON DIRECT MEDICAL CARE, MANAGEMENT - COORDINATION AND COUNSELING > 50% OF TOTAL TIME I saw and evaluated the patient. I reviewed the resident?s note and agree with findings and plan as documented in the resident?s note. He is improving - off pressors MAP appropriately 60-65 in setting of very severe systolic CHF. Previously deeemed non AICD candidate by cardiology BP remains a bitt too low to start GDMT but hopefully will be started prior to discharge can move to med/srg tele Documentation for date of: 01/26/24 Subjective Subjective Interval history: 01/23/2024; Patient was seen and examined by bedside, resting comfortably in bed, saturating well but remains on HFNC 30% FiO2, heart rate controlled on po Amio 200mg bid, continue to diurese patient with Bumix 2mg ivp TID, BP maintaining MAP goal of >65 on Levo, Dobutamine, and Vasopressin. Continue patient on current management but will stop Vasopressin, and attempt to wean off Dobutamine as well, clark catheter was removed and replaced with condom cath to reduce risk of infections, discontinue Atorvastatin, and Acetaminophen in light of acute liver injury, discontinue Zofran in setting of severe HFrEF, new onset A.fib, and prolonged QT interval on last EKG. Patient remains on SC heparin for DVT prophylaxis, heparin drip was discontinued in setting of bleed from central line insertion site, CBC only noted for continuous drop in platelets to 74, CMP noted for declining renal functions with BUN 104, Cr 7, but UOP continues to be high, Nuclear Medicine Physician again discussed Hemodialysis refusal, patient's Potassium was repleted with 40 Meq of KCL despite MARIANO, to reduce proarrythmic effects of Dobutamine as patient continues to be on Bumix and has high urine output. Significant improvment noted in AST, but ALT remains lagging behind. Diet was changed to Cardiac/renal diet as patient wasn't eating blenderized diet. Plan of care was discussed with patient who was in agreement. 01/24/2024: The patient was seen and examined at the bedside this morning. He was comfortably resting in his bed saturating well on high flow nasal cannula with 25 L and FiO2 30, heart rate in 70s. Patient is negative by 4.2 L over 24 hours. Labs are significant for platelet count improving to 80, sodium 133, chloride 86, BUN 102, creatinine 6.5 and EGFR 9.1 with phosphorus 8.2. Liver enzymes improving with AST trending down to 1103 and ALT 2635. The patient is on amiodarone 200 Mg twice daily, and continued diuresis the patient with Bumex 2 mg IV 3 times daily. We are continuing with dobutamine and levo to maintain MAP greater than 65, and we will continue to wean of pressors. We repeated CXR that was significant for bilateral pneumonia. However, as today patient is completing his antibiotic duration of 7 days for pneumonia, we will stop antibiotics ceftriaxone and doxycycline. Given for patient's extensive cardiac history we will keep the patient potassium and magnesium level greater than 4 and 2 respectively. HFNC was switched to nasal cannula. 01/25/2024: The patient was interviewed and examined at the bedside this morning. He was comfortably resting in his bed saturating well on room air. His vitals has been stable with MAP greater than 65. CBC with platelet count 77, chemistry panel with sodium 132, chloride 83, bicarb 31, anion gap 18, BUN 22, creatinine 5.8, EGFR 10 with corrected calcium 7.5 and phosphorus 8.6. Liver enzymes improving. We tapered down his pressor support, and he tolerated it well. The plan is to downgrade the patient by tomorrow if his vitals are stable. 01/26/2024: The patient was interviewed and examined at the bedside this morning. He reported doing well and was comfortably saturating at 96% on room air. His blood pressure has been soft but maintaining MAP greater than 65, and the goal MAP level is greater than 60. Physical exam was unremarkable. Labs were significant for potassium 3.3, that was repleted, renal function mildly improving with BUN 105, creatinine 5.1, corrected calcium 7.7 and phosphorus 7.9. AST and ALT trending down. Exam Vital Signs Temp Pulse Resp BP Pulse Ox O2 Del Method O2 Flow Rate 98.9 F 69 18 86/66 L 100 Room Air 4 01/26/24 04:00 01/26/24 10:01 01/26/24 10:01 01/26/24 10:01 01/26/24 10:01 01/26/24 10:01 12/03/24 06:24 FiO2 40 01/25/24 18:15 Narrative Exam General: Chacetic elderly male, laying comfortably in bed, not in acute distress, A and O x 3 HEENT: Normocephalic, atraumatic, EOMI, PERRLA, moist oral mucosa, normal dentition. Cardiac: Regular rate and rhythm, normal S1/S2, no murmurs. Lungs: CTAB, no crackles or wheezes, normal effort. Abdomen: Soft, nontender, nondistended, positive bowel sounds in all quadrants. No guarding or rebound tenderness. Neuro: Alert and oriented to name and date of and place. CN II- XII intact, no focal motor deficit noted, BUE/BLE motor function and sensation intact and equal. Extremities: Normal to inspection, No edema, no cyanosis Psych: Normal mood and affect. Objective Labs 01/26/24 04:39 01/26/24 04:39 Labs: Laboratory Results - last 24 hr 01/23/24 01/25/24 01/26/24 16:22 16:15 04:39 WBC 10.9 H RBC 4.62 Hgb 13.5 Hct 39.1 L MCV 85 MCH 29.2 MCHC 34.5 RDW Std Deviation 42.0 Plt Count 81 L Neut % (Auto) 68 Lymph % (Auto) 14 [place] % (Auto) 16 H Eos % (Auto) 1 Baso % (Auto) 0 Neut # (Auto) 7.4 Lymph # (Auto) 1.5 [place] # (Auto) 1.8 H Eos # (Auto) 0.1 Baso # (Auto) 0.0 Immature Gran # (Auto) 0.05 H Absolute Nucleated RBC 0.02 H Immature Gran % 1 H Nucleated RBC % 0 Sodium 133 L Potassium 4.3 D 3.3 L D Chloride 86 L Carbon Dioxide 33.7 H Anion Gap 13 BUN 105 H* Creatinine 5.1 H* D Estim Creat Clear Calc 11.0 L eGFR 12 L* BUN/Creatinine Ratio 21 H Glucose 99 Calculated Osmolality 299 H Calcium 7.7 L Corrected Calcium 7.7 L Phosphorus 7.9 H Magnesium 2.1 Total Bilirubin 2.0 H AST 319 H ALT 1684 H* Alkaline Phosphatase 133 H Total Protein 7.3 Albumin 4.0 Globulin 3.3 Albumin/Globulin Ratio 1.2 Heparin-Ind Plt Ab Scrn NEGATIVE Heparin Dep Plt Ab OD 0.153 ABG Interpretation ABG results: 01/18/24 01/18/24 01/19/24 11:29 21:30 04:35 ABG pH 7.51 H 7.49 H 7.29 L D ABG pCO2 17 L* 19 L* 20 L ABG pO2 221 H 245 H D 143 H D ABG HCO3 13 L 14 L 9 L* ABG O2 Saturation 100 H 100 H 99 H ABG Base Excess -7 L -7 L -15 L VBG pH VBG pCO2 VBG pO2 VBG Base Excess 01/19/24 01/19/24 01/19/24 11:01 11:11 18:13 ABG pH 7.26 L 7.32 L ABG pCO2 28 L 26 L ABG pO2 149 H 164 H ABG HCO3 13 L 14 L ABG O2 Saturation 99 H 100 H ABG Base Excess -13 L -11 L VBG pH 7.26 L VBG pCO2 32 L VBG pO2 46 VBG Base Excess -12 L 01/19/24 01/19/24 01/19/24 18:30 23:00 23:19 ABG pH 7.40 ABG pCO2 29 L ABG pO2 101 D ABG HCO3 18 L ABG O2 Saturation 98 ABG Base Excess -6 L VBG pH 7.35 7.41 VBG pCO2 24 L 28 L VBG pO2 44 129 H D VBG Base Excess -11 L -6 L 01/20/24 01/20/24 01/20/24 00:57 05:52 06:00 ABG pH 7.43 ABG pCO2 28 L ABG pO2 128 H D ABG HCO3 19 L ABG O2 Saturation 99 H ABG Base Excess -5 L VBG pH 7.39 7.42 VBG pCO2 31 L 29 L VBG pO2 141 H 61 H D VBG Base Excess -5 L -4 L 01/20/24 01/20/24 01/20/24 12:18 13:06 19:44 ABG pH 7.39 7.36 ABG pCO2 36 39 ABG pO2 102 D 101 ABG HCO3 22 22 ABG O2 Saturation 98 97 ABG Base Excess -3 -3 VBG pH 7.30 L 7.40 VBG pCO2 45 D 35 L D VBG pO2 41 D 61 H D VBG Base Excess -4 L -2 01/21/24 01/21/24 01/22/24 04:38 04:42 05:40 ABG pH 7.41 ABG pCO2 35 ABG pO2 84 ABG HCO3 22 ABG O2 Saturation 96 ABG Base Excess -3 VBG pH 7.38 7.47 VBG pCO2 40 37 VBG pO2 35 D 59 H D VBG Base Excess -1 3 01/22/24 01/23/24 01/23/24 05:51 05:17 08:27 ABG pH 7.52 H D 7.45 ABG pCO2 31 L 44 D ABG pO2 81 L 79 L ABG HCO3 25 31 H ABG O2 Saturation 97 96 ABG Base Excess 3 6 H VBG pH 7.48 VBG pCO2 42 VBG pO2 57 VBG Base Excess 7 H Quality Measures Quality Measures none Advance care planning discussed with:: patient Assessment & Plan Assessment Current Active Medications: Generic Name Dose Route Start Last Admin Trade Name Freq PRN Reason Stop Dose Admin Acetaminophen 650 mg 01/17/24 21:38 Acetaminophen 325 Mg Tablet PO 02/16/24 21:37 Q6H PRN PAIN OR FEVER > 101 Amiodarone HCl 200 mg 01/21/24 21:00 01/26/24 08:16 Amiodarone Hcl 200 Mg Tablet PO 02/20/24 20:59 200 mg BID VINCE Administration Aspirin 81 mg 01/18/24 09:00 01/26/24 08:16 Aspirin Ec 81 Mg Tabec PO 02/17/24 08:59 81 mg QDAY VINCE Administration Bumetanide 2 mg 01/26/24 09:00 01/26/24 08:18 Bumetanide Inj 0.25 Mg/Ml Vial 4 Ml IVP 02/25/24 08:59 2 mg Q12HR VINCE Administration Calcium Carbonate 600 mg 01/25/24 09:00 01/26/24 08:16 Calcium Carbonate 600 Mg Tablet PO 02/24/24 08:59 600 mg QDAY VINCE Administration Docusate Sodium 250 mg 01/23/24 09:33 Docusate Sod 250 Mg Capsule PO 02/22/24 09:32 QDAY PRN CONSTIPATION Protocol Heparin Sodium (Porcine) 5,000 unit 01/20/24 17:00 01/26/24 08:18 Heparin Sod Inj 5000 Unit/Ml Vial SC 02/03/24 16:59 5,000 unit Q12HR VINCE Administration Pantoprazole Sodium 40 mg 01/18/24 09:00 01/26/24 08:16 Pantoprazole 40 Mg Tablet PO 02/17/24 08:59 40 mg QDAY VINCE Administration Psyllium Hydrophilic Mucilloid 1 pkt 01/22/24 09:15 01/26/24 08:19 Psyllium 1 Pkt Packet PO 02/21/24 09:14 Not Given QDAY VINCE Protocol Sodium Chloride 3 ml 01/19/24 06:48 01/19/24 06:57 Sodium Chloride Rt Jackie 0.9% 3 Ml Nebu INH 02/18/24 06:47 3 ml PRN PRN Administration TO MIX WITH ALBUTEROL Plan 68-year-old male with no significant past medical history admitted to the hospital chief complaints of shortness of breath and diagnosed to have acute hypoxic respiratory failure secondary to HFrEF exacerbation. 01/26/2024: The patient was interviewed and examined at the bedside this morning. He reported doing well and was comfortably saturating at 96% on room air. His blood pressure has been soft but maintaining MAP greater than 65, and the goal MAP level is greater than 60. Physical exam was unremarkable. Labs were significant for potassium 3.3, that was repleted, renal function mildly improving with BUN 105, creatinine 5.1, corrected calcium 7.7 and phosphorus 7.9. AST and ALT trending down. NEURO Patient is awake, alert, and oriented x3, following commands, conversational. #Chronic methamphetamine use -Counselled regarding stopping it CARDIO # Cardiogenic shock, improved # Dilated cardiomyopathy, 2/2 meth use and smoking # Elevated trop - likely Tpe II, downtrended -Likely exacerbated in the setting of suspected pneumonia in the right lobe and continued meth use. -Presented to the hospital with complaints of shortness of breath, orthopnea, PND -Denies palpitations, fever, pedal edema, abdominal distention. -Chest x-ray showed hyperinflation of bilateral lungs with patchy infiltrate in right lower lobe-pneumonia versus mass. -labs showed elevated BNP, Troponins that downtrended later. urine toxicology tested positive for meth. -Echo done on 01/17/2024 showed dilated cardiomyopathy - Mild to moderately dilated LV and RV. Moderate biatrial dilatation. Severe LV systolic dysfunction. Severe global hypokinesis. Estimated EF around 10% .Diastolic dysfunction present but cannot be graded due to Afib. Plan -Weaned off the pressures -Currently maintaining MAP > 65, goal is MAP >60 # Atrial fibrillation with rapid ventricular rate -reverted to to normal sinus rhythm on 01/19/2024 -Patient was found to have sinus rhythm on EKG at the time of admission. -After starting Levophed and dobutamine drip, patient developed atrial fibrillation -[id number] score of 2, age and CHF Plan -Patient on PO Amiodarone 200mg bid. -Heparin drip was stopped in view of high has-bled score with more risk of bleeding than having a stroke based on [id number] 2, and his platelet count in 70s -Plan to resume Eliquis when creatinine clearance greater than 15 #HFrEF -Patient was found to have LVEF 10% Plan: Plan to resume GDMT as tolorated PULM #Acute hypoxic respiratory failure 03/26 #Pulmonary Edema in the setting of cardiogenic shock #Right lung pneumonia -Resolved -admitted to hospital with complaints of shortness of breath -chest x ray showed right patchy infiltrate in the middle lobe. Plan -Ceftriaxone 1 g IV twice daily(01/17-01/24) -Doxycycline 100mg BID(01/17-01/24) #Chronic smoker #Probable COPD - smoking history of >40 pack years. - condition is stable as of now. GI # Transaminitis, downtrending Due to underlying cardiogenic shock -Labs on 01/19/2024 showed AST> 1000, ALT 931 plan -AST and ALT are continuously uptrending as of 01/20/2024 -Will continue to monitor LFTs NEPHRO # ATN 2 cardiogenic shock -Creatinine in 12/2018 is 1.1 and at the time of admission is 2.1 -Adequate UO -Mild improvement in Renal panel Plan -Dialysis option is given for the patient but patient denied further invasive treatments -Bumex 2 Mg IV BID to help with hepatic and renal congestion, as per high school science teacher recommendation -Will continue to monitor renal functions and renally dose medications. -Will continue to monitor urine output. #Anion gap metabolic acidosis, improved -Due to underlying shock -Bicarb on 01/19/2024 is 10.2 and anion gap is 22, lactate is 7.8. -Bicarb is within normal limits Plan -bicarb drip is stopped around 4 PM 01/20/24. -Will continue to monitor ABG, CMP and correct accordingly HEME #Thromobcytopenia Plt dropped from 180 to 74. DDx: Possibly multifactorial; Most likely acute liver failure, others statin and amiodarone use, unlikely DIC/TTP. Unlikely DIC as Drop consistent with initiation of Amiodarone on 01/19. Discuss with cardiology starting patient on Digoxin and discontinuation of Amiodarone. Continue to monitor CBC, and signs of bleeding. 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 ENDO #No active problems ID #Right lung pneumonia DDx: mass in right middle lobe -Admitted with shortness of breath started 3 weeks before admitting into the hospital. -Denies fever, chills, cough. -CBC is within normal limits. -Chest x-ray showed right patchy consolidation which was not present in 2019 -Patient did not get CT chest in view of his hemodynamic instability Plan -Ceftriaxone and doxycycline(01/17-01/24), currently stable -CT was not done in view of hemodynamic instability. MSK #No active problems SKIN #No active problems Health maintenance: Dispo: Patient was admitted to ICU unit for further management of cardiogenic shock and AHRF secondary to pulmonary edema and being downgraded to telemetry unit for further management of HFrEF and atrial fibrillation DVT prophylaxis: Heparin SC GI prophylaxis: Protonix Diet: Cardiac/ renal diet Clark: Condom cath Lines: PIV CODE STATUS: DNR/DNI Plan of care discussed with attending Dr. Rolf Ontiveros MD, PGY2
--- NOTE | 2024-01-26 14:45 | PC.NURSE ---
Patient going in and out of afib/ a flutter, Dr. Ontiveros notified, HR under 110, no new orders.
--- NOTE | 2024-01-26 14:53 | PD.RESEVENT ---
Documentation for date of: 01/26/24 Event Note Event Note: The hospitalist team received a downgrade from ICU, 67-year-old male, [place], admitted for acute hypoxemic respiratory failure 2/2 pulmonary edema and CHF exacerbation 2/2 METH use. Patient initially intubated and required pressors and continued on BUMEX. Currently off pressors. In the interim she developed ATN with creatinine 7, has been improving, currently 5.1. Additionally, patient developed new onset A-fib, currently rate controlled. Initially was on HEPARIN drip which was stopped as patient developed acute liver failure. ELIQUIS was not been started due to poor renal function, nephrology team following, may start ELIQUIS once GFR >15. Additionally, per cardiology, pacemaker contraindicated secondary to active METH use. Hospitalist team will assume care on 01/27/2024 in AM. Patient case was discussed with attending, Dr. Ramon MCKEON and senior residents Dr. Shah and Dr. Chan. Millie Laird DO PGYI
--- NOTE | 2024-01-26 16:52 | PC.NURSE ---
Patient moved from ICU to tele, Hand off received from Keerthi RN, patient stable, no difficulty breathing and no pain.
[2024-01-27] VITALS (15 sets, daily range): BP systolic 91–118; BP diastolic 62–80; PULSE 83–120; RESP 16–98; TEMP 36.1–36.6; O2SAT 94–99
[2024-01-27 06:22] LABS: Basophils % (Auto) 0 % (0-2.5); Eosinophils # (Auto) 0.1 Thou/mm3 (0.0-0.5); Eosinophils % (Auto) 1 % (0-10); Hematocrit 41.6 % (41.0-53.0); Hemoglobin 14.5 g/dL (13.5-16.0); Immature Granulocytes % (Auto) 1 % (0-0); Immature Granulocytes Auto 0.06 Thou/mm3 (0.00-0.00); Lymphocytes # (Auto) 1.7 Thou/mm3 (1.0-4.8); Lymphocytes % (Auto) 13 % (10-50); Mean Corpuscular HGB Conc 34.9 g/dl (31.0-37.0); Mean Corpuscular Hemoglobin 29.1 pg (25.0-35.0); Mean Corpuscular Volume 83 fL (80-100); Monocytes # (Auto) 1.8 Thou/mm3 (0.0-0.8); Monocytes % (Auto) 14 % (0-12); Neutrophils % (Auto) 71 % (37-80); Nucleated Red Blood Cell % 0 /100 WBC (0); Platelet Count 92 Thou/mm3 (140-440); RDW Standard Deviation 41.2 fL (35.1-43.9); Red Blood Count 4.99 Miln/mm3 (4.50-5.90); White Blood Count 12.7 Thou/mm3 (3.8-10.6)
[2024-01-27 07:03] LABS: Alanine Aminotransferase 1241 U/L (10-49); Albumin, Serum 4.1 gm/dL (3.4-4.8); Albumin/Globulin Ratio 1.2 (1.2-2.2); Alkaline Phosphatase 134 U/L (46-116); Anion Gap 14 (7-16); Aspartate Amino Transferase 156 U/L (0-34); BUN/Creatinine Ratio 23 Ratio (12-20); Bilirubin,Total 1.6 mg/dL (0.3-1.2); Calcium 7.9 mg/dL (8.3-10.6); Calcium (Corrected) 7.9 mg/dL (8.5-10.1); Carbon Dioxide 32.1 mMol/L (20.0-31.0); Chloride 87 mMol/L (98-107); Creatinine (Component) 4.3 mg/dL (0.6-1.3); Estimated Creatinine Clearance 13.2 mL/min (>60); Globulin 3.4 gm/dL (2.3-3.5); Glucose 112 mg/dL (74-106); Magnesium 2.2 mg/dL (1.6-2.6); Osmolality,Calculated 298 (275-295); Potassium 3.4 mMol/L (3.4-5.1); Sodium 133 mMol/L (136-145); Total Protein 7.5 gm/dL (5.7-8.2); eGFR 14 See Note
[2024-01-27 07:10] LABS: Blood Urea Nitrogen 101 mg/dL (9-23)
--- NOTE | 2024-01-27 07:37 | PD.RESPRO ---
Documentation for date of: 01/27/24 Exam Vital Signs Temp Pulse Resp BP Pulse Ox O2 Del Method O2 Flow Rate 97.2 F 105 H 21 H 118/63 97 Room Air 4 01/27/24 04:00 01/27/24 07:18 01/27/24 07:18 01/27/24 04:00 01/27/24 07:18 01/27/24 04:00 01/25/24 06:24 FiO2 40 01/25/24 18:15 Objective Labs 01/27/24 05:55 01/27/24 05:55 Labs: Laboratory Results - last 24 hr 01/27/24 05:55 WBC 12.7 H RBC 4.99 Hgb 14.5 Hct 41.6 MCV 83 MCH 29.1 MCHC 34.9 RDW Std Deviation 41.2 Plt Count 92 L Neut % (Auto) 71 Lymph % (Auto) 13 [place] % (Auto) 14 H Eos % (Auto) 1 Baso % (Auto) 0 Neut # (Auto) 9.0 H Lymph # (Auto) 1.7 [place] # (Auto) 1.8 H Eos # (Auto) 0.1 Baso # (Auto) 0.0 Immature Gran # (Auto) 0.06 H Absolute Nucleated RBC 0.00 Immature Gran % 1 H Nucleated RBC % 0 Sodium 133 L Potassium 3.4 Chloride 87 L Carbon Dioxide 32.1 H Anion Gap 14 BUN 101 H* Creatinine 4.3 H* D Estim Creat Clear Calc 13.2 L eGFR 14 L* BUN/Creatinine Ratio 23 H Glucose 112 H Calculated Osmolality 298 H Calcium 7.9 L Corrected Calcium 7.9 L Phosphorus 7.0 H Magnesium 2.2 Total Bilirubin 1.6 H AST 156 H ALT 1241 H* Alkaline Phosphatase 134 H Total Protein 7.5 Albumin 4.1 Globulin 3.4 Albumin/Globulin Ratio 1.2 ABG Interpretation ABG results: 01/18/24 01/18/24 01/19/24 11:29 21:30 04:35 ABG pH 7.51 H 7.49 H 7.29 L D ABG pCO2 17 L* 19 L* 20 L ABG pO2 221 H 245 H D 143 H D ABG HCO3 13 L 14 L 9 L* ABG O2 Saturation 100 H 100 H 99 H ABG Base Excess -7 L -7 L -15 L VBG pH VBG pCO2 VBG pO2 VBG Base Excess 01/19/24 01/19/24 01/19/24 11:01 11:11 18:13 ABG pH 7.26 L 7.32 L ABG pCO2 28 L 26 L ABG pO2 149 H 164 H ABG HCO3 13 L 14 L ABG O2 Saturation 99 H 100 H ABG Base Excess -13 L -11 L VBG pH 7.26 L VBG pCO2 32 L VBG pO2 46 VBG Base Excess -12 L 01/19/24 01/19/24 01/19/24 18:30 23:00 23:19 ABG pH 7.40 ABG pCO2 29 L ABG pO2 101 D ABG HCO3 18 L ABG O2 Saturation 98 ABG Base Excess -6 L VBG pH 7.35 7.41 VBG pCO2 24 L 28 L VBG pO2 44 129 H D VBG Base Excess -11 L -6 L 01/20/24 01/20/24 01/20/24 00:57 05:52 06:00 ABG pH 7.43 ABG pCO2 28 L ABG pO2 128 H D ABG HCO3 19 L ABG O2 Saturation 99 H ABG Base Excess -5 L VBG pH 7.39 7.42 VBG pCO2 31 L 29 L VBG pO2 141 H 61 H D VBG Base Excess -5 L -4 L 01/20/24 01/20/24 01/20/24 12:18 13:06 19:44 ABG pH 7.39 7.36 ABG pCO2 36 39 ABG pO2 102 D 101 ABG HCO3 22 22 ABG O2 Saturation 98 97 ABG Base Excess -3 -3 VBG pH 7.30 L 7.40 VBG pCO2 45 D 35 L D VBG pO2 41 D 61 H D VBG Base Excess -4 L -2 01/21/24 01/21/24 01/22/24 04:38 04:42 05:40 ABG pH 7.41 ABG pCO2 35 ABG pO2 84 ABG HCO3 22 ABG O2 Saturation 96 ABG Base Excess -3 VBG pH 7.38 7.47 VBG pCO2 40 37 VBG pO2 35 D 59 H D VBG Base Excess -1 3 01/22/24 01/23/24 01/23/24 05:51 05:17 08:27 ABG pH 7.52 H D 7.45 ABG pCO2 31 L 44 D ABG pO2 81 L 79 L ABG HCO3 25 31 H ABG O2 Saturation 97 96 ABG Base Excess 3 6 H VBG pH 7.48 VBG pCO2 42 VBG pO2 57 VBG Base Excess 7 H Quality Measures Quality Measures none Assessment & Plan Assessment Current Active Medications: Generic Name Dose Route Start Last Admin Trade Name Freq PRN Reason Stop Dose Admin Acetaminophen 650 mg 01/17/24 21:38 Acetaminophen 325 Mg Tablet PO 02/16/24 21:37 Q6H PRN PAIN OR FEVER > 101 Amiodarone HCl 200 mg 01/21/24 21:00 01/26/24 20:31 Amiodarone Hcl 200 Mg Tablet PO 02/20/24 20:59 200 mg BID VINCE Administration Aspirin 81 mg 01/18/24 09:00 01/26/24 08:16 Aspirin Ec 81 Mg Tabec PO 02/17/24 08:59 81 mg QDAY VINCE Administration Bumetanide 2 mg 01/26/24 09:00 01/26/24 20:31 Bumetanide Inj 0.25 Mg/Ml Vial 4 Ml IVP 02/25/24 08:59 2 mg Q12HR VINCE Administration Calcium Carbonate 600 mg 01/25/24 09:00 01/26/24 08:16 Calcium Carbonate 600 Mg Tablet PO 02/24/24 08:59 600 mg QDAY VINCE Administration Docusate Sodium 250 mg 01/23/24 09:33 Docusate Sod 250 Mg Capsule PO 02/22/24 09:32 QDAY PRN CONSTIPATION Protocol Heparin Sodium (Porcine) 5,000 unit 01/20/24 17:00 01/26/24 20:32 Heparin Sod Inj 5000 Unit/Ml Vial SC 02/03/24 16:59 5,000 unit Q12HR VINCE Administration Acetazolamide Sodium 500 mg/ 50 mls @ 100 mls/hr 01/27/24 07:34 Sodium Chloride IV 01/27/24 08:03 X1 ONE Pantoprazole Sodium 40 mg 01/18/24 09:00 01/26/24 08:16 Pantoprazole 40 Mg Tablet PO 02/17/24 08:59 40 mg QDAY VINCE Administration Psyllium Hydrophilic Mucilloid 1 pkt 01/22/24 09:15 01/26/24 08:19 Psyllium 1 Pkt Packet PO 02/21/24 09:14 Not Given QDAY VINCE Protocol Sodium Chloride 3 ml 01/19/24 06:48 01/19/24 06:57 Sodium Chloride Rt Jackie 0.9% 3 Ml Nebu INH 02/18/24 06:47 3 ml PRN PRN Administration TO MIX WITH ALBUTEROL Plan change bumex to daily gave acetazolamide 500 x1
[2024-01-27] MEDS: ACETAzolaMIDE SOD 500 MG in SODIUM CHLORIDE 0.9% 50 ML 100 MG IV (08:43)
[2024-01-27] MEDS: BUMETANIDE INJ 0.25 MG/ML VIAL 4 ML 2 MG IVP (08:43)
[2024-01-27] MEDS: AMIODARONE HCL 200 MG TABLET PO ×2 (08:44→21:29)
[2024-01-27] MEDS: CALCIUM CARBONATE 600 MG TABLET PO (08:44)
[2024-01-27] MEDS: ASPIRIN EC 81 MG TABEC PO (08:44)
[2024-01-27] MEDS: PANTOPRAZOLE 40 MG TABLET PO (08:44)
[2024-01-27] MEDS: HEPARIN SOD INJ 5000 UNIT/ML VIAL SC ×2 (08:44→21:29)
--- NOTE | 2024-01-27 09:17 | ESPR_ITS ---
Documentation for date of: 01/27/24 Subjective Subjective Interval history: Patient was seen and examined at bedside this AM. Patient currently on room air during my exam No overnight events. His heart rate was mainly in the 90s to 100s overnight. Patient continue Bumex 2mg qday. Fluid balance of -0.5 L in the past 24 hours. Kidney function is improving with BUN of 101 and creatinine 4.3. LFTs also improved with AST at 156 compared to 319 previously and ALT now 1241 compared to greater than 1684 . Sodium is 133 and chloride is 87 potassium 3.4, magnesium 2.2 Recommend to continue IV diuresis for now with the Bumex 2 mg qday with a goal of net -2 L every day Recommend Diamox x1 Exam Vital Signs Temp Pulse Resp BP Pulse Ox O2 Del Method O2 Flow Rate 97.1 F 85 21 H 117/80 94 L Room Air 4 01/27/24 08:00 01/27/24 08:44 01/27/24 08:00 01/27/24 08:44 01/27/24 08:00 01/27/24 08:00 01/25/24 06:24 FiO2 40 01/25/24 18:15 Narrative Exam Constitutional Alert, oriented x 3 and no acute distress. Elderly male, cachectic HEENT Vision grossly intact. Patent nares. Trachea midline. Poor dentition, missing teeth Respiratory Chest normal on inspection, RIJ catheter site (out) clean and covered by dressing, clear breath sounds throughout lung chauhan b/l Cardiovascular S1 and S2 audible, RRR. No murmurs carotid bruit. JVD not assessed Abdominal Soft and non tender to palpation in all quadrants. BS + Genitourinary No bladder tenderness, no flank pain. Normal to palpation. Musculoskeletal Extremities tone within normal limits. No LE edema, ZAYRA UE edema at elbow level improved. Neurological CN II - XII grossly intact. Extremity motor and sensation grossly intact. Skin Warm, dry and intact. No apparent lesions. Psychiatric Patient has good affect, is cooperative Objective Labs 01/27/24 05:55 01/27/24 05:55 Labs: Laboratory Results - last 24 hr 01/27/24 05:55 WBC 12.7 H RBC 4.99 Hgb 14.5 Hct 41.6 MCV 83 MCH 29.1 MCHC 34.9 RDW Std Deviation 41.2 Plt Count 92 L Neut % (Auto) 71 Lymph % (Auto) 13 [place] % (Auto) 14 H Eos % (Auto) 1 Baso % (Auto) 0 Neut # (Auto) 9.0 H Lymph # (Auto) 1.7 [place] # (Auto) 1.8 H Eos # (Auto) 0.1 Baso # (Auto) 0.0 Immature Gran # (Auto) 0.06 H Absolute Nucleated RBC 0.00 Immature Gran % 1 H Nucleated RBC % 0 Sodium 133 L Potassium 3.4 Chloride 87 L Carbon Dioxide 32.1 H Anion Gap 14 BUN 101 H* Creatinine 4.3 H* D Estim Creat Clear Calc 13.2 L eGFR 14 L* BUN/Creatinine Ratio 23 H Glucose 112 H Calculated Osmolality 298 H Calcium 7.9 L Corrected Calcium 7.9 L Phosphorus 7.0 H Magnesium 2.2 Total Bilirubin 1.6 H AST 156 H ALT 1241 H* Alkaline Phosphatase 134 H Total Protein 7.5 Albumin 4.1 Globulin 3.4 Albumin/Globulin Ratio 1.2 ABG Interpretation ABG results: 01/18/24 01/18/24 01/19/24 11:29 21:30 04:35 ABG pH 7.51 H 7.49 H 7.29 L D ABG pCO2 17 L* 19 L* 20 L ABG pO2 221 H 245 H D 143 H D ABG HCO3 13 L 14 L 9 L* ABG O2 Saturation 100 H 100 H 99 H ABG Base Excess -7 L -7 L -15 L VBG pH VBG pCO2 VBG pO2 VBG Base Excess 01/19/24 01/19/24 01/19/24 11:01 11:11 18:13 ABG pH 7.26 L 7.32 L ABG pCO2 28 L 26 L ABG pO2 149 H 164 H ABG HCO3 13 L 14 L ABG O2 Saturation 99 H 100 H ABG Base Excess -13 L -11 L VBG pH 7.26 L VBG pCO2 32 L VBG pO2 46 VBG Base Excess -12 L 01/19/24 01/19/24 01/19/24 18:30 23:00 23:19 ABG pH 7.40 ABG pCO2 29 L ABG pO2 101 D ABG HCO3 18 L ABG O2 Saturation 98 ABG Base Excess -6 L VBG pH 7.35 7.41 VBG pCO2 24 L 28 L VBG pO2 44 129 H D VBG Base Excess -11 L -6 L 01/20/24 01/20/24 01/20/24 00:57 05:52 06:00 ABG pH 7.43 ABG pCO2 28 L ABG pO2 128 H D ABG HCO3 19 L ABG O2 Saturation 99 H ABG Base Excess -5 L VBG pH 7.39 7.42 VBG pCO2 31 L 29 L VBG pO2 141 H 61 H D VBG Base Excess -5 L -4 L 01/20/24 01/20/24 01/20/24 12:18 13:06 19:44 ABG pH 7.39 7.36 ABG pCO2 36 39 ABG pO2 102 D 101 ABG HCO3 22 22 ABG O2 Saturation 98 97 ABG Base Excess -3 -3 VBG pH 7.30 L 7.40 VBG pCO2 45 D 35 L D VBG pO2 41 D 61 H D VBG Base Excess -4 L -2 01/21/24 01/21/24 01/22/24 04:38 04:42 05:40 ABG pH 7.41 ABG pCO2 35 ABG pO2 84 ABG HCO3 22 ABG O2 Saturation 96 ABG Base Excess -3 VBG pH 7.38 7.47 VBG pCO2 40 37 VBG pO2 35 D 59 H D VBG Base Excess -1 3 01/22/24 01/23/24 01/23/24 05:51 05:17 08:27 ABG pH 7.52 H D 7.45 ABG pCO2 31 L 44 D ABG pO2 81 L 79 L ABG HCO3 25 31 H ABG O2 Saturation 97 96 ABG Base Excess 3 6 H VBG pH 7.48 VBG pCO2 42 VBG pO2 57 VBG Base Excess 7 H Quality Measures Quality Measures none Advance care planning discussed with:: patient Assessment & Plan Assessment Current Active Medications: Generic Name Dose Route Start Last Admin Trade Name Freq PRN Reason Stop Dose Admin Acetaminophen 650 mg 01/17/24 21:38 Acetaminophen 325 Mg Tablet PO 02/16/24 21:37 Q6H PRN PAIN OR FEVER > 101 Amiodarone HCl 200 mg 01/21/24 21:00 01/27/24 08:44 Amiodarone Hcl 200 Mg Tablet PO 02/20/24 20:59 200 mg BID VINCE Administration Aspirin 81 mg 01/18/24 09:00 01/27/24 08:44 Aspirin Ec 81 Mg Tabec PO 02/17/24 08:59 81 mg QDAY VINCE Administration Bumetanide 2 mg 01/27/24 09:00 01/27/24 08:43 Bumetanide Inj 0.25 Mg/Ml Vial 4 Ml IVP 02/26/24 08:59 2 mg QDAY VINCE Administration Calcium Carbonate 600 mg 01/25/24 09:00 01/27/24 08:44 Calcium Carbonate 600 Mg Tablet PO 02/24/24 08:59 600 mg QDAY VINCE Administration Docusate Sodium 250 mg 01/23/24 09:33 Docusate Sod 250 Mg Capsule PO 02/22/24 09:32 QDAY PRN CONSTIPATION Protocol Heparin Sodium (Porcine) 5,000 unit 01/20/24 17:00 01/27/24 08:44 Heparin Sod Inj 5000 Unit/Ml Vial SC 02/03/24 16:59 5,000 unit Q12HR VINCE Administration Pantoprazole Sodium 40 mg 01/18/24 09:00 01/27/24 08:44 Pantoprazole 40 Mg Tablet PO 02/17/24 08:59 40 mg QDAY VINCE Administration Psyllium Hydrophilic Mucilloid 1 pkt 01/22/24 09:15 01/27/24 08:45 Psyllium 1 Pkt Packet PO 02/21/24 09:14 Not Given QDAY VINCE Protocol Sodium Chloride 3 ml 01/19/24 06:48 01/19/24 06:57 Sodium Chloride Rt Jackie 0.9% 3 Ml Nebu INH 02/18/24 06:47 3 ml PRN PRN Administration TO MIX WITH ALBUTEROL Plan Patient is a 68-year-old male with no significant past medical history who presented to the ED with a chief complaint of shortness of breath. Patient was admitted for acute respiratory failure with hypoxia secondary to community-acquired pneumonia and CHF exacerbation. Cardiology was consulted. 1. Acute respiratory failure with hypoxia Secondary to 2. Acute decompensated systolic heart failure exacerbation [EF 10%] 3. Cardiogenic shock 4. Dilated cardiomyopathy On admission patient has history of progressively worsening shortness of breath for the past 3 weeks. On exam patient is in mild distress on O2 via NC and breath sounds were decreased globally. No signs of lower extremity edema. Patient not previously diagnosed with heart failure in the past and not on any medication at home. On admission BNP 2864 NYHA Class IV Stage C Transthoracic echocardiogram completed on 01/16 findings include: Dilated cardiomyopathy - Mild to moderately dilated LV and RV. Moderate biatrial dilatation. Severe LV systolic dysfunction. Severe global hypokinesis. Estimated EF around 10% Diastolic dysfunction present but cannot be graded due to Afib. Moderate RV dysfunction. Estimated RVSP 40 mmHg. Moderate MR. Mild TR,PI. Mild AV sclerosis without stenosis, IVC dilated and pleural effusion present. Patient was seen and examined in ICU this AM. Patient currently on room air during my exam Overnight patient had multiple PVCs and PACs as well as episodes of trigeminy and bigeminy and was in and out of A-fib. His heart rate was mainly in the 60s to 70s overnight. Patient continues on Bumex 2 mg every 12 hours. Fluid balance of -1.7 L in the past 24 hours. Kidney function is mildly improving with BUN of 101 and creatinine 4.3. LFTs also improved with AST at 156 compared to 319 previously and ALT now 1241 compared to greater than 1684 Sodium is 133 and chloride is 87 potassium 3.4, magnesium 2.1 Recommend to continue IV diuresis for now with the Bumex 2 mg qday with a goal of net -2 L every day Patient currently off al pressors Plan: ? Strict input output charting ? Daily weights ? 2 g salt restricted diet ? 1500 cc fluid restriction ? Continue diuresis with Bumex 2 mg qday -Recommend Diamox x1 due to patient developing contraction alkalosis ? Recommend to continue patient on midodrine 10 Mg p.o. 3 times daily ?Recommend keeping potassium above 4 and magnesium above 2 ? Patient counseled on methamphetamine, cocaine and all drug cessation. 5. Rule out ACS 6. NSTEMI -mostly type II secondary to supply/demand mismatch given the severe dilated cardiomyopathy Patient had progressive SOB for the past 3 weeks but denies any chest pain or pressure. Unlikely acute coronary syndrome and troponin elevation mostly secondary to supply/demand mismatch given severe dilated cardiomyopathy in the setting of significant drug abuse including methamphetamine and other drugs. Initial EKG showed sinus rhythm with occasional PVCs, left atrial enlargement repeat EKG showed atrial fibrillation with RVR, rate 120. No acute ST changes Troponin were elevated at 1.171 up trended to 1.235 and subsequently down trended to 0.98 Plan: ? Heparin infusion discontinued as >48 hours ? Continue aspirin 81 Mg p.o. daily ? Can hold high intensity statin in light of Ischemic hepatitis ? No need to further trend troponin - Continue medical management for now 7. A-fib with RVR?new onset Patient admitted to having intermittent palpitations for years with some episodes lasting for days before resolving. Initial EKG showed sinus rhythm with occasional PVCs, left atrial enlargement repeat EKG showed atrial fibrillation with RVR, rate 120. No acute ST changes. From telemetry review patient continues to be in/out of A-fib with some PAC's and sinus tachy. [id number] : 1 point ; 0.6 % stroke risk per year [age] Plan: ? Continue amiodarone 200 mg twice daily ? Recommend rate control with metoprolol XL 50 Mg p.o. daily if patient's blood pressure allows. - Heparin drip for NSTEMI completed, can transition to eliquis ? Continue telemetry review ? Please maintain potassium greater than 4 and magnesium greater than 2 at all times to prevent any further arrhythmias 8. Community-acquired pneumonia Patient had shortness of breath for past 3 weeks as well as a nonproductive cough. Chest x-ray on admission was significant for right mid zone consolidation. Patient continues on ceftriaxone. Blood and sputum cultures negative. Continue management as per primary team 9. MARIANO likely prerenal 10. Acute Renal Failure 11. Transaminitis 12. Multi- organ Failure On admission patient's CR 2 currently up trended to 2.1. Unable to assess baseline as no previous records for comparison. Likely in the setting of cardiogenic shock and dehydration. Patient bicarb 32.1, BUN stable at 101, CR decreased to 4.3 from 5.8 Recommend stat nephrology consult as well Lactic acid downtrended to 1.5 LFTs also improved with AST at 156 compared to 319 previously and ALT now 1241 compared to greater than 1684 Plan: - ICU team had goals of care discussion with the patient as well as his surrogate decision maker is friend. - Patient offered the option of Dialysis but refused any further invasive procedures and switched his code status to DNR 13. Likely COPD 14. Nicotine dependence 15. History of polysubstance abuse Patient has [id number] smoking history and now has shortness of breath for the past 3 weeks along with productive cough. Clinically he is cachectic and appears to have decreased breath sounds globally suggestive of COPD. Patient will need to be further worked up as an outpatient. Patient admitted to using methamphetamine and cocaine for many years as well with U tox being positive for methamphetamine on admission. Patient counseled extensively on drug cessation. Patient agreed - ICU team had goals of care discussion with the patient as well as his surrogate decision maker is friend. - Patient offered the option of Dialysis but refused any further invasive procedures and switched his code status to DNR Continue rest of management as per primary team. We are grateful to be able to participate in Mr. Peñaloza's care. Thank you for the consult Plan of care discussed with attending Collections Rep, Dr Yudelka Andersen PGY-1 Attending Provider Attestation/Addendum I reviewed the resident Dr. Dias consultation progress note and agree with the resident findings and plan in the note above and have also edited the documentation to reflect my findings and plan. Reynaldo Jha M.D. Interventional Cardiology
--- NOTE | 2024-01-27 13:52 | ESPR_ITS ---
<Statement entered by Eileen Shah MD - 01/28/24 07:50> Patient was seen and examined by me personally. I agree with most of the assessment and plan as discussed with the electrical engineering intern physician, and my attending, Dr. Navarro. Patient downgraded from ICU. LFTs, Renal function improving. Will continue with diuresis, and monitor chem panel. Eileen Shah MD, PGY-3 Documentation for date of: 01/27/24 Subjective Subjective Interval history: Patient was seen and examined bedside. No acute overnight events. Denies any other complaints. Vitals are stable and patient is still in A-fib. Labs showed marked improvement in renal and liver functions. Making adequate amount of urine. Will continue current management Exam Vital Signs Temp Pulse Resp BP Pulse Ox O2 Del Method O2 Flow Rate 97.1 F 85 21 H 117/80 94 L Room Air 4 01/27/24 08:00 01/27/24 08:44 01/27/24 08:00 01/27/24 08:44 01/27/24 08:00 01/27/24 08:00 01/25/24 06:24 FiO2 40 01/25/24 18:15 Narrative Exam General: Awake and in no acute distress. Cachectic and chronically ill HEENT: Normocephalic, atraumatic, mucous membranes moist. Heart: Regular rate and rhythm, no murmurs. Lungs: Clear to auscultation with no wheezing or crackles. Overall, bilateral decreased breath sounds Abdomen: Soft, nondistended, nontender, positive bowel sounds. ?No guarding or rebound tenderness. Neurologic: Alert and oriented x3, no gross neurological deficit, and patient able to move all 4 extremities. Extremities: No edema. Skin: No rash or ecchymoses. Objective Labs 01/28/24 05:10 01/28/24 07:22 Labs: Laboratory Results - last 24 hr 01/27/24 05:55 WBC 12.7 H RBC 4.99 Hgb 14.5 Hct 41.6 MCV 83 MCH 29.1 MCHC 34.9 RDW Std Deviation 41.2 Plt Count 92 L Neut % (Auto) 71 Lymph % (Auto) 13 [place] % (Auto) 14 H Eos % (Auto) 1 Baso % (Auto) 0 Neut # (Auto) 9.0 H Lymph # (Auto) 1.7 [place] # (Auto) 1.8 H Eos # (Auto) 0.1 Baso # (Auto) 0.0 Immature Gran # (Auto) 0.06 H Absolute Nucleated RBC 0.00 Immature Gran % 1 H Nucleated RBC % 0 Sodium 133 L Potassium 3.4 Chloride 87 L Carbon Dioxide 32.1 H Anion Gap 14 BUN 101 H* Creatinine 4.3 H* D Estim Creat Clear Calc 13.2 L eGFR 14 L* BUN/Creatinine Ratio 23 H Glucose 112 H Calculated Osmolality 298 H Calcium 7.9 L Corrected Calcium 7.9 L Phosphorus 7.0 H Magnesium 2.2 Total Bilirubin 1.6 H AST 156 H ALT 1241 H* Alkaline Phosphatase 134 H Total Protein 7.5 Albumin 4.1 Globulin 3.4 Albumin/Globulin Ratio 1.2 ABG Interpretation ABG results: 01/18/24 01/18/24 01/19/24 11:29 21:30 04:35 ABG pH 7.51 H 7.49 H 7.29 L D ABG pCO2 17 L* 19 L* 20 L ABG pO2 221 H 245 H D 143 H D ABG HCO3 13 L 14 L 9 L* ABG O2 Saturation 100 H 100 H 99 H ABG Base Excess -7 L -7 L -15 L VBG pH VBG pCO2 VBG pO2 VBG Base Excess 01/19/24 01/19/24 11:01 11:11 ABG pH 7.26 L ABG pCO2 28 L ABG pO2 149 H ABG HCO3 13 L ABG O2 Saturation 99 H ABG Base Excess -13 L VBG pH 7.26 L VBG pCO2 32 L VBG pO2 46 VBG Base Excess -12 L Quality Measures Quality Measures none Advance care planning discussed with:: patient Assessment & Plan Assessment Current Active Medications: Generic Name Dose Route Start Last Admin Trade Name Freq PRN Reason Stop Dose Admin Acetaminophen 650 mg 01/17/24 21:38 Acetaminophen 325 Mg Tablet PO 02/16/24 21:37 Q6H PRN PAIN OR FEVER > 101 Aspirin 81 mg 01/18/24 09:00 01/19/24 11:12 Aspirin Ec 81 Mg Tabec PO 02/17/24 08:59 Not Given QDAY VINCE Atorvastatin Calcium 40 mg 01/18/24 21:00 01/18/24 21:45 Atorvastatin Calcium 20 Mg Tablet PO 02/17/24 20:59 40 mg HS VINCE Administration Furosemide 40 mg 01/18/24 16:00 01/19/24 05:43 Furosemide Inj 10 Mg/Ml 4ml Vial IVP 02/17/24 15:59 40 mg TID VINCE Administration Ceftriaxone Sodium/Dextrose 50 mls @ 100 mls/hr 01/18/24 21:00 01/19/24 10:09 Rocephin/D5w 1gm Iv Premix IV 01/25/24 20:59 Infused DAILY@2100 VINCE Infusion Doxycycline Hyclate 100 mg/ 100 mls @ 100 mls/hr 01/18/24 09:00 01/19/24 11:22 Sodium Chloride IV 01/25/24 08:59 Infused BID VINCE Infusion Heparin Sodium/Dextrose 25,000 unit in 250 mls @ 7.871 mls/hr 01/18/24 02:30 01/19/24 11:40 Heparin In D5w Ivpb IV 02/01/24 02:29 Infused .Q24H VINCE Titration Protocol 12 UNITS/KG/HR Dobutamine HCl/Dextrose 500 mg in 250 mls @ 1.899 mls/hr 01/18/24 11:08 01/19/24 07:00 Dobutrex/D5w Ivpb IV 02/17/24 11:07 3.5 mcg/kg/min .Q24H PRN 6.647 mls/hr PER PROTOCOL Titration Protocol 1 MCG/KG/MIN Norepinephrine Bitartrate 16 mg in 250 mls @ 2.967 mls/hr 01/18/24 11:18 01/19/24 13:13 Levophed In Ns 16mg/250ml IV 02/17/24 11:07 0.62 mcg/kg/min .Q24H PRN 36.795 mls/hr PER protocol Titration Protocol 0.05 MCG/KG/MIN Amiodarone HCl/Dextrose 360 mg in 200 mls @ 16.667 mls/hr 01/18/24 23:31 01/19/24 11:22 Nexterone Ivpb IV 01/19/24 23:30 16.667 mls/hr .Q12H VINCE Administration Vasopressin/Sodium Chloride 20 unit in 100 mls @ 9 mls/hr 01/19/24 07:11 01/19/24 07:46 Vasostrict/Ns Ivpb IV 02/18/24 07:10 0.03 unit/min .Q11H7M PRN 9 mls/hr PER PROTOCOL Administration Protocol 0.03 UNIT/MIN Sodium Bicarbonate 100 meq/ 600 mls @ 50 mls/hr 01/19/24 11:15 01/19/24 11:25 Dextrose IV 02/18/24 11:14 50 mls/hr .Q12H VINCE Administration Ondansetron HCl 4 mg 01/17/24 21:38 Ondansetron Inj 2 Mg/Ml Inj 2 Ml IV 02/16/24 21:37 Q6H PRN NAUSEA OR VOMITING Protocol Pantoprazole Sodium 40 mg 01/18/24 09:00 01/19/24 11:12 Pantoprazole 40 Mg Tablet PO 02/17/24 08:59 Not Given QDAY VINCE Sennosides 1 tab 01/18/24 09:00 01/19/24 11:12 Senna Tablet PO 02/17/24 08:59 Not Given QDAY VINCE Protocol Sodium Chloride 3 ml 01/19/24 06:48 01/19/24 06:57 Sodium Chloride Rt Jackie 0.9% 3 Ml Nebu INH 02/18/24 06:47 3 ml PRN PRN Administration TO MIX WITH ALBUTEROL Plan 68-year-old male with no significant past medical history admitted to the hospital chief complaints of shortness of breath and diagnosed to have acute hypoxic respiratory failure secondary to HFrEF exacerbation. # Cardiogenic shock, improved # Dilated cardiomyopathy, 2/2 meth use and smoking # Elevated trop - likely Tpe II, downtrended #HFrEF, EF 10% -Likely exacerbated in the setting of suspected pneumonia in the right lobe and continued meth use. -Presented to the hospital with complaints of shortness of breath, orthopnea, PND -Denies palpitations, fever, pedal edema, abdominal distention. -Chest x-ray showed hyperinflation of bilateral lungs with patchy infiltrate in right lower lobe-pneumonia versus mass. -labs showed elevated BNP, Troponins that downtrended later. urine toxicology tested positive for meth. -Echo done on 01/17/2024 showed dilated cardiomyopathy - Mild to moderately dilated LV and RV. Moderate biatrial dilatation. Severe LV systolic dysfunction. Severe global hypokinesis. Estimated EF around 10% .Diastolic dysfunction present but cannot be graded due to Afib. Plan -Weaned off the pressures -Currently maintaining MAP > 65, goal is MAP >60 -will start GDMT once the renal functions improves and if blood pressures are stable to tolerate # Atrial fibrillation with rapid ventricular rate -Patient was found to have sinus rhythm on EKG at the time of admission. -After starting Levophed and dobutamine drip, patient developed atrial fibrillation -[id number] score of 2, age and CHF Plan -Patient on PO Amiodarone 200mg bid. -Heparin drip was stopped in view of high has-bled score with more risk of bleeding than having a stroke based on [id number] 2, and his platelet count in 70s -Plan to resume Eliquis when creatinine clearance greater than 15 #Chronic smoker #Probable COPD - smoking history of >40 pack years. - condition is stable as of now. # Transaminitis, downtrending Due to underlying cardiogenic shock -Labs on 01/19/2024 showed AST> 1000, ALT 931 plan -AST and ALT are continuously uptrending as of 01/20/2024 -Will continue to monitor LFTs # ATN, resolving 2/2 cardiogenic shock -Creatinine in 12/2018 is 1.1 and at the time of admission is 2.1 -Adequate UO -Mild improvement in Renal panel Plan -Dialysis option is given for the patient but patient denied further invasive treatments -Bumex 2 Mg IV qday to help with hepatic and renal congestion, as per ambulance mechanic recommendation -Will continue to monitor renal functions and renally dose medications. -Will continue to monitor urine output. #Thromobcytopenia Most likely acute liver failure, others statin and amiodarone use, unlikely DIC/TTP. Continue to monitor CBC, and signs of bleeding. 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 #Right lung pneumonia DDx: mass in right middle lobe -Admitted with shortness of breath started 3 weeks before admitting into the hospital. -Denies fever, chills, cough. -Chest x-ray showed right patchy consolidation which was not present in 2019 -Patient did not get CT chest in view of his hemodynamic instability Plan -Ceftriaxone and doxycycline(01/17-01/24), currently stable -will repeat Chest xray Hospital Maintenance: Dispo: medsurg DVT ppx: heparin GI ppx:pantoprazole Diet:cardiac IV lines:peripheral Code status:DNR/DNI Patient plan of care was discussed with the attending physician, Dr. Navarro and senior resident Dr. Pablo Mtz, PGY1 Attending Provider Attestation/Addendum I reviewed labs, imaging, EKG, home medications and prior available records. Face to face evaluation was performed by me. I have personally examined the patient and discussed assessment and plan with the IM team. I reviewed the resident note and agree with the plan with exceptions as below. Cardiogenic shock: He is off pressors. He is downgraded from ICU. He is currently hemodynamically stable. Continue IV diuresis. Monitor I's and O's. MARIANO on CKD: Creatinine slightly improved. No indication for hemodialysis at this time. Likely intrinsic in the setting of shock. Monitor kidney function. Avoid nephrotoxins. Renally dosed medications. Nephrology is consulted and following. Atrial fibrillation with RVR: His rate is currently controlled. Continue amiodarone. Acute liver injury: Likely in setting of shock liver. LFTs are downtrending. Monitor LFTs.
--- NOTE | 2024-01-27 15:39 | PC.NURSE ---
Notified Dr. Mtz of pt vitals BP 91/70 HR ranging from 105-120's RR ranging [id number], states she will come see patient at bedside.
--- NOTE | 2024-01-27 15:40 | PC.NURSE ---
Dr. Mtz came to see pt at bedside, per MD BP of 90's ok for patient, no new orders at this time, pt asymptomatic resting in bed Vitals BP 91/70 HR afib 105-112
[2024-01-28] VITALS (15 sets, daily range): BP systolic 90–118; BP diastolic 58–91; PULSE 95–126; RESP 15–99; TEMP 35.8–36.6; O2SAT 93–100; BMI 16.1; BMI 13.0
--- NOTE | 2024-01-28 06:00 | XR_ITS ---
Examination: AP chest single view Technique one AP portable semiupright chest single view Exam date and time: January 28, 2024 0456 hours Comparison January 24, 2024 INDICATIONS: Difficulty breathing this week, pneumonia on chest film January 24, 2024 FINDINGS: Bilateral pneumonia remains especially in the right midlung zone Normal heart size Mild vascular congestion IMPRESSION: Significant bilateral pneumonia remains
[2024-01-28 06:01] LABS: Basophils # (Auto) 0.1 Thou/mm3 (0.0-0.2); Basophils % (Auto) 0 % (0-2.5); Eosinophils # (Auto) 0.2 Thou/mm3 (0.0-0.5); Eosinophils % (Auto) 2 % (0-10); Hematocrit 44.7 % (41.0-53.0); Hemoglobin 15.3 g/dL (13.5-16.0); Immature Granulocytes % (Auto) 0 % (0-0); Immature Granulocytes Auto 0.04 Thou/mm3 (0.00-0.00); Lymphocytes % (Auto) 18 % (10-50); Mean Corpuscular HGB Conc 34.2 g/dl (31.0-37.0); Mean Corpuscular Hemoglobin 29.1 pg (25.0-35.0); Mean Corpuscular Volume 85 fL (80-100); Monocytes # (Auto) 1.5 Thou/mm3 (0.0-0.8); Monocytes % (Auto) 13 % (0-12); Neutrophils # (Auto) 7.7 Thou/mm3 (1.8-7.7); Neutrophils % (Auto) 67 % (37-80); Nucleated Red Blood Cell % 0 /100 WBC (0); Platelet Count 80 Thou/mm3 (140-440); RDW Standard Deviation 43.4 fL (35.1-43.9); Red Blood Count 5.25 Miln/mm3 (4.50-5.90); White Blood Count 11.4 Thou/mm3 (3.8-10.6)
[2024-01-28] MEDS: ASPIRIN EC 81 MG TABEC PO (08:30)
[2024-01-28] MEDS: AMIODARONE HCL 200 MG TABLET PO ×2 (08:30→20:25)
[2024-01-28] MEDS: CALCIUM CARBONATE 600 MG TABLET PO (08:31)
[2024-01-28] MEDS: PSYLLIUM 1 PKT PACKET PO (08:31)
[2024-01-28] MEDS: PANTOPRAZOLE 40 MG TABLET PO (08:31)
[2024-01-28] MEDS: HEPARIN SOD INJ 5000 UNIT/ML VIAL SC ×2 (08:31→20:26)
--- NOTE | 2024-01-28 08:34 | ESPR_ITS ---
<Statement entered by Alivia Saleh MD - 01/28/24 19:17> I examined the patient along with resident physician PGY 1 Dr. Dias clinically looks dry to me I can start cutting back on diuretics evaluated the patient with PGY 1 agree with the treatment plan recommendation as documented by Dr. King will continue to monitor the patient as an outpatient Documentation for date of: 01/28/24 Subjective Subjective Interval history: Patient was seen and examined at bedside this AM. No overnight events. His heart rate was mainly in the 90s to 100s overnight. Patient was previously irritating during my assessment he was taking off his hospital monitor saying that he did not need that anymore and that he was tired of not being able to drink anything. He stated that this was sutured his heart function at this time, that we were trying to avoid fluid retention again. Kidney function is improving with BUN of 101 and creatinine 4.3. LFTs also improved with AST at 93 compared to 156 previously and ALT now 848 compared to greater than 1241 Patient bicarb 34.2, BUN stable at 109, CR decreased to 4.2 from 4.3 Sodium is 134 and chloride is 88 potassium 3 today and magnesium 2.2 yesterday Recommend keeping potassium above 4 and magnesium above 2 Bumex was held due to patient developing contraction alkalosis, okay with diuretic holiday given patient looks dry. Exam Vital Signs Temp Pulse Resp BP Pulse Ox O2 Del Method O2 Flow Rate 97.8 F 104 H 22 H 104/81 95 Room Air 2 01/28/24 07:49 01/28/24 08:16 01/28/24 08:16 01/28/24 08:16 01/28/24 07:49 01/28/24 07:49 01/28/24 04:00 FiO2 40 01/25/24 18:15 Narrative Exam Constitutional Alert, oriented x 3 and no acute distress. Elderly male, cachectic, irritable HEENT Vision grossly intact. Patent nares. Trachea midline. Poor dentition, missing teeth Respiratory Chest normal on inspection, RIJ catheter site (out) clean and covered by dressing, clear breath sounds throughout lung chauhan b/l Cardiovascular S1 and S2 audible, RRR. No murmurs carotid bruit. JVD not assessed Abdominal Soft and non tender to palpation in all quadrants. BS + Genitourinary No bladder tenderness, no flank pain. Normal to palpation. Musculoskeletal Extremities tone within normal limits. No LE edema, ZAYRA UE edema at elbow level improved. Neurological CN II - XII grossly intact. Extremity motor and sensation grossly intact. Skin Warm, dry and intact. No apparent lesions. Psychiatric Patient was irritable today Objective Labs 01/28/24 05:10 01/28/24 07:22 Labs: Laboratory Results - last 24 hr 01/28/24 05:10 WBC 11.4 H RBC 5.25 Hgb 15.3 Hct 44.7 MCV 85 MCH 29.1 MCHC 34.2 RDW Std Deviation 43.4 Plt Count 80 L Neut % (Auto) 67 Lymph % (Auto) 18 [place] % (Auto) 13 H Eos % (Auto) 2 Baso % (Auto) 0 Neut # (Auto) 7.7 Lymph # (Auto) 2.0 [place] # (Auto) 1.5 H Eos # (Auto) 0.2 Baso # (Auto) 0.1 Immature Gran # (Auto) 0.04 H Absolute Nucleated RBC 0.00 Immature Gran % 0 Nucleated RBC % 0 ABG Interpretation ABG results: 01/18/24 01/18/24 01/19/24 11:29 21:30 04:35 ABG pH 7.51 H 7.49 H 7.29 L D ABG pCO2 17 L* 19 L* 20 L ABG pO2 221 H 245 H D 143 H D ABG HCO3 13 L 14 L 9 L* ABG O2 Saturation 100 H 100 H 99 H ABG Base Excess -7 L -7 L -15 L VBG pH VBG pCO2 VBG pO2 VBG Base Excess 01/19/24 01/19/24 01/19/24 11:01 11:11 18:13 ABG pH 7.26 L 7.32 L ABG pCO2 28 L 26 L ABG pO2 149 H 164 H ABG HCO3 13 L 14 L ABG O2 Saturation 99 H 100 H ABG Base Excess -13 L -11 L VBG pH 7.26 L VBG pCO2 32 L VBG pO2 46 VBG Base Excess -12 L 01/19/24 01/19/24 01/19/24 18:30 23:00 23:19 ABG pH 7.40 ABG pCO2 29 L ABG pO2 101 D ABG HCO3 18 L ABG O2 Saturation 98 ABG Base Excess -6 L VBG pH 7.35 7.41 VBG pCO2 24 L 28 L VBG pO2 44 129 H D VBG Base Excess -11 L -6 L 01/20/24 01/20/24 01/20/24 00:57 05:52 06:00 ABG pH 7.43 ABG pCO2 28 L ABG pO2 128 H D ABG HCO3 19 L ABG O2 Saturation 99 H ABG Base Excess -5 L VBG pH 7.39 7.42 VBG pCO2 31 L 29 L VBG pO2 141 H 61 H D VBG Base Excess -5 L -4 L 01/20/24 01/20/24 01/20/24 12:18 13:06 19:44 ABG pH 7.39 7.36 ABG pCO2 36 39 ABG pO2 102 D 101 ABG HCO3 22 22 ABG O2 Saturation 98 97 ABG Base Excess -3 -3 VBG pH 7.30 L 7.40 VBG pCO2 45 D 35 L D VBG pO2 41 D 61 H D VBG Base Excess -4 L -2 01/21/24 01/21/24 01/22/24 04:38 04:42 05:40 ABG pH 7.41 ABG pCO2 35 ABG pO2 84 ABG HCO3 22 ABG O2 Saturation 96 ABG Base Excess -3 VBG pH 7.38 7.47 VBG pCO2 40 37 VBG pO2 35 D 59 H D VBG Base Excess -1 3 01/22/24 01/23/24 01/23/24 05:51 05:17 08:27 ABG pH 7.52 H D 7.45 ABG pCO2 31 L 44 D ABG pO2 81 L 79 L ABG HCO3 25 31 H ABG O2 Saturation 97 96 ABG Base Excess 3 6 H VBG pH 7.48 VBG pCO2 42 VBG pO2 57 VBG Base Excess 7 H Quality Measures Quality Measures none Advance care planning discussed with:: patient Assessment & Plan Assessment Current Active Medications: Generic Name Dose Route Start Last Admin Trade Name Freq PRN Reason Stop Dose Admin Acetaminophen 650 mg 01/27/24 18:48 Acetaminophen 325 Mg Tablet PO 02/16/24 21:37 Q6H PRN PAIN rated 1-3 or fever> 100.3 Amiodarone HCl 200 mg 01/21/24 21:00 01/27/24 21:29 Amiodarone Hcl 200 Mg Tablet PO 02/20/24 20:59 200 mg BID VINCE Administration Aspirin 81 mg 01/18/24 09:00 01/27/24 08:44 Aspirin Ec 81 Mg Tabec PO 02/17/24 08:59 81 mg QDAY VINCE Administration Bumetanide 1 mg 01/27/24 21:00 01/27/24 21:32 Bumetanide Inj 0.25 Mg/Ml Vial 4 Ml IVP 02/26/24 20:59 Not Given BID VINCE Calcium Carbonate 600 mg 01/25/24 09:00 01/27/24 08:44 Calcium Carbonate 600 Mg Tablet PO 02/24/24 08:59 600 mg QDAY VINCE Administration Docusate Sodium 250 mg 01/23/24 09:33 Docusate Sod 250 Mg Capsule PO 02/22/24 09:32 QDAY PRN CONSTIPATION Protocol Heparin Sodium (Porcine) 5,000 unit 01/20/24 17:00 01/27/24 21:29 Heparin Sod Inj 5000 Unit/Ml Vial SC 02/03/24 16:59 5,000 unit Q12HR VINCE Administration Pantoprazole Sodium 40 mg 01/18/24 09:00 01/27/24 08:44 Pantoprazole 40 Mg Tablet PO 02/17/24 08:59 40 mg QDAY VINCE Administration Psyllium Hydrophilic Mucilloid 1 pkt 01/22/24 09:15 01/27/24 08:45 Psyllium 1 Pkt Packet PO 02/21/24 09:14 Not Given QDAY VINCE Protocol Sodium Chloride 3 ml 01/19/24 06:48 01/19/24 06:57 Sodium Chloride Rt Jackie 0.9% 3 Ml Nebu INH 02/18/24 06:47 3 ml PRN PRN Administration TO MIX WITH ALBUTEROL Plan Patient is a 68-year-old male with no significant past medical history who presented to the ED with a chief complaint of shortness of breath. Patient was admitted for acute respiratory failure with hypoxia secondary to community-acquired pneumonia and CHF exacerbation. Cardiology was consulted. 1. Acute respiratory failure with hypoxia Secondary to 2. Acute decompensated systolic heart failure exacerbation [EF 10%] 3. Cardiogenic shock 4. Dilated cardiomyopathy On admission patient has history of progressively worsening shortness of breath for the past 3 weeks. On exam patient is in mild distress on O2 via NC and breath sounds were decreased globally. No signs of lower extremity edema. Patient not previously diagnosed with heart failure in the past and not on any medication at home. On admission BNP 2864 NYHA Class IV Stage C Transthoracic echocardiogram completed on 01/16 findings include: Dilated cardiomyopathy - Mild to moderately dilated LV and RV. Moderate biatrial dilatation. Severe LV systolic dysfunction. Severe global hypokinesis. Estimated EF around 10% Diastolic dysfunction present but cannot be graded due to Afib. Moderate RV dysfunction. Estimated RVSP 40 mmHg. Moderate MR. Mild TR,PI. Mild AV sclerosis without stenosis, IVC dilated and pleural effusion present. Patient was seen and examined in ICU this AM. Patient currently on room air during my exam Overnight patient had multiple PVCs and PACs as well as episodes of trigeminy and bigeminy and was in and out of A-fib. His heart rate was mainly in the 60s to 70s overnight. Bumex was held due to patient developing contraction alkalosis. Fluid balance of -1.7 L in the past 24 hours. Kidney function is improving with BUN of 101 and creatinine 4.3. LFTs also improved with AST at 93 compared to 156 previously and ALT now 848 compared to greater than 1241 Sodium is 134 and chloride is 88 potassium 3 today and magnesium 2.2 yesterday Recommend to continue IV diuresis for now with the Bumex 2 mg qday with a goal of net -2 L every day Patient currently off al pressors Plan: ? Strict input output charting ? Daily weights ? 2 g salt restricted diet ? 1500 cc fluid restriction ? Bumex was held due to patient developing contraction alkalosis, okay with diuretic holiday given patient seems dry. ? Recommend to continue patient on midodrine 10 Mg p.o. 3 times daily ?Recommend keeping potassium above 4 and magnesium above 2 ? Patient counseled on methamphetamine, cocaine and all drug cessation. 5. Rule out ACS 6. NSTEMI -mostly type II secondary to supply/demand mismatch given the severe dilated cardiomyopathy Patient had progressive SOB for the past 3 weeks but denies any chest pain or pressure. Unlikely acute coronary syndrome and troponin elevation mostly secondary to supply/demand mismatch given severe dilated cardiomyopathy in the setting of significant drug abuse including methamphetamine and other drugs. Initial EKG showed sinus rhythm with occasional PVCs, left atrial enlargement repeat EKG showed atrial fibrillation with RVR, rate 120. No acute ST changes Troponin were elevated at 1.171 up trended to 1.235 and subsequently down trended to 0.98 Plan: ? Heparin infusion discontinued as >48 hours ? Continue aspirin 81 Mg p.o. daily ? Can hold high intensity statin in light of Ischemic hepatitis ? No need to further trend troponin - Continue medical management for now 7. A-fib with RVR?new onset Patient admitted to having intermittent palpitations for years with some episodes lasting for days before resolving. Initial EKG showed sinus rhythm with occasional PVCs, left atrial enlargement repeat EKG showed atrial fibrillation with RVR, rate 120. No acute ST changes. From telemetry review patient continues to be in/out of A-fib with some PAC's and sinus tachy. [id number] : 1 point ; 0.6 % stroke risk per year [age] Plan: ? Continue amiodarone 200 mg twice daily ? Recommend rate control with metoprolol XL 50 Mg p.o. daily if patient's blood pressure allows. - Heparin drip for NSTEMI completed, can transition to eliquis ? Continue telemetry review ? Please maintain potassium greater than 4 and magnesium greater than 2 at all times to prevent any further arrhythmias 8. Community-acquired pneumonia Patient had shortness of breath for past 3 weeks as well as a nonproductive cough. Chest x-ray on admission was significant for right mid zone consolidation. Patient continues on ceftriaxone. Blood and sputum cultures negative. Continue management as per primary team 9. MARIANO likely prerenal 10. Acute Renal Failure 11. Transaminitis 12. Multi- organ Failure On admission patient's CR 2 currently up trended to 2.1. Unable to assess baseline as no previous records for comparison. Likely in the setting of cardiogenic shock and dehydration. Patient bicarb 34.2, BUN stable at 109, CR decreased to 4.2 from 4.3 Recommend stat nephrology consult as well Lactic acid downtrended to 1.5 LFTs also improved with AST at 93 compared to 156 previously and ALT now 848 compared to greater than 1241 Plan: - Patient offered the option of Dialysis repeatedly but refused any further invasive procedures and switched his code status to DNR 13. Likely COPD 14. Nicotine dependence 15. History of polysubstance abuse Patient has [id number] smoking history and now has shortness of breath for the past 3 weeks along with productive cough. Clinically he is cachectic and appears to have decreased breath sounds globally suggestive of COPD. Patient will need to be further worked up as an outpatient. Patient admitted to using methamphetamine and cocaine for many years as well with U tox being positive for methamphetamine on admission. Patient counseled extensively on drug cessation. Patient agreed - Patient offered the option of Dialysis repeatedly but refused any further invasive procedures and switched his code status to DNR Continue rest of management as per primary team. We are grateful to be able to participate in Mr. Peñaloza's care. Thank you for the consult Plan of care discussed with attending Systems Analyst Developer, Dr. Delfino Andersen PGY-1
[2024-01-28 08:57] LABS: Alanine Aminotransferase 848 U/L (10-49); Albumin/Globulin Ratio 1.1 (1.2-2.2); Alkaline Phosphatase 124 U/L (46-116); Anion Gap 12 (7-16); Aspartate Amino Transferase 93 U/L (0-34); BUN/Creatinine Ratio 26 Ratio (12-20); Blood Urea Nitrogen 109 mg/dL (9-23); Calcium 8.2 mg/dL (8.3-10.6); Calcium (Corrected) 8.2 mg/dL (8.5-10.1); Carbon Dioxide 34.2 mMol/L (20.0-31.0); Chloride 88 mMol/L (98-107); Creatinine (Component) 4.2 mg/dL (0.6-1.3); Globulin 3.5 gm/dL (2.3-3.5); Glucose 107 mg/dL (74-106); Osmolality,Calculated 302 (275-295); Sodium 134 mMol/L (136-145); Total Protein 7.5 gm/dL (5.7-8.2); eGFR 15 See Note
[2024-01-28] MEDS: POTASSIUM CHLORIDE 20 mEq TABCR 40 MEQ PO (10:33)
--- NOTE | 2024-01-28 12:07 | PC.NURSE ---
notified dr. amos of pt hr ranging 120-130 afib with a bp of 91/74. acknowledged. stated she is aware of pt heart rate and bp as they have been maintaining since yesterday. stated to notify her if heart rate maintains above 130.
--- NOTE | 2024-01-28 15:01 | ESPR_ITS ---
<Statement entered by Gumaro Chan MD - 01/28/24 16:36> Mr. Peñaloza is a 68-year-old male who was recently hospitalized in the ICU for cardiogenic shock, he has a history of Documentation for date of: 01/28/24 Subjective Subjective Interval history: Patient was seen and examined bedside. Lying comfortably in the bed. Overnight patient was having low blood pressure of 90/60 mmHg. Held diuresis for now as patient does not appear to be fluid overloaded. Vitals are stable except for tachycardia. Liver and renal functions continue to improve and the urine output is maintained well. Exam Vital Signs Temp Pulse Resp BP Pulse Ox O2 Del Method O2 Flow Rate 97.8 F 105 H 22 H 104/81 95 Room Air 2 01/28/24 07:49 01/28/24 12:00 01/28/24 08:16 01/28/24 08:30 01/28/24 07:49 01/28/24 07:49 01/28/24 04:00 FiO2 40 01/25/24 18:15 Narrative Exam General: Awake and in no acute distress. HEENT: Normocephalic, atraumatic, mucous membranes moist. Heart: Regular rate and rhythm, no murmurs. Lungs: Overall decreased breath sounds heard bilaterally. Abdomen: Soft, nondistended, nontender, positive bowel sounds. ?No guarding or rebound tenderness. Neurologic: Alert and oriented x3, no gross neurological deficit, and patient able to move all 4 extremities. Extremities: No edema. Skin: No rash or ecchymoses. Objective Labs 01/29/24 05:00 01/29/24 05:00 Labs: Laboratory Results - last 24 hr 01/28/24 01/28/24 05:10 07:22 WBC 11.4 H RBC 5.25 Hgb 15.3 Hct 44.7 MCV 85 MCH 29.1 MCHC 34.2 RDW Std Deviation 43.4 Plt Count 80 L Neut % (Auto) 67 Lymph % (Auto) 18 [place] % (Auto) 13 H Eos % (Auto) 2 Baso % (Auto) 0 Neut # (Auto) 7.7 Lymph # (Auto) 2.0 [place] # (Auto) 1.5 H Eos # (Auto) 0.2 Baso # (Auto) 0.1 Immature Gran # (Auto) 0.04 H Absolute Nucleated RBC 0.00 Immature Gran % 0 Nucleated RBC % 0 Sodium 134 L Potassium 3.0 L Chloride 88 L Carbon Dioxide 34.2 H Anion Gap 12 BUN 109 H* Creatinine 4.2 H* Estim Creat Clear Calc 13.0 L eGFR 15 L BUN/Creatinine Ratio 26 H Glucose 107 H Calculated Osmolality 302 H Calcium 8.2 L Corrected Calcium 8.2 L Total Bilirubin 2.0 H AST 93 H ALT 848 H* Alkaline Phosphatase 124 H Total Protein 7.5 Albumin 4.0 Globulin 3.5 Albumin/Globulin Ratio 1.1 L ABG Interpretation ABG results: 01/18/24 01/18/24 01/19/24 11:29 21:30 04:35 ABG pH 7.51 H 7.49 H 7.29 L D ABG pCO2 17 L* 19 L* 20 L ABG pO2 221 H 245 H D 143 H D ABG HCO3 13 L 14 L 9 L* ABG O2 Saturation 100 H 100 H 99 H ABG Base Excess -7 L -7 L -15 L VBG pH VBG pCO2 VBG pO2 VBG Base Excess 01/19/24 01/19/24 01/19/24 11:01 11:11 18:13 ABG pH 7.26 L 7.32 L ABG pCO2 28 L 26 L ABG pO2 149 H 164 H ABG HCO3 13 L 14 L ABG O2 Saturation 99 H 100 H ABG Base Excess -13 L -11 L VBG pH 7.26 L VBG pCO2 32 L VBG pO2 46 VBG Base Excess -12 L 01/19/24 01/19/24 01/19/24 18:30 23:00 23:19 ABG pH 7.40 ABG pCO2 29 L ABG pO2 101 D ABG HCO3 18 L ABG O2 Saturation 98 ABG Base Excess -6 L VBG pH 7.35 7.41 VBG pCO2 24 L 28 L VBG pO2 44 129 H D VBG Base Excess -11 L -6 L 01/20/24 01/20/24 01/20/24 00:57 05:52 06:00 ABG pH 7.43 ABG pCO2 28 L ABG pO2 128 H D ABG HCO3 19 L ABG O2 Saturation 99 H ABG Base Excess -5 L VBG pH 7.39 7.42 VBG pCO2 31 L 29 L VBG pO2 141 H 61 H D VBG Base Excess -5 L -4 L 01/20/24 01/20/24 01/20/24 12:18 13:06 19:44 ABG pH 7.39 7.36 ABG pCO2 36 39 ABG pO2 102 D 101 ABG HCO3 22 22 ABG O2 Saturation 98 97 ABG Base Excess -3 -3 VBG pH 7.30 L 7.40 VBG pCO2 45 D 35 L D VBG pO2 41 D 61 H D VBG Base Excess -4 L -2 01/21/24 01/21/24 01/22/24 04:38 04:42 05:40 ABG pH 7.41 ABG pCO2 35 ABG pO2 84 ABG HCO3 22 ABG O2 Saturation 96 ABG Base Excess -3 VBG pH 7.38 7.47 VBG pCO2 40 37 VBG pO2 35 D 59 H D VBG Base Excess -1 3 01/22/24 01/23/24 01/23/24 05:51 05:17 08:27 ABG pH 7.52 H D 7.45 ABG pCO2 31 L 44 D ABG pO2 81 L 79 L ABG HCO3 25 31 H ABG O2 Saturation 97 96 ABG Base Excess 3 6 H VBG pH 7.48 VBG pCO2 42 VBG pO2 57 VBG Base Excess 7 H Quality Measures Quality Measures none Advance care planning discussed with:: patient Assessment & Plan Assessment Current Active Medications: Generic Name Dose Route Start Last Admin Trade Name Freq PRN Reason Stop Dose Admin Acetaminophen 650 mg 01/27/24 18:48 Acetaminophen 325 Mg Tablet PO 02/16/24 21:37 Q6H PRN PAIN rated 1-3 or fever> 100.3 Amiodarone HCl 200 mg 01/21/24 21:00 01/28/24 08:30 Amiodarone Hcl 200 Mg Tablet PO 02/20/24 20:59 200 mg BID VINCE Administration Aspirin 81 mg 01/18/24 09:00 01/28/24 08:30 Aspirin Ec 81 Mg Tabec PO 02/17/24 08:59 81 mg QDAY VINCE Administration Bumetanide 1 mg 01/27/24 21:00 01/27/24 21:32 Bumetanide Inj 0.25 Mg/Ml Vial 4 Ml IVP 02/26/24 20:59 Not Given BID VINCE Calcium Carbonate 600 mg 01/25/24 09:00 01/28/24 08:31 Calcium Carbonate 600 Mg Tablet PO 02/24/24 08:59 600 mg QDAY VINCE Administration Heparin Sodium (Porcine) 5,000 unit 01/20/24 17:00 01/28/24 08:31 Heparin Sod Inj 5000 Unit/Ml Vial SC 02/03/24 16:59 5,000 unit Q12HR VINCE Administration Pantoprazole Sodium 40 mg 01/18/24 09:00 01/28/24 08:31 Pantoprazole 40 Mg Tablet PO 02/17/24 08:59 40 mg QDAY VINCE Administration Psyllium Hydrophilic Mucilloid 1 pkt 01/22/24 09:15 01/28/24 08:31 Psyllium 1 Pkt Packet PO 02/21/24 09:14 1 pkt QDAY VINCE Administration Protocol Sodium Chloride 3 ml 01/19/24 06:48 01/19/24 06:57 Sodium Chloride Rt Jackie 0.9% 3 Ml Nebu INH 02/18/24 06:47 3 ml PRN PRN Administration TO MIX WITH ALBUTEROL Plan 68-year-old male with no significant past medical history admitted to the hospital chief complaints of shortness of breath and diagnosed to have acute hypoxic respiratory failure secondary to HFrEF exacerbation. # Cardiogenic shock, improved # Dilated cardiomyopathy, 2/2 meth use and smoking # Elevated trop - likely Tpe II, downtrended #HFrEF, EF 10% -Likely exacerbated in the setting of suspected pneumonia in the right lobe and continued meth use. -Presented to the hospital with complaints of shortness of breath, orthopnea, PND -Denies palpitations, fever, pedal edema, abdominal distention. -Chest x-ray showed hyperinflation of bilateral lungs with patchy infiltrate in right lower lobe-pneumonia versus mass. -labs showed elevated BNP, Troponins that downtrended later. urine toxicology tested positive for meth. -Echo done on 01/17/2024 showed dilated cardiomyopathy - Mild to moderately dilated LV and RV. Moderate biatrial dilatation. Severe LV systolic dysfunction. Severe global hypokinesis. Estimated EF around 10% .Diastolic dysfunction present but cannot be graded due to Afib. Plan -Weaned off the vasopressors -will start GDMT once the renal functions improves and if blood pressures are stable to tolerate -Held diuretics as of 01/28/2024 in view of low blood pressures and as the patient does not appear to be fluid overloaded. -Will restart diuresis and GDMT if the blood pressure permits # Atrial fibrillation with rapid ventricular rate -Patient was found to have sinus rhythm on EKG at the time of admission. -After starting Levophed and dobutamine drip, patient developed atrial fibrillation -[id number] score of 2, age and CHF Plan -Patient on PO Amiodarone 200mg bid. -Held anticoagulation for now as patient has high risk of bleeding #Chronic smoker #Probable COPD - smoking history of >40 pack years. - condition is stable as of now. # Transaminitis, downtrending Due to underlying cardiogenic shock -Labs on 01/19/2024 showed AST> 1000, ALT 931 -AST and ALT are continuously downtrending as of 01/27, AST 93, ALT 848 -Will continue to monitor LFTs # ATN, resolving 2/2 cardiogenic shock -Creatinine in 12/2018 is 1.1 and at the time of admission is 2.1 -01/27, BUN 109, creatinine 4.2 -Adequate UO -Mild improvement in Renal panel Plan -Dialysis was held for now as patient is having low blood pressures. -Will continue to monitor renal functions and renally dose medications. -Will continue to monitor urine output. #Thromobcytopenia Most likely acute liver failure, others statin and amiodarone use, unlikely DIC/TTP. Continue to monitor CBC, and signs of bleeding. 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 #Right lung pneumonia, GPC , treated DDx: mass in right middle lobe -Admitted with shortness of breath started 3 weeks before admitting into the hospital. -Denies fever, chills, cough. -Chest x-ray showed right patchy consolidation which was not present in 2019 -Patient did not get CT chest in view of his hemodynamic instability -Ceftriaxone and doxycycline(01/17-01/24), currently stable -repeat Chest xray showed similar patchy area in the right middle lobe and recommended to follow-up with CT chest in the outpatient basis. Hospital Maintenance: Dispo: medsurg DVT ppx: heparin GI ppx:pantoprazole Diet:cardiac IV lines:peripheral Code status:DNR/DNI Patient plan of care was discussed with the attending physician, Dr. Navarro and senior resident Dr. Dustin Mzt, PGY1 L Dilated cardiomyopathy secondary to methamphetamine use, HFrEF 10%. Will optimize on goal-directed medical therapy for HFrEF, once BP permits. Holding IV Bumex given contraction alkalosis, to give diuretic holiday as patient looks dry. Cardiology is consulted, appreciate recommendations. Kidney function and transaminitis is improving slowly. Continue goal-directed metoprolol XL 50 daily, and amiodarone 200 mg twice daily for A-fib with RVR. [id number] score is 1, not on anticoagulation at this time. Completed course of Rocephin + Doxy from 01/17-01/24 for the right middle lung PNA. Dispo: Anticipate DC in next 24-48 hours on GDMT if continues to improve. Patient examined and case discussed with the team including attending physician. Note reviewed, I agree with the care plan as documented. - Gumaro Chan MD, PGY 2 Attending Provider Attestation/Addendum I reviewed labs, imaging, EKG, home medications and prior available records. Face to face evaluation was performed by me. I have personally examined the patient and discussed assessment and plan with the IM team. I reviewed the resident note and agree with the plan with exceptions as below. Cardiogenic shock: He is off pressors. He is downgraded from ICU. He is currently hemodynamically stable. Held Lasix due to borderline BP. Monitor I's and O's. MARIANO on CKD: Creatinine slightly improved. No indication for hemodialysis at this time. Likely intrinsic in the setting of shock. Monitor kidney function. Avoid nephrotoxins. Renally dosed medications. Nephrology is consulted and following. Atrial fibrillation with RVR: His rate is currently controlled. Continue amiodarone. Acute liver injury: Likely in setting of shock liver. LFTs are downtrending. Monitor LFTs.
--- NOTE | 2024-01-28 15:36 | PC.SS ---
Follow up note: SS received a call from PT recommending SNF, however, patient insurance does not cover. Patient will d/c home. Needs new 02 and a walker. Pending PT notes
--- NOTE | 2024-01-28 17:58 | PC.NURSE ---
Addendum entered by Niesha Gardner RN 01/28/24 17:59: Care resumed by typewriter repairer. Patient transferred from [id number] to [phone]. Patient is comfortable, denies pain Original Note: Care resumed by typewriter repairer. Patient transferred from [phone] to [phone]. Patient is comfortable, denies pain.
[2024-01-29] VITALS (13 sets, daily range): BP systolic 88–102; BP diastolic 52–78; PULSE 58–114; RESP 15–99; TEMP 36.1–36.4; O2SAT 92–96
--- NOTE | 2024-01-29 01:15 | PC.NURSE ---
Pt oxygen saturation decreased to 75 and holding, patient refused oxymask or masks of any type. O2 sensor replaced, 02 increased to 6L NC, patient saturating at 97%.
[2024-01-29] MEDS: MIDODRINE 5 MG TABLET PO (04:45)
--- NOTE | 2024-01-29 04:50 | PC.NURSE ---
Pt bp dropped to 88/52. Patient appeared asymptomatic. Dr Davis notified and order for Midodrine 5mg input.
[2024-01-29 05:35] LABS: Basophils % (Auto) 0 % (0-2.5); Eosinophils # (Auto) 0.1 Thou/mm3 (0.0-0.5); Eosinophils % (Auto) 1 % (0-10); Hematocrit 46.6 % (41.0-53.0); Hemoglobin 15.4 g/dL (13.5-16.0); Immature Granulocytes % (Auto) 1 % (0-0); Immature Granulocytes Auto 0.08 Thou/mm3 (0.00-0.00); Lymphocytes # (Auto) 1.9 Thou/mm3 (1.0-4.8); Lymphocytes % (Auto) 16 % (10-50); Mean Corpuscular Hemoglobin 28.7 pg (25.0-35.0); Mean Corpuscular Volume 87 fL (80-100); Monocytes # (Auto) 1.4 Thou/mm3 (0.0-0.8); Monocytes % (Auto) 12 % (0-12); Neutrophils # (Auto) 8.2 Thou/mm3 (1.8-7.7); Neutrophils % (Auto) 70 % (37-80); Nucleated Red Blood Cell % 0 /100 WBC (0); Platelet Count 110 Thou/mm3 (140-440); RDW Standard Deviation 44.1 fL (35.1-43.9); Red Blood Count 5.37 Miln/mm3 (4.50-5.90); White Blood Count 11.7 Thou/mm3 (3.8-10.6)
[2024-01-29 06:42] LABS: Alanine Aminotransferase 694 U/L (10-49); Albumin, Serum 4.2 gm/dL (3.4-4.8); Albumin/Globulin Ratio 1.2 (1.2-2.2); Alkaline Phosphatase 121 U/L (46-116); Anion Gap 16 (7-16); Aspartate Amino Transferase 70 U/L (0-34); BUN/Creatinine Ratio 31 Ratio (12-20); Bilirubin,Total 2.1 mg/dL (0.3-1.2); Blood Urea Nitrogen 119 mg/dL (9-23); Calcium 8.6 mg/dL (8.3-10.6); Calcium (Corrected) 8.6 mg/dL (8.5-10.1); Carbon Dioxide 33.4 mMol/L (20.0-31.0); Chloride 87 mMol/L (98-107); Creatinine (Component) 3.8 mg/dL (0.6-1.3); Estimated Creatinine Clearance 14.4 mL/min (>60); Globulin 3.6 gm/dL (2.3-3.5); Glucose 99 mg/dL (74-106); Magnesium 2.1 mg/dL (1.6-2.6); Osmolality,Calculated 309 (275-295); Potassium 3.4 mMol/L (3.4-5.1); Sodium 136 mMol/L (136-145); Total Protein 7.8 gm/dL (5.7-8.2); eGFR 16 See Note
[2024-01-29] MEDS: AMIODARONE HCL 200 MG TABLET PO ×2 (09:14→20:27)
[2024-01-29] MEDS: ASPIRIN EC 81 MG TABEC PO (09:14)
[2024-01-29] MEDS: PANTOPRAZOLE 40 MG TABLET PO (09:14)
[2024-01-29] MEDS: CALCIUM CARBONATE 600 MG TABLET PO (09:14)
[2024-01-29] MEDS: HEPARIN SOD INJ 5000 UNIT/ML VIAL SC ×2 (09:15→20:27)
[2024-01-29] MEDS: POTASSIUM CHLORIDE 20 mEq TABCR PO (09:19)
--- NOTE | 2024-01-29 14:32 | ESPR_ITS ---
Documentation for date of: 01/29/24 Subjective Subjective Interval history: Patient was seen and examined bedside. Overnight patient was found to have low blood pressure for which a dose of midodrine was given. Stated that he is feeling well and wants to go home. On physical examination, patient still appears to be dry. Labs showed continuously improving renal and liver functions. Spoke with Dr. Jonathon Saleh and recommended to start low-dose metoprolol succinate 12.5 Mg as per GDMT. From cardiology, patient was cleared to discharge as his renal liver functions are continuously improving and patient does not appears to be fluid overloaded. If patient is able to tolerate metoprolol 12.5 Mg well and the renal, liver functions continue to improve, planning to discharge tomorrow. SEDRICK inhibitor's, ARB's cannot be started now in view of labile blood pressures and poor renal functions. But eventually when patient renal functions improves, should be started on SEDRICK inhibitor/ARB's Exam Vital Signs Temp Pulse Resp BP Pulse Ox O2 Del Method O2 Flow Rate 97.1 F 70 15 94/72 92 L Room Air 0 01/29/24 12:00 01/29/24 12:00 01/29/24 12:00 01/29/24 12:00 01/29/24 12:00 01/29/24 12:00 01/29/24 12:00 FiO2 0 01/29/24 12:00 Narrative Exam General: Awake and in no acute distress. HEENT: Normocephalic, atraumatic, mucous membranes dry. Heart: Regular rate and rhythm, no murmurs. Lungs: Overall decreased breath sounds noted bilaterally. No wheezing/crackles heard Abdomen: Soft, nondistended, nontender, positive bowel sounds. ?No guarding or rebound tenderness. Neurologic: Alert and oriented x3, no gross neurological deficit, and patient able to move all 4 extremities. Extremities: No edema. Skin: No rash or ecchymoses. Objective Labs 01/30/24 05:05 01/30/24 05:05 Labs: Laboratory Results - last 24 hr 01/29/24 05:00 WBC 11.7 H RBC 5.37 Hgb 15.4 Hct 46.6 MCV 87 MCH 28.7 MCHC 33.0 RDW Std Deviation 44.1 H Plt Count 110 L D Neut % (Auto) 70 Lymph % (Auto) 16 [place] % (Auto) 12 Eos % (Auto) 1 Baso % (Auto) 0 Neut # (Auto) 8.2 H Lymph # (Auto) 1.9 [place] # (Auto) 1.4 H Eos # (Auto) 0.1 Baso # (Auto) 0.0 Immature Gran # (Auto) 0.08 H Absolute Nucleated RBC 0.00 Immature Gran % 1 H Nucleated RBC % 0 Sodium 136 Potassium 3.4 Chloride 87 L Carbon Dioxide 33.4 H Anion Gap 16 BUN 119 H* Creatinine 3.8 H Estim Creat Clear Calc 14.4 L eGFR 16 L BUN/Creatinine Ratio 31 H Glucose 99 Calculated Osmolality 309 H Calcium 8.6 Corrected Calcium 8.6 Magnesium 2.1 Total Bilirubin 2.1 H AST 70 H ALT 694 H* Alkaline Phosphatase 121 H Total Protein 7.8 Albumin 4.2 Globulin 3.6 H Albumin/Globulin Ratio 1.2 ABG Interpretation ABG results: 01/18/24 01/18/24 01/19/24 11:29 21:30 04:35 ABG pH 7.51 H 7.49 H 7.29 L D ABG pCO2 17 L* 19 L* 20 L ABG pO2 221 H 245 H D 143 H D ABG HCO3 13 L 14 L 9 L* ABG O2 Saturation 100 H 100 H 99 H ABG Base Excess -7 L -7 L -15 L VBG pH VBG pCO2 VBG pO2 VBG Base Excess 01/19/24 01/19/24 01/19/24 11:01 11:11 18:13 ABG pH 7.26 L 7.32 L ABG pCO2 28 L 26 L ABG pO2 149 H 164 H ABG HCO3 13 L 14 L ABG O2 Saturation 99 H 100 H ABG Base Excess -13 L -11 L VBG pH 7.26 L VBG pCO2 32 L VBG pO2 46 VBG Base Excess -12 L 01/19/24 01/19/24 01/19/24 18:30 23:00 23:19 ABG pH 7.40 ABG pCO2 29 L ABG pO2 101 D ABG HCO3 18 L ABG O2 Saturation 98 ABG Base Excess -6 L VBG pH 7.35 7.41 VBG pCO2 24 L 28 L VBG pO2 44 129 H D VBG Base Excess -11 L -6 L 01/20/24 01/20/24 01/20/24 00:57 05:52 06:00 ABG pH 7.43 ABG pCO2 28 L ABG pO2 128 H D ABG HCO3 19 L ABG O2 Saturation 99 H ABG Base Excess -5 L VBG pH 7.39 7.42 VBG pCO2 31 L 29 L VBG pO2 141 H 61 H D VBG Base Excess -5 L -4 L 01/20/24 01/20/24 01/20/24 12:18 13:06 19:44 ABG pH 7.39 7.36 ABG pCO2 36 39 ABG pO2 102 D 101 ABG HCO3 22 22 ABG O2 Saturation 98 97 ABG Base Excess -3 -3 VBG pH 7.30 L 7.40 VBG pCO2 45 D 35 L D VBG pO2 41 D 61 H D VBG Base Excess -4 L -2 01/21/24 01/21/24 01/22/24 04:38 04:42 05:40 ABG pH 7.41 ABG pCO2 35 ABG pO2 84 ABG HCO3 22 ABG O2 Saturation 96 ABG Base Excess -3 VBG pH 7.38 7.47 VBG pCO2 40 37 VBG pO2 35 D 59 H D VBG Base Excess -1 3 01/22/24 01/23/24 01/23/24 05:51 05:17 08:27 ABG pH 7.52 H D 7.45 ABG pCO2 31 L 44 D ABG pO2 81 L 79 L ABG HCO3 25 31 H ABG O2 Saturation 97 96 ABG Base Excess 3 6 H VBG pH 7.48 VBG pCO2 42 VBG pO2 57 VBG Base Excess 7 H Quality Measures Quality Measures none Advance care planning discussed with:: patient Assessment & Plan Assessment Current Active Medications: Generic Name Dose Route Start Last Admin Trade Name Freq PRN Reason Stop Dose Admin Acetaminophen 650 mg 01/27/24 18:48 Acetaminophen 325 Mg Tablet PO 02/16/24 21:37 Q6H PRN PAIN rated 1-3 or fever> 100.3 Amiodarone HCl 200 mg 01/21/24 21:00 01/29/24 09:14 Amiodarone Hcl 200 Mg Tablet PO 02/20/24 20:59 200 mg BID VINCE Administration Aspirin 81 mg 01/18/24 09:00 01/29/24 09:14 Aspirin Ec 81 Mg Tabec PO 02/17/24 08:59 81 mg QDAY VINCE Administration Calcium Carbonate 600 mg 01/25/24 09:00 01/29/24 09:14 Calcium Carbonate 600 Mg Tablet PO 02/24/24 08:59 600 mg QDAY VINCE Administration Heparin Sodium (Porcine) 5,000 unit 01/20/24 17:00 01/29/24 09:15 Heparin Sod Inj 5000 Unit/Ml Vial SC 02/03/24 16:59 5,000 unit Q12HR VINCE Administration Metoprolol Succinate 12.5 mg 01/29/24 14:15 Metoprolol Succinate Xl 25 Mg Tabcr PO 02/28/24 14:14 QDAY VINCE Pantoprazole Sodium 40 mg 01/18/24 09:00 01/29/24 09:14 Pantoprazole 40 Mg Tablet PO 02/17/24 08:59 40 mg QDAY VINCE Administration Psyllium Hydrophilic Mucilloid 1 pkt 01/22/24 09:15 01/29/24 09:28 Psyllium 1 Pkt Packet PO 02/21/24 09:14 Not Given QDAY [facility] Protocol Sodium Chloride 3 ml 01/19/24 06:48 01/19/24 06:57 Sodium Chloride Rt Jackie 0.9% 3 Ml Nebu INH 02/18/24 06:47 3 ml PRN PRN Administration TO MIX WITH ALBUTEROL Plan 68-year-old male with no significant past medical history admitted to the hospital chief complaints of shortness of breath and diagnosed to have acute hypoxic respiratory failure secondary to HFrEF exacerbation. # Cardiogenic shock, improved # Dilated cardiomyopathy, 2/2 meth use and smoking # Elevated trop - likely Tpe II, downtrended #HFrEF, EF 10% -Likely exacerbated in the setting of suspected pneumonia in the right lobe and continued meth use. -Presented to the hospital with complaints of shortness of breath, orthopnea, PND -Denies palpitations, fever, pedal edema, abdominal distention. -Chest x-ray showed hyperinflation of bilateral lungs with patchy infiltrate in right lower lobe-pneumonia versus mass. -labs showed elevated BNP, Troponins that downtrended later. urine toxicology tested positive for meth. -Echo done on 01/17/2024 showed dilated cardiomyopathy - Mild to moderately dilated LV and RV. Moderate biatrial dilatation. Severe LV systolic dysfunction. Severe global hypokinesis. Estimated EF around 10% .Diastolic dysfunction present but cannot be graded due to Afib. Plan -Weaned off the vasopressors -Held diuretics as of 01/28/2024 in view of low blood pressures and as the patient does not appear to be fluid overloaded. -Started on metoprolol XL 12.5 Mg p.o. daily as part of GDMT -Will monitor blood pressures and heart rate. -As patient is asymptomatic even with blood pressure of 90/60 mmHg, no need of active intervention for this blood pressure # Atrial fibrillation with rapid ventricular rate -- CVR, 01/29/2024 -Patient was found to have sinus rhythm on EKG at the time of admission. -After starting Levophed and dobutamine drip, patient developed atrial fibrillation -[id number] score of 2, age and CHF -Has bled score is 5.8 based on his current renal and liver functions. Plan -Patient on PO Amiodarone 200mg bid. -Held anticoagulation for now as patient has high risk of bleeding. According to has bled score patient had high risk of bleeding(5.8%) -Recommended to follow-up in outpatient setting with [employer]mith helper for the start of anticoagulation -Started on metoprolol XL 12.5 Mg p.o. daily. #Chronic smoker #Probable COPD - smoking history of >40 pack years. - condition is stable as of now. # Transaminitis, downtrending Due to underlying cardiogenic shock -Labs on 01/19/2024 showed AST> 1000, ALT 931 -AST and ALT are continuously downtrending as of 01/27, AST 93, ALT 848 > 01/28, AST 70, ALT 694 -Will continue to monitor LFTs # ATN, resolving 2/2 cardiogenic shock -Creatinine in 12/2018 is 1.1 and at the time of admission is 2.1 -01/27, BUN 109, creatinine 4.2 > 01/28, BUN 119, Cr 3.8 -Adequate UO Plan -Will continue to monitor renal functions and renally dose medications. -Will continue to monitor urine output. #Thromobcytopenia, resolving Most likely acute liver failure, others statin and amiodarone use, unlikely DIC/TTP. Continue to monitor CBC, and signs of bleeding. 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 #Right lung pneumonia, GPC , treated DDx: mass in right middle lobe -Admitted with shortness of breath started 3 weeks before admitting into the hospital. -Denies fever, chills, cough. -Chest x-ray showed right patchy consolidation which was not present in 2019 -Patient did not get CT chest in view of his hemodynamic instability -Ceftriaxone and doxycycline(01/17-01/24), currently stable -repeat Chest xray showed similar patchy area in the right middle lobe and recommended to follow-up with CT chest in the outpatient basis. Hospital Maintenance: Dispo: medtele DVT ppx: heparin GI ppx:pantoprazole Diet:cardiac IV lines:peripheral Code status:DNR/DNI Patient plan of care was discussed with the attending physician, Dr. Navarro. David Mtz, PGY1 Attending Provider Attestation/Addendum I reviewed labs, imaging, EKG, home medications and prior available records. Face to face evaluation was performed by me. I have personally examined the patient and discussed assessment and plan with the IM team. I reviewed the resident note and agree with the plan with exceptions as below. Cardiogenic shock: He is off pressors. He is downgraded from ICU. He is currently hemodynamically stable. Held Lasix due to borderline BP. Discussed with cardiology: Will start low-dose metoprolol and monitor BP closely. Monitor I's and O's. MARIANO on CKD: Creatinine slightly improved. No indication for hemodialysis at this time. Likely intrinsic in the setting of shock. Monitor kidney function. Avoid nephrotoxins. Renally dosed medications. Nephrology is consulted and following. Atrial fibrillation with RVR: His rate is currently controlled. Continue amiodarone. Acute liver injury: Likely in setting of shock liver. LFTs are downtrending. Monitor LFTs. Debility: PT recommended SNF. Patient will need wheeled walker and he is high fall risk.
[2024-01-30] VITALS (9 sets, daily range): BP systolic 86–107; BP diastolic 55–78; PULSE 60–80; RESP 13–28; TEMP 36.1–36.4; O2SAT 95–100
[2024-01-30 05:29] LABS: Basophils # (Auto) 0.1 Thou/mm3 (0.0-0.2); Basophils % (Auto) 1 % (0-2.5); Eosinophils # (Auto) 0.2 Thou/mm3 (0.0-0.5); Eosinophils % (Auto) 2 % (0-10); Hemoglobin 13.4 g/dL (13.5-16.0); Immature Granulocytes % (Auto) 1 % (0-0); Immature Granulocytes Auto 0.09 Thou/mm3 (0.00-0.00); Lymphocytes # (Auto) 2.6 Thou/mm3 (1.0-4.8); Lymphocytes % (Auto) 25 % (10-50); Mean Corpuscular HGB Conc 32.7 g/dl (31.0-37.0); Mean Corpuscular Hemoglobin 28.5 pg (25.0-35.0); Mean Corpuscular Volume 87 fL (80-100); Monocytes # (Auto) 1.1 Thou/mm3 (0.0-0.8); Monocytes % (Auto) 11 % (0-12); Neutrophils # (Auto) 6.3 Thou/mm3 (1.8-7.7); Neutrophils % (Auto) 61 % (37-80); Nucleated Red Blood Cell % 0 /100 WBC (0); Platelet Count 162 Thou/mm3 (140-440); RDW Standard Deviation 44.3 fL (35.1-43.9); Red Blood Count 4.71 Miln/mm3 (4.50-5.90); White Blood Count 10.3 Thou/mm3 (3.8-10.6)
[2024-01-30 06:06] LABS: Alanine Aminotransferase 495 U/L (10-49); Albumin, Serum 3.8 gm/dL (3.4-4.8); Albumin/Globulin Ratio 1.1 (1.2-2.2); Alkaline Phosphatase 107 U/L (46-116); Anion Gap 10 (7-16); Aspartate Amino Transferase 48 U/L (0-34); BUN/Creatinine Ratio 28 Ratio (12-20); Bilirubin,Total 1.8 mg/dL (0.3-1.2); Calcium 8.4 mg/dL (8.3-10.6); Calcium (Corrected) 8.6 mg/dL (8.5-10.1); Chloride 89 mMol/L (98-107); Creatinine (Component) 3.7 mg/dL (0.6-1.3); Estimated Creatinine Clearance 14.8 mL/min (>60); Globulin 3.4 gm/dL (2.3-3.5); Glucose 118 mg/dL (74-106); Osmolality,Calculated 297 (275-295); Potassium 3.4 mMol/L (3.4-5.1); Sodium 132 mMol/L (136-145); Total Protein 7.2 gm/dL (5.7-8.2); eGFR 17 See Note
[2024-01-30 06:16] LABS: Blood Urea Nitrogen 103 mg/dL (9-23)
--- NOTE | 2024-01-30 07:15 | ESPR_ITS ---
Documentation for date of: 01/30/24 Subjective Subjective Interval history: No acute overnight events. No changes or worsening of symptoms. Denies fever, chills, headaches, chest pain, sob, cough, GI or urinary symptoms. Exam Vital Signs Temp Pulse Resp BP Pulse Ox O2 Del Method O2 Flow Rate 97.5 F 80 27 H 86/62 L 97 Room Air 0 01/30/24 04:00 01/30/24 04:00 01/30/24 04:00 01/30/24 04:00 01/30/24 04:00 01/30/24 04:00 01/30/24 00:00 FiO2 0 01/30/24 00:00 Narrative Exam General: Awake and in no acute distress. HEENT: Normocephalic, atraumatic, mucous membranes dry. Heart: Regular rate and rhythm, no murmurs. Lungs: Overall decreased breath sounds noted bilaterally. No wheezing/crackles heard Abdomen: Soft, nondistended, nontender, positive bowel sounds. ?No guarding or rebound tenderness. Neurologic: Alert and oriented x3, no gross neurological deficit, and patient able to move all 4 extremities. Extremities: No edema. Skin: No rash or ecchymoses. Objective Labs 01/30/24 05:05 01/30/24 05:05 Labs: Laboratory Results - last 24 hr 01/30/24 05:05 WBC 10.3 RBC 4.71 Hgb 13.4 L D Hct 41.0 MCV 87 MCH 28.5 MCHC 32.7 RDW Std Deviation 44.3 H Plt Count 162 D Neut % (Auto) 61 Lymph % (Auto) 25 [place] % (Auto) 11 Eos % (Auto) 2 Baso % (Auto) 1 Neut # (Auto) 6.3 Lymph # (Auto) 2.6 [place] # (Auto) 1.1 H Eos # (Auto) 0.2 Baso # (Auto) 0.1 Immature Gran # (Auto) 0.09 H Absolute Nucleated RBC 0.00 Immature Gran % 1 H Nucleated RBC % 0 Sodium 132 L Potassium 3.4 Chloride 89 L Carbon Dioxide 33.0 H Anion Gap 10 BUN 103 H* Creatinine 3.7 H Estim Creat Clear Calc 14.8 L eGFR 17 L BUN/Creatinine Ratio 28 H Glucose 118 H Calculated Osmolality 297 H Calcium 8.4 Corrected Calcium 8.6 Magnesium 2.0 Total Bilirubin 1.8 H AST 48 H ALT 495 H Alkaline Phosphatase 107 Total Protein 7.2 Albumin 3.8 Globulin 3.4 Albumin/Globulin Ratio 1.1 L ABG Interpretation ABG results: 01/18/24 01/18/24 01/19/24 11 21:30 04:35 ABG pH 7.51 H 7.49 H 7.29 L D ABG pCO2 17 L* 19 L* 20 L ABG pO2 221 H 245 H D 143 H D ABG HCO3 13 L 14 L 9 L* ABG O2 Saturation 100 H 100 H 99 H ABG Base Excess -7 L -7 L -15 L VBG pH VBG pCO2 VBG pO2 VBG Base Excess 01/19/24 01/19/24 01/19/24 11:01 11:11 18:13 ABG pH 7.26 L 7.32 L ABG pCO2 28 L 26 L ABG pO2 149 H 164 H ABG HCO3 13 L 14 L ABG O2 Saturation 99 H 100 H ABG Base Excess -13 L -11 L VBG pH 7.26 L VBG pCO2 32 L VBG pO2 46 VBG Base Excess -12 L 01/19/24 01/19/24 01/19/24 18:30 23:00 23:19 ABG pH 7.40 ABG pCO2 29 L ABG pO2 101 D ABG HCO3 18 L ABG O2 Saturation 98 ABG Base Excess -6 L VBG pH 7.35 7.41 VBG pCO2 24 L 28 L VBG pO2 44 129 H D VBG Base Excess -11 L -6 L 01/20/24 01/20/24 01/20/24 00:57 05:52 06:00 ABG pH 7.43 ABG pCO2 28 L ABG pO2 128 H D ABG HCO3 19 L ABG O2 Saturation 99 H ABG Base Excess -5 L VBG pH 7.39 7.42 VBG pCO2 31 L 29 L VBG pO2 141 H 61 H D VBG Base Excess -5 L -4 L 01/20/24 01/20/24 01/20/24 12:18 13:06 19:44 ABG pH 7.39 7.36 ABG pCO2 36 39 ABG pO2 102 D 101 ABG HCO3 22 22 ABG O2 Saturation 98 97 ABG Base Excess -3 -3 VBG pH 7.30 L 7.40 VBG pCO2 45 D 35 L D VBG pO2 41 D 61 H D VBG Base Excess -4 L -2 01/21/24 01/21/24 01/22/24 04:38 04:42 05:40 ABG pH 7.41 ABG pCO2 35 ABG pO2 84 ABG HCO3 22 ABG O2 Saturation 96 ABG Base Excess -3 VBG pH 7.38 7.47 VBG pCO2 40 37 VBG pO2 35 D 59 H D VBG Base Excess -1 3 01/22/24 01/23/24 01/23/24 05:51 05:17 08:27 ABG pH 7.52 H D 7.45 ABG pCO2 31 L 44 D ABG pO2 81 L 79 L ABG HCO3 25 31 H ABG O2 Saturation 97 96 ABG Base Excess 3 6 H VBG pH 7.48 VBG pCO2 42 VBG pO2 57 VBG Base Excess 7 H Quality Measures Quality Measures none Advance care planning discussed with:: patient Assessment & Plan Assessment Current Active Medications: Generic Name Dose Route Start Last Admin Trade Name Freq PRN Reason Stop Dose Admin Acetaminophen 650 mg 01/27/24 18:48 Acetaminophen 325 Mg Tablet PO 02/16/24 21:37 Q6H PRN PAIN rated 1-3 or fever> 100.3 Amiodarone HCl 200 mg 01/21/24 21:00 01/29/24 20:27 Amiodarone Hcl 200 Mg Tablet PO 02/20/24 20:59 200 mg BID VINCE Administration Aspirin 81 mg 01/18/24 09:00 01/29/24 09:14 Aspirin Ec 81 Mg Tabec PO 02/17/24 08:59 81 mg QDAY VINCE Administration Calcium Carbonate 600 mg 01/25/24 09:00 01/29/24 09:14 Calcium Carbonate 600 Mg Tablet PO 02/24/24 08:59 600 mg QDAY VINCE Administration Heparin Sodium (Porcine) 5,000 unit 01/20/24 17:00 01/29/24 20:27 Heparin Sod Inj 5000 Unit/Ml Vial SC 02/03/24 16:59 5,000 unit Q12HR VINCE Administration Metoprolol Succinate 12.5 mg 01/29/24 17:19 Metoprolol Succinate Xl 25 Mg Tabcr PO 02/28/24 14:14 QDAY VINCE Pantoprazole Sodium 40 mg 01/18/24 09:00 01/29/24 09:14 Pantoprazole 40 Mg Tablet PO 02/17/24 08:59 40 mg QDAY VINCE Administration Psyllium Hydrophilic Mucilloid 1 pkt 01/22/24 09:15 01/29/24 09:28 Psyllium 1 Pkt Packet PO 02/21/24 09:14 Not Given QDAY VINCE Protocol Sodium Chloride 3 ml 01/19/24 06:48 01/19/24 06:57 Sodium Chloride Rt Jackie 0.9% 3 Ml Nebu INH 02/18/24 06:47 3 ml PRN PRN Administration TO MIX WITH ALBUTEROL Plan 68-year-old male with no significant past medical history admitted to the hospital chief complaints of shortness of breath and diagnosed to have acute hypoxic respiratory failure secondary to HFrEF exacerbation. Pending nephrology recommendations for ATN versus CKD. Patient uninsured, unlikely will be excepted SNF or home health. Pending approval for subacute care. Patient will likely discharge once cleared by cardiology, may follow-up with nephrology outpatient. Cardiology, Dr. Delfino kenyon with discharging patient. To follow-up with Dr. Batista outpatient # Cardiogenic shock, improved # Dilated cardiomyopathy, 2/2 meth use and smoking # Elevated trop - likely Tpe II, downtrended # HFrEF, EF 10% -Likely exacerbated in the setting of suspected pneumonia in the right lobe and continued meth use. -Presented to the hospital with complaints of shortness of breath, orthopnea, PND -Denies palpitations, fever, pedal edema, abdominal distention. -Chest x-ray showed hyperinflation of bilateral lungs with patchy infiltrate in right lower lobe-pneumonia versus mass. -labs showed elevated BNP, Troponins that downtrended later. urine toxicology tested positive for meth. -Echo done on 01/17/2024 showed dilated cardiomyopathy - Mild to moderately dilated LV and RV. Moderate biatrial dilatation. Severe LV systolic dysfunction. Severe global hypokinesis. Estimated EF around 10% .Diastolic dysfunction present but cannot be graded due to Afib. Plan -Weaned off the vasopressors -Held diuretics as of 01/28/2024 in view of low blood pressures and as the patient does not appear to be fluid overloaded. -Started on metoprolol XL 12.5 Mg p.o. daily as part of GDMT -Will monitor blood pressures and heart rate. -As patient is asymptomatic even with blood pressure of 90/60 mmHg, no need of active intervention for this blood pressure # Atrial fibrillation with rapid ventricular rate -- CVR, 01/29/2024 -Patient was found to have sinus rhythm on EKG at the time of admission. -After starting Levophed and dobutamine drip, patient developed atrial fibrillation -[id number] score of 2, age and CHF -Has bled score is 5.8 based on his current renal and liver functions. Plan -Patient on PO Amiodarone 200mg bid. -Held anticoagulation for now as patient has high risk of bleeding. According to has bled score patient had high risk of bleeding(5.8%) -Recommended to follow-up in outpatient setting with precipitation equipment tender for the start of anticoagulation -Started on metoprolol XL 12.5 Mg p.o. daily. #Chronic smoker #Probable COPD - smoking history of >40 pack years. - condition is stable as of now. # Transaminitis, downtrending Due to underlying cardiogenic shock -Labs on 01/19/2024 showed AST> 1000, ALT 931 -TB 1.8, AST 40, ALT 495 down -Will continue to monitor LFTs # ATN, resolving # Possible CKD stage IV (<3 months since dx) 2/2 cardiogenic shock -Creatinine in 12/2018 is 1.1 and at the time of admission is 2.1 -/, BUN 109, creatinine 4.2 > /, BUN 119, Cr 3.8 -Adequate UO. ? Nephrology consulted, pending recommendations Plan -Will continue to monitor renal functions and renally dose medications. -Will continue to monitor urine output. #Thromobcytopenia, resolving Most likely acute liver failure, others statin and amiodarone use, unlikely DIC/TTP. Continue to monitor CBC, and signs of bleeding. 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 #Right lung pneumonia, GPC , treated DDx: mass in right middle lobe -Admitted with shortness of breath started 3 weeks before admitting into the hospital. -Denies fever, chills, cough. -Chest x-ray showed right patchy consolidation which was not present in 2019 -Patient did not get CT chest in view of his hemodynamic instability -Ceftriaxone and doxycycline(01/17-01/24), currently stable -repeat Chest xray showed similar patchy area in the right middle lobe and recommended to follow-up with CT chest in the outpatient basis. Hospital Maintenance: Dispo: medtele DVT ppx: heparin GI ppx:pantoprazole Diet:cardiac IV lines:peripheral Code status:DNR/DNI Patient plan of care was discussed with the attending physician, Dr. Navarro. Millie Laird DO, PGY1 Attending Provider Attestation/Addendum I reviewed labs, imaging, EKG, home medications and prior available records. Face to face evaluation was performed by me. I have personally examined the patient and discussed assessment and plan with the IM team. I reviewed the resident note and agree with the plan with exceptions as below. Cardiogenic shock: He is off pressors. He is downgraded from ICU. He is currently hemodynamically stable. Held Lasix due to borderline BP. Discussed with cardiology: Started low-dose metoprolol and patient tolerated. Monitor I's and O's. MARIANO on CKD: Creatinine slightly improved. No indication for hemodialysis at this time. Likely intrinsic in the setting of shock. Monitor kidney function. Avoid nephrotoxins. Renally dosed medications. Nephrology is consulted. Atrial fibrillation with RVR: His rate is currently controlled. Continue amiodarone. Acute liver injury: Likely in setting of shock liver. LFTs are downtrending. Monitor LFTs. Debility: PT recommended SNF. Patient will need wheeled walker and he is high fall risk. He is pending SNF evaluation.
[2024-01-30] MEDS: CALCIUM CARBONATE 600 MG TABLET PO (08:31)
[2024-01-30] MEDS: ASPIRIN EC 81 MG TABEC PO (08:31)
[2024-01-30] MEDS: HEPARIN SOD INJ 5000 UNIT/ML VIAL SC ×2 (08:37→20:32)
[2024-01-30] MEDS: PANTOPRAZOLE 40 MG TABLET PO (08:37)
[2024-01-30] MEDS: AMIODARONE HCL 200 MG TABLET PO ×2 (10:07→20:31)
--- NOTE | 2024-01-30 11:57 | PC.SS ---
Computer Lab Assistant (RAFFY) Renetta spoke to GME Resident Dr. Chan that patient needs PT. SW explained barrier with insurance. SW explained that [facility] in [place] can sometimes accept [facility] patients. Dr. Chan requested that an attempt at least be made. RAFFY completed [facility] and [facility] referral.
[2024-01-30] MEDS: OSELTAMIVIR 30 MG CAPSULE PO (13:27)
--- NOTE | 2024-01-30 15:57 | PD.NEPHCONS ---
History of Present Illness Data of Consult Consult date: 01/30/24 Requesting Physician: Kevin Navarro MD Primary Care Provider: Physician No Primary/Family Consult Narrative Reason for consult: MARIANO on CKD History of present illness: Chart review done Mr. Peñaloza is a 68-year-old gentleman with no significant past medical history as he has not been to a primary care doctor presented to the emergency department worsening shortness of breath 68-year-old male past medical history presented to ED with chief complaints of shortness of breath that is progressively getting worse over the last 3 weeks. Patient stated that symptoms started 3 weeks ago, no prior episodes reported, also patient was complaining of dyspnea on exertion, generalized weakness. Patient stated that he knew that he has a pneumonia and for that he was taking medication [id number] which was not helping with his symptoms. Symptoms also was associated with occasional chills, otherwise patient denies any inciting factors or sick contacts, denies any chest pain, fever, cough, vomiting, diarrhea, abdominal pain, orthopnea, dysuria, dizziness, headache or any other associated symptoms. On presentation patient was found to be tachycardic with heart rate of 103, tachypneic with respiratory rate of 22, hypothermia with temperature of 94.5. Chest x-ray revealed right-sided PNA. CBC was not significant, CMP revealed MARIANO with BUN of 34, creatinine is 2.1, EGFR 33, lactic acid was 3.7, troponin was elevated 1.171, BNP was 2280, Pro-Iglesia was negative. Patient met SIRS criteria, hypotermia, tachicardia, tachipnia lactic acidosis with a source of infection. In the emergency department he was noted to have ST elevation. Cardiology was consulted. During hospital course he was diagnosed with cardiogenic shock, acute renal failure, cardiomyopathy,Atrial fibrillation, acute hypoxic respiratory failure, right lung pneumonia, with questionable COPD, metabolic acidosis, thrombocytopenia, anemia he was in ICU and downgraded to telemetry today. Nephrology consultation requested for acute renal failure with questionable underlying CKD. 01/30/2024 medications included Protonix, as heparin subcu, amiodarone, calcium, Tamiflu. Labs showed sodium 132, potassium 3.4, bicarbonate 23, BUN 103, creatinine A1c 5.5, lactic acid 1.5, total bilirubin 1.8,, ALT 495, alk phos 107, albumin 3.8, lipids showed LDL 73, TSH 1.85. Urinalysis shows 1+ protein on admission with 4+ bacteria. Urine toxin positive for amphetamine chest x-ray showed significant bilateral pneumonia. Echocardiogram showed ejection fraction 10%. cc:: cc: Kevin Navarro MD Review of Systems Review of Systems Narrative Review of Systems: CONSTITUTIONAL: Patient denies any fever, chills. Complaining of fatigue HEENT: Denies any visual disturbances or hearing problems. CARDIOVASCULAR: Patient denies any chest pain, shortness of breath, swelling in the lower extremities. PULMONARY: Patient denies any shortness of breath, cough. GASTROINTESTINAL: Patient denies any abdominal pain, constipation, nausea, vomiting, diarrhea. Complaining of decreased appetite GENITOURINARY: Patient denies any urinary symptoms of burning or frequency or hematuria, denies any form in the urine. SKIN: Denies any rash. MUSCULOSKELETAL: Denies any muscular skeletal problems of joint pains. Complaining of weakness NEUROLOGICAL: Denies any neurological problems of strokes, seizures or confusion. Denies any memory problems. Past Medical History Past Medical History CARDIAC: Negative Cardiac Disorders or Congestive Heart Failure RESPIRATORY: Negative Chronic Obstructive Pulmonary Disease (COPD) or Asthma GENITOURINARY: Negative Renal Disease ENDOCRINE: Negative Diabetes Mellitus Type 1 or Diabetes Mellitus Type 2 HEMATOLOGIC: Negative Sickle Cell Disease OTHER HISTORY: Negative Cancer Social History SMOKING STATUS: Former smoker Past Medical History Comments PM COMMENT: Past medical history: ? Atrial fibrillation with RVR ? Chronic systolic heart failure [10%] ? Likely COPD ? Nicotine dependence ? 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 Active smoker ETHO use: Rarely campbell 1 drink Illicit drug use: Admitted to cocaine and Methamphetamine use in the past Social History Note: lives alone Family History: Cousin from an [place] at 36 Meds Home Medications and Allergies Allergies Allergy/AdvReac Type Severity Reaction Status Date / Time No Known Allergies Allergy Verified 01/17/24 15:13 Exam Vital Signs Temp Pulse Resp BP Pulse Ox O2 Del Method O2 Flow Rate 36.1 C 65 21 H 97/62 100 Room Air 0 01/30/24 12:00 01/30/24 12:01/30/24 12:01/30/24 12:00 01/30/24 12:00 01/30/24 12:00 01/30/24 12:00 FiO2 0 01/30/24 12:00 Narrative Exam GENERAL APPEARANCE: Skinny gentleman currently seen in telemetry NECK: Neck supple, no JVD or bruit CARDIOVASCULAR: Heart regular, no murmurs LUNGS/CHEST: Chest clear to auscultation. No rales, rhonchi, wheezing ABDOMEN: Soft, nontender, nondistended. No masses. Normal bowel sounds. EXTREMITIES: No edema, clubbing or cyanosis. SKIN: Skin exam normal without any rashes MUSCULOSKELETAL: In bed NEUROLOGICAL : No neurological deficits Results Labs 01/30/24 05:05 01/30/24 05:05 Labs: Short CBC 01/30/24 Range/Units 05:05 WBC 10.3 (3.8-10.6) Thou/mm3 Hgb 13.4 L D (13.5-16.0) g/dL Hct 41.0 (41.0-53.0) % Plt Count 162 D (140-440) Thou/mm3 BMP 01/30/24 05:05 Sodium 132 L Potassium 3.4 Chloride 89 L Carbon Dioxide 33.0 H BUN 103 H* Creatinine 3.7 H Glucose 118 H Calcium 8.4 Liver Function 01/30/24 Range/Units 05:05 Total Bilirubin 1.8 H (0.3-1.2) mg/dL AST 48 H (0-34) U/L ALT 495 H (10-49) U/L Alkaline Phosphatase 107 (46-116) U/L Albumin 3.8 (3.4-4.8) gm/dL ABG Interpretation ABG results: 01/18/24 01/18/24 01/19/24 11:29 21:30 04:35 ABG pH 7.51 H 7.49 H 7.29 L D ABG pCO2 17 L* 19 L* 20 L ABG pO2 221 H 245 H D 143 H D ABG HCO3 13 L 14 L 9 L* ABG O2 Saturation 100 H 100 H 99 H ABG Base Excess -7 L -7 L -15 L VBG pH VBG pCO2 VBG pO2 VBG Base Excess 01/19/24 01/19/24 01/19/24 11:01 11:11 18:13 ABG pH 7.26 L 7.32 L ABG pCO2 28 L 26 L ABG pO2 149 H 164 H ABG HCO3 13 L 14 L ABG O2 Saturation 99 H 100 H ABG Base Excess -13 L -11 L VBG pH 7.26 L VBG pCO2 32 L VBG pO2 46 VBG Base Excess -12 L 01/19/24 01/19/24 01/19/24 18:30 23:00 23:19 ABG pH 7.40 ABG pCO2 29 L ABG pO2 101 D ABG HCO3 18 L ABG O2 Saturation 98 ABG Base Excess -6 L VBG pH 7.35 7.41 VBG pCO2 24 L 28 L VBG pO2 44 129 H D VBG Base Excess -11 L -6 L 01/20/24 01/20/24 01/20/24 00:57 05:52 06:00 ABG pH 7.43 ABG pCO2 28 L ABG pO2 128 H D ABG HCO3 19 L ABG O2 Saturation 99 H ABG Base Excess -5 L VBG pH 7.39 7.42 VBG pCO2 31 L 29 L VBG pO2 141 H 61 H D VBG Base Excess -5 L -4 L 01/20/24 01/20/24 01/20/24 12:18 13:06 19:44 ABG pH 7.39 7.36 ABG pCO2 36 39 ABG pO2 102 D 101 ABG HCO3 22 22 ABG O2 Saturation 98 97 ABG Base Excess -3 -3 VBG pH 7.30 L 7.40 VBG pCO2 45 D 35 L D VBG pO2 41 D 61 H D VBG Base Excess -4 L -2 01/21/24 01/21/24 01/22/24 04:38 04:42 05:40 ABG pH 7.41 ABG pCO2 35 ABG pO2 84 ABG HCO3 22 ABG O2 Saturation 96 ABG Base Excess -3 VBG pH 7.38 7.47 VBG pCO2 40 37 VBG pO2 35 D 59 H D VBG Base Excess -1 3 01/22/24 01/23/24 01/23/24 05:51 05:17 08:27 ABG pH 7.52 H D 7.45 ABG pCO2 31 L 44 D ABG pO2 81 L 79 L ABG HCO3 25 31 H ABG O2 Saturation 97 96 ABG Base Excess 3 6 H VBG pH 7.48 VBG pCO2 42 VBG pO2 57 VBG Base Excess 7 H Assessment & Plan Assessment and plan (1) Acute kidney injury: Status: Acute (2) Pneumonia: Status: Acute Additional Assessment & Plan Additional Plan: # ATN, BUN and creatinine still remains elevated. Suspect underlying CKD. Patient had not seen a physician in the past. Not quite sure what his baseline creatinine is. Will monitor closely. Renal ultrasound ordered. # Cardiogenic shock, improved # Dilated cardiomyopathy, 2/2 meth use and smoking # Elevated trop - likely Tpe II, downtrended #HFrEF, EF 10-probably related to drug usage # Atrial fibrillation #Chronic smoker #Probable COPD # Transaminitis, downtrending #Thromobcytopenia, resolving #Mild normocytic normochromic anemia Will monitor urine output closely. BUN and creatinine started to trend down. Thank you Kevin for allowing me to participate in the care of Mr. Peñaloza Procedures Arterial Line Size (Gauge): 14
--- NOTE | 2024-01-30 16:04 | XR_ITS ---
Examination: Retroperitoneal ultrasound, complete Technique: Multiple high resolution grayscale images of the retroperitoneum obtained, including kidneys and bladder. Exam date and time:January 30, 2024 1708 hrs. Indications: Onset acute renal insufficiency on laboratory examination today Findings: Right kidney 9.8 x 4.7 x 5.7 cm renal cortex 1.5 cm Left kidney 8.7 x 6.2 x 5.3 cm renal cortex 1.3 cm Moderate bilateral renal parenchymal scar formation No hydronephrosis No bladder mass or bladder calculi Bladder prevoid volume 118 cc unable to void Prostate volume 41.9 cc no prostate nodules Impression: Moderate bilateral renal parenchymal scar formation, no hydronephrosis
[2024-01-31] VITALS (9 sets, daily range): BP systolic 84–105; BP diastolic 53–70; PULSE 33–107; RESP 15–20; TEMP 36.1–36.3; O2SAT 95–99
[2024-01-31 05:18] LABS: Basophils # (Auto) 0.1 Thou/mm3 (0.0-0.2); Basophils % (Auto) 1 % (0-2.5); Eosinophils # (Auto) 0.1 Thou/mm3 (0.0-0.5); Eosinophils % (Auto) 1 % (0-10); Hematocrit 40.8 % (41.0-53.0); Hemoglobin 13.6 g/dL (13.5-16.0); Immature Granulocytes % (Auto) 0 % (0-0); Immature Granulocytes Auto 0.04 Thou/mm3 (0.00-0.00); Lymphocytes # (Auto) 1.9 Thou/mm3 (1.0-4.8); Lymphocytes % (Auto) 20 % (10-50); Mean Corpuscular HGB Conc 33.3 g/dl (31.0-37.0); Mean Corpuscular Hemoglobin 28.8 pg (25.0-35.0); Mean Corpuscular Volume 86 fL (80-100); Monocytes % (Auto) 10 % (0-12); Neutrophils # (Auto) 6.3 Thou/mm3 (1.8-7.7); Neutrophils % (Auto) 67 % (37-80); Nucleated Red Blood Cell % 0 /100 WBC (0); Platelet Count 148 Thou/mm3 (140-440); RDW Standard Deviation 43.8 fL (35.1-43.9); Red Blood Count 4.72 Miln/mm3 (4.50-5.90); White Blood Count 9.4 Thou/mm3 (3.8-10.6)
[2024-01-31 06:09] LABS: Alanine Aminotransferase 378 U/L (10-49); Albumin, Serum 3.9 gm/dL (3.4-4.8); Albumin/Globulin Ratio 1.2 (1.2-2.2); Alkaline Phosphatase 102 U/L (46-116); Anion Gap 12 (7-16); Aspartate Amino Transferase 35 U/L (0-34); BUN/Creatinine Ratio 30 Ratio (12-20); Bilirubin,Total 1.9 mg/dL (0.3-1.2); Calcium 8.5 mg/dL (8.3-10.6); Calcium (Corrected) 8.6 mg/dL (8.5-10.1); Carbon Dioxide 31.5 mMol/L (20.0-31.0); Chloride 90 mMol/L (98-107); Creatinine (Component) 3.4 mg/dL (0.6-1.3); Estimated Creatinine Clearance 16.5 mL/min (>60); Globulin 3.2 gm/dL (2.3-3.5); Glucose 105 mg/dL (74-106); Osmolality,Calculated 298 (275-295); Potassium 3.2 mMol/L (3.4-5.1); Sodium 133 mMol/L (136-145); Total Protein 7.1 gm/dL (5.7-8.2); eGFR 19 See Note
[2024-01-31 06:11] LABS: Blood Urea Nitrogen 103 mg/dL (9-23)
--- NOTE | 2024-01-31 08:26 | PC.SS ---
Follow up note: SS phoned [facility] to follow up on placement. They will review and call back with decision. Patient is ready for d/c.
[2024-01-31] MEDS: POTASSIUM CHLORIDE 20 mEq TABCR 40 MEQ PO (08:28)
[2024-01-31] MEDS: CALCIUM CARBONATE 600 MG TABLET PO (08:28)
[2024-01-31] MEDS: PANTOPRAZOLE 40 MG TABLET PO (08:29)
[2024-01-31] MEDS: ASPIRIN EC 81 MG TABEC PO (08:29)
[2024-01-31] MEDS: HEPARIN SOD INJ 5000 UNIT/ML VIAL SC ×2 (08:30→20:37)
[2024-01-31] MEDS: AMIODARONE HCL 200 MG TABLET PO ×2 (08:41→20:37)
--- NOTE | 2024-01-31 08:51 | ESPR_ITS ---
Documentation for date of: 01/31/24 Subjective Subjective Interval history: Patient was seen and examined at bedside this AM. No overnight events. Patient had some PVCs and was in and out of A-fib overnight. Heart rates in the 60s to 70s. Kidney function is improving with BUN of 103 and creatinine 3.4. LFTs also improved with AST at 35 compared to 93 previously and ALT now 378 compared to 848 Patient bicarb 31.5, BUN 103, CR decreased to 3.4 Sodium is 133 and chloride is 90 potassium 3.2 today and magnesium 2 yesterday Recommend keeping potassium above 4 and magnesium above 2 Total balance of -665 mL in 24 hours Recommend to discharge patient on Eliquis 2.5 mg twice daily, can stop aspirin. Recommended to discharge patient on Bumex 2 mg daily if okay with nephrology and to follow-up at my office in 1 week. Exam Vital Signs Temp Pulse Resp BP Pulse Ox O2 Del Method O2 Flow Rate 97.2 F 33 L 15 105/53 L 96 Room Air 0 01/31/24 04:00 01/31/24 08:41 01/31/24 04:00 01/31/24 08:41 01/31/24 04:00 01/30/24 16:00 01/30/24 16:00 FiO2 0 01/30/24 16:00 Narrative Exam Constitutional Alert, oriented x 3 and no acute distress. Elderly male, cachectic, irritable HEENT Vision grossly intact. Patent nares. Trachea midline. Poor dentition, missing teeth Respiratory Chest normal on inspection, clear breath sounds throughout lung chauhan b/l Cardiovascular S1 and S2 audible, RRR. No murmurs carotid bruit. JVD not assessed Abdominal Soft and non tender to palpation in all quadrants. BS + Genitourinary No bladder tenderness, no flank pain. Normal to palpation. Musculoskeletal Extremities tone within normal limits. No LE edema. Neurological CN II - XII grossly intact. Extremity motor and sensation grossly intact. Skin Warm, dry and intact. No apparent lesions. Psychiatric comfortable Objective Labs 01/31/24 04:27 01/31/24 04:27 Labs: Laboratory Results - last 24 hr 01/31/24 04:27 WBC 9.4 RBC 4.72 Hgb 13.6 Hct 40.8 L MCV 86 MCH 28.8 MCHC 33.3 RDW Std Deviation 43.8 Plt Count 148 Neut % (Auto) 67 Lymph % (Auto) 20 [place] % (Auto) 10 Eos % (Auto) 1 Baso % (Auto) 1 Neut # (Auto) 6.3 Lymph # (Auto) 1.9 [place] # (Auto) 1.0 H Eos # (Auto) 0.1 Baso # (Auto) 0.1 Immature Gran # (Auto) 0.04 H Absolute Nucleated RBC 0.00 Immature Gran % 0 Nucleated RBC % 0 Sodium 133 L Potassium 3.2 L Chloride 90 L Carbon Dioxide 31.5 H Anion Gap 12 BUN 103 H* Creatinine 3.4 H Estim Creat Clear Calc 16.5 L eGFR 19 L BUN/Creatinine Ratio 30 H Glucose 105 Calculated Osmolality 298 H Calcium 8.5 Corrected Calcium 8.6 Total Bilirubin 1.9 H AST 35 H ALT 378 H Alkaline Phosphatase 102 Total Protein 7.1 Albumin 3.9 Globulin 3.2 Albumin/Globulin Ratio 1.2 ABG Interpretation ABG results: 01/18/24 01/18/24 01/19/24 11:29 21:30 04:35 ABG pH 7.51 H 7.49 H 7.29 L D ABG pCO2 17 L* 19 L* 20 L ABG pO2 221 H 245 H D 143 H D ABG HCO3 13 L 14 L 9 L* ABG O2 Saturation 100 H 100 H 99 H ABG Base Excess -7 L -7 L -15 L VBG pH VBG pCO2 VBG pO2 VBG Base Excess 01/19/24 01/19/24 01/19/24 11:01 11:11 18:13 ABG pH 7.26 L 7.32 L ABG pCO2 28 L 26 L ABG pO2 149 H 164 H ABG HCO3 13 L 14 L ABG O2 Saturation 99 H 100 H ABG Base Excess -13 L -11 L VBG pH 7.26 L VBG pCO2 32 L VBG pO2 46 VBG Base Excess -12 L 01/19/24 01/19/24 01/19/24 18:30 23:00 23:19 ABG pH 7.40 ABG pCO2 29 L ABG pO2 101 D ABG HCO3 18 L ABG O2 Saturation 98 ABG Base Excess -6 L VBG pH 7.35 7.41 VBG pCO2 24 L 28 L VBG pO2 44 129 H D VBG Base Excess -11 L -6 L 01/20/24 01/20/24 01/20/24 00:57 05:52 06:00 ABG pH 7.43 ABG pCO2 28 L ABG pO2 128 H D ABG HCO3 19 L ABG O2 Saturation 99 H ABG Base Excess -5 L VBG pH 7.39 7.42 VBG pCO2 31 L 29 L VBG pO2 141 H 61 H D VBG Base Excess -5 L -4 L 01/20/24 01/20/24 01/20/24 12:18 13:06 19:44 ABG pH 7.39 7.36 ABG pCO2 36 39 ABG pO2 102 D 101 ABG HCO3 22 22 ABG O2 Saturation 98 97 ABG Base Excess -3 -3 VBG pH 7.30 L 7.40 VBG pCO2 45 D 35 L D VBG pO2 41 D 61 H D VBG Base Excess -4 L -2 01/21/24 01/21/24 01/22/24 04:38 04:42 05:40 ABG pH 7.41 ABG pCO2 35 ABG pO2 84 ABG HCO3 22 ABG O2 Saturation 96 ABG Base Excess -3 VBG pH 7.38 7.47 VBG pCO2 40 37 VBG pO2 35 D 59 H D VBG Base Excess -1 3 01/22/24 01/23/24 01/23/24 05:51 05:17 08:27 ABG pH 7.52 H D 7.45 ABG pCO2 31 L 44 D ABG pO2 81 L 79 L ABG HCO3 25 31 H ABG O2 Saturation 97 96 ABG Base Excess 3 6 H VBG pH 7.48 VBG pCO2 42 VBG pO2 57 VBG Base Excess 7 H Quality Measures Quality Measures none Advance care planning discussed with:: patient Assessment & Plan Assessment Current Active Medications: Generic Name Dose Route Start Last Admin Trade Name Freq PRN Reason Stop Dose Admin Acetaminophen 650 mg 01/27/24 18:48 Acetaminophen 325 Mg Tablet PO 02/16/24 21:37 Q6H PRN PAIN rated 1-3 or fever> 100.3 Amiodarone HCl 200 mg 01/21/24 21:00 01/31/24 08:41 Amiodarone Hcl 200 Mg Tablet PO 02/20/24 20:59 200 mg BID VINCE Administration Aspirin 81 mg 01/18/24 09:00 01/31/24 08:29 Aspirin Ec 81 Mg Tabec PO 02/17/24 08:59 81 mg QDAY VINCE Administration Calcium Carbonate 600 mg 01/25/24 09:00 01/31/24 08:28 Calcium Carbonate 600 Mg Tablet PO 02/24/24 08:59 600 mg QDAY VINCE Administration Heparin Sodium (Porcine) 5,000 unit 01/20/24 17:00 01/31/24 08:30 Heparin Sod Inj 5000 Unit/Ml Vial SC 02/03/24 16:59 5,000 unit Q12HR VINCE Administration Pantoprazole Sodium 40 mg 01/18/24 09:00 01/31/24 08:29 Pantoprazole 40 Mg Tablet PO 02/17/24 08:59 40 mg QDAY VINCE Administration Psyllium Hydrophilic Mucilloid 1 pkt 01/22/24 09:15 01/31/24 08:30 Psyllium 1 Pkt Packet PO 02/21/24 09:14 Not Given QDAY VINCE Protocol Sodium Chloride 3 ml 01/19/24 06:48 01/19/24 06:57 Sodium Chloride Rt Jackie 0.9% 3 Ml Nebu INH 02/18/24 06:47 3 ml PRN PRN Administration TO MIX WITH ALBUTEROL Plan Patient is a 68-year-old male with no significant past medical history who presented to the ED with a chief complaint of shortness of breath. Patient was admitted for acute respiratory failure with hypoxia secondary to community-acquired pneumonia and CHF exacerbation. Cardiology was consulted. 1. Acute respiratory failure with hypoxia Secondary to 2. Acute decompensated systolic heart failure exacerbation [EF 10%] 3. Cardiogenic shock 4. Dilated cardiomyopathy On admission patient has history of progressively worsening shortness of breath for the past 3 weeks. On exam patient is in mild distress on O2 via NC and breath sounds were decreased globally. No signs of lower extremity edema. Patient not previously diagnosed with heart failure in the past and not on any medication at home. On admission BNP 2864 NYHA Class IV Stage C Transthoracic echocardiogram completed on 01/16 findings include: Dilated cardiomyopathy - Mild to moderately dilated LV and RV. Moderate biatrial dilatation. Severe LV systolic dysfunction. Severe global hypokinesis. Estimated EF around 10% Diastolic dysfunction present but cannot be graded due to Afib. Moderate RV dysfunction. Estimated RVSP 40 mmHg. Moderate MR. Mild TR,PI. Mild AV sclerosis without stenosis, IVC dilated and pleural effusion present. Patient was seen and examined at bedside this AM. No overnight events. Patient had some PVCs and was in and out of A-fib overnight. Heart rates in the 60s to 70s. Kidney function is improving with BUN of 103 and creatinine 3.4. LFTs also improved with AST at 35 compared to 93 previously and ALT now 378 compared to 848 Patient bicarb 31.5, BUN 103, CR decreased to 3.4 Sodium is 133 and chloride is 90 potassium 3.2 today and magnesium 2 yesterday Recommend keeping potassium above 4 and magnesium above 2 Total balance of -665 mL in 24 hours Plan: ? Strict input output charting ? Daily weights ? 2 g salt restricted diet ? 1500 cc fluid restriction ? Recommend to discharge patient on Bumex 2 mg daily if okay with nephrology and to follow-up in 1 week in my office as well as with clinical nursing director. ? Recommend to continue patient on midodrine 10 Mg p.o. 3 times daily ?Recommend keeping potassium above 4 and magnesium above 2 ? Patient counseled on methamphetamine, cocaine and all drug cessation. 5. Rule out ACS 6. NSTEMI -mostly type II secondary to supply/demand mismatch given the severe dilated cardiomyopathy Patient had progressive SOB for the past 3 weeks but denies any chest pain or pressure. Unlikely acute coronary syndrome and troponin elevation mostly secondary to supply/demand mismatch given severe dilated cardiomyopathy in the setting of significant drug abuse including methamphetamine and other drugs. Initial EKG showed sinus rhythm with occasional PVCs, left atrial enlargement repeat EKG showed atrial fibrillation with RVR, rate 120. No acute ST changes Troponin were elevated at 1.171 up trended to 1.235 and subsequently down trended to 0.98 Plan: ? Heparin infusion discontinued as >48 hours ? Can discontinue aspirin 81 Mg p.o. daily upon discharge and continue Eliquis 2.5 mg BID. ? Can hold high intensity statin in light of Ischemic hepatitis ? No need to further trend troponin - Continue medical management for now 7. A-fib with RVR?new onset Patient admitted to having intermittent palpitations for years with some episodes lasting for days before resolving. Initial EKG showed sinus rhythm with occasional PVCs, left atrial enlargement repeat EKG showed atrial fibrillation with RVR, rate 120. No acute ST changes. From telemetry review patient continues to be in/out of A-fib with some PAC's and sinus tachy. [id number] : 1 point ; 0.6 % stroke risk per year [age] Plan: ? Continue amiodarone 200 mg twice daily ? Recommend rate control with metoprolol XL 50 Mg p.o. daily if patient's blood pressure allows. ?Recommend to discharge patient on Eliquis 2.5 mg twice daily due to impaired renal function. ? Continue telemetry review ? Please maintain potassium greater than 4 and magnesium greater than 2 at all times to prevent any further arrhythmias 8. Community-acquired pneumonia Patient had shortness of breath for past 3 weeks as well as a nonproductive cough. Chest x-ray on admission was significant for right mid zone consolidation. Patient continues on ceftriaxone. Blood and sputum cultures negative. Continue management as per primary team 9. MARIANO likely prerenal 10. Acute Renal Failure 11. Transaminitis 12. Multi- organ Failure On admission patient's CR 2 currently up trended to 2.1. Unable to assess baseline as no previous records for comparison. Likely in the setting of cardiogenic shock and dehydration. Patient bicarb 31.5, BUN 103, CR decreased to 3.4 Recommend stat nephrology consult as well Lactic acid downtrended to 1.5 LFTs also improved with AST at 35 compared to 93 previously and ALT now 378 compared to greater than 848 Plan: - Patient offered the option of Dialysis repeatedly but refused any further invasive procedures and switched his code status to DNR 13. Likely COPD 14. Nicotine dependence 15. History of polysubstance abuse Patient has [id number] smoking history and now has shortness of breath for the past 3 weeks along with productive cough. Clinically he is cachectic and appears to have decreased breath sounds globally suggestive of COPD. Patient will need to be further worked up as an outpatient. Patient admitted to using methamphetamine and cocaine for many years as well with U tox being positive for methamphetamine on admission. Patient counseled extensively on drug cessation. Patient agreed - Patient offered the option of Dialysis repeatedly but refused any further invasive procedures and switched his code status to DNR Continue rest of management as per primary team. We are grateful to be able to participate in Mr. Peñaloza's care. Thank you for the consult Plan of care discussed with attending Cement Crusher Operator, Dr. Yudelka Andersen PGY-1 Attending Provider Attestation/Addendum I have personally seen and examined the patient separately on the above date of service and discussed the plan of care with the resident. I reviewed the resident Dr. Dias consultation progress note and agree with the resident findings and plan in the note above and have also edited the documentation to reflect my findings and plan. Reynaldo Jha M.D. Interventional Cardiology
--- NOTE | 2024-01-31 11:15 | PC.SS ---
Follow up note: SS followed up with patient on d/c plans. Explained process for acute rehab as well as submitting documentation for full scope Medical and picking a managed plan. Patient states he refuses to go to [facility] or to any rehab. Patient states he wants to return home. He will have his son living with him. He will also have two other daughters of his checking in on him daily. Patient does not have a p.c.p. therefore, home health is not an option. Patient is agreeable to following up with [facility] for a new p.c.p. He prefers to call himself. SS will provide contact phone number on discharge paperwork. Patient states his friend, Willard, will be here to pick him up when ready. Patient may need a FWW for home. [facility] has agreed to accept [facility].
--- NOTE | 2024-01-31 11:21 | PC.SS ---
Patient needs a FWW for home. The diagnosis creates mobility limitation that significantly impairs ability to participate in the patients activities of daily living either in their entirety, or in a reasonable time frame. Also the patient is able to safely use the walker and the patient?s mobility is sufficiently resolved with the use of the walker and cane has been ruled out.
--- NOTE | 2024-01-31 14:15 | ESPR_ITS ---
Documentation for date of: 01/31/24 Subjective Subjective Interval history: Mr. Peñaloza is a 68-year-old gentleman with no significant past medical history as he has not been to a primary care doctor presented to the emergency department worsening shortness of breath 68-year-old male past medical history presented to ED with chief complaints of shortness of breath that is progressively getting worse over the last 3 weeks. Patient stated that symptoms started 3 weeks ago, no prior episodes reported, also patient was complaining of dyspnea on exertion, generalized weakness. Patient stated that he knew that he has a pneumonia and for that he was taking medication [id number] which was not helping with his symptoms. Symptoms also was associated with occasional chills, otherwise patient denies any inciting factors or sick contacts, denies any chest pain, fever, cough, vomiting, diarrhea, abdominal pain, orthopnea, dysuria, dizziness, headache or any other associated symptoms. On presentation patient was found to be tachycardic with heart rate of 103, tachypneic with respiratory rate of 22, hypothermia with temperature of 94.5. Chest x-ray revealed right-sided PNA. CBC was not significant, CMP revealed MARIANO with BUN of 34, creatinine is 2.1, EGFR 33, lactic acid was 3.7, troponin was elevated 1.171, BNP was 2280, Pro-Iglesia was negative. Patient met SIRS criteria, hypotermia, tachicardia, tachipnia lactic acidosis with a source of infection. In the emergency department he was noted to have ST elevation. Cardiology was consulted. During hospital course he was diagnosed with cardiogenic shock, acute renal failure, cardiomyopathy,Atrial fibrillation, acute hypoxic respiratory failure, right lung pneumonia, with questionable COPD, metabolic acidosis, thrombocytopenia, anemia he was in ICU and downgraded to telemetry today. Nephrology consultation requested for acute renal failure with questionable underlying CKD. 01/30/2024 medications included Protonix, as heparin subcu, amiodarone, calcium, Tamiflu. Labs showed sodium 132, potassium 3.4, bicarbonate 23, BUN 103, creatinine A1c 5.5, lactic acid 1.5, total bilirubin 1.8,, ALT 495, alk phos 107, albumin 3.8, lipids showed LDL 73, TSH 1.85. Urinalysis shows 1+ protein on admission with 4+ bacteria. Urine toxin positive for amphetamine chest x-ray showed significant bilateral pneumonia. Echocardiogram showed ejection fraction 10%. 01/31/24 Patient was seen and examined by the bedside. No acute overnight events. Patient is feeling well. Labs showed sodium 133, potassium 3.2, BUN 103, creatinine 3.4. Transaminases are downtrending. Urine output 1.6 L. Overall kidney function has improved. Patient is set to be discharged home, declined SNF placement. Exam Vital Signs Temp Pulse Resp BP Pulse Ox O2 Del Method O2 Flow Rate 97.2 F 100 18 90/63 99 Room Air 0 01/31/24 12:00 01/31/24 12:00 01/31/24 12:00 01/31/24 12:00 01/31/24 12:00 01/31/24 12:01/31/24 08:00 FiO2 0 01/31/24 08:00 Narrative Exam Physical Exam General: Awake and in no acute distress. Conversational. Cachectic. HEENT: Normocephalic, atraumatic, mucous membranes moist. Heart: Regular rate and rhythm, no murmurs. Lungs: Clear to auscultation with no wheezing or crackles. Abdomen: Soft, nondistended, nontender, positive bowel sounds. ?No guarding or rebound tenderness. Neurologic: Alert and oriented x3, no gross neurological deficit, and patient able to move all 4 extremities. Extremities: No edema. Skin: No rash or ecchymoses. Objective Labs 01/31/24 04:27 01/31/24 04:27 Labs: Laboratory Results - last 24 hr 01/31/24 04:27 WBC 9.4 RBC 4.72 Hgb 13.6 Hct 40.8 L MCV 86 MCH 28.8 MCHC 33.3 RDW Std Deviation 43.8 Plt Count 148 Neut % (Auto) 67 Lymph % (Auto) 20 [place] % (Auto) 10 Eos % (Auto) 1 Baso % (Auto) 1 Neut # (Auto) 6.3 Lymph # (Auto) 1.9 [place] # (Auto) 1.0 H Eos # (Auto) 0.1 Baso # (Auto) 0.1 Immature Gran # (Auto) 0.04 H Absolute Nucleated RBC 0.00 Immature Gran % 0 Nucleated RBC % 0 Sodium 133 L Potassium 3.2 L Chloride 90 L Carbon Dioxide 31.5 H Anion Gap 12 BUN 103 H* Creatinine 3.4 H Estim Creat Clear Calc 16.5 L eGFR 19 L BUN/Creatinine Ratio 30 H Glucose 105 Calculated Osmolality 298 H Calcium 8.5 Corrected Calcium 8.6 Total Bilirubin 1.9 H AST 35 H ALT 378 H Alkaline Phosphatase 102 Total Protein 7.1 Albumin 3.9 Globulin 3.2 Albumin/Globulin Ratio 1.2 ABG Interpretation ABG results: 01/18/24 01/18/24 01/19/24 11:29 21:30 04:35 ABG pH 7.51 H 7.49 H 7.29 L D ABG pCO2 17 L* 19 L* 20 L ABG pO2 221 H 245 H D 143 H D ABG HCO3 13 L 14 L 9 L* ABG O2 Saturation 100 H 100 H 99 H ABG Base Excess -7 L -7 L -15 L VBG pH VBG pCO2 VBG pO2 VBG Base Excess 01/19/24 01/19/24 01/19/24 11:01 11:11 18:13 ABG pH 7.26 L 7.32 L ABG pCO2 28 L 26 L ABG pO2 149 H 164 H ABG HCO3 13 L 14 L ABG O2 Saturation 99 H 100 H ABG Base Excess -13 L -11 L VBG pH 7.26 L VBG pCO2 32 L VBG pO2 46 VBG Base Excess -12 L 01/19/24 01/19/24 01/19/24 18:30 23:00 23:19 ABG pH 7.40 ABG pCO2 29 L ABG pO2 101 D ABG HCO3 18 L ABG O2 Saturation 98 ABG Base Excess -6 L VBG pH 7.35 7.41 VBG pCO2 24 L 28 L VBG pO2 44 129 H D VBG Base Excess -11 L -6 L 01/20/24 01/20/24 01/20/24 00:57 05:52 06:00 ABG pH 7.43 ABG pCO2 28 L ABG pO2 128 H D ABG HCO3 19 L ABG O2 Saturation 99 H ABG Base Excess -5 L VBG pH 7.39 7.42 VBG pCO2 31 L 29 L VBG pO2 141 H 61 H D VBG Base Excess -5 L -4 L 01/20/24 01/20/24 01/20/24 12:18 13:06 19:44 ABG pH 7.39 7.36 ABG pCO2 36 39 ABG pO2 102 D 101 ABG HCO3 22 22 ABG O2 Saturation 98 97 ABG Base Excess -3 -3 VBG pH 7.30 L 7.40 VBG pCO2 45 D 35 L D VBG pO2 41 D 61 H D VBG Base Excess -4 L -2 01/21/24 01/21/24 01/22/24 04:38 04:42 05:40 ABG pH 7.41 ABG pCO2 35 ABG pO2 84 ABG HCO3 22 ABG O2 Saturation 96 ABG Base Excess -3 VBG pH 7.38 7.47 VBG pCO2 40 37 VBG pO2 35 D 59 H D VBG Base Excess -1 3 01/22/24 01/23/24 01/23/24 05:51 05:17 08:27 ABG pH 7.52 H D 7.45 ABG pCO2 31 L 44 D ABG pO2 81 L 79 L ABG HCO3 25 31 H ABG O2 Saturation 97 96 ABG Base Excess 3 6 H VBG pH 7.48 VBG pCO2 42 VBG pO2 57 VBG Base Excess 7 H Quality Measures Quality Measures VTE prophylaxis Advance care planning discussed with:: patient Assessment & Plan Assessment Current Active Medications: Generic Name Dose Route Start Last Admin Trade Name Freq PRN Reason Stop Dose Admin Acetaminophen 650 mg 01/27/24 18:48 Acetaminophen 325 Mg Tablet PO 02/16/24 21:37 Q6H PRN PAIN rated 1-3 or fever> 100.3 Amiodarone HCl 200 mg 01/21/24 21:00 01/31/24 08:41 Amiodarone Hcl 200 Mg Tablet PO 02/20/24 20:59 200 mg BID VINCE Administration Aspirin 81 mg 01/18/24 09:00 01/31/24 08:29 Aspirin Ec 81 Mg Tabec PO 02/17/24 08:59 81 mg QDAY VINCE Administration Calcium Carbonate 600 mg 01/25/24 09:00 01/31/24 08:28 Calcium Carbonate 600 Mg Tablet PO 02/24/24 08:59 600 mg QDAY VINCE Administration Heparin Sodium (Porcine) 5,000 unit 01/20/24 17:00 01/31/24 08:30 Heparin Sod Inj 5000 Unit/Ml Vial SC 02/03/24 16:59 5,000 unit Q12HR VINCE Administration Pantoprazole Sodium 40 mg 01/18/24 09:00 01/31/24 08:29 Pantoprazole 40 Mg Tablet PO 02/17/24 08:59 40 mg QDAY VINCE Administration Psyllium Hydrophilic Mucilloid 1 pkt 01/22/24 09:15 01/31/24 08:30 Psyllium 1 Pkt Packet PO 02/21/24 09:14 Not Given QDAY VINCE Protocol Sodium Chloride 3 ml 01/19/24 06:48 01/19/24 06:57 Sodium Chloride Rt Jackie 0.9% 3 Ml Nebu INH 02/18/24 06:47 3 ml PRN PRN Administration TO MIX WITH ALBUTEROL Plan #Acute kidney injury, improving # ATN, improving Most likely in the setting of cardiogenic shock. BUN and creatinine still remains elevated. Suspect underlying CKD. Patient had not seen a physician in the past. Not quite sure what his baseline creatinine is. 01/30/2024 renal ultrasound showed moderate bilateral renal parenchymal scar formation, no hydronephrosis. Overall kidney function improved, patient has good urine output, creatinine down trended. At the moment no need for emergent dialysis. During previous encounters patient declined dialysis. Plan: ? 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 Management as per primary team Plan of care discussed with attending Dr. Benavides. Naida Moreno MD, PGY 1. Attending Provider Attestation/Addendum Patient seen and examined with resident physician Dr. Pascal. Note reviewed, agree with findings and recommendations. 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 Noted to have significant elevation in BUN and creatinine. He will be discharged today. Follow-up with me in 1 to 2 weeks with renal panel prior. Hold diuretics as clinically patient looks rather euvolemic. Plan of care discussed with primary team
--- NOTE | 2024-01-31 15:26 | ESDS_ITS ---
<Statement entered by Gumaro Chan MD - 02/01/24 07:48> Patient was examined with the team including attending physician. Note reviewed, I agree with the discharge plan as documented. - Gumaro Chan MD, PGY 2 Planned Discharge Date 01/31/24 DS: Providers Provider Date of admission: 01/17/24 21:38 Primary care physician: Physician No Primary/Family Admitting Provider: Shelli Gar MD Attending Provider on Admission: Kevin Navarro MD Consults: 01/17/24 21:46 Consult to Cardiology Stat Comment: Consulting Provider: Reynaldo Jha 01/28/24 10:45 Referral Physical Therapy Routine Comment: Physician Instructions: 01/30/24 10:12 Consult to Nephrology Routine Comment: ATN vs CKD IV Consulting Provider: Ely Benavides Attending Provider on DC: Kevin Navarro MD Discharging Provider: David Mtz MD DS: Diagnosis Problem List Completed Was Problem List Reviewed/Reconciled?: Yes Hospital Course Hospital Course Hospital course: Celso Peñaloza is a 68-year-old male with no significant past medical history and not following up with any healthcare provider presented to the hospital with complaints of shortness of breath and fatigue for 3 weeks before admission into the hospital and diagnosed to have heart failure eventually landing up in cardiogenic shock and atrial fibrillation. Patient was initially admitted on the floors on 01/17/2024 for shortness of breath. Echocardiogram done showed EF of 10%. 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 On 01/18/2024 around 12 PM, patient was found to have low blood pressures and SpO2 around 60-70 for which patient was upgraded to ICU. In ICU patient was started initially on 3 vasopressors including dobutamine, Levophed, vasopressin and started on BiPAP, diuretics. During the ICU stay patient had acute liver injury, acute kidney injury for which patient was recommended dialysis but patient opted for no further invasive treatments and opted for DNR/DNI. Eventually with vasopressors, CPAP, diuretics patient became hemodynamically stable and was off vasopressors. Liver functions and kidney functions continued to improve later. Patient was downgraded to floors on 01/26/2024 as patient does not need further ICU care. On floors patient was initially treated with diuretics, later as patient was clinically dry and had no complaints of shortness of breath, PND, orthopnea, diuretics were withheld. Dr. Jha was following the patient. Dr. Benavides was consulted for acute kidney injury and appreciated her recommendations. Patient was supposed to be discharged to rehabilitation facility but patient wants to go to his sisters house and denied the facility. Patient was educated about methamphetamine effects and explained about abstinence from it. Chest x-ray during the hospital stay showed patch in the right middle lobe with the suspicion of malignancy as patient is a chronic smoker with [id number] smoking history and recommended to follow-up in outpatient basis with primary care provider for further evaluation. Patient was discharged to home with the following medications and recommendations -Follow-up with PCP within 1 week of discharge. If you do not have appointment, please follow-up with the [facility] with Dr. Mtz. Call [phone] to make an appointment. -Follow up with Dr. Benavides within 1 week of discharge -Follow up with Dr. Jha within 1 week of discharge -Intake amiodarone 200 Mg p.o. twice daily, aspirin 81 Mg p.o. daily, Eliquis 2.5 Mg p.o. twice daily, supplementations. -If there are any bleeding manifestations, stop Eliquis, aspirin and immediately return to the ED. -Fluid restriction to 1.8 L as recommended by Dr. Benavides -Return to ED if symptoms persist or return # Cardiogenic shock, resolved # Dilated cardiomyopathy, 2/2 meth use and smoking # Elevated trop - likely Tpe II, downtrended #HFrEF, EF 10%e # Atrial fibrillation with rapid ventricular rate -- CVR, 01/29/2024 #Chronic smoker #Probable COPD # Transaminitis,resolving # ATN, resolving #Mild normocytic normochromic anemia #Right lung pneumonia, GPC , treated DDx: mass in right middle lobe Patient plan of care was discussed with the attending physician, Dr. Navarro and senior resident Dr. Dustin Mtz, PGY1 Time Spent with Patient Time attestation: Total time spent providing and/or coordinating discharge services: Time spent: Greater than 30 minutes Exam Vital Signs Temp Pulse Resp BP Pulse Ox O2 Del Method O2 Flow Rate 97.2 F 100 18 90/63 99 Room Air 0 01/31/24 12:00 01/31/24 12:00 01/31/24 12:00 01/31/24 12:00 01/31/24 12:00 01/31/24 12:00 01/31/24 08:00 FiO2 0 01/31/24 08:00 Narrative Exam General: Awake. Lying comfortably on the bed. HEENT: Normocephalic, atraumatic, mucous membranes moist. Heart: Regular rate and rhythm, no murmurs. Lungs: Overall decreased breath sounds heard bilaterally. Abdomen: Soft, nondistended, nontender, positive bowel sounds. ?No guarding or rebound tenderness. Neurologic: Alert and oriented x3, no gross neurological deficit, and patient able to move all 4 extremities. Extremities: No edema. Skin: No rash or ecchymoses. Discharge Plan Plan Patient Disposition: HOME (Self Care) Disposition Comment: Returning to baseline Patient condition on transfer: Stable Care Plan Goals: -Follow-up with PCP within 1 week of discharge. If you do not have appointment, please follow-up with the [facility] with Dr. Mtz. Call [phone] to make an appointment. -Follow up with Dr. Benavides within 1 week of discharge -Follow up with Dr. Jha within 1 week of discharge -Intake amiodarone 200 Mg p.o. twice daily, aspirin 81 Mg p.o. daily, Eliquis 2.5 Mg p.o. twice daily, supplementations. -If there are any bleeding manifestations, stop Eliquis, aspirin and immediately return to the ED. -Fluid restriction to 1.8 L as recommended by Dr. Benavides -Return to ED if symptoms persist or return Prescriptions/Referrals Prescriptions/Med Rec: New aspirin 81 mg tablet,delayed release (DR/EC) 81 mg PO QDAY 30 Days Qty: 30 0RF amiodarone 200 mg tablet 200 mg PO BID 30 Days Qty: 60 0RF iron [id number] 150 mg iron- 60 mg-1 mg tablet 1 tab PO QDAY 30 Days Qty: 30 0RF Eliquis 2.5 mg tablet 2.5 mg PO BID 30 Days Qty: 60 0RF Referrals: No Primary/Family,Physician [Primary Care Provider] - Ely Benavides MD [Physician] - Gumaro Chan MD [Resident] - Patient/Caregiver Discharge Instructions Discharge Activity: activity as tolerated and resume usual activities Other Discharge Activity Instructions:: follow up with your primary physician in 1 week Education Materials: Chest and Lung Problems, Kidney Failure Tx Options, Preventing Common Respiratory ... Print Language: Serbian Activity Restrictions/Additional Instructions: f/u with Dr. Benavides in 1-2 weeks [phone]- call for appt Stand Alone Forms: Gi Award Info., Patient Portal Info Letter Discharge Order Discharge Orders: Discharge (Routine); Ordered 01/31/24 Ordered By: Gumaro Chan Quality Discharge Quality Measures VTE prophylaxis Attestestation MD Attestation I reviewed labs, imaging, EKG, home medications and prior available records. Face to face evaluation was performed by me. I have personally examined the patient and discussed assessment and plan with the IM team. I reviewed the resident note and agree with the plan with exceptions as below. Cardiogenic shock: He is off pressors. He is downgraded from ICU. He is currently hemodynamically stable. Held Lasix due to borderline BP. Discussed with cardiology: No Lasix upon discharge. Did not start beta-blockers or SEDRICK inhibitors given the borderline hypotension. Consider starting as outpatient. Outpatient follow-up with cardiology. MARIANO on CKD: Creatinine slightly improved. No indication for hemodialysis at this time. Likely intrinsic in the setting of shock. Monitor kidney function. Avoid nephrotoxins. Renally dosed medications. Nephrology is consulted. Outpatient follow-up with nephrology. Atrial fibrillation with RVR: His rate is currently controlled. Continue amiodarone. Low-dose Eliquis upon discharge. Acute liver injury: Likely in setting of shock liver. LFTs are downtrending. Monitor LFTs. Debility: PT recommended SNF. Patient will need wheeled walker and he is high fall risk. He is pending SNF evaluation.
[2024-02-01] VITALS (7 sets, daily range): BP systolic 96–110; BP diastolic 54–70; PULSE 57–77; RESP 18–37; TEMP 36–36.3; O2SAT 95–98; BMI 16.6
--- NOTE | 2024-02-01 08:47 | ESPR_ITS ---
Documentation for date of: 02/01/24 Subjective Subjective Interval history: Patient was seen and examined at bedside this AM. No overnight events. Patient had some PVCs and was in and out of A-fib overnight. Heart rates lowest in high 50s and highest in 100s. No labs this AM. Recommend keeping potassium above 4 and magnesium above 2 Total balance of +480 mL in 24 hours Discharge was delayed due to transportation. Recommend to discharge patient on Eliquis 2.5 mg twice daily, can stop aspirin. Recommended to discharge patient on Bumex 2 mg daily if okay with nephrology and to follow-up at my office in 1 week. Exam Vital Signs Temp Pulse Resp BP Pulse Ox O2 Del Method O2 Flow Rate 96.9 F 76 18 97/70 95 Room Air 0 02/01/24 07:52 02/01/24 07:52 02/01/24 07:52 02/01/24 07:52 02/01/24 07:52 02/01/24 07:52 02/01/24 00:00 FiO2 0 02/01/24 00:00 Narrative Exam Constitutional Alert, oriented x 3 and no acute distress. Elderly male, cachectic HEENT Vision grossly intact. Patent nares. Trachea midline. Poor dentition, missing teeth Respiratory Chest normal on inspection, clear breath sounds throughout lung chauhan b/l Cardiovascular S1 and S2 audible, RRR. No murmurs carotid bruit. JVD not assessed Abdominal Soft and non tender to palpation in all quadrants. BS + Genitourinary No bladder tenderness, no flank pain. Normal to palpation. Musculoskeletal Extremities tone within normal limits. No LE edema. Neurological CN II - XII grossly intact. Extremity motor and sensation grossly intact. Skin Warm, dry and intact. No apparent lesions. Psychiatric comfortable Objective Labs 02/01/24 09:53 02/01/24 09:53 ABG Interpretation ABG results: 01/18/24 01/18/24 01/19/24 11:29 21:30 04:35 ABG pH 7.51 H 7.49 H 7.29 L D ABG pCO2 17 L* 19 L* 20 L ABG pO2 221 H 245 H D 143 H D ABG HCO3 13 L 14 L 9 L* ABG O2 Saturation 100 H 100 H 99 H ABG Base Excess -7 L -7 L -15 L VBG pH VBG pCO2 VBG pO2 VBG Base Excess 01/19/24 01/19/24 01/19/24 11:01 11:11 18:13 ABG pH 7.26 L 7.32 L ABG pCO2 28 L 26 L ABG pO2 149 H 164 H ABG HCO3 13 L 14 L ABG O2 Saturation 99 H 100 H ABG Base Excess -13 L -11 L VBG pH 7.26 L VBG pCO2 32 L VBG pO2 46 VBG Base Excess -12 L 01/19/24 01/19/24 01/19/24 18:30 23:00 23:19 ABG pH 7.40 ABG pCO2 29 L ABG pO2 101 D ABG HCO3 18 L ABG O2 Saturation 98 ABG Base Excess -6 L VBG pH 7.35 7.41 VBG pCO2 24 L 28 L VBG pO2 44 129 H D VBG Base Excess -11 L -6 L 01/20/24 01/20/24 01/20/24 00:57 05:52 06:00 ABG pH 7.43 ABG pCO2 28 L ABG pO2 128 H D ABG HCO3 19 L ABG O2 Saturation 99 H ABG Base Excess -5 L VBG pH 7.39 7.42 VBG pCO2 31 L 29 L VBG pO2 141 H 61 H D VBG Base Excess -5 L -4 L 01/20/24 01/20/24 01/20/24 12:18 13:06 19:44 ABG pH 7.39 7.36 ABG pCO2 36 39 ABG pO2 102 D 101 ABG HCO3 22 22 ABG O2 Saturation 98 97 ABG Base Excess -3 -3 VBG pH 7.30 L 7.40 VBG pCO2 45 D 35 L D VBG pO2 41 D 61 H D VBG Base Excess -4 L -2 01/21/24 01/21/24 01/22/24 04:38 04:42 05:40 ABG pH 7.41 ABG pCO2 35 ABG pO2 84 ABG HCO3 22 ABG O2 Saturation 96 ABG Base Excess -3 VBG pH 7.38 7.47 VBG pCO2 40 37 VBG pO2 35 D 59 H D VBG Base Excess -1 3 01/22/24 01/23/24 01/23/24 05:51 05:17 08:27 ABG pH 7.52 H D 7.45 ABG pCO2 31 L 44 D ABG pO2 81 L 79 L ABG HCO3 25 31 H ABG O2 Saturation 97 96 ABG Base Excess 3 6 H VBG pH 7.48 VBG pCO2 42 VBG pO2 57 VBG Base Excess 7 H Quality Measures Quality Measures VTE prophylaxis Advance care planning discussed with:: patient Assessment & Plan Assessment Current Active Medications: Generic Name Dose Route Start Last Admin Trade Name Freq PRN Reason Stop Dose Admin Acetaminophen 650 mg 01/27/24 18:48 Acetaminophen 325 Mg Tablet PO 02/16/24 21:37 Q6H PRN PAIN rated 1-3 or fever> 100.3 Amiodarone HCl 200 mg 01/21/24 21:00 01/31/24 20:37 Amiodarone Hcl 200 Mg Tablet PO 02/20/24 20:59 200 mg BID VINCE Administration Aspirin 81 mg 01/18/24 09:00 01/31/24 08:29 Aspirin Ec 81 Mg Tabec PO 02/17/24 08:59 81 mg QDAY VINCE Administration Calcium Carbonate 600 mg 01/25/24 09:00 01/31/24 08:28 Calcium Carbonate 600 Mg Tablet PO 02/24/24 08:59 600 mg QDAY VINCE Administration Heparin Sodium (Porcine) 5,000 unit 01/20/24 17:00 01/31/24 20:37 Heparin Sod Inj 5000 Unit/Ml Vial SC 02/03/24 16:59 5,000 unit Q12HR VINCE Administration Pantoprazole Sodium 40 mg 01/18/24 09:00 01/31/24 08:29 Pantoprazole 40 Mg Tablet PO 02/17/24 08:59 40 mg QDAY VINCE Administration Psyllium Hydrophilic Mucilloid 1 pkt 01/22/24 09:15 01/31/24 08:30 Psyllium 1 Pkt Packet PO 02/21/24 09:14 Not Given QDAY [facility] Protocol Sodium Chloride 3 ml 01/19/24 06:48 01/19/24 06:57 Sodium Chloride Rt Jackie 0.9% 3 Ml Nebu INH 02/18/24 06:47 3 ml PRN PRN Administration TO MIX WITH ALBUTEROL Plan Patient is a 68-year-old male with no significant past medical history who presented to the ED with a chief complaint of shortness of breath. Patient was admitted for acute respiratory failure with hypoxia secondary to community-acquired pneumonia and CHF exacerbation. Cardiology was consulted. 1. Acute respiratory failure with hypoxia Secondary to 2. Acute decompensated systolic heart failure exacerbation [EF 10%] 3. Cardiogenic shock 4. Dilated cardiomyopathy On admission patient has history of progressively worsening shortness of breath for the past 3 weeks. On exam patient is in mild distress on O2 via NC and breath sounds were decreased globally. No signs of lower extremity edema. Patient not previously diagnosed with heart failure in the past and not on any medication at home. On admission BNP 2864 NYHA Class IV Stage C Transthoracic echocardiogram completed on 01/16 findings include: Dilated cardiomyopathy - Mild to moderately dilated LV and RV. Moderate biatrial dilatation. Severe LV systolic dysfunction. Severe global hypokinesis. Estimated EF around 10% Diastolic dysfunction present but cannot be graded due to Afib. Moderate RV dysfunction. Estimated RVSP 40 mmHg. Moderate MR. Mild TR,PI. Mild AV sclerosis without stenosis, IVC dilated and pleural effusion present. Patient was seen and examined at bedside this AM. No overnight events. Patient had some PVCs and was in and out of A-fib overnight. Heart rates in the 60s to 70s. Kidney function is improving with BUN of 103 and creatinine 3.4. LFTs also improved with AST at 35 compared to 93 previously and ALT now 378 compared to 848 Patient bicarb 31.5, BUN 103, CR decreased to 3.4 Sodium is 133 and chloride is 90 potassium 3.2 today and magnesium 2 yesterday Recommend keeping potassium above 4 and magnesium above 2 Total balance of +480 mL in 24 hours Plan: ? Strict input output charting ? Daily weights ? 2 g salt restricted diet ? 1500 cc fluid restriction ? Recommend to discharge patient on Bumex 2 mg daily if okay with nephrology and to follow-up in 1 week in my office as well as with burr bench hand. ? Recommend to continue patient on midodrine 10 Mg p.o. 3 times daily ?Recommend keeping potassium above 4 and magnesium above 2 ? Patient counseled on methamphetamine, cocaine and all drug cessation. 5. Rule out ACS 6. NSTEMI -mostly type II secondary to supply/demand mismatch given the severe dilated cardiomyopathy Patient had progressive SOB for the past 3 weeks but denies any chest pain or pressure. Unlikely acute coronary syndrome and troponin elevation mostly secondary to supply/demand mismatch given severe dilated cardiomyopathy in the setting of significant drug abuse including methamphetamine and other drugs. Initial EKG showed sinus rhythm with occasional PVCs, left atrial enlargement repeat EKG showed atrial fibrillation with RVR, rate 120. No acute ST changes Troponin were elevated at 1.171 up trended to 1.235 and subsequently down trended to 0.98 Plan: ? Heparin infusion discontinued as >48 hours ? Can discontinue aspirin 81 Mg p.o. daily upon discharge and continue Eliquis 2.5 mg BID. ? Can hold high intensity statin in light of Ischemic hepatitis ? No need to further trend troponin - Continue medical management for now 7. A-fib with RVR?new onset Patient admitted to having intermittent palpitations for years with some episodes lasting for days before resolving. Initial EKG showed sinus rhythm with occasional PVCs, left atrial enlargement repeat EKG showed atrial fibrillation with RVR, rate 120. No acute ST changes. From telemetry review patient continues to be in/out of A-fib with some PAC's and sinus tachy. [id number] : 1 point ; 0.6 % stroke risk per year [age] Plan: ? Continue amiodarone 200 mg twice daily ? Recommend rate control with metoprolol XL 50 Mg p.o. daily if patient's blood pressure allows. ?Recommend to discharge patient on Eliquis 2.5 mg twice daily due to impaired renal function. ? Continue telemetry review ? Please maintain potassium greater than 4 and magnesium greater than 2 at all times to prevent any further arrhythmias 8. Community-acquired pneumonia Patient had shortness of breath for past 3 weeks as well as a nonproductive cough. Chest x-ray on admission was significant for right mid zone consolidation. Patient continues on ceftriaxone. Blood and sputum cultures negative. Continue management as per primary team 9. MARIANO likely prerenal 10. Acute Renal Failure 11. Transaminitis 12. Multi- organ Failure On admission patient's CR 2 currently up trended to 2.1. Unable to assess baseline as no previous records for comparison. Likely in the setting of cardiogenic shock and dehydration. Patient bicarb 31.5, BUN 103, CR decreased to 3.4 Recommend stat nephrology consult as well Lactic acid downtrended to 1.5 LFTs also improved with AST at 35 compared to 93 previously and ALT now 378 compared to greater than 848 Plan: - Patient offered the option of Dialysis repeatedly but refused any further invasive procedures and switched his code status to DNR 13. Likely COPD 14. Nicotine dependence 15. History of polysubstance abuse Patient has [id number] smoking history and now has shortness of breath for the past 3 weeks along with productive cough. Clinically he is cachectic and appears to have decreased breath sounds globally suggestive of COPD. Patient will need to be further worked up as an outpatient. Patient admitted to using methamphetamine and cocaine for many years as well with U tox being positive for methamphetamine on admission. Patient counseled extensively on drug cessation. Patient agreed - Patient offered the option of Dialysis repeatedly but refused any further invasive procedures and switched his code status to DNR Continue rest of management as per primary team. We are grateful to be able to participate in Mr. Peñaloza's care. Thank you for the consult Plan of care discussed with attending Estate Conservator, Dr. Yudelka Andersen PGY-1 Attending Provider Attestation/Addendum I have personally seen and examined the patient separately on the above date of service and discussed the plan of care with the resident. I reviewed the resident Dr. Dias consultation progress note and agree with the resident findings and plan in the note above and have also edited the documentation to reflect my findings and plan. Reynaldo Jha M.D. Interventional Cardiology
[2024-02-01] MEDS: ASPIRIN EC 81 MG TABEC PO (09:29)
[2024-02-01] MEDS: PANTOPRAZOLE 40 MG TABLET PO (09:29)
[2024-02-01] MEDS: CALCIUM CARBONATE 600 MG TABLET PO (09:29)
[2024-02-01] MEDS: AMIODARONE HCL 200 MG TABLET PO (09:30)
[2024-02-01] MEDS: HEPARIN SOD INJ 5000 UNIT/ML VIAL SC (09:33)
[2024-02-01 10:11] LABS: Basophils % (Auto) 0 % (0-2.5); Eosinophils # (Auto) 0.1 Thou/mm3 (0.0-0.5); Eosinophils % (Auto) 2 % (0-10); Immature Granulocytes % (Auto) 1 % (0-0); Immature Granulocytes Auto 0.05 Thou/mm3 (0.00-0.00); Lymphocytes # (Auto) 2.2 Thou/mm3 (1.0-4.8); Lymphocytes % (Auto) 25 % (10-50); Mean Corpuscular HGB Conc 33.3 g/dl (31.0-37.0); Mean Corpuscular Hemoglobin 29.1 pg (25.0-35.0); Mean Corpuscular Volume 87 fL (80-100); Monocytes # (Auto) 1.1 Thou/mm3 (0.0-0.8); Monocytes % (Auto) 12 % (0-12); Neutrophils # (Auto) 5.3 Thou/mm3 (1.8-7.7); Neutrophils % (Auto) 60 % (37-80); Nucleated Red Blood Cell % 0 /100 WBC (0); Platelet Count 214 Thou/mm3 (140-440); RDW Standard Deviation 44.8 fL (35.1-43.9); Red Blood Count 4.47 Miln/mm3 (4.50-5.90); White Blood Count 8.9 Thou/mm3 (3.8-10.6)
--- NOTE | 2024-02-01 10:35 | PC.SS ---
Follow up note: Patient ended up staying another night due to him changing his mind about going to rehab. Patient wants to go to SNF now. SS explained to patient and resident that patient's insurance does not cover PT at SNF. Patient ambulated 200 feet yesterday with PT. SS clarified with PT and patient would benefit from o/p PT. SS sent out referral for this. Resident preferred SNF to further prevent patient from using meth. However, patient can leave facility at any time. Patient was explained this information and will be discharged home with son. His friend will transport home. SS ordered [facility] and o/p PT. Resident scheduled patient appt for Wednesday. Patient to followup with o/p appointment at [facility].
[2024-02-01 10:38] LABS: Albumin, Serum 3.7 gm/dL (3.4-4.8); Anion Gap 7 (7-16); BUN/Creatinine Ratio 29 Ratio (12-20); Blood Urea Nitrogen 82 mg/dL (9-23); Calcium 8.8 mg/dL (8.3-10.6); Carbon Dioxide 31.6 mMol/L (20.0-31.0); Chloride 94 mMol/L (98-107); Creatinine (Component) 2.8 mg/dL (0.6-1.3); Glucose 104 mg/dL (74-106); Osmolality,Calculated 291 (275-295); Phosphorous 3.7 mg/dL (2.4-5.1); Potassium 3.1 mMol/L (3.4-5.1); Sodium 133 mMol/L (136-145); eGFR 24 See Note
--- NOTE | 2024-02-01 13:38 | ESPR_ITS ---
Documentation for date of: 02/01/24 Subjective Subjective Interval history: Mr. Peñaloza is a 68-year-old gentleman with no significant past medical history as he has not been to a primary care doctor presented to the emergency department worsening shortness of breath 68-year-old male past medical history presented to ED with chief complaints of shortness of breath that is progressively getting worse over the last 3 weeks. Patient stated that symptoms started 3 weeks ago, no prior episodes reported, also patient was complaining of dyspnea on exertion, generalized weakness. Patient stated that he knew that he has a pneumonia and for that he was taking medication [id number] which was not helping with his symptoms. Symptoms also was associated with occasional chills, otherwise patient denies any inciting factors or sick contacts, denies any chest pain, fever, cough, vomiting, diarrhea, abdominal pain, orthopnea, dysuria, dizziness, headache or any other associated symptoms. On presentation patient was found to be tachycardic with heart rate of 103, tachypneic with respiratory rate of 22, hypothermia with temperature of 94.5. Chest x-ray revealed right-sided PNA. CBC was not significant, CMP revealed MARIANO with BUN of 34, creatinine is 2.1, EGFR 33, lactic acid was 3.7, troponin was elevated 1.171, BNP was 2280, Pro-Iglesia was negative. Patient met SIRS criteria, hypotermia, tachicardia, tachipnia lactic acidosis with a source of infection. In the emergency department he was noted to have ST elevation. Cardiology was consulted. During hospital course he was diagnosed with cardiogenic shock, acute renal failure, cardiomyopathy,Atrial fibrillation, acute hypoxic respiratory failure, right lung pneumonia, with questionable COPD, metabolic acidosis, thrombocytopenia, anemia he was in ICU and downgraded to telemetry today. Nephrology consultation requested for acute renal failure with questionable underlying CKD. 01/30/2024 medications included Protonix, as heparin subcu, amiodarone, calcium, Tamiflu. Labs showed sodium 132, potassium 3.4, bicarbonate 23, BUN 103, creatinine A1c 5.5, lactic acid 1.5, total bilirubin 1.8,, ALT 495, alk phos 107, albumin 3.8, lipids showed LDL 73, TSH 1.85. Urinalysis shows 1+ protein on admission with 4+ bacteria. Urine toxin positive for amphetamine chest x-ray showed significant bilateral pneumonia. Echocardiogram showed ejection fraction 10%. 01/31/24 Patient was seen and examined by the bedside. No acute overnight events. Patient is feeling well. Labs showed sodium 133, potassium 3.2, BUN 103, creatinine 3.4. Transaminases are downtrending. Urine output 1.6 L. Overall kidney function has improved. Patient is set to be discharged home, declined SNF placement. 01/31/24 Patient was seen and examined by the bedside. No acute overnight events. Patient is feeling well. Yesterday fluid restriction was increased to 1800 mL. Labs showed sodium 133, potassium 3.1, BUN 82, creatinine 2.8. Transaminases are downtrending. Urine output 1.2 L. Kidney function has improved. Patient is set to be discharged home, has expressed interest in going to SNF, but was explained that he is free to leave at any time and that PT will not be covered at SNF, will be discharged to home. Exam Vital Signs Temp Pulse Resp BP Pulse Ox O2 Del Method O2 Flow Rate 96.9 F 63 18 96/64 95 Room Air 0 02/01/24 07:52 02/01/24 09:30 02/01/24 07:52 02/01/24 09:30 02/01/24 07:52 02/01/24 07:52 02/01/24 00:00 FiO2 0 02/01/24 00:00 Narrative Exam Physical Exam General: Awake and in no acute distress. Conversational. Cachectic. HEENT: Normocephalic, atraumatic, mucous membranes moist. Heart: Regular rate and rhythm, no murmurs. Lungs: Clear to auscultation with no wheezing or crackles. Abdomen: Soft, nondistended, nontender, positive bowel sounds. ?No guarding or rebound tenderness. Neurologic: Alert and oriented x3, no gross neurological deficit, and patient able to move all 4 extremities. Extremities: No edema. Skin: No rash or ecchymoses. Objective Labs 02/01/24 09:53 02/01/24 09:53 Labs: Laboratory Results - last 24 hr 02/01/24 09:53 WBC 8.9 RBC 4.47 L Hgb 13.0 L Hct 39.0 L MCV 87 MCH 29.1 MCHC 33.3 RDW Std Deviation 44.8 H Plt Count 214 D Neut % (Auto) 60 Lymph % (Auto) 25 [place] % (Auto) 12 Eos % (Auto) 2 Baso % (Auto) 0 Neut # (Auto) 5.3 Lymph # (Auto) 2.2 [place] # (Auto) 1.1 H Eos # (Auto) 0.1 Baso # (Auto) 0.0 Immature Gran # (Auto) 0.05 H Absolute Nucleated RBC 0.00 Immature Gran % 1 H Nucleated RBC % 0 Sodium 133 L Potassium 3.1 L Chloride 94 L Carbon Dioxide 31.6 H Anion Gap 7 BUN 82 H Creatinine 2.8 H D Estim Creat Clear Calc 20.0 L eGFR 24 L BUN/Creatinine Ratio 29 H Glucose 104 Calculated Osmolality 291 Calcium 8.8 Corrected Calcium 9.0 Phosphorus 3.7 Albumin 3.7 ABG Interpretation ABG results: 01/18/24 01/18/24 01/19/24 11:29 21:30 04:35 ABG pH 7.51 H 7.49 H 7.29 L D ABG pCO2 17 L* 19 L* 20 L ABG pO2 221 H 245 H D 143 H D ABG HCO3 13 L 14 L 9 L* ABG O2 Saturation 100 H 100 H 99 H ABG Base Excess -7 L -7 L -15 L VBG pH VBG pCO2 VBG pO2 VBG Base Excess 01/19/24 01/19/24 01/19/24 11:01 11:11 18:13 ABG pH 7.26 L 7.32 L ABG pCO2 28 L 26 L ABG pO2 149 H 164 H ABG HCO3 13 L 14 L ABG O2 Saturation 99 H 100 H ABG Base Excess -13 L -11 L VBG pH 7.26 L VBG pCO2 32 L VBG pO2 46 VBG Base Excess -12 L 01/19/24 01/19/24 01/19/24 18:30 23:00 23:19 ABG pH 7.40 ABG pCO2 29 L ABG pO2 101 D ABG HCO3 18 L ABG O2 Saturation 98 ABG Base Excess -6 L VBG pH 7.35 7.41 VBG pCO2 24 L 28 L VBG pO2 44 129 H D VBG Base Excess -11 L -6 L 01/20/24 01/20/24 01/20/24 00:57 05:52 06:00 ABG pH 7.43 ABG pCO2 28 L ABG pO2 128 H D ABG HCO3 19 L ABG O2 Saturation 99 H ABG Base Excess -5 L VBG pH 7.39 7.42 VBG pCO2 31 L 29 L VBG pO2 141 H 61 H D VBG Base Excess -5 L -4 L 01/20/24 01/20/24 01/20/24 12:18 13:06 19:44 ABG pH 7.39 7.36 ABG pCO2 36 39 ABG pO2 102 D 101 ABG HCO3 22 22 ABG O2 Saturation 98 97 ABG Base Excess -3 -3 VBG pH 7.30 L 7.40 VBG pCO2 45 D 35 L D VBG pO2 41 D 61 H D VBG Base Excess -4 L -2 01/21/24 01/21/24 01/22/24 04:38 04:42 05:40 ABG pH 7.41 ABG pCO2 35 ABG pO2 84 ABG HCO3 22 ABG O2 Saturation 96 ABG Base Excess -3 VBG pH 7.38 7.47 VBG pCO2 40 37 VBG pO2 35 D 59 H D VBG Base Excess -1 3 01/22/24 01/23/24 01/23/24 05:51 05:17 08:27 ABG pH 7.52 H D 7.45 ABG pCO2 31 L 44 D ABG pO2 81 L 79 L ABG HCO3 25 31 H ABG O2 Saturation 97 96 ABG Base Excess 3 6 H VBG pH 7.48 VBG pCO2 42 VBG pO2 57 VBG Base Excess 7 H Quality Measures Quality Measures VTE prophylaxis Advance care planning discussed with:: patient Assessment & Plan Assessment Current Active Medications: Generic Name Dose Route Start Last Admin Trade Name Justynq PRN Reason Stop Dose Admin Acetaminophen 650 mg 01/27/24 18:48 Acetaminophen 325 Mg Tablet PO 02/16/24 21:37 Q6H PRN PAIN rated 1-3 or fever> 100.3 Amiodarone HCl 200 mg 01/21/24 21:00 02/01/24 09:30 Amiodarone Hcl 200 Mg Tablet PO 02/20/24 20:59 200 mg BID VINCE Administration Aspirin 81 mg 01/18/24 09:00 02/01/24 09:29 Aspirin Ec 81 Mg Tabec PO 02/17/24 08:59 81 mg QDAY VINCE Administration Calcium Carbonate 600 mg 01/25/24 09:00 02/01/24 09:29 Calcium Carbonate 600 Mg Tablet PO 02/24/24 08:59 600 mg QDAY VINCE Administration Heparin Sodium (Porcine) 5,000 unit 01/20/24 17:00 02/01/24 09:33 Heparin Sod Inj 5000 Unit/Ml Vial SC 02/03/24 16:59 5,000 unit Q12HR VINCE Administration Pantoprazole Sodium 40 mg 01/18/24 09:00 02/01/24 09:29 Pantoprazole 40 Mg Tablet PO 02/17/24 08:59 40 mg QDAY VINCE Administration Psyllium Hydrophilic Mucilloid 1 pkt 01/22/24 09:15 02/01/24 09:37 Psyllium 1 Pkt Packet PO 02/21/24 09:14 Not Given QDAY VINCE Protocol Sodium Chloride 3 ml 01/19/24 06:48 01/19/24 06:57 Sodium Chloride Rt Jackie 0.9% 3 Ml Nebu INH 02/18/24 06:47 3 ml PRN PRN Administration TO MIX WITH ALBUTEROL Plan #Acute kidney injury, improving # ATN, improving Most likely in the setting of cardiogenic shock. BUN and creatinine still remains elevated. Suspect underlying CKD. Patient had not seen a physician in the past. Not quite sure what his baseline creatinine is. 01/30/2024 renal ultrasound showed moderate bilateral renal parenchymal scar formation, no hydronephrosis. Overall kidney function improved, patient has good urine output, creatinine down trended. At the moment no need for emergent dialysis. During previous encounters patient declined dialysis. Plan: ? 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 Management as per primary team Plan of care discussed with attending Dr. Benavides. Naida Moreno MD, PGY 1. Attending Provider Attestation/Addendum Patient seen and examined with resident physician Dr. Pascal. Note reviewed, agree with findings and recommendations. 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 Noted to have improvement in BUN and creatinine. He will be discharged today. Follow-up with me in 1 to 2 weeks with renal panel prior. Hold diuretics as clinically patient looks rather euvolemic. Plan of care discussed with primary team
--- NOTE | 2024-02-02 08:53 | ESDS_ITS ---
Planned Discharge Date 02/01/24 DS: Providers Provider Date of admission: 01/17/24 21:38 Primary care physician: Physician No Primary/Family Admitting Provider: Shelli Gar MD Attending Provider on Admission: Kevin Navarro MD Consults: 01/17/24 21:46 Consult to Cardiology Stat Comment: Consulting Provider: Reynaldo Jha 01/28/24 10:45 Referral Physical Therapy Routine Comment: Physician Instructions: 01/30/24 10:12 Consult to Nephrology Routine Comment: ATN vs CKD IV Consulting Provider: Ely Benavides Attending Provider on DC: Kevin Navarro MD Discharging Provider: Kevin Navarro MD Diagnosis Problem List Completed Was Problem List Reviewed/Reconciled?: Yes Hospital Course - Hospitalist Hospital Course Hospital course: Celso Peñaloza is a 68-year-old male with no significant past medical history and not following up with any healthcare provider presented to the hospital with complaints of shortness of breath and fatigue for 3 weeks before admission into the hospital and diagnosed to have heart failure eventually landing up in cardiogenic shock and atrial fibrillation. Patient was initially admitted on the floors on 01/17/2024 for shortness of breath. Echocardiogram done showed EF of 10%. 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 On 01/18/2024 around 12 PM, patient was found to have low blood pressures and SpO2 around 60-70 for which patient was upgraded to ICU. In ICU patient was started initially on 3 vasopressors including dobutamine, Levophed, vasopressin and started on BiPAP, diuretics. During the ICU stay patient had acute liver injury, acute kidney injury for which patient was recommended dialysis but patient opted for no further invasive treatments and opted for DNR/DNI. Eventually with vasopressors, CPAP, diuretics patient became hemodynamically stable and was off vasopressors. Liver functions and kidney functions continued to improve later. Patient was downgraded to floors on 01/26/2024 as patient does not need further ICU care. On floors patient was initially treated with diuretics, later as patient was clinically dry and had no complaints of shortness of breath, PND, orthopnea, diuretics were withheld. Dr. Jha was following the patient. Dr. Benavides was consulted for acute kidney injury and appreciated her recommendations. Patient was supposed to be discharged to rehabilitation facility but patient wants to go to his sisters house and denied the facility. Patient was educated about methamphetamine effects and explained about abstinence from it. Chest x-ray during the hospital stay showed patch in the right middle lobe with the suspicion of malignancy as patient is a chronic smoker with [id number] smoking history and recommended to follow-up in outpatient basis with primary care provider for further evaluation. Cardiogenic shock: He is off pressors. He is downgraded from ICU. He is currently hemodynamically stable. Held Lasix due to borderline BP. Discussed with cardiology: No Lasix upon discharge. Did not start beta-blockers or SEDRICK inhibitors given the borderline hypotension. Consider starting as outpatient. Outpatient follow-up with cardiology. MARIANO on CKD: Creatinine continues to improve. No indication for hemodialysis at this time. Likely intrinsic in the setting of shock. Monitor kidney function. Avoid nephrotoxins. Renally dosed medications. Nephrology is consulted. Outpatient follow-up with nephrology. Atrial fibrillation with RVR: His rate is currently controlled. Continue amiodarone. Low-dose Eliquis upon discharge. Acute liver injury: Likely in setting of shock liver. LFTs are downtrending. Monitor LFTs. Debility: PT recommended SNF. Patient will need wheeled walker and he is high fall risk. Patient is going home to live with his sister. Discharge instructions: Patient was discharged to home with the following medications and recommendations -Follow-up with PCP within 1 week of discharge. If you do not have appointment, please [facility] with [facility] Mtz. Call [phone] to make an appointment. -Follow up with Dr. Benavides within 1 week of discharge -Follow up with Dr. Jha within 1 week of discharge -Intake amiodarone 200 Mg p.o. twice daily, aspirin 81 Mg p.o. daily, Eliquis 2.5 Mg p.o. twice daily, supplementations. -If there are any bleeding manifestations, stop Eliquis, aspirin and immediately return to the ED. -Fluid restriction to 1.8 L as recommended by Dr. Benavides -Return to ED if symptoms persist or return Medical problems upon discharge: # Cardiogenic shock, resolved # Dilated cardiomyopathy, 2/2 meth use and smoking # Elevated trop - likely Tpe II, downtrended #HFrEF, EF 10%e # Atrial fibrillation with rapid ventricular rate -- CVR, 01/29/2024 #Chronic smoker #Probable COPD # Transaminitis,resolving # ATN, resolving #Mild normocytic normochromic anemia #Right lung pneumonia, GPC , treated DDx: mass in right middle lobe Time Spent with Patient Time attestation: Total time spent providing and/or coordinating discharge services: Discharge Results Labs Diagrams: 02/01/24 09:53 02/01/24 09:53 Labs: Short CBC 02/01/24 Range/Units 09:53 WBC 8.9 (3.8-10.6) Thou/mm3 Hgb 13.0 L (13.5-16.0) g/dL Hct 39.0 L (41.0-53.0) % Plt Count 214 D (140-440) Thou/mm3 BMP 02/01/24 09:53 Sodium 133 L Potassium 3.1 L Chloride 94 L Carbon Dioxide 31.6 H BUN 82 H Creatinine 2.8 H D Glucose 104 Calcium 8.8 Liver Function 02/01/24 Range/Units 09:53 Albumin 3.7 (3.4-4.8) gm/dL Exam Vital Signs Temp Pulse Resp BP Pulse Ox O2 Del Method O2 Flow Rate 96.8 F 67 19 109/60 95 Room Air 0 02/01/24 16:00 02/01/24 16:00 02/01/24 16:00 02/01/24 16:00 02/01/24 16:00 02/01/24 16:00 02/01/24 00:00 FiO2 0 02/01/24 00:00 Narrative General: Cachectic male that appears chronically ill. Alert and oriented x3. In no acute distress. Eyes: Pupils are equal and reactive to light bilaterally. HEENT: Atraumatic, normocephalic. No JVD noted. Cardiovascular: Normal S1 and S2. Normal rate and regular rhythm. No murmurs appreciated. No peripheral pitting edema noted. No JVD noted. Respiratory: No respiratory distress. Lungs are clear to auscultation bilaterally. No wheezing or crackles heard. Abdomen: Soft, nontender, nondistended. Skin: No rash. Warm to touch. Musculoskeletal: No gross injuries. Able to move all 4 extremities. Neuro: Alert and oriented x3. Sensation is intact throughout. Strength is 5/5 and symmetric. No focal neuro deficits. Psych: Normal affect and mood. Discharge Plan Plan Patient Disposition: HOME (Self Care) Disposition Comment: Returning to baseline Patient condition on transfer: Stable Care Plan Goals: -Follow-up with PCP within 1 week of discharge. If you do not have appointment, please [facility] with [facility] Mtz. Call [phone] to make an appointment. Please schedule for February [id number] -Follow up with Dr. Benavides within 1 week of discharge [phone] -Follow up with Dr. Yudelka Saleh [phone], cardiology, within 1 week of discharge -Intake amiodarone 200 Mg p.o. twice daily, aspirin 81 Mg p.o. daily, Eliquis 2.5 Mg p.o. twice daily, supplementations. -If there are any bleeding manifestations, stop Eliquis, aspirin and immediately return to the ED. -Fluid restriction to 1.8 L as recommended by Dr. Benavides -Return to ED if symptoms persist or return Prescriptions/Referrals Prescriptions/Med Rec: New aspirin 81 mg tablet,delayed release (/EC) 81 mg PO QDAY 30 Days Qty: 30 0RF amiodarone 200 mg tablet 200 mg PO BID 30 Days Qty: 60 0RF iron ag,[id number] 150 mg iron- 60 mg-1 mg tablet 1 tab PO QDAY 30 Days Qty: 30 0RF Eliquis 2.5 mg tablet 2.5 mg PO BID 30 Days Qty: 60 0RF Referrals: No Primary/Family,Physician [Primary Care Provider] - Ely Benavides MD [Physician] - Gumaro Chan MD [Resident] - Patient/Caregiver Discharge Instructions Discharge Activity: activity as tolerated and resume usual activities Other Discharge Activity Instructions:: follow up with your primary physician in 1 week Education Materials: Chest and Lung Problems, Kidney Failure Tx Options, Preventing Common Respiratory ... Print Language: Ghanaian Activity Restrictions/Additional Instructions: f/u with Dr. Benavides in 1-2 weeks [phone]- call for appt Stand Alone Forms: Gi Award Info., Patient Portal Info Letter Discharge Order Discharge Orders: Discharge (Routine); Ordered 02/01/24 Ordered By: David Mtz Quality Discharge Quality Measures none
== END 2024-02-01 16:27 | disposition home or self-care (01) | DRG 139 ==
LOC: SERX 17:50 → S2NX 01-18 06:46 → S2SX 01-18 11:25 → S2NX 01-26 13:03 → S2SX 01-26 13:04 → SERHOLD 01-26 13:04 → S2NX 01-26 13:04 → S3NX 01-27 04:08 → S2NX 01-28 17:55
PROVIDERS: Internal Medicine Cardiovascular Disease; Nurse Practitioner Primary Care; Student in an Organized Health Care Education/Training Program; Admitting Provider Student in an Organized Health Care Education/Training Program; Emergency Provider Emergency Medicine; Visit Provider Student in an Organized Health Care Education/Training Program
DX: J18.9 Pneumonia, unspecified organism (principal); R68.0 Hypothermia, not associated with low environmental temperature; F17.210 Nicotine dependence, cigarettes, uncomplicated; J96.01 Acute respiratory failure with hypoxia; I48.91 Unspecified atrial fibrillation; N39.0 Urinary tract infection, site not specified; I21.4 Non-ST elevation (NSTEMI) myocardial infarction; F15.90 Other stimulant use, unspecified, uncomplicated; I42.0 Dilated cardiomyopathy; N17.0 Acute kidney failure with tubular necrosis; I50.23 Acute on chronic systolic (congestive) heart failure; R57.0 Cardiogenic shock; D64.9 Anemia, unspecified; I42.7 Cardiomyopathy due to drug and external agent; Z66 Do not resuscitate; N18.9 Chronic kidney disease, unspecified; K72.00 Acute and subacute hepatic failure without coma
CPT/HCPCS: 36415; 36600; 71045; 71046; 76770; 80048; 80053; 80061; 80069; 80307; 81001; 82140; 82803; 83036; 83605; 83735; 83880; 84100; 84132; 84145; 84443; 84484; 85025; 85384; 85610; 85730; 86022; 87040; 87086; 87205; 87400; 87811; 93005; 93225; 93306; 94640; 94660; 94664; 94762; 96365; 96372; 96375; 97162; 99291; J0283; J0612; J0696; J1120; J1250; J1643; J1644; J1815; J1940; J2598; J3475; J3480; J3490; J7050; J7060; A9270